=== PATIENT | female | born 1955 | race Caucasian/White ===

== ENCOUNTER 2020-11-27 13:51 | Observation (INO) | payer OTHER ==
--- OUTSIDE RECORDS SUMMARY | 2020-11-27 13:54 | XMS REPORT | Continuity of Care Document ---
:1955 Author Organization [facility] t Address [address] [place] [place] [address] Care Team Providers Name Role Phone Unavailable Unavailable Unavailable Problems This patient has no known problems. Allergies, Adverse Reactions, Alerts This patient has no known allergies or adverse reactions. Medications This patient has no known medications. Procedures This patient has no known procedures. Encounters Start End Encounter Admission Attending Care Care Encounter Source Date/Time Date/Time Type Type Clinicians Facility Department ID 2020-11-22 2020-11-[address] [facility] [id number] 00:00[facility]00 00[facility]00[facility]00 [facility] 2020-10-23 2020-10-[address] [facility] [id number] [facility] 00[facility]00 [facility] 2020-10-19 2020-10-[address] [facility] [id number] [facility] 2020-10-12 2020-10-[address] [facility] [id number] [facility] 2020-10-12 2020-10-12 Outpatient [facility] [id number] [facility] [facility] 00[facility]00 [facility] 2020-10-05 2020-10-05 [facility] [id number] [facility] 2020-09-27 2020-09-27 [facility] [id number] [facility] 2020-09-25 2020-09-25 [facility] [id number] [facility] 2020-09-21 2020-09-21 [facility] [id number] [facility] 2020-09-15 2020-09-15 [facility] [id number] [facility] 2020-08-22 2020-08-22 [facility] [id number] [facility] 2020-08-22 2020-08-22 [facility] [id number] [facility] 2020-08-22 2020-08-22 [facility] [id number] [facility] 2020-08-15 2020-08-15 [facility] [id number] [facility] 2020-07-18 2020-07-18 [facility] [id number] [facility] 2020-07-04 2020-07-04 [facility] [id number] [facility] 2020-06-22 2020-06-22 [facility] [id number] [facility] 2020-06-16 2020-06-16 [facility] [id number] [facility] 2020-05-24 2020-05-24 [facility] [id number] [facility] 2020-05-16 2020-05-16 [facility] [id number] [facility] 2020-05-10 2020-05-10 [facility] [id number] [facility] 2020-05-08 2020-05-08 [facility] [id number] [facility] 2020-04-21 2020-04-21 [facility] [id number] [facility] 2020-04-18 2020-04-18 [facility] [id number] [facility] 2020-04-17 2020-04-17 [facility] [id number] [facility] 2020-03-28 2020-03-28 [facility] [id number] [facility] Results This patient has no known results.
--- NOTE | 2020-11-27 16:00 | P.HP ---
Certification for Inpatient Patient admitted to: Observation With expected LOS: <2 Midnights Practitioner: I am a practitioner with admitting privileges, knowledge of patient current condition, hospital course, and medical plan of care. Services: Services provided to patient in accordance with Admission requirements found in Title 42 Section 412.3 of the Code of Federal Regulations Patient History Date of Service: 11/27/20 Reason for admission: Chest pain and shortness of breath History of Present Illness: 65-year-old woman with a history of anxiety disorder and gastric bypass surgeon was referred from [place] [facility] to be directly admitted further evaluation for acute pulmonary embolism. Patient presented with left anterior chest pain, which started after Father's day barbecue. Patient reports left-sided pleuritic chest, worse with talking and breathing. Her pain is reproducible by palpation. Workup at [place] emergency department showed elevated D-dimer. Chest x-ray unremarkable, CT abdomen unremarkable. Dr. Yarbrough called for patient to be directed here for further evaluation for acute pulmonary embolism. Patient denied any cough, fever or chills. CTA thorax could not be performed due to contrast allergy. Patient report itching and rashes from previous contrast use. No anaphylaxis. Patient is hospitalized for further management. - Past Medical/Surgical History -: Anxiety disorder -: Gastric bypass surgery -: Cholecystectomy -: Hysterectomy -: Back surgery -: Hip surgery - Family History Sister -: Cancer Father -: Cancer - Social History Smoking Status: Current every day smoker Alcohol use: No CD- Drugs: No Place of Residence: Home Review of Systems Other: Except as documented, all other systems reviewed and negative. Physical Examination - Vital Signs Temperature: 97.5 F Blood Pressure: 115/55 Pulse: 64 Respirations: 18 Pulse Ox (%): 98 - Physical Exam General: Alert, In no apparent distress, Oriented x3 HEENT: Atraumatic, PERRLA, Mucous membr. moist/pink, EOMI, Sclerae nonicteric Neck: Supple, JVD not distended, No Thyromegaly Respiratory: Clear to auscultation bilaterally, Normal air movement, Other (No crackles) Cardiovascular: No edema, Regular rate/rhythm, Normal S1 S2 Capillary refill: <2 Seconds Gastrointestinal: Normal bowel sounds, Soft and benign, Non-distended, Tenderness (Epigastric tenderness) Musculoskeletal: No swelling, Tenderness (Tenderness elicited-left anterior lower ribs.) Integumentary: No rashes, No breakdown, No erythema Neurological: Normal speech, Normal strength at 5/5 x4 extr, Cranial nerves 3-12 intact Lymphatics: No axilla or inguinal lymphadenopathy Assessment and Plan - Problems (Diagnosis) (1) Elevated d-dimer Current Visit: Yes Status: Acute (2) Pleuritic chest pain Current Visit: Yes Status: Acute (3) Epigastric pain Current Visit: Yes Status: Acute (4) History of gastric bypass Current Visit: Yes Status: Acute (5) Anxiety disorder Current Visit: Yes Status: Acute - Plan Place under observation. Pain managed as needed. Start full-dose Lovenox for possible acute PE. Will also start IV Protonix for possible gastric ulcers given history of gastric bypass surgery. Premedicate patient with IV Solu-Medrol and IV Benadryl and obtain CTA thorax to assess for pulmonary embolus. Continue home medications for anxiety disorder. Monitor BMP and CBC. - Advance Directives Does patient have a Living Will: No Does patient have a Durable POA for Healthcare: No
[2020-11-27 17:26] VITALS: BMI 24.7
[2020-11-27] MEDS ORDERED: ACETAMINOPHEN 500 MG TAB PO PRN (19:10)
[2020-11-27] MEDS ORDERED: SODIUM CHLORIDE 0.9% 10ML INJ IV PRN (19:10)
[2020-11-27] MEDS: NA CHLORIDE 0.9% 1,000 ML IV SCH (19:10)
[2020-11-27 19:57] LABS: Protime INR 0.96
[2020-11-27 20:03] LABS: Absolute Lymphocytes (CBC) 2.1 K/uL (0.7-4.9); Basophils % 0.7 % (0-1.3); Hematocrit 31.3 % (36.0-45.0); Lymphocytes % 33.4 % (15.3-44.8); MPV 7.5 fL (7.6-11.3); RBC Red Blood Cell Count 3.86 M/uL (3.86-4.86)
[2020-11-27 20:07] LABS: ALT/SGPT 22 U/L (12-78); AST/SGOT 23 U/L (15-37); Albumin 2.6 g/dL (3.4-5.0); Alkaline Phosphatase 98 U/L (45-117); BUN Blood Urea Nitrogen 7 mg/dL (7-18); Bicarbonate 30 mmol/L (21-32); Bilirubin Total 0.2 mg/dL (0.2-1.0); Glucose Level 89 mg/dL (74-106); Potassium 3.9 mmol/L (3.5-5.1); Protein, Total 6.4 g/dL (6.4-8.2); Sodium Level 143 mmol/L (136-145)
[2020-11-27] MEDS: PANTOPRAZOLE 40 MG INJ IVP SCH (20:34)
[2020-11-27] MEDS: ALPRAZOLAM 0.25 MG TABLET PO SCH (20:35)
[2020-11-27] MEDS: MORPHINE 2 MG/ML SYR IV PRN (21:18)
[2020-11-27 23:29] VITALS: O2SAT 96
[2020-11-28] MEDS: MORPHINE 2 MG/ML SYR IV PRN ×3 (03:27→16:42)
[2020-11-28] MEDS ORDERED: METHYLPREDNISOLONE 40 MG INJ IV ONE ×2 (03:46→08:00)
[2020-11-28 04:45] LABS: Absolute Lymphocytes (CBC) 1.3 K/uL (0.7-4.9); Basophils % 0.9 % (0-1.3); Hematocrit 29.7 % (36.0-45.0); Lymphocytes % 21.2 % (15.3-44.8); MPV 7.6 fL (7.6-11.3); RBC Red Blood Cell Count 3.66 M/uL (3.86-4.86)
[2020-11-28 04:55] LABS: BUN Blood Urea Nitrogen 9 mg/dL (7-18); Bicarbonate 29 mmol/L (21-32); Glucose Level 89 mg/dL (74-106); HDL Cholesterol 50 mg/dL (40-60); LDL Cholesterol, Calculated 63 (<130); Magnesium 2.1 mg/dL (1.8-2.4); Phosphorus 4.1 mg/dL (2.5-4.9); Potassium 4.2 mmol/L (3.5-5.1); Sodium Level 140 mmol/L (136-145)
[2020-11-28] MEDS: NA CHLORIDE 0.9% 1,000 ML IV SCH ×2 (05:26→15:21)
[2020-11-28 06:17] LABS: Urine Appearance CLEAR (Clear); Urine Bilirubin NEGATIVE (Negative); Urine Blood 2+ (Negative); Urine Color YELLOW (Yellow); Urine Glucose NEGATIVE (Negative); Urine Microscopic Reflex ORDER UMIC; Urine Protein NEGATIVE (Negative); Urine Specific Gravity <=1.005 (1.005-1.030)
[2020-11-28 06:27] LABS: Urine Bacteria NONE SEEN /HPF (<20); Urine RBC 20-50 /HPF (NONE SEEN)
[2020-11-28] MEDS ORDERED: ENOXAPARIN 40 MG/0.4 ML SQ SCH (09:00)
[2020-11-28] MEDS: DIPHENHYDRAMINE 50 MG/ML VIAL IV ONE ×2 (09:17→09:21)
[2020-11-28] MEDS: PANTOPRAZOLE 40 MG INJ IVP SCH (09:25)
--- NOTE | 2020-11-28 10:37 | RAD REPORT ---
EXAM DESCRIPTION: CT - Chest For Pe Angio - 11/28/2020 9:53 am CLINICAL HISTORY: Chest pain COMPARISON: None. TECHNIQUE: Dynamically enhanced axial 3 mm thick images of the chest were obtained during administra tion of <100> mL Isovue 370 IV contrast. Coronal and oblique reconstruction images were generated and reviewed. Exam utilizes a protocol for optimal evaluation of pulmonary arterial tree. Maximum intensity projections 3D imaging was utilized All CT scans are performed using dose optimization technique as appropriate and may include automated exposure control or mA/KV adjustment according to patient size. FINDINGS: A pulmonary embolus is not seen. A thoracic aortic aneurysm is not noted. A pleural effusion is not seen. A pericardial effusion is not seen. Mild bibasilar atelectasis Fullness within the region pancreatic IMPRESSION: Negative for a pulmonary embolism. Fullness within the region of pancreatic head may represent a combination of unopacified normal struc tures rather than a mass. It is recommended that the patient have an ultrasound for further evaluatio n
--- NOTE | 2020-11-28 11:08 | P.PN ---
Subjective Date of Service: 11/28/20 Chief Complaint: Chest pain and shortness of breath Subjective: No new changes (no significant changes. reports lower chest discomfort - points to epigastrium. no SOB. pain worsens when eating/drinking anything.) Review of Systems 10-point ROS is otherwise unremarkable Physical Examination - Vital Signs Temperature: 98.5 F Blood Pressure: 116/60 Pulse: 69 Respirations: 94 Pulse Ox (%): 94 - Studies Laboratory Data (last 24 hrs) 11/28/20 10:23: Troponin I < 0.02 11/28/20 04:20: Sodium 140, Potassium 4.2, BUN 9, Creatinine 0.45 L, Glucose 89, Phosphorus 4.1, Magnesium 2.1, Triglycerides 61, Cholesterol 125, HDL Cholesterol 50, Cholesterol/HDL Ratio 2.50 11/28/20 04:20: WBC 6.20, Hgb 9.6 L, Hct 29.7 L, Plt Count 254 11/27/20 19:33: Sodium 143, Potassium 3.9, BUN 7, Creatinine 0.51 L, Glucose 89, Total Bilirubin 0.2, AST 23, ALT 22, Alkaline Phosphatase 98 11/27/20 19:33: PT 11.0, INR 0.96 11/27/20 19:33: WBC 6.30, Hgb 10.3 L, Hct 31.3 L, Plt Count 289 Assessment & Plan Physician Review Additional Text: Physical Exam General: Alert, Oriented x3, NAD HEENT: normal conjunctiva, sclera anicteric, MMM Respiratory: Clear to auscultation bilaterally, Normal air movement, nonlabored respirations on RA Cardiovascular: No edema, Regular rate/rhythm, Normal S1 S2 Gastrointestinal: soft, +epigastric tenderness (moderate) Musculoskeletal: No joint swelling Integumentary: No rashes, No lesions Neurological: Normal speech, noraml affect, moves all extremities Problem List elevated d-dimer Chest pain Epigastric pain h/o gastric bypass ~25yrs ago Anxiety h/o varicose veins -pain management as needed -pt with moderate epigastric tenderness on exam -CTA negative for PE, some possible abnormality at pancreas head, radiology recommended further eval with U/S -no lipase obtained outside ER, will obtain lipase -check b/l U/S for DVT as well. Patient reports h/o varicose veins, has undergone procedures for them ~4 weeks ago and prior to that as well -does have some L calf tenderness on exam, but states this has been tender for some time -epigastric pain may be pancreatitis vs gastric ulcer Dispo: needs further eval, possible dc later today vs tomorrow Time Spent Managing Pts Care (In Minutes): 40
[2020-11-28] MEDS: ALPRAZOLAM 0.25 MG TABLET PO SCH (15:20)
--- NOTE | 2020-11-28 15:34 | P.DS ---
Admission Date: 11/27/20 Discharge Date: 11/28/20 Disposition: ROUTINE DISCHARGE Discharge Condition: GOOD Reason for Admission: Chest pain and shortness of breath Procedures: CTA Chest (11/28): FINDINGS: A pulmonary embolus is not seen. A thoracic aortic aneurysm is not noted. A pleural effusion is not seen. A pericardial effusion is not seen. Mild bibasilar atelectasis Fullness within the region pancreatic IMPRESSION: Negative for a pulmonary embolism. Fullness within the region of pancreatic head may represent a combination of unopacified normal structures rather than a mass. It is recommended that the patient have an ultrasound for further evaluation U/S Abd (11/28): FINDINGS: Gallbladder is absent. No mass or abnormal fluid collection in the gallbladder fossa. Common bile duct is 11 mm, upper normal for post cholecystectomy patient, with no common duct stone identified. Partially imaged liver shows no focal parenchymal abnormality. Doppler evaluation shows no portal vein abnormality. Pancreatic head mass is not identifiable on this study. There is some limitation in pancreatic assessment due to bowel. IMPRESSION: No pancreatic head mass is identifiable on this study. Exam is limited somewhat due to bowel. Cholecystectomy with biliary tree upper normal at 11 mm. No duct stone identified. Partially imaged liver is unremarkable. U/S b/l venous (11/28): FINDINGS: Normal compressibility, flow augmentation, phasic flow and spontaneous flow are identified in the left and right lower extremity common femoral, superficial femoral, popliteal and posterior tibial veins. No intraluminal filling defects seen. IMPRESSION: No DVT in either lower extremity. Problem List elevated d-dimer Epigastric pain h/o gastric bypass ~25yrs ago Anxiety h/o varicose veins Brief History of Present Illness: 65-year-old woman with a history of anxiety disorder and gastric bypass surgeon was referred from [place] emergency [facility] to be directly admitted further evaluation for acute pulmonary embolism. Patient presented with left anterior chest pain, which started after Father's day barbecue. Patient reports left-sided pleuritic chest, worse with talking and breathing. Her pain is reproducible by palpation. Workup at [place] emergency department showed elevated D-dimer. Chest x-ray unremarkable, CT abdomen unremarkable. Dr. Yarbrough called for patient to be directed here for further evaluation for acute pulmonary embolism. Patient denied any cough, fever or chills. CTA thorax could not be performed due to contrast allergy. Patient report itching and rashes from previous contrast use. No anaphylaxis. Patient is hospitalized for further management. Hospital Course: Patient was premedicated and underwent CTA chest which was negative for PE. It did reveal a questionable area near the pancreatic head. This was further evaluated by ultrasound and did not reveal any mass or abnormal finding. Medical records were obtained from [facility] and a CT Abd/pelvis was done which was read as unremarkable pancreas. No other acute findings. Her chest pain was evaluated by EKG and troponin which were normal. She had moderate epigastric tenderness on exam that worsened with PO intake. She was treated with IV protonix with some improvement. Despite counselling, she continued to drink soda during her hospitalization. Her epigastric pain is likely secondary to gastritis vs gastric ulcer. She was advised on minimizing acidic foods/drinks, prescribed pantoprazole BID, and recommended to follow up with GI. She is to follow up with her PCP in the next 3-5 days as well. Her d-dimer was noted to be significantly elevated, and had a negative CT chest and b/l venous ultrasound. She does have a history of varicose veins and underwent procedures ~3-4 weeks ago, which may somewhat explain the elevated d- dimer. Vital Signs/Physical Exam: Temp Pulse Resp BP Pulse Ox 97.8 F 53 15 137/63 95 11/28/20 12:00 11/28/20 12:00 11/28/20 12:00 11/28/20 12:00 11/28/20 12:00 Laboratory Data at Discharge: WBC 6.20 K/uL (4.3-10.9) 11/28/20 04:20 Hgb 9.6 g/dL (12.0-15.0) L 11/28/20 04:20 Hct 29.7 % (36.0-45.0) L 11/28/20 04:20 Plt Count 254 K/uL (152-406) 11/28/20 04:20 PT 11.0 SECONDS (9.5-12.5) 11/27/20 19:33 INR 0.96 11/27/20 19:33 Sodium 140 mmol/L (136-145) 11/28/20 04:20 Potassium 4.2 mmol/L (3.5-5.1) 11/28/20 04:20 BUN 9 mg/dL (7-18) 11/28/20 04:20 Creatinine 0.45 mg/dL (0.55-1.3) L 11/28/20 04:20 Glucose 89 mg/dL (74-106) 11/28/20 04:20 Phosphorus 4.1 mg/dL (2.5-4.9) 11/28/20 04:20 Magnesium 2.1 mg/dL (1.8-2.4) 11/28/20 04:20 Total Bilirubin 0.2 mg/dL (0.2-1.0) 11/27/20 19:33 AST 23 U/L (15-37) 11/27/20 19:33 ALT 22 U/L (12-78) 11/27/20 19:33 Alkaline Phosphatase 98 U/L (45-117) 11/27/20 19:33 Troponin I < 0.02 ng/mL (0.0-0.045) 11/28/20 10:23 Triglycerides 61 mg/dL (<150) 11/28/20 04:20 Cholesterol 125 mg/dL (<200) 11/28/20 04:20 HDL Cholesterol 50 mg/dL (40-60) 11/28/20 04:20 Cholesterol/HDL Ratio 2.50 11/28/20 04:20 Lipase 37 U/L (73-393) L 11/28/20 10:23 Home Medications: Alprazolam [Xanax] 0.25 mg PO BID 11/27/20 Cetirizine HCl [Zyrtec*] 5 mg PO DAILY 11/27/20 Citalopram [Celexa*] 40 mg PO DAILY 11/27/20 Gabapentin [Neurontin*] 600 mg PO TID* 11/27/20 L. Acidophilus/Dig Enz Cmb 5 [Probiotic-Digestive Enzymes] 1 each PO DAILY 11/27/20 Mirtazapine [Remeron*] 30 mg PO BEDTIME 11/27/20 Multivit-Min/FA/Lycopen/Lutein [Adults 50 Plus Daily Formula] 1 each PO DAILY 11/27/20 Mv-Mn/Iron/Folic Acid/Herb 190 [Vitamin D3 Complete Caplet] 1 each PO DAILY 11/27/20 Vit B6/L. Mefolate/Me-B12/Ala [Nufola Capsule] 1 each PO BID* 11/27/20 Pantoprazole [Protonix Tab*] 40 mg PO BID 30 Days #60 tab 11/28/20 Sucralfate [Carafate] 10 ml PO AC 30 Days #900 ml 11/28/20 New Medications: Sucralfate [Carafate] 10 ml PO AC 30 Days #900 ml Pantoprazole [Protonix Tab*] 40 mg PO BID 30 Days #60 tab Physician Discharge Instructions: PROBLEM: Chest Pain, dyspnea GOAL: Clear understanding of disease process INSTRUCTIONS: Diet: Regular Activity: as tolerated If you have any questions regarding your stay call [phone] If your symptoms worsen call 911 or go to the ED. Your chest pain was evaluated by CT scan, EKG, troponin - all within normal limits. Your pain may be due to gastritis or gastric ulcer. Recommend pantoprazole twice a day, carafate before meals, stop ibuprofen, and stop drinking your soda. Recommend following up with your PCP in 3-5 days, and follow-up with a GI doctor (Dr. Pino, as you mentioned) in the next few weeks. You may benefit from an EGD (scope) to look at your stomach. You were found to have an elevated D-dimer, and workup did not show a blood clot in your lungs or legs. This may have been elevated from your recent procedures involving your varicose veins. Followup: Delmar Pino MD [ASSOCIATE-ACTIVE - CAN ADMIT] - Time spent managing pt's care (in minutes): 50
--- NOTE | 2020-11-28 15:35 | RAD REPORT ---
EXAM DESCRIPTION: US - Abdomen Exam Limited - 11/28/2020 2:33 pm CLINICAL HISTORY: eval pancreas head / ?mass, RUQ as well COMPARISON: Chest For Pe Angio dated 11/28/2020 FINDINGS: Gallbladder is absent. No mass or abnormal fluid collection in the gallbladder fossa. Comm on bile duct is 11 mm, upper normal for post cholecystectomy patient, with no common duct stone ident ified. Partially imaged liver shows no focal parenchymal abnormality. Doppler evaluation shows no portal vei n abnormality. Pancreatic head mass is not identifiable on this study. There is some limitation in pancreatic assess ment due to bowel. IMPRESSION: No pancreatic head mass is identifiable on this study. Exam is limited somewhat due to b owel. Cholecystectomy with biliary tree upper normal at 11 mm. No duct stone identified. Partially imaged l iver is unremarkable. The original CT angio chest examination has only a limited ability to accurately evaluate pancreas an d solid abdominal viscera of the upper abdomen. If there are ongoing clinical concerns or abnormal la boratory studies, contrast-enhanced MRI or CT pancreatic protocol imaging of the abdomen could be per formed.
--- NOTE | 2020-11-28 16:09 | RAD REPORT ---
EXAM DESCRIPTION: US - Extrem Venous W Compress Jorge - 11/28/2020 3:27 pm CLINICAL HISTORY: eval for DVT, h/o varicose veins. L calf tender COMPARISON: None. TECHNIQUE: Real-time sonographic evaluation of the bilateral lower extremity common femoral, superfi cial femoral, popliteal and posterior tibial veins was performed. FINDINGS: Normal compressibility, flow augmentation, phasic flow and spontaneous flow are identified in the left and right lower extremity common femoral, superficial femoral, popliteal and posterior t ibial veins. No intraluminal filling defects seen. IMPRESSION: No DVT in either lower extremity.
[2020-11-28 16:25] VITALS: BP 122/56; TEMP 98
[2020-11-28] MEDS ORDERED: SUCRALFATE 1GM/10ML UCUP PO SCH (17:00)
== END 2020-11-28 18:01 | disposition home or self-care (01) ==
LOC: 2ND 13:51 → INTOOBSV 13:51
PROVIDERS: ADMIT Internal Medicine; ATTEND Hospitalist
DX: R07.81 Pleurodynia (principal); R10.13 Epigastric pain; R79.89 Other specified abnormal findings of blood chemistry; Z98.84 Bariatric surgery status; F41.9 Anxiety disorder, unspecified; R06.02 Shortness of breath; F17.200 Nicotine dependence, unspecified, uncomplicated
CPT/HCPCS: 36415; 71275; 76705; 80048; 80053; 80061; 81003; 81015; 83690; 83735; 84100; 84484; 85025; 85610; 93970; 94760; C9113; G0378; G0379; J1200; J1650; J2270; J2920; J7030; Q9967

== ENCOUNTER 2021-12-13 05:45 | Observation (INO) | payer OTHER ==
[2021-11-16 08:58] LABS: Absolute Lymphocytes (CBC) 1.7 K/uL (0.7-4.9); Hematocrit 34.7 % (36.0-45.0); Lymphocytes % 23.4 % (15.3-44.8); MCV 83.3 fL (80-100); MPV 7.6 fL (7.6-11.3); RBC Red Blood Cell Count 4.17 M/uL (3.86-4.86)
[2021-11-16 09:02] LABS: Protime INR 0.88
[2021-11-16 09:13] LABS: Potassium 4.6 mmol/L (3.5-5.1)
--- NOTE | 2021-11-16 09:35 | RAD REPORT ---
EXAM DESCRIPTION: Gaurav Marshall And Cas (2 Views)11/16/2021 8:49 am CLINICAL HISTORY: Preop for knee surgery COMPARISON: 2020 FINDINGS: The lungs appear clear of acute infiltrate. Mild chronic appearing lung opacities. The heart is mildly enlarged. Lungs are mildly hyperaerated. IMPRESSION: No acute abnormalities displayed
[2021-12-13] MEDS ORDERED: Ringers Lactate 1,000 ML IV ONE ×2 (06:10→09:17)
[2021-12-13] MEDS ORDERED: CEFAZOLIN SODIUM 1 GM/VIAL ONE (06:10)
[2021-12-13] MEDS ORDERED: FENTANYL CITR 100 MCG/2 ML ONE (06:27)
[2021-12-13] MEDS ORDERED: propofoL 200 MG/20 ML VIAL IV ONE (06:27)
[2021-12-13] MEDS ORDERED: ONDANSETRON 4 MG/2 ML VIAL ONE (06:27)
[2021-12-13] MEDS ORDERED: LIDOCAINE 2% MPF 5 ML VIAL ONE (06:27)
[2021-12-13] MEDS ORDERED: KETAMINE HCL 500 MG/5 ML VIAL ONE (06:27)
[2021-12-13] MEDS ORDERED: MIDAZOLAM HCL 2 MG/2 ML INJ ONE (06:27)
[2021-12-13] MEDS ORDERED: ACETAMINOPHEN 500 MG TAB ONE (06:38)
[2021-12-13] MEDS ORDERED: CELECOXIB 100 MG CAPSULE ONE (06:38)
[2021-12-13] MEDS ORDERED: HYDROMORPHONE HCL 1 MG/ML INJ ONE (06:56)
[2021-12-13] MEDS ORDERED: LIDOCAINE 1% MPF 5 ML VIAL ONE ×2 (06:56→11:52)
[2021-12-13] MEDS ORDERED: BUPIVACAINE 0.25% PF 10 ML VIAL ONE (06:56)
[2021-12-13] MEDS ORDERED: dexAMETHasone 4 MG/ML VIAL ONE (06:56)
[2021-12-13] MEDS ORDERED: BUPIVACAINE 0.5% Inj,MDV 50 mL VIAL ONE ×2 (06:57→11:52)
[2021-12-13] MEDS ORDERED: BUPIVACA 0.5%/EPI 0.0005%/PF 30 ML VIAL ONE (07:20)
[2021-12-13] MEDS ORDERED: TRANEXAMIC ACID 1,000 MG/10 ML VIAL IV ONE (07:20)
[2021-12-13] MEDS ORDERED: EPHEDRINE SULF 50 MG/ML VIAL ONE (08:26)
[2021-12-13] MEDS ORDERED: ALPRAZOLAM 0.25 MG TABLET PO PRN (10:36)
--- NOTE | 2021-12-13 10:36 | P.BOP ---
Preoperative diagnosis: left knee osteoarthritis Postoperative diagnosis: same Primary procedure: left total knee arthroplasty Seo Expert: NONE,NONE Estimated blood loss: 20 cc Specimen: left knee bone remnants Findings: see dictation Anesthesia: General Complications: None Implants: [employer] Tommy Persona 8 CR femur, F tibia, 29 patella, 11 CR poly Fluids & blood products: per anesthesia record; TT: 64 mins @ 300 mmHg Transferred to: Recovery Room Condition: Good
[2021-12-13] MEDS ORDERED: ONDANSETRON 4 MG/2 ML VIAL IV PRN (10:37)
[2021-12-13] MEDS ORDERED: ACETAMINOPHEN 325 MG TABLET PO PRN (10:37)
[2021-12-13] MEDS ORDERED: DOCUSATE NA 100 MG CAP PO PRN (10:37)
[2021-12-13] MEDS ORDERED: TRAMADOL HCL 50 MG TAB PO PRN (10:42)
[2021-12-13] MEDS: HYDROMORPHONE HCL 1 MG/ML INJ ONE ×6 (10:57→11:48)
[2021-12-13] MEDS: FENTANYL CITR 100 MCG/2 ML ONE ×2 (11:32→11:37)
[2021-12-13 11:44] LABS: Hematocrit 33.4 % (36.0-45.0)
--- NOTE | 2021-12-13 12:01 | RAD REPORT ---
EXAM DESCRIPTION: RAD - Knee Left 2 View - 12/13/2021 11:03 am CLINICAL HISTORY: Post Op COMPARISON: Knee Left 3 View dated 03/21/2021 FINDINGS: Left total knee prosthesis has been placed. No suspicious bone or implant finding. Fluid a nd air in the joint space are normal. Skin miles are seen anteriorly. Air tracking superiorly along the anterior margin of the femur also can occur normally with this procedure. IMPRESSION: Postoperative left total knee prosthesis imaging showing no suspicious or unexpected fin ding.
[2021-12-13 12:02] VITALS: O2SAT 97
[2021-12-13] MEDS ORDERED: MORPHINE 2 MG/ML SYR IV PRN (13:44)
[2021-12-13 14:10] VITALS: BMI 22.3
[2021-12-13] MEDS: CEFAZOLIN 1 GM in NA CHLORIDE 0.9% 50 ML IVPB SCH (16:35)
[2021-12-13] MEDS: HYDROCODONE/APAP 7.5/325 MG TAB PO PRN (16:40)
[2021-12-13] MEDS ORDERED: NA CHLORIDE 0.9% 250 ML IV PRN (19:57)
[2021-12-13] MEDS ORDERED: HOME MED 1 EA UNK (Tizanidine Hcl [Zanaflex] 2 MG Capsule) PO SCH (21:00)
[2021-12-13] MEDS ORDERED: MIRTAZAPINE 15 MG TAB PO SCH (21:00)
[2021-12-13] MEDS ORDERED: MIRTAZAPINE 30 MG PO SCH (21:00)
[2021-12-13] MEDS: TIZANIDINE 4 MG TABLET PO SCH (21:13)
--- NOTE | 2021-12-13 22:29 | P.OP ---
Preoperative diagnosis: left knee osteoarthritis Postoperative diagnosis: same Primary procedure: left total knee arthroplasty Anesthesia: general Estimated blood loss: 20 cc Specimen: left knee bone remnants Findings: see dictation Operative Technique: Indication For Procedure: Jacqueline is a 66 year-old male presenting to my clinic with signs, symptoms and x-ray findings consistent with left knee osteoarthritis. I discussed with the patient at length risks and benefits associated with operative and nonoperative treatment. She had failed conservative treatment measures including corticosteroid injections, viscosupplementation injections and had significant difficulties with ADLs secondary to her pain. We discussed operative treatment and elected to proceed with left total knee arthroplasty. She expressed understanding and elected to proceed with operative treatment. Description Of Procedure: After informed consent was obtained, the patient was identified in the preoperative holding area. The left lower extremity was marked. The patient was then taken to the PACU where she underwent a left lower extremity adductor canal block performed by Anesthesia. She was then taken to the operating room, transferred to the operating table in supine fashion, and placed under general anesthesia. Her left lower extremity was then prepped and draped in usual sterile fashion. A time-out was initiated. The correct patient and procedure were confirmed and identified. The patient did receive her preoperative prophylactic antibiotics. The leftt lower extremity was then exsanguinated and tourniquet was inflated to 300 mmHg. Approximately 15 cm longitudinal incision was made centered over the anterior aspect of the right knee. Dissection was then taken to the extensor mechanism and a medial parapatellar arthrotomy was performed. The patella was everted and dislocated laterally with some difficulty and the knee was flexed and the fat pad was excised. Medial meniscus, lateral meniscus and ACL were all excised exposing the distal femur. Excess hypertrophic synovium was also excised within the suprapatellar pouch. The patient had an MRI of her left knee preoperatively for surgical planning and creation of cutting blocks. The cutting block was then placed over the distal femur and pins were then placed. The distal femoral cutting block was then placed over the pins. Knee joint was then used to ensure proper depth cut and the distal femur was then cut. The chamfer cutting guide was then placed over the distal end of the femur. Anterior, posterior cuts as well as anterior and posterior chamfer cuts were then made again confirming proper depth of the cut using an Jitendra wing. Excess bone remnants were then sent to pathology for further evaluation. Next, attention was taken to the proximal tibia. A tibial jig and tibial cutting block was then placed on proximal aspect of the tibia and locked into position. Pins were then placed and alignment guide was then used to confirm proper alignment of the cut and then coronal and sagittal planes. Once this was confirmed, the cutting jig was placed over the pins and the proximal tibia was cut. Sizing trays were then selected and size 10 mm spacer was used. After this was completed there was good overall balance in flexion and extension with the 10 mm spacer. There was just a little bit of laxity noted and a 11 mm poly was selected. Next, the trial implants were then placed using the size 8 standard CR femur and a size F tibia with an 11 mm poly. There was overall good range of motion and good stability trial implants were then removed. The wound was then irrigated thoroughly with normal saline and the knee was then injected with 30 cc of 0.5% Marcaine both in the posterior capsule and medial and lateral gutters as well as quadriceps tendon and periosteum. The tibia was then punched and marked after the patella button was placed. The femur was drilled. The cement was then prepared on the back table. Cement was then placed first on the tibial surface followed by size F tibia. Excess cement was removed with Cope elevators. Size 8 CR femur was then placed on the distal femur after cement was placed on the distal femur. Excess cement was then removed and a size 11 mm trial poly was then placed. The knee was held in extension as the cement hardened. Undersurface of the patella was prepared debriding osteophytes using rongeurs as well as osteophytes had been debrided off the proximal tibia with rongeurs. Cement was placed on the undersurface of the patella after it was cut and a size 29 patella was placed. Once the cement was hardened, the knee was ranged, there was good overall stability both in flexion, extension and as well as stability with varus and valgus stresses. Trial poly was then removed and a size 11 mm CR poly was then placed and locked into position. The knee was then ranged again. There was good overall range of motion both for flexion and extension with good stability. The wound was then irrigated again thoroughly with normal saline using pulse lavage. Tourniquet was let down. Hemostasis was achieved using Bovie electrocautery. Extensor mechanism was then approximated using a #1 Vicryl both in interrupted and running fashion. The fascia was then approximated using 0 Vicryl. Subcutaneous tissue was approximated with a 2-0 Vicryl. Skin was approximated using miles. Sterile dressings were applied. The patient was awakened and transferred back in stable condition Complications: None Implants: Biomet Tommy Persona 8 CR femur, F tibia, 11 CR poly, 29 patella Fluids & blood products: per anesthesia record; TT: 64 mins @ 300 mmHg Transferred to: Recovery Room
[2021-12-14] MEDS: CEFAZOLIN 1 GM in NA CHLORIDE 0.9% 50 ML IVPB SCH ×2 (00:22→08:41)
[2021-12-14] MEDS: HYDROCODONE/APAP 7.5/325 MG TAB PO PRN ×2 (03:03→14:05)
[2021-12-14 04:59] LABS: Hematocrit 26.1 % (36.0-45.0)
[2021-12-14] MEDS: ENOXAPARIN 30 MG/0.3 ML SQ SCH ×2 (05:39→08:42)
[2021-12-14] MEDS: TIZANIDINE 4 MG TABLET PO SCH (08:41)
[2021-12-14] MEDS ORDERED: CITALOPRAM 10 MG TABLET PO SCH (09:00)
[2021-12-14] MEDS ORDERED: VITAMIN D 5,000 UNIT CAP PO SCH (09:00)
[2021-12-14] MEDS ORDERED: HOME MED 1 EA UNK (Citalopram Hydrobromide [Celexa] 40 MG Tablet) PO SCH (09:00)
[2021-12-14] MEDS ORDERED: NA CHLORIDE 0.9% 250 ML IV ONE (10:55)
--- NOTE | 2021-12-14 11:11 | P.PN ---
Subjective Date of Service: 12/14/21 Chief Complaint: s/p L TKA; Subjective: Working w/ PT some hypotension overnight; Physical Examination - Vital Signs Temperature: 98.0 F Blood Pressure: 94/56 Pulse: 73 Respirations: 16 Pulse Ox (%): 97 - Physical Exam General: Alert, In no apparent distress Musculoskeletal: Other (LLE: dressing c/d/i; 2+ DP pulse; NVI distally) - Studies Laboratory Data (last 24 hrs) 12/14/21 04:40: Hgb 8.4 L, Hct 26.1 L D 12/13/21 11:11: Hgb 10.4 L, Hct 33.4 L Assessment And Plan - Plan Jacqueline is a 66-year-old female status post left total knee arthroplasty postoperative day #1 -Patient with acute on chronic blood loss anemia; continue to monitor H&H -Patient with some hypotension; given a 250 cc bolus yesterday and repeat bolus to be given today; Hold pain medication and anxiety medication until blood pressure normalizes -Continue working with PT -Given her hypotension we will likely plan on discharge tomorrow -lovenox for DVT prophylaxis
[2021-12-14 13:19] VITALS: BP 112/54; TEMP 98.4
== END 2021-12-14 16:50 | disposition home health service (06) ==
LOC: OR 05:45 → 2ND 10:37
PROVIDERS: ADMIT Orthopaedic Surgery Sports Medicine; ATTEND Orthopaedic Surgery Sports Medicine
PROC: 0SRC069 Replacement of Right Knee Joint with Oxidized Zirconium on Polyethylene Synthetic Substitute, Cemented, Open Approach (ICD-10-PCS; principal; 2021-12-13 08:00)
DX: M17.12 Unilateral primary osteoarthritis, left knee (principal); D62 Acute posthemorrhagic anemia; I95.9 Hypotension, unspecified; Z91.041 Radiographic dye allergy status; Z88.6 Allergy status to analgesic agent; Z20.822 Contact with and (suspected) exposure to COVID-19
CPT/HCPCS: 85025; 80048; 36415 ×3; 85610; 88305; 88311; 85730; 85018 ×2; 85014 ×2; 71046; 73560; 97110 ×2; 97112; 97116 ×2; 97139 ×2; 97161; 97530; 94010; 27447; U0002; C1776; J2704; J1100; J1650; J2250; J3010 ×2; J1170 ×4; J7120 ×2; J7050 ×2; J2405 ×2; J0690 ×4; 88304; G0378; G0379

== ENCOUNTER 2022-10-17 20:43 | Emergency (ER) | payer OTHER ==
--- OUTSIDE RECORDS SUMMARY | 2022-10-17 20:52 | XMS REPORT | Continuity of Care Document ---
:1955 Author Organization [facility] t Address [address] [place] [address] Care Team Providers Name Role Phone Leonidas Kilpatrikc Attending Clinician Unavailable ABBY PALOMARES Attending Clinician Unavailable Payers Payer Name Policy Type Policy Number Effective Date Expiration Date S nafisa [facility] [id number] [facility] ADVANTAGE [facility] 53 [id number] 2020 [facility] ADVANTAGE 00:00:00 - [facility] MEDICARE MB [id number] [facility] NOVITAS - [facility] Problems Condition Condition Condition Status Onset Resolution Last Treating Co mments Source Name Details Category Date Date Treatment Clinician Date [id number] 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 [id number] Peripheral Problem Com mon polyneurop Spirit athy - [facility] [id number] Current Problem Common moderate Spirit episode of - [facility] major [facility] prior episode [id number] Iron Problem Common deficiency Spirit anemia, - [facility] unspecifie [facility] iron [facility] type [id number] Vitamin D Problem Comm on deficiency Spirit disease - [facility] [id number] Panic Problem Common disorder [facility] [episodic - CHI paroxysmal St anxiety] [facility] Chronic Chronic Problem Common obstructiv obstructiv Sp benoit e e - [facility]I pulmonary pulmonary [facility] (COPD) [facility] [id number] Primary Problem Comm on osteoarthr Spirit itis of - [facility] right knee [facility] [id number] Tobacco Problem Commo n use Spirit disorder [facility] [id number] Primary Problem Common insomnia [facility] [id number] Generalize Problem Com mon d anxiety [facility] disorder [facility] [id number] Primary Problem Comm on osteoarthr Spirit itis of - [facility] left knee [facility] [id number] Hypocalcem Problem Comm on ia Spirit [facility] [id number] Arthritis Problem Co mmon [id number] of right [facility] knee [facility] [id number] 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 - [facility] t of right [facility] [id number] Presence Problem Comm on of Spirit unspecifie - [facility]I d [facility] hip joint [facility] [id number] PAD Problem Common (periphera Spirit l artery - CHI disease) [facility] [id number] Arthritis Problem Co mmon [id number] of left [facility] knee [facility] [id number] 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 adverse 00:00: of reaction 00 Medicin s to e drug Naproxen Propensi Active Rash [facility] to 2- [facility] [place] adverse 00:00: of reaction 00 Medicin s to e drug naproxen naproxen Active Rash Common [facility] Social History Social Habit Start Date Stop Date Quantity Comments Source History of Cigarette Smoker [facility] eloisa tobacco use of Medicine Tobacco use and 2022-08-05 2022-08-05 Smokeless tobacco Ba [facility] College exposure 00:00:00 00:00:00 non-user of Medicine Alcohol intake 2022-08-05 2022-08-05 Lifetime [facility] Col lege 00:00:00 00:00:00 non-drinker of Medicine (finding) Sex [birth year] F [facility] Co llege 00:00:00 00:00:00 of Medicine Smoking Status Start Date Stop Date Source Smokes tobacco daily 2022-08-05 00:00:00 [facility] Medications Ordered Filled Start Stop Current Ordering Indication Dosage Frequency Signature Comments Components Source Medication Medication Date Date Medication? Clinician (SIG) Name Name citalopram Yes citalopram [facility] (CELEXA) 40 - 40 mg College MG tablet 08:17: tablet of 51 Medicin e mirtazapine Yes mirtazapin [facility] (REMERON) 08-05 e 30 mg College 30 MG 08:17: tablet of tablet 51 Medicin e alprazolam Yes alprazolam [facility] (XANAX) 08-05 0.25 mg College 0.25 MG 08:17: tablet of tablet 51 Medicin e tizanidine Yes tizanidine [facility] (ZANAFLEX) 08-05 2 mg College 2 MG tablet 08:17: tablet of 51 Medicin e meloxicam Yes meloxicam [facility] (MOBIC) 7.5 08-05 7.5 mg Colleg e MG tablet 08:17: tablet of 51 Medicin e Acetaminoph Yes acetaminop [facility] en-Codeine 08-05 hen 300 Colleg e 300-60 MG 08:17: mg-codeine of TABS 51 60 mg Medicin tablet e gabapentin Yes gabapentin [facility] (NEURONTIN) 08-05 600 mg Colleg e 600 MG 08:17: tablet of tablet 51 Medicin e cyanocobala Yes cyanocobal Jareth min 1000 08-05 son (vit Colleg e MCG/ML 08:17: B-12) of injection 51 1,000 Medicin mcg/mL e injection solution Cetirizine Yes Take by [facility] or HCl (ZYRTEC 2-27 mouth. Colleg e ALLERGY OR) 08:17: of 51 Medicin e Xanax 0.25 Xanax 0.25 2021-1 No 1{table Xanax 0.25 MG MG 2-19 t} MG 00:00: 00 Xanax 0.25 Xanax 0.25 1 No 1{table Xanax 0.25 MG MG 2-19 t} MG 00:00: 00 Xanax 0.25 Xanax 0.25 1 No 1{table Xanax 0.25 MG MG 2-19 t} MG 00:00: 00 Xanax 0.25 Xanax 0.25 1 No 1{table Xanax 0.25 MG MG 2-19 t} MG 00:00: 00 Xanax 0.25 Xanax 0.25 2021-0 No 1{table Xanax 0.25 MG MG 9-28 t} MG 00:00: 00 Vitamin B12 Vitamin B12 2021-0 No 1000ug Common (Cyanocobal (Cyanocobal 9-28 S pirit son) son) 00:00: - [facility]I 00 [facility] Xanax 0.25 Xanax 0.25 2021-0 No 1{table Xanax 0.25 MG MG 9-28 t} MG 00:00: 00 Vitamin B12 Vitamin B12 2-0 No 1000ug Common (Cyanocobal (Cyanocobal 9-28 S pirit son) son) 00:00: - CHI 00 [facility] Xanax 0.25 Xanax 0.25 2021-0 No 1{table Xanax 0.25 MG MG 9-28 t} MG 00:00: 00 Vitamin B12 Vitamin B12 2-0 No 1000ug Common (Cyanocobal (Cyanocobal 9-28 S pirit son) son) 00:00: - CHI 00 [facility] Xanax 0.25 Xanax 0.25 2021-0 No 1{table Xanax 0.25 MG MG 9-28 t} MG 00:00: 00 Vitamin B12 Vitamin B12 2022-0 No 1000ug Common (Cyanocobal (Cyanocobal 9-28 S pirit son) son) 00:00: - CHI 00 [facility] Xanax 0.25 Xanax 0.25 2022-0 No 1{table Xanax 0.25 MG MG 9-28 t} MG 00:00: 00 Vitamin B12 Vitamin B12 2-0 No 1000ug Common (Cyanocobal (Cyanocobal 9-28 S pirit son) son) 00:00: - CHI 00 [facility] Vitamin B12 Vitamin B12 2022-0 No 1000ug Common (Cyanocobal (Cyanocobal 9-28 S pirit son) son) 00:00: - CHI 00 [facility] Vitamin B12 Vitamin B12 2022-0 No 1000ug Common (Cyanocobal (Cyanocobal 9-28 S pirit son) son) 00:00: - CHI 00 [facility] Vitamin B12 Vitamin B12 2-0 No 1000ug Common (Cyanocobal (Cyanocobal 9-28 S pirit son) son) 00:00: - CHI 00 [facility] Vitamin B12 Vitamin B12 2-0 No 1000ug Common (Cyanocobal (Cyanocobal 9-28 S pirit son) son) 00:00: - CHI 00 [facility] Xanax 0.25 Xanax 0.25 2022-0 No 1{table Xanax 0.25 MG MG 9-28 t} MG 00:00: 00 Vitamin B12 Vitamin B12 2-0 No 1000ug Common (Cyanocobal (Cyanocobal 9-28 S pirit son) son) 00:00: - [facility]I 00 [facility] Cyanocobala Cyanocobala 2-0 2- No Cyanocobal min 1000 min 1000 03-06- son 1000 MCG/ML MCG/ML 00:00: 00:00 MCG/ML 00 :00 Cyanocobala Cyanocobala 2022-0 2022- No Cyanocobal min 1000 min 1000 - 12-26 son 1000 MCG/ML MCG/ML 00:00: 00:00 MCG/ML 00 :00 Cyanocobala Cyanocobala 2022-0 2022- No Cyanocobal min 1000 min 1000 03-06 12- son 1000 MCG/ML MCG/ML 00:00: 00:00 MCG/ML 00 :00 Cyanocobala Cyanocobala 2022-0 2022- No Cyanocobal min 1000 min 1000 - 12-26 son 1000 MCG/ML MCG/ML 00:00: 00:00 MCG/ML 00 :00 Cyanocobala Cyanocobala 2021-0 2022- No Cyanocobal min 1000 min 1000 9-28 12-26 son 1000 MCG/ML MCG/ML 00:00: 00:00 MCG/ML 00 :00 Cyanocobala Cyanocobala 2021-0 2022- No Cyanocobal min 1000 min 1000 9- 12-26 son 1000 MCG/ML MCG/ML 00:00: 00:00 MCG/ML 00 :00 Xanax 0.25 Xanax 0.25 2021-0 No 1{table Xanax 0.25 MG MG 7-06 t} MG 00:00: 00 Xanax 0.25 Xanax 0.25 2021-0 No 1{table Xanax 0.25 MG MG 7-06 t} MG 00:00: 00 Xanax 0.25 Xanax 0.25 2021-0 No 1{table Xanax 0.25 MG MG 7-06 t} MG 00:00: 00 Xanax 0.25 Xanax 0.25 2-0 No 1{table Xanax 0.25 MG MG 7-06 t} MG 00:00: 00 Xanax 0.25 Xanax 0.25 2-0 No 1{table Xanax 0.25 MG MG 7-06 t} MG 00:00: 00 Xanax 0.25 Xanax 0.25 2-0 No 1{table Xanax 0.25 MG MG 7-06 t} MG 00:00: 00 Enoxaparin Enoxaparin 2021-0 No .3{ml} Enoxaparin Sodium 30 Sodium 30 6-28 Sodium 30 MG/0.3ML MG/0.3ML 00:00: MG/0.3ML 00 Enoxaparin Enoxaparin 2021-0 No .3{ml} Enoxaparin Sodium 30 Sodium 30 6-28 Sodium 30 MG/0.3ML MG/0.3ML 00:00: MG/0.3ML 00 Enoxaparin Enoxaparin 2021-0 No .3{ml} Enoxaparin Sodium 30 Sodium 30 6-28 Sodium 30 MG/0.3ML MG/0.3ML 00:00: MG/0.3ML 00 Enoxaparin Enoxaparin 2021-0 No .3{ml} Enoxaparin Sodium 30 Sodium 30 6-28 Sodium 30 MG/0.3ML MG/0.3ML 00:00: MG/0.3ML 00 Enoxaparin Enoxaparin 2021-0 No .3{ml} Enoxaparin Sodium 30 Sodium 30 6-28 Sodium 30 MG/0.3ML MG/0.3ML 00:00: MG/0.3ML 00 Enoxaparin Enoxaparin 2021-0 No .3{ml} Enoxaparin Sodium 30 Sodium 30 6-28 Sodium 30 MG/0.3ML MG/0.3ML 00:00: MG/0.3ML 00 Enoxaparin Enoxaparin 2021-0 No .3{ml} Enoxaparin Sodium 30 Sodium 30 6-28 Sodium 30 MG/0.3ML MG/0.3ML 00:00: MG/0.3ML 00 Enoxaparin Enoxaparin 2021-0 No .3{ml} Enoxaparin Sodium 30 Sodium 30 6-28 Sodium 30 MG/0.3ML MG/0.3ML 00:00: MG/0.3ML 00 Enoxaparin Enoxaparin 2021-0 No .3{ml} Enoxaparin Sodium 30 Sodium 30 6-28 Sodium 30 MG/0.3ML MG/0.3ML 00:00: MG/0.3ML 00 Enoxaparin Enoxaparin 2021-0 No .3{ml} Enoxaparin Sodium 30 Sodium 30 6-28 Sodium 30 MG/0.3ML MG/0.3ML 00:00: MG/0.3ML 00 Enoxaparin Enoxaparin 2-0 No .3{ml} Enoxaparin Sodium 30 Sodium 30 6-28 Sodium 30 MG/0.3ML MG/0.3ML 00:00: MG/0.3ML 00 Enoxaparin Enoxaparin 2-0 No .3{ml} Enoxaparin Sodium 30 Sodium 30 6-28 Sodium 30 MG/0.3ML MG/0.3ML 00:00: MG/0.3ML 00 Enoxaparin Enoxaparin 2021-0 No .3{ml} Enoxaparin Sodium 30 Sodium 30 6-28 Sodium 30 MG/0.3ML MG/0.3ML 00:00: MG/0.3ML 00 Enoxaparin Enoxaparin 2021-0 No .3{ml} Enoxaparin Sodium 30 Sodium 30 6-28 Sodium 30 MG/0.3ML MG/0.3ML 00:00: MG/0.3ML 00 Enoxaparin Enoxaparin 2021-0 No .3{ml} Enoxaparin Sodium 30 Sodium 30 6-28 Sodium 30 MG/0.3ML MG/0.3ML 00:00: MG/0.3ML 00 Enoxaparin Enoxaparin 2021-0 No .3{ml} Enoxaparin Sodium 30 Sodium 30 6-28 Sodium 30 MG/0.3ML MG/0.3ML 00:00: MG/0.3ML 00 Enoxaparin Enoxaparin 2021-0 No .3{ml} Enoxaparin Sodium 30 Sodium 30 6-28 Sodium 30 MG/0.3ML MG/0.3ML 00:00: MG/0.3ML 00 Enoxaparin Enoxaparin 2021-0 No .3{ml} Enoxaparin Sodium 30 Sodium 30 6-28 Sodium 30 MG/0.3ML MG/0.3ML 00:00: MG/0.3ML 00 Enoxaparin Enoxaparin 2021-0 No .3{ml} Enoxaparin Sodium 30 Sodium 30 6-28 Sodium 30 MG/0.3ML MG/0.3ML 00:00: MG/0.3ML 00 Lovenox 30 Lovenox 30 2021-0 No .3{ml} Lovenox 30 MG/0.3ML MG/0.3ML 6-23 MG/0.3ML 00:00: 00 Lovenox 30 Lovenox 30 2021-0 No .3{ml} Lovenox 30 MG/0.3ML MG/0.3ML 6-23 MG/0.3ML 00:00: 00 Lovenox 30 Lovenox 30 2021-0 No .3{ml} Lovenox 30 MG/0.3ML MG/0.3ML 6-23 MG/0.3ML 00:00: 00 Lovenox 30 Lovenox 30 2022-0 No .3{ml} Lovenox 30 MG/0.3ML MG/0.3ML 6-23 MG/0.3ML 00:00: 00 Lovenox 30 Lovenox 30 2022-0 No .3{ml} Lovenox 30 MG/0.3ML MG/0.3ML 6-23 MG/0.3ML 00:00: 00 Lovenox 30 Lovenox 30 2022-0 No .3{ml} Lovenox 30 MG/0.3ML MG/0.3ML 6-23 MG/0.3ML 00:00: 00 Lovenox 30 Lovenox 30 2022-0 No .3{ml} Lovenox 30 MG/0.3ML MG/0.3ML 6-23 MG/0.3ML 00:00: 00 Lovenox 30 Lovenox 30 2022-0 No .3{ml} Lovenox 30 MG/0.3ML MG/0.3ML 6-23 MG/0.3ML 00:00: 00 Lovenox 30 Lovenox 30 2022-0 No .3{ml} Lovenox 30 MG/0.3ML MG/0.3ML 6-23 MG/0.3ML 00:00: 00 Lovenox 30 Lovenox 30 2022-0 No .3{ml} Lovenox 30 MG/0.3ML MG/0.3ML 6-23 MG/0.3ML 00:00: 00 Lovenox 30 Lovenox 30 2022-0 No .3{ml} Lovenox 30 MG/0.3ML MG/0.3ML 6-23 MG/0.3ML 00:00: 00 Lovenox 30 Lovenox 30 2022-0 No .3{ml} Lovenox 30 MG/0.3ML MG/0.3ML 6-23 MG/0.3ML 00:00: 00 Lovenox 30 Lovenox 30 2022-0 No .3{ml} Lovenox 30 MG/0.3ML MG/0.3ML 6-23 MG/0.3ML 00:00: 00 Lovenox 30 Lovenox 30 2021-0 No .3{ml} Lovenox 30 MG/0.3ML MG/0.3ML 6-23 MG/0.3ML 00:00: 00 Lovenox 30 Lovenox 30 2021-0 No .3{ml} Lovenox 30 MG/0.3ML MG/0.3ML 6-23 MG/0.3ML 00:00: 00 Lovenox 30 Lovenox 30 2021-0 No .3{ml} Lovenox 30 MG/0.3ML MG/0.3ML 6-23 MG/0.3ML 00:00: 00 Lovenox 30 Lovenox 30 2021-0 No .3{ml} Lovenox 30 MG/0.3ML MG/0.3ML 6-23 MG/0.3ML 00:00: 00 Lovenox 30 Lovenox 30 2021-0 No .3{ml} Lovenox 30 MG/0.3ML MG/0.3ML 6-23 MG/0.3ML 00:00: 00 Lovenox 30 Lovenox 30 2021-0 No .3{ml} Lovenox 30 MG/0.3ML MG/0.3ML 6-23 MG/0.3ML 00:00: 00 Lovenox 30 Lovenox 30 2021-0 No .3{ml} Lovenox 30 MG/0.3ML MG/0.3ML 6-23 MG/0.3ML 00:00: 00 ProAir HFA ProAir HFA No 2{puffs ProAir HFA 108 (90 108 (90 6-21 _as_nee 108 (90 Base) Base) 00:00: ded} Base) MCG/ACT MCG/ACT 00 MCG/ACT ProAir HFA ProAir HFA No 2{puffs ProAir HFA 108 (90 108 (90 6-21 _as_nee 108 (90 Base) Base) 00:00: ded} Base) MCG/ACT MCG/ACT 00 MCG/ACT ProAir HFA ProAir HFA No 2{puffs ProAir HFA 108 (90 108 (90 6-21 _as_nee 108 (90 Base) Base) 00:00: ded} Base) MCG/ACT MCG/ACT 00 MCG/ACT ProAir HFA ProAir HFA No 2{puffs ProAir HFA 108 (90 108 (90 6-21 _as_nee 108 (90 Base) Base) 00:00: ded} Base) MCG/ACT MCG/ACT 00 MCG/ACT ProAir HFA ProAir HFA No 2{puffs ProAir HFA 108 (90 108 (90 6-21 _as_nee 108 (90 Base) Base) 00:00: ded} Base) MCG/ACT MCG/ACT 00 MCG/ACT ProAir HFA ProAir HFA No 2{puffs ProAir HFA 108 (90 108 (90 6-21 _as_nee 108 (90 Base) Base) 00:00: ded} Base) MCG/ACT MCG/ACT 00 MCG/ACT ProAir HFA ProAir HFA No 2{puffs ProAir HFA 108 (90 108 (90 6-21 _as_nee 108 (90 Base) Base) 00:00: ded} Base) MCG/ACT MCG/ACT 00 MCG/ACT ProAir HFA ProAir HFA No 2{puffs ProAir HFA 108 (90 108 (90 6-21 _as_nee 108 (90 Base) Base) 00:00: ded} Base) MCG/ACT MCG/ACT 00 MCG/ACT ProAir HFA ProAir HFA No 2{puffs ProAir HFA 108 (90 108 (90 6-21 _as_nee 108 (90 Base) Base) 00:00: ded} Base) MCG/ACT MCG/ACT 00 MCG/ACT ProAir HFA ProAir HFA No 2{puffs ProAir HFA 108 (90 108 (90 6-21 _as_nee 108 (90 Base) Base) 00:00: ded} Base) MCG/ACT MCG/ACT 00 MCG/ACT ProAir HFA ProAir HFA No 2{puffs ProAir HFA 108 (90 108 (90 6-21 _as_nee 108 (90 Base) Base) 00:00: ded} Base) MCG/ACT MCG/ACT 00 MCG/ACT ProAir HFA ProAir HFA No 2{puffs ProAir HFA 108 (90 108 (90 6-21 _as_nee 108 (90 Base) Base) 00:00: ded} Base) MCG/ACT MCG/ACT 00 MCG/ACT ProAir HFA ProAir HFA No 2{puffs ProAir HFA 108 (90 108 (90 6-21 _as_nee 108 (90 Base) Base) 00:00: ded} Base) MCG/ACT MCG/ACT 00 MCG/ACT ProAir HFA ProAir HFA No 2{puffs ProAir HFA 108 (90 108 (90 6-21 _as_nee 108 (90 Base) Base) 00:00: ded} Base) MCG/ACT MCG/ACT 00 MCG/ACT ProAir HFA ProAir HFA No 2{puffs ProAir HFA 108 (90 108 (90 6-21 _as_nee 108 (90 Base) Base) 00:00: ded} Base) MCG/ACT MCG/ACT 00 MCG/ACT ProAir HFA ProAir HFA No 2{puffs ProAir HFA 108 (90 108 (90 6-21 _as_nee 108 (90 Base) Base) 00:00: ded} Base) MCG/ACT MCG/ACT 00 MCG/ACT ProAir HFA ProAir HFA No 2{puffs ProAir HFA 108 (90 108 (90 6-21 _as_nee 108 (90 Base) Base) 00:00: ded} Base) MCG/ACT MCG/ACT 00 MCG/ACT ProAir HFA ProAir HFA No 2{puffs ProAir HFA 108 (90 108 (90 6-21 _as_nee 108 (90 Base) Base) 00:00: ded} Base) MCG/ACT MCG/ACT 00 MCG/ACT ProAir HFA ProAir HFA No 2{puffs ProAir HFA 108 (90 108 (90 6-21 _as_nee 108 (90 Base) Base) 00:00: ded} Base) MCG/ACT MCG/ACT 00 MCG/ACT ProAir HFA ProAir HFA 2022-0 No 2{puffs ProAir HFA 108 (90 108 (90 6-21 _as_nee 108 (90 Base) Base) 00:00: ded} Base) MCG/ACT MCG/ACT 00 MCG/ACT ProAir HFA ProAir HFA 2021-0 No 2{puffs ProAir HFA 108 (90 108 (90 6-21 _as_nee 108 (90 Base) Base) 00:00: ded} Base) MCG/ACT MCG/ACT 00 MCG/ACT Benzonatate Benzonatate 2021-0 2022- No 1{capsu TID Benzonatat 200 MG 200 MG 11-27 le} e 200 MG 00:00: 00:00 00 :00 Benzonatate Benzonatate 2021-0 2022- No 1{capsu TID Benzonatat 200 MG 200 MG 11-27 le} e 200 MG 00:00: 00:00 00 :00 Benzonatate Benzonatate 2-0 2022- No 1{capsu TID Benzonatat 200 MG 200 MG 11-27 le} e 200 MG 00:00: 00:00 00 :00 Benzonatate Benzonatate 2-0 2022- No 1{capsu TID Benzonatat 200 MG 200 MG 11-27 le} e 200 MG 00:00: 00:00 00 :00 Benzonatate Benzonatate 2-0 2022- No 1{capsu TID Benzonatat 200 MG 200 MG 11-27 le} e 200 MG 00:00: 00:00 00 :00 Azithromyci Azithromyci 2021-0 2- No QD Azithromyc n 250 MG n 250 MG 11-27 in 250 MG 00:00: 00:00 00 :00 Xanax 0.25 Xanax 0.25 2021-0 No 1{table Xanax 0.25 MG MG 6-20 t} MG 00:00: 00 Xanax 0.25 Xanax 0.25 2-0 No 1{table Xanax 0.25 MG MG 6-20 t} MG 00:00: 00 Xanax 0.25 Xanax 0.25 2-0 No 1{table Xanax 0.25 MG MG 6-20 t} MG 00:00: 00 Xanax 0.25 Xanax 0.25 2021-0 No 1{table Xanax 0.25 MG MG 6-20 t} MG 00:00: 00 Xanax 0.25 Xanax 0.25 2021-0 No 1{table Xanax 0.25 MG MG 6-20 t} MG 00:00: 00 Xanax 0.25 Xanax 0.25 2021-0 No 1{table Xanax 0.25 MG MG 6-20 t} MG 00:00: 00 HYDROcodone HYDROcodone 2021-0 No 1{table HYDROcodon -Acetaminop -Acetaminop 6-13 t_as_ne e-Acetamin hen 7.5-325 hen 7.5-325 00:00: eded} ophen MG MG 00 7.5-325 MG HYDROcodone HYDROcodone 2021-0 No 1{table HYDROcodon -Acetaminop -Acetaminop 6-13 t_as_ne e-Acetamin hen 7.5-325 hen 7.5-325 00:00: eded} ophen MG MG 00 7.5-325 MG HYDROcodone HYDROcodone 2021-0 No 1{table HYDROcodon -Acetaminop -Acetaminop 6-13 t_as_ne e-Acetamin hen 7.5-325 hen 7.5-325 00:00: eded} ophen MG MG 00 7.5-325 MG HYDROcodone HYDROcodone 2021-0 No 1{table HYDROcodon -Acetaminop -Acetaminop 6-13 t_as_ne e-Acetamin hen 7.5-325 hen 7.5-325 00:00: eded} ophen MG MG 00 7.5-325 MG HYDROcodone HYDROcodone 2021-0 No 1{table HYDROcodon -Acetaminop -Acetaminop 6-13 t_as_ne e-Acetamin hen 7.5-325 hen 7.5-325 00:00: eded} ophen MG MG 00 7.5-325 MG HYDROcodone HYDROcodone 2021-0 No 1{table HYDROcodon -Acetaminop -Acetaminop 6-13 t_as_ne e-Acetamin hen 7.5-325 hen 7.5-325 00:00: eded} ophen MG MG 00 7.5-325 MG HYDROcodone HYDROcodone 2021-0 No 1{table HYDROcodon -Acetaminop -Acetaminop 6-13 t_as_ne e-Acetamin hen 7.5-325 hen 7.5-325 00:00: eded} ophen MG MG 00 7.5-325 MG HYDROcodone HYDROcodone 2021-0 No 1{table HYDROcodon -Acetaminop -Acetaminop 6-13 t_as_ne e-Acetamin hen 7.5-325 hen 7.5-325 00:00: eded} ophen MG MG 00 7.5-325 MG HYDROcodone HYDROcodone 2021-0 No 1{table HYDROcodon -Acetaminop -Acetaminop 6-13 t_as_ne e-Acetamin hen 7.5-325 hen 7.5-325 00:00: eded} ophen MG MG 00 7.5-325 MG HYDROcodone HYDROcodone 2021-0 No 1{table HYDROcodon -Acetaminop -Acetaminop 6-13 t_as_ne e-Acetamin hen 7.5-325 hen 7.5-325 00:00: eded} ophen MG MG 00 7.5-325 MG HYDROcodone HYDROcodone 2021-0 No 1{table HYDROcodon -Acetaminop -Acetaminop 6-13 t_as_ne e-Acetamin hen 7.5-325 hen 7.5-325 00:00: eded} ophen MG MG 00 7.5-325 MG HYDROcodone HYDROcodone 2021-0 No 1{table HYDROcodon -Acetaminop -Acetaminop 6-13 t_as_ne e-Acetamin hen 7.5-325 hen 7.5-325 00:00: eded} ophen MG MG 00 7.5-325 MG HYDROcodone HYDROcodone 2021-0 No 1{table HYDROcodon -Acetaminop -Acetaminop 6-13 t_as_ne e-Acetamin hen 7.5-325 hen 7.5-325 00:00: eded} ophen MG MG 00 7.5-325 MG HYDROcodone HYDROcodone 2021-0 No 1{table HYDROcodon -Acetaminop -Acetaminop 6-13 t_as_ne e-Acetamin hen 7.5-325 hen 7.5-325 00:00: eded} ophen MG MG 00 7.5-325 MG HYDROcodone HYDROcodone 2021-0 No 1{table HYDROcodon -Acetaminop -Acetaminop 6-13 t_as_ne e-Acetamin hen 7.5-325 hen 7.5-325 00:00: eded} ophen MG MG 00 7.5-325 MG HYDROcodone HYDROcodone 2021-0 No 1{table HYDROcodon -Acetaminop -Acetaminop 6-13 t_as_ne e-Acetamin hen 7.5-325 hen 7.5-325 00:00: eded} ophen MG MG 00 7.5-325 MG HYDROcodone HYDROcodone 2021-0 No 1{table HYDROcodon -Acetaminop -Acetaminop 6-13 t_as_ne e-Acetamin hen 7.5-325 hen 7.5-325 00:00: eded} ophen MG MG 00 7.5-325 MG HYDROcodone HYDROcodone 2021-0 No 1{table HYDROcodon -Acetaminop -Acetaminop 6-13 t_as_ne e-Acetamin hen 7.5-325 hen 7.5-325 00:00: eded} ophen MG MG 00 7.5-325 MG HYDROcodone HYDROcodone 2021-0 No 1{table HYDROcodon -Acetaminop -Acetaminop 6-13 t_as_ne e-Acetamin hen 7.5-325 hen 7.5-325 00:00: eded} ophen MG MG 00 7.5-325 MG HYDROcodone HYDROcodone 2021-0 No 1{table HYDROcodon -Acetaminop -Acetaminop 6-13 t_as_ne e-Acetamin hen 7.5-325 hen 7.5-325 00:00: eded} ophen MG MG 00 7.5-325 MG HYDROcodone HYDROcodone 2021-0 No 1{table HYDROcodon -Acetaminop -Acetaminop 6-13 t_as_ne e-Acetamin hen 7.5-325 hen 7.5-325 00:00: eded} ophen MG MG 00 7.5-325 MG HYDROcodone HYDROcodone 2021-0 No 1{table HYDROcodon -Acetaminop -Acetaminop 6-13 t_as_ne e-Acetamin hen 7.5-325 hen 7.5-325 00:00: eded} ophen MG MG 00 7.5-325 MG HYDROcodone HYDROcodone 2021- No 1{table HYDROcodon -Acetaminop -Acetaminop 6-13 t_as_ne e-Acetamin hen 7.5-325 hen 7.5-325 00:00: eded} ophen MG MG 00 7.5-325 MG HYDROcodone HYDROcodone 2021-0 No 1{table HYDROcodon -Acetaminop -Acetaminop 6-13 t_as_ne e-Acetamin hen 7.5-325 hen 7.5-325 00:00: eded} ophen MG MG 00 7.5-325 MG HYDROcodone HYDROcodone 2021- No 1{table HYDROcodon -Acetaminop -Acetaminop 6-13 t_as_ne e-Acetamin hen 7.5-325 hen 7.5-325 00:00: eded} ophen MG MG 00 7.5-325 MG Xarelto 10 Xarelto 10 No QD Xarelto 10 MG MG 6-10 MG 00:00: 00 Xarelto 10 Xarelto 10 2021-0 No QD Xarelto 10 MG MG 6-10 MG 00:00: 00 Xarelto 10 Xarelto 10 2021-0 No QD Xarelto 10 MG MG 6-10 MG 00:00: 00 Xarelto 10 Xarelto 10 2021-0 No QD Xarelto 10 MG MG 6-10 MG 00:00: 00 Xarelto 10 Xarelto 10 2021-0 No QD Xarelto 10 MG MG 6-10 MG 00:00: 00 Xarelto 10 Xarelto 10 2021-0 No QD Xarelto 10 MG MG 6-10 MG 00:00: 00 Xarelto 10 Xarelto 10 2021-0 No QD Xarelto 10 MG MG 6-10 MG 00:00: 00 Xarelto 10 Xarelto 10 2021-0 No QD Xarelto 10 MG MG 6-10 MG 00:00: 00 Xarelto 10 Xarelto 10 2021-0 No QD Xarelto 10 MG MG 6-10 MG 00:00: 00 Xarelto 10 Xarelto 10 2021-0 No QD Xarelto 10 MG MG 6-10 MG 00:00: 00 Xarelto 10 Xarelto 10 2021-0 No QD Xarelto 10 MG MG 6-10 MG 00:00: 00 Xarelto 10 Xarelto 10 2021-0 No QD Xarelto 10 MG MG 6-10 MG 00:00: 00 Xarelto 10 Xarelto 10 2021-0 No QD Xarelto 10 MG MG 6-10 MG 00:00: 00 Xarelto 10 Xarelto 10 2021-0 No QD Xarelto 10 MG MG 6-10 MG 00:00: 00 Xarelto 10 Xarelto 10 2021-0 No QD Xarelto 10 MG MG 6-10 MG 00:00: Xarelto 10 Xarelto 10 2021-0 No QD Xarelto 10 MG MG 6-10 MG 00:00: 00 Xarelto 10 Xarelto 10 2021-0 No QD Xarelto 10 MG MG 6-10 MG 00:00: 00 Xarelto 10 Xarelto 10 2021-0 No QD Xarelto 10 MG MG 6-10 MG 00:00: 00 Xarelto 10 Xarelto 10 2021-0 No QD Xarelto 10 MG MG 6-10 MG 00:00: 00 Xarelto 10 Xarelto 10 2021-0 No QD Xarelto 10 MG MG 6-10 MG 00:00: 00 Xarelto 10 Xarelto 10 2021-0 No QD Xarelto 10 MG MG 6-10 MG 00:00: 00 Xarelto 10 Xarelto 10 2021-0 No QD Xarelto 10 MG MG 6-10 MG 00:00: 00 Xarelto 10 Xarelto 10 2021-0 No QD Xarelto 10 MG MG 6-10 MG 00:00: 00 Xarelto 10 Xarelto 10 2021-0 No QD Xarelto 10 MG MG 6-10 MG 00:00: 00 Xarelto 10 Xarelto 10 2021-0 No QD Xarelto 10 MG MG 6-10 MG 00:00: 00 Xanax 0.25 Xanax 0.25 2-0 No 1{table Xanax 0.25 MG MG 3-23 t} MG 00:00: 00 Xanax 0.25 Xanax 0.25 2022-0 No 1{table Xanax 0.25 MG MG 3-23 t} MG 00:00: 00 Xanax 0.25 Xanax 0.25 2022-0 No 1{table Xanax 0.25 MG MG 3-23 t} MG 00:00: 00 Xanax 0.25 Xanax 0.25 2022-0 No 1{table Xanax 0.25 MG MG 3-23 t} MG 00:00: 00 Xanax 0.25 Xanax 0.25 2022-0 No 1{table Xanax 0.25 MG MG 3-23 t} MG 00:00: 00 Xanax 0.25 Xanax 0.25 2-0 No 1{table Xanax 0.25 MG MG 3-23 t} MG 00:00: 00 Xanax 0.25 Xanax 0.25 2-0 No 1{table Xanax 0.25 MG MG 3- t} MG 00:00: 00 Xanax 0.25 Xanax 0.25 2-0 No 1{table Xanax 0.25 MG MG 3-09 t} MG 00:00: 00 Xanax 0.25 Xanax 0.25 2-0 No 1{table Xanax 0.25 MG MG 3-09 t} MG 00:00: 00 Xanax 0.25 Xanax 0.25 2-0 No 1{table Xanax 0.25 MG MG 3-09 t} MG 00:00: 00 Xanax 0.25 Xanax 0.25 2-0 No 1{table Xanax 0.25 MG MG 3-09 t} MG 00:00: 00 Xanax 0.25 Xanax 0.25 2-0 No 1{table Xanax 0.25 MG MG 3-09 t} MG 00:00: 00 Xanax 0.25 Xanax 0.25 2-0 No 1{table Xanax 0.25 MG MG 3-09 t} MG 00:00: 00 Xanax 0.25 Xanax 0.25 2-0 No 1{table Xanax 0.25 MG MG 3-09 t} MG 00:00: 00 Xanax 0.25 Xanax 0.25 2022-0 No 1{table Xanax 0.25 MG MG 3-09 t} MG 00:00: 00 Xanax 0.25 Xanax 0.25 2022-0 No 1{table Xanax 0.25 MG MG 3-09 t} MG 00:00: 00 Xanax 0.25 Xanax 0.25 2022-0 No 1{table Xanax 0.25 MG MG 3-09 t} MG 00:00: 00 Xanax 0.25 Xanax 0.25 2022-0 No 1{table Xanax 0.25 MG MG 3-09 t} MG 00:00: 00 Xanax 0.25 Xanax 0.25 2022-0 No 1{table Xanax 0.25 MG MG 3-09 t} MG 00:00: 00 Xanax 0.25 Xanax 0.25 2022-0 No 1{table Xanax 0.25 MG MG 3-09 t} MG 00:00: 00 Xanax 0.25 Xanax 0.25 2022-0 No 1{table Xanax 0.25 MG MG 3-09 t} MG 00:00: 00 Xanax 0.25 Xanax 0.25 2022-0 No 1{table Xanax 0.25 MG MG 3-09 t} MG 00:00: 00 Xanax 0.25 Xanax 0.25 2022-0 No 1{table Xanax 0.25 MG MG 3-09 t} MG 00:00: 00 Xanax 0.25 Xanax 0.25 2022-0 No 1{table Xanax 0.25 MG MG 3-09 t} MG 00:00: 00 Xanax 0.25 Xanax 0.25 2022-0 No 1{table Xanax 0.25 MG MG 3-09 t} MG 00:00: 00 Xanax 0.25 Xanax 0.25 2022-0 No 1{table Xanax 0.25 MG MG 3-09 t} MG 00:00: 00 Xanax 0.25 Xanax 0.25 2022-0 No 1{table Xanax 0.25 MG MG 3-09 t} MG 00:00: 00 Xanax 0.25 Xanax 0.25 2022-0 No 1{table Xanax 0.25 MG MG 3-09 t} MG 00:00: 00 Xanax 0.25 Xanax 0.25 2022-0 No 1{table Xanax 0.25 MG MG 3-09 t} MG 00:00: 00 Xanax 0.25 Xanax 0.25 2022-0 No 1{table Xanax 0.25 MG MG 3-09 t} MG 00:00: 00 Xanax 0.25 Xanax 0.25 2022-0 No 1{table Xanax 0.25 MG MG 3-09 t} MG 00:00: 00 Xanax 0.25 Xanax 0.25 2022-0 No 1{table Xanax 0.25 MG MG 3-09 t} MG 00:00: 00 Xanax 0.25 Xanax 0.25 2022-0 No 1{table Xanax 0.25 MG MG 3-09 t} MG 00:00: 00 Xanax 0.25 Xanax 0.25 2022-0 No 1{table Xanax 0.25 MG MG 3-09 t} MG 00:00: 00 Xanax 0.25 Xanax 0.25 2022-0 No 1{table Xanax 0.25 MG MG 3-09 t} MG 00:00: 00 Xanax 0.25 Xanax 0.25 2022-0 No 1{table MG MG 1-12 t} 00:00: 00 Xanax 0.25 Xanax 0.25 1-1 No 1{table Xanax 0.25 MG MG 1-15 t} MG 00:00: 00 Gabapentin Gabapentin 2021-0 No 1{table TID Gabapentin 600 MG 600 MG 7-14 t} 600 MG 00:00: 00 Gabapentin Gabapentin 2021-0 No 1{table TID Gabapentin 600 MG 600 MG 7-14 t} 600 MG 00:00: 00 Gabapentin Gabapentin 2021-0 No 1{table TID Gabapentin 600 MG 600 MG 7-14 t} 600 MG 00:00: 00 Gabapentin Gabapentin 2021-0 No 1{table TID Gabapentin 600 MG 600 MG 7-14 t} 600 MG 00:00: 00 Gabapentin Gabapentin 2021-0 No 1{table TID Gabapentin 600 MG 600 MG 7-14 t} 600 MG 00:00: 00 Gabapentin Gabapentin 2021-0 No 1{table TID Gabapentin 600 MG 600 MG 7-14 t} 600 MG 00:00: 00 Gabapentin Gabapentin 2021-0 No 1{table TID Gabapentin 600 MG 600 MG 7-14 t} 600 MG 00:00: 00 Gabapentin Gabapentin 2021-0 No 1{table TID Gabapentin 600 MG 600 MG 7-14 t} 600 MG 00:00: 00 Gabapentin Gabapentin 2021-0 No 1{table TID Gabapentin 600 MG 600 MG 7-14 t} 600 MG 00:00: 00 Gabapentin Gabapentin 2021-0 No 1{table TID Gabapentin 600 MG 600 MG 7-14 t} 600 MG 00:00: 00 Gabapentin Gabapentin 2021-0 No 1{table TID Gabapentin 600 MG 600 MG 7-14 t} 600 MG 00:00: 00 Gabapentin Gabapentin 2021-0 No 1{table TID Gabapentin 600 MG 600 MG 7-14 t} 600 MG 00:00: 00 Gabapentin Gabapentin 2021-0 No 1{table TID Gabapentin 600 MG 600 MG 7-14 t} 600 MG 00:00: 00 Gabapentin Gabapentin 2021-0 No 1{table TID Gabapentin 600 MG 600 MG 7-14 t} 600 MG 00:00: 00 Gabapentin Gabapentin 2021-0 No 1{table TID 600 MG 600 MG 7-14 t} 00:00: 00 Gabapentin Gabapentin 2021-0 No 1{table TID Gabapentin 600 MG 600 MG 7-14 t} 600 MG 00:00: 00 Gabapentin Gabapentin 2021-0 No 1{table TID Gabapentin 600 MG 600 MG 7-14 t} 600 MG 00:00: 00 Gabapentin Gabapentin 2021-0 No 1{table TID Gabapentin 600 MG 600 MG 7-14 t} 600 MG 00:00: 00 Gabapentin Gabapentin 2021-0 No 1{table TID Gabapentin 600 MG 600 MG 7-14 t} 600 MG 00:00: 00 Gabapentin Gabapentin 2021-0 No 1{table TID Gabapentin 600 MG 600 MG 7-14 t} 600 MG 00:00: 00 Gabapentin Gabapentin 2021-0 No 1{table TID Gabapentin 600 MG 600 MG 7-14 t} 600 MG 00:00: 00 Gabapentin Gabapentin 2021-0 No 1{table TID Gabapentin 600 MG 600 MG 7-14 t} 600 MG 00:00: 00 Gabapentin Gabapentin 2021-0 No 1{table TID Gabapentin 600 MG 600 MG 7-14 t} 600 MG 00:00: 00 Gabapentin Gabapentin 2021-0 No 1{table TID Gabapentin 600 MG 600 MG 7-14 t} 600 MG 00:00: 00 Gabapentin Gabapentin 2021-0 No 1{table TID Gabapentin 600 MG 600 MG 7-14 t} 600 MG 00:00: 00 Gabapentin Gabapentin 2021-0 No 1{table TID Gabapentin 600 MG 600 MG 7-14 t} 600 MG 00:00: 00 Gabapentin Gabapentin 2021-0 No 1{table TID Gabapentin 600 MG 600 MG 7-14 t} 600 MG 00:00: 00 Gabapentin Gabapentin 2021-0 No 1{table TID Gabapentin 600 MG 600 MG 7-14 t} 600 MG 00:00: 00 Gabapentin Gabapentin 2021-0 No 1{table TID Gabapentin 600 MG 600 MG 7-14 t} 600 MG 00:00: 00 Gabapentin Gabapentin 2021-0 No 1{table TID Gabapentin 600 MG 600 MG 7-14 t} 600 MG 00:00: 00 Gabapentin Gabapentin 2021-0 No 1{table TID Gabapentin 600 MG 600 MG 7-14 t} 600 MG 00:00: 00 Hyalgan 20 Hyalgan 20 1-0 No 20mg C ommon mg mg 5-13 [facility] 00:00: - [facility] 00 [facility] Bupivicaine Bupivicaine 1-0 No 2.5mg Common [place] 5-13 [facility] 00:00: - [facility] 00 [facility] Kenalog Kenalog 1-0 No 40mg Common (Triamcinol (Triamcinol 5-13 S pirit one) one) 00:00: - [facility] 00 [facility] Hyalgan 20 Hyalgan 20 2021-0 No 20mg C ommon mg mg 5-13 [facility] 00:00: - [facility] 00 [facility] Bupivicaine Bupivicaine 1-0 No 2.5mg Common [place] 5-13 [facility] 00:00: - [facility] 00 [facility] Kenalog Kenalog 1-0 No 40mg Common (Triamcinol (Triamcinol 5-13 S pirit one) one) 00:00: - [facility] 00 [facility] Hyalgan 20 Hyalgan 20 2020-0 No 20mg C ommon mg mg 5-13 [facility] 00:00: - [facility] 00 [facility] Bupivicaine Bupivicaine 2020-0 No 2.5mg Common [place] 5-13 [facility] 00:00: - [facility] 00 [facility] Kenalog Kenalog 2020-0 No 40mg Common (Triamcinol (Triamcinol 5-13 S pirit one) one) 00:00: - [facility] 00 [facility] Hyalgan 20 Hyalgan 20 2020-0 No 20mg C ommon mg mg 5-13 [facility] 00:00: - [facility] 00 [facility] Bupivicaine Bupivicaine 2020-0 No 2.5mg Common [place] 5-13 [facility] 00:00: - [facility] 00 [facility] Kenalog Kenalog 2020-0 No 40mg Common (Triamcinol (Triamcinol 5-13 S pirit one) one) 00:00: - [facility] 00 [facility] Hyalgan 20 Hyalgan 20 2020-0 No 20mg C ommon mg mg 5-13 [facility] 00:00: - [facility] 00 [facility] Bupivicaine Bupivicaine 2020-0 No 2.5mg Common [place] 5-13 [facility] 00:00: - [facility] 00 [facility] Kenalog Kenalog 2020-0 No 40mg Common (Triamcinol (Triamcinol 5-13 S pirit one) one) 00:00: - [facility] 00 [facility] Hyalgan 20 Hyalgan 20 2020-0 No 20mg C ommon mg mg 5-13 [facility] 00:00: - [facility] 00 [facility] Bupivicaine Bupivicaine 2020-0 No 2.5mg Common [place] 5-13 [facility] 00:00: - [facility] 00 [facility] Kenalog Kenalog 2020-0 No 40mg Common (Triamcinol (Triamcinol 5-13 S pirit one) one) 00:00: - [facility] 00 [facility] Hyalgan 20 Hyalgan 20 2020-0 No 20mg C ommon mg mg 5-13 [facility] 00:00: - [facility] 00 [facility] Bupivicaine Bupivicaine 2020-0 No 2.5mg Common [place] 5-13 [facility] 00:00: - [facility] 00 [facility] Kenalog Kenalog 2020-0 No 40mg Common (Triamcinol (Triamcinol 5-13 S pirit one) one) 00:00: - [facility] 00 [facility] Hyalgan 20 Hyalgan 20 2020-0 No 20mg C ommon mg mg 5-13 [facility] 00:00: - [facility] 00 [facility] Bupivicaine Bupivicaine 2020-0 No 2.5mg Common [place] 5-13 [facility] 00:00: - [facility] 00 [facility] Kenalog Kenalog 2020-0 No 40mg Common (Triamcinol (Triamcinol 5-13 S pirit one) one) 00:00: - [facility] 00 [facility] Hyalgan 20 Hyalgan 20 2020-0 No 20mg C ommon mg mg 5-13 [facility] 00:00: - [facility] 00 [facility] Bupivicaine Bupivicaine 2020-0 No 2.5mg Common [place] 5-13 [facility] 00:00: - [facility] 00 [facility] Kenalog Kenalog 2020-0 No 40mg Common (Triamcinol (Triamcinol 5-13 S pirit one) one) 00:00: - [facility] 00 [facility] Hyalgan 20 Hyalgan 20 2020-0 No 20mg C ommon mg mg 5-13 [facility] 00:00: - [facility] 00 [facility] Bupivicaine Bupivicaine 2020-0 No 2.5mg Common [place] 5-13 [facility] 00:00: - [facility] 00 [facility] Kenalog Kenalog 2020-0 No 40mg Common (Triamcinol (Triamcinol 5-13 S pirit one) one) 00:00: - [facility] 00 [facility] Hyalgan 20 Hyalgan 20 2020-0 No 20mg C ommon mg mg 5-13 [facility] 00:00: - [facility] 00 [facility] Bupivicaine Bupivicaine 2020-0 No 2.5mg Common [place] 5-13 [facility] 00:00: - [facility] 00 [facility] Kenalog Kenalog 2020-0 No 40mg Common (Triamcinol (Triamcinol 5-13 S pirit one) one) 00:00: - [facility] 00 [facility] Hyalgan 20 Hyalgan 20 2020-0 No 20mg C ommon mg mg 5-13 [facility] 00:00: - [facility] 00 [facility] Bupivicaine Bupivicaine 2020-0 No 2.5mg Common [place] 5-13 [facility] 00:00: - [facility] 00 [facility] Kenalog Kenalog 2020-0 No 40mg Common (Triamcinol (Triamcinol 5-13 S pirit one) one) 00:00: - [facility] 00 [facility] Hyalgan 20 Hyalgan 20 2020-0 No 20mg C ommon mg mg 5-13 [facility] 00:00: - [facility] 00 [facility] Bupivicaine Bupivicaine 2020-0 No 2.5mg Common [place] 5-13 [facility] 00:00: - [facility] 00 [facility] Kenalog Kenalog 0 No 40mg Common (Triamcinol (Triamcinol 5-13 S pirit one) one) 00:00: - [facility] 00 [facility] Hyalgan 20 Hyalgan 20 2020-0 No 20mg C ommon mg mg 5-13 [facility] 00:00: - [facility] 00 [facility] Bupivicaine Bupivicaine 2020-0 No 2.5mg Common [place] 5-13 [facility] 00:00: - [facility] 00 [facility] Kenalog Kenalog 2020-0 No 40mg Common (Triamcinol (Triamcinol 5-13 S pirit one) one) 00:00: - [facility] 00 [facility] Hyalgan 20 Hyalgan 20 2020-0 No 20mg C ommon mg mg 5-13 [facility] 00:00: - [facility] 00 [facility] Bupivicaine Bupivicaine 2020-0 No Common [place] 5-13 [facility] 00:00: - [facility] 00 [facility] Kenalog Kenalog 2020-0 No 40mg Common (Triamcinol (Triamcinol 5-13 S pirit one) one) 00:00: - [facility] 00 [facility] Hyalgan 20 Hyalgan 20 2020-0 No 20mg C ommon mg mg 5-13 [facility] 00:00: - [facility] 00 [facility] Bupivicaine Bupivicaine 2020-0 No 2.5mg Common [place] 5-13 [facility] 00:00: - [facility] 00 [facility] Kenalog Kenalog 2020-0 No 40mg Common (Triamcinol (Triamcinol 5-13 S pirit one) one) 00:00: - [facility] 00 [facility] Hyalgan 20 Hyalgan 20 2020-0 No 20mg C ommon mg mg 5-13 [facility] 00:00: - [facility] 00 [facility] Bupivicaine Bupivicaine 2020-0 No 2.5mg Common [place] 5-13 [facility] 00:00: - [facility] 00 [facility] Kenalog Kenalog 2020-0 No 40mg Common (Triamcinol (Triamcinol 5-13 S pirit one) one) 00:00: - [facility] 00 [facility] Hyalgan 20 Hyalgan 20 2020-0 No 20mg C ommon mg mg 5-13 [facility] 00:00: - [facility] 00 [facility] Bupivicaine Bupivicaine 2020-0 No 2.5mg Common [place] 5-13 [facility] 00:00: - [facility] 00 [facility] Kenalog Kenalog 2020-0 No 40mg Common (Triamcinol (Triamcinol 5-13 S pirit one) one) 00:00: - [facility] 00 [facility] Hyalgan 20 Hyalgan 20 2020-0 No 20mg C ommon mg mg 5-13 [facility] 00:00: - [facility] 00 [facility] Bupivicaine Bupivicaine 2020-0 No 2.5mg Common [place] 5-13 [facility] 00:00: - [facility] 00 [facility] Kenalog Kenalog 2020-0 No 40mg Common (Triamcinol (Triamcinol 5-13 S pirit one) one) 00:00: - [facility] 00 [facility] Hyalgan 20 Hyalgan 20 2020-0 No 20mg C ommon mg mg 5-13 [facility] 00:00: - [facility] 00 [facility] Bupivicaine Bupivicaine 2020-0 No 2.5mg Common [place] 5-13 [facility] 00:00: - [facility] 00 [facility] Kenalog Kenalog 2020-0 No 40mg Common (Triamcinol (Triamcinol 5-13 S pirit one) one) 00:00: - [facility] 00 [facility] Hyalgan 20 Hyalgan 20 2020-0 No 20mg C ommon mg mg 5-13 [facility] 00:00: - [facility] 00 [facility] Bupivicaine Bupivicaine 2020-0 No 2.5mg Common [place] 5-13 [facility] 00:00: - [facility] 00 [facility] Kenalog Kenalog 2020-0 No 40mg Common (Triamcinol (Triamcinol 5-13 S pirit one) one) 00:00: - [facility] 00 [facility] Hyalgan 20 Hyalgan 20 2020-0 No 20mg C ommon mg mg 5-13 [facility] 00:00: - [facility] 00 [facility] Bupivicaine Bupivicaine 2020-0 No 2.5mg Common [place] 5-13 [facility] 00:00: - [facility] 00 [facility] Kenalog Kenalog 0 No 40mg Common (Triamcinol (Triamcinol 5-13 S pirit one) one) 00:00: - [facility] 00 [facility] Hyalgan 20 Hyalgan 20 2020-0 No 20mg C ommon mg mg 5-13 [facility] 00:00: - [facility] 00 [facility] Bupivicaine Bupivicaine 2020-0 No 2.5mg Common [place] 5-13 [facility] 00:00: - [facility] 00 [facility] Kenalog Kenalog 2020-0 No 40mg Common (Triamcinol (Triamcinol 5-13 S pirit one) one) 00:00: - [facility] 00 [facility] Hyalgan 20 Hyalgan 20 2020-0 No 20mg C ommon mg mg 5-13 [facility] 00:00: - [facility] 00 [facility] Bupivicaine Bupivicaine 2020-0 No 2.5mg Common [place] 5-13 [facility] 00:00: - [facility] 00 [facility] Kenalog Kenalog 2020-0 No 40mg Common (Triamcinol (Triamcinol 5-13 S pirit one) one) 00:00: - [facility] 00 [facility] Hyalgan 20 Hyalgan 20 2020-0 No 20mg C ommon mg mg 5-13 [facility] 00:00: - [facility] 00 [facility] Bupivicaine Bupivicaine 2020-0 No 2.5mg Common [place] 5-13 [facility] 00:00: - [facility] 00 [facility] Kenalog Kenalog 2020-0 No 40mg Common (Triamcinol (Triamcinol 5-13 S pirit one) one) 00:00: - [facility] 00 [facility] Hyalgan 20 Hyalgan 20 2020-0 No 20mg C ommon mg mg 5-13 [facility] 00:00: - [facility] 00 [facility] Bupivicaine Bupivicaine 2020-0 No 2.5mg Common [place] 5-13 [facility] 00:00: - [facility] 00 [facility] Kenalog Kenalog 2020-0 No 40mg Common (Triamcinol (Triamcinol 5-13 S pirit one) one) 00:00: - [facility] 00 [facility] Hyalgan 20 Hyalgan 20 2020-0 No 20mg C ommon mg mg 5-13 [facility] 00:00: - [facility] 00 [facility] Bupivicaine Bupivicaine 2020-0 No 2.5mg Common [place] 5-13 [facility] 00:00: - [facility] 00 [facility] Kenalog Kenalog 2020-0 No 40mg Common (Triamcinol (Triamcinol 5-13 S pirit one) one) 00:00: - [facility] 00 [facility] Hyalgan 20 Hyalgan 20 2020-0 No 20mg C ommon mg mg 5-13 [facility] 00:00: - [facility] 00 [facility] Bupivicaine Bupivicaine 2020-0 No 2.5mg Common [place] 5-13 [facility] 00:00: - [facility] 00 [facility] Kenalog Kenalog 2020-0 No 40mg Common (Triamcinol (Triamcinol 5-13 S pirit one) one) 00:00: - [facility] 00 [facility] Hyalgan 20 Hyalgan 20 2020-0 No 20mg C ommon mg mg 5-13 [facility] 00:00: - [facility] 00 [facility] Bupivicaine Bupivicaine 2020-0 No 2.5mg Common [place] - [facility] 00:00: - [facility] Kenalog Kenalog 2020-0 No 40mg Common (Triamcinol (Triamcinol 5-13 S pirit one) one) 00:00: - [facility] Hyalgan 20 Hyalgan 20 2020-0 No 20mg C ommon mg mg 10-12 [facility] 00:00: - [facility] Hyalgan 20 Hyalgan 20 2020-0 No 20mg C ommon mg mg 10-12 [facility] 00:00: - [facility] Hyalgan 20 Hyalgan 20 2020-0 No 20mg C ommon mg mg 10-12 [facility] 00:00: - [facility] Hyalgan 20 Hyalgan 20 2020-0 No 20mg C ommon mg mg 10-12 [facility] 00:00: - [facility] Hyalgan 20 Hyalgan 20 2020-0 No 20mg C ommon mg mg 10-12 [facility] 00:00: - [facility] Hyalgan 20 Hyalgan 20 2020-0 No 20mg C ommon mg mg 10-12 [facility] 00:00: - [facility] Hyalgan 20 Hyalgan 20 2020-0 No 20mg C ommon mg mg 10-12 [facility] 00:00: - [facility] Hyalgan 20 Hyalgan 20 2020-0 No 20mg C ommon mg mg 10-12 [facility] 00:00: - [facility] Hyalgan 20 Hyalgan 20 2020-0 No 20mg C ommon mg mg 10-12 [facility] 00:00: - [facility] Hyalgan 20 Hyalgan 20 2020-0 No 20mg C ommon mg mg 10-12 [facility] 00:00: - [facility] Hyalgan 20 Hyalgan 20 2020-0 No 20mg C ommon mg mg 10-12 [facility] 00:00: - [facility] Hyalgan 20 Hyalgan 20 2020-0 No 20mg C ommon mg mg 10-12 [facility] 00:00: - [facility] Hyalgan 20 Hyalgan 20 2020-0 No 20mg C ommon mg mg 10-12 [facility] 00:00: - [facility] Hyalgan 20 Hyalgan 20 2020-0 No 20mg C ommon mg mg 10-12 [facility] 00:00: - [facility] Hyalgan 20 Hyalgan 20 2020-0 No 20mg C ommon mg mg 10-12 [facility] 00:00: - [facility] Hyalgan 20 Hyalgan 20 2020-0 No 20mg C ommon mg mg 10-12 [facility] 00:00: - [facility] Hyalgan 20 Hyalgan 20 2020-0 No 20mg C ommon mg mg 10-12 [facility] 00:00: - [facility] Hyalgan 20 Hyalgan 20 2020-0 No 20mg C ommon mg mg 10-12 [facility] 00:00: - [facility] Hyalgan 20 Hyalgan 20 2020-0 No 20mg C ommon mg mg 10-12 [facility] 00:00: - [facility] Hyalgan 20 Hyalgan 20 2020-0 No 20mg C ommon mg mg 10-12 [facility] 00:00: - [facility] Hyalgan 20 Hyalgan 20 2020-0 No 20mg C ommon mg mg 10-12 [facility] 00:00: - [facility] Hyalgan 20 Hyalgan 20 2020-0 No 20mg C ommon mg mg 10-12 [facility] 00:00: - [facility] Hyalgan 20 Hyalgan 20 2020-0 No 20mg C ommon mg mg 10-12 [facility] 00:00: - [facility] Hyalgan 20 Hyalgan 20 2020-0 No 20mg C ommon mg mg 10-12 [facility] 00:00: - [facility] Hyalgan 20 Hyalgan 20 2020-0 No 20mg C ommon mg mg 10-12 [facility] 00:00: - [facility] Hyalgan 20 Hyalgan 20 2020-0 No 20mg C ommon mg mg 10-12 [facility] 00:00: - [facility] Hyalgan 20 Hyalgan 20 2020-0 No 20mg C ommon mg mg 10-12 [facility] 00:00: - [facility] Hyalgan 20 Hyalgan 20 1-0 No 20mg C ommon mg mg 10-12 [facility] 00:00: - [facility] Hyalgan 20 Hyalgan 20 2020-0 No 20mg C ommon mg mg 10-12 [facility] 00:00: - [facility] Hyalgan 20 Hyalgan 20 2020-0 No 20mg C ommon mg mg 10-05 [facility] 00:00: - [facility] Hyalgan 20 Hyalgan 20 2020-0 No 20mg C ommon mg mg 10-05 [facility] 00:00: - [facility] Hyalgan 20 Hyalgan 20 2020-0 No 20mg C ommon mg mg 10-05 [facility] 00:00: - [facility] Hyalgan 20 Hyalgan 20 2020-0 No 20mg C ommon mg mg 10-05 [facility] 00:00: - [facility] Hyalgan 20 Hyalgan 20 2020-0 No 20mg C ommon mg mg 10-05 [facility] 00:00: - [facility] Hyalgan 20 Hyalgan 20 2020-0 No 20mg C ommon mg mg 10-05 [facility] 00:00: - [facility] Hyalgan 20 Hyalgan 20 2020-0 No 20mg C ommon mg mg 10-05 [facility] 00:00: - [facility] Hyalgan 20 Hyalgan 20 2020-0 No 20mg C ommon mg mg 10-05 [facility] 00:00: - [facility] Hyalgan 20 Hyalgan 20 2020-0 No 20mg C ommon mg mg 10-05 [facility] 00:00: - [facility] Hyalgan 20 Hyalgan 20 2020-0 No 20mg C ommon mg mg 10-05 [facility] 00:00: - [facility] Hyalgan 20 Hyalgan 20 2020-0 No 20mg C ommon mg mg 10-05 [facility] 00:00: - [facility] Hyalgan 20 Hyalgan 20 2020-0 No 20mg C ommon mg mg 10-05 [facility] 00:00: - [facility] Hyalgan 20 Hyalgan 20 1-0 No 20mg C ommon mg mg 10-05 [facility] 00:00: - [facility] Hyalgan 20 Hyalgan 20 2020-0 No 20mg C ommon mg mg 10-05 [facility] 00:00: - [facility] Hyalgan 20 Hyalgan 20 2020-0 No 20mg C ommon mg mg 10-05 [facility] 00:00: - [facility] Hyalgan 20 Hyalgan 20 2020-0 No 20mg C ommon mg mg 10-05 [facility] 00:00: - [facility] Hyalgan 20 Hyalgan 20 2020-0 No 20mg C ommon mg mg 10-05 [facility] 00:00: - [facility] Hyalgan 20 Hyalgan 20 2020-0 No 20mg C ommon mg mg 10-05 [facility] 00:00: - [facility] Hyalgan 20 Hyalgan 20 2020-0 No 20mg C ommon mg mg 10-05 [facility] 00:00: - [facility] Hyalgan 20 Hyalgan 20 2020-0 No 20mg C ommon mg mg 10-05 [facility] 00:00: - [facility] Hyalgan 20 Hyalgan 20 2020-0 No 20mg C ommon mg mg 10-05 [facility] 00:00: - [facility] Hyalgan 20 Hyalgan 20 2020-0 No 20mg C ommon mg mg 10-05 [facility] 00:00: - [facility] Hyalgan 20 Hyalgan 20 2020-0 No 20mg C ommon mg mg 10-05 [facility] 00:00: - [facility] Hyalgan 20 Hyalgan 20 2020-0 No 20mg C ommon mg mg 10-05 [facility] 00:00: - [facility] Hyalgan 20 Hyalgan 20 2020-0 No 20mg C ommon mg mg 10-05 [facility] 00:00: - [facility] Hyalgan 20 Hyalgan 20 2020-0 No 20mg C ommon mg mg 10-05 [facility] 00:00: - [facility] Hyalgan 20 Hyalgan 20 2020-0 No 20mg C ommon mg mg 10-05 [facility] 00:00: - [facility] Hyalgan 20 Hyalgan 20 2020-0 No 20mg C ommon mg mg 4- [facility] 00:00: - [facility] 00 [facility] Hyalgan 20 Hyalgan 20 2020-0 No 20mg C ommon mg mg 4-29 [facility] 00:00: - [facility] 00 [facility] traMADol traMADol 2020-0 No 1{table traMADol HCl 50 MG HCl 50 MG 4-19 t_as_ne HCl 50 MG 00:00: eded} 00 traMADol traMADol 2020-0 No 1{table traMADol HCl 50 MG HCl 50 MG 4-19 t_as_ne HCl 50 MG 00:00: eded} 00 traMADol traMADol 2020-0 No 1{table traMADol HCl 50 MG HCl 50 MG 4-19 t_as_ne HCl 50 MG 00:00: eded} 00 traMADol traMADol 2020-0 No 1{table traMADol HCl 50 MG HCl 50 MG 4-19 t_as_ne HCl 50 MG 00:00: eded} 00 traMADol traMADol 2020-0 No 1{table traMADol HCl 50 MG HCl 50 MG 4-19 t_as_ne HCl 50 MG 00:00: eded} 00 traMADol traMADol 2020-0 No 1{table traMADol HCl 50 MG HCl 50 MG 4-19 t_as_ne HCl 50 MG 00:00: eded} 00 traMADol traMADol 2020-0 No 1{table traMADol HCl 50 MG HCl 50 MG 4-19 t_as_ne HCl 50 MG 00:00: eded} 00 traMADol traMADol 2020-0 No 1{table traMADol HCl 50 MG HCl 50 MG 4-19 t_as_ne HCl 50 MG 00:00: eded} 00 traMADol traMADol 2020-0 No 1{table traMADol HCl 50 MG HCl 50 MG 4-19 t_as_ne HCl 50 MG 00:00: eded} 00 traMADol traMADol 1-0 No 1{table traMADol HCl 50 MG HCl 50 MG 4-19 t_as_ne HCl 50 MG 00:00: eded} 00 traMADol traMADol 2020-0 No 1{table traMADol HCl 50 MG HCl 50 MG 4-19 t_as_ne HCl 50 MG 00:00: eded} 00 traMADol traMADol 2020-0 No 1{table traMADol HCl 50 MG HCl 50 MG 4-19 t_as_ne HCl 50 MG 00:00: eded} 00 traMADol traMADol 1-0 No 1{table traMADol HCl 50 MG HCl 50 MG 4-19 t_as_ne HCl 50 MG 00:00: eded} 00 traMADol traMADol 1-0 No 1{table traMADol HCl 50 MG HCl 50 MG 4-19 t_as_ne HCl 50 MG 00:00: eded} 00 traMADol traMADol 1-0 No 1{table traMADol HCl 50 MG HCl 50 MG 4-19 t_as_ne HCl 50 MG 00:00: eded} 00 traMADol traMADol 1-0 No 1{table HCl 50 MG HCl 50 MG 4-19 t_as_ne 00:00: eded} 00 traMADol traMADol 1-0 No 1{table traMADol HCl 50 MG HCl 50 MG 4-19 t_as_ne HCl 50 MG 00:00: eded} 00 traMADol traMADol 1-0 No 1{table traMADol HCl 50 MG HCl 50 MG 4-19 t_as_ne HCl 50 MG 00:00: eded} 00 traMADol traMADol 1-0 No 1{table traMADol HCl 50 MG HCl 50 MG 4-19 t_as_ne HCl 50 MG 00:00: eded} 00 traMADol traMADol 1-0 No 1{table traMADol HCl 50 MG HCl 50 MG 4-19 t_as_ne HCl 50 MG 00:00: eded} 00 traMADol traMADol 1-0 No 1{table traMADol HCl 50 MG HCl 50 MG 4-19 t_as_ne HCl 50 MG 00:00: eded} 00 traMADol traMADol 1-0 No 1{table traMADol HCl 50 MG HCl 50 MG 4-19 t_as_ne HCl 50 MG 00:00: eded} 00 traMADol traMADol 1-0 No 1{table traMADol HCl 50 MG HCl 50 MG 4-19 t_as_ne HCl 50 MG 00:00: eded} 00 traMADol traMADol 1-0 No 1{table traMADol HCl 50 MG HCl 50 MG 4-19 t_as_ne HCl 50 MG 00:00: eded} 00 traMADol traMADol 2021-0 No 1{table traMADol HCl 50 MG HCl 50 MG 4-19 t_as_ne HCl 50 MG 00:00: eded} 00 traMADol traMADol 2020-0 No 1{table traMADol HCl 50 MG HCl 50 MG 4-19 t_as_ne HCl 50 MG 00:00: eded} 00 traMADol traMADol 2020-0 No 1{table traMADol HCl 50 MG HCl 50 MG 4-19 t_as_ne HCl 50 MG 00:00: eded} 00 traMADol traMADol 2020-0 No 1{table traMADol HCl 50 MG HCl 50 MG 4-19 t_as_ne HCl 50 MG 00:00: eded} 00 traMADol traMADol 2020-0 No 1{table traMADol HCl 50 MG HCl 50 MG 4-19 t_as_ne HCl 50 MG 00:00: eded} 00 traMADol traMADol 2020-0 No 1{table traMADol HCl 50 MG HCl 50 MG 4-19 t_as_ne HCl 50 MG 00:00: eded} 00 traMADol traMADol 2020-0 No 1{table traMADol HCl 50 MG HCl 50 MG 4-19 t_as_ne HCl 50 MG 00:00: eded} 00 Montelukast Montelukast 2020-0 No 1{table QD Montelukas Sodium 10 Sodium 10 2-09 t} t Sodium MG MG 00:00: 10 MG 00 Montelukast Montelukast 2020-0 No 1{table QD Montelukas Sodium 10 Sodium 10 2-09 t} t Sodium MG MG 00:00: 10 MG 00 Montelukast Montelukast 2020-0 No 1{table QD Montelukas Sodium 10 Sodium 10 2-09 t} t Sodium MG MG 00:00: 10 MG 00 Montelukast Montelukast 2020-0 No 1{table QD Montelukas Sodium 10 Sodium 10 2-09 t} t Sodium MG MG 00:00: 10 MG 00 Montelukast Montelukast 2020-0 No 1{table QD Montelukas Sodium 10 Sodium 10 2-09 t} t Sodium MG MG 00:00: 10 MG 00 Montelukast Montelukast 2020-0 No 1{table QD Montelukas Sodium 10 Sodium 10 2-09 t} t Sodium MG MG 00:00: 10 MG 00 Montelukast Montelukast 2020-0 No 1{table QD Montelukas Sodium 10 Sodium 10 2-09 t} t Sodium MG MG 00:00: 10 MG 00 Montelukast Montelukast 2020-0 No 1{table QD Montelukas Sodium 10 Sodium 10 2-09 t} t Sodium MG MG 00:00: 10 MG 00 Montelukast Montelukast 2020-0 No 1{table QD Montelukas Sodium 10 Sodium 10 2-09 t} t Sodium MG MG 00:00: 10 MG 00 Montelukast Montelukast 2020-0 No 1{table QD Montelukas Sodium 10 Sodium 10 2-09 t} t Sodium MG MG 00:00: 10 MG 00 Montelukast Montelukast 2020-0 No 1{table QD Montelukas Sodium 10 Sodium 10 2-09 t} t Sodium MG MG 00:00: 10 MG 00 Montelukast Montelukast 2020-0 No 1{table QD Montelukas Sodium 10 Sodium 10 2-09 t} t Sodium MG MG 00:00: 10 MG 00 Montelukast Montelukast 2020-0 No 1{table QD Montelukas Sodium 10 Sodium 10 2-09 t} t Sodium MG MG 00:00: 10 MG 00 Montelukast Montelukast 2020-0 No 1{table QD Montelukas Sodium 10 Sodium 10 2-09 t} t Sodium MG MG 00:00: 10 MG 00 Montelukast Montelukast 2020-0 No 1{table QD Sodium 10 Sodium 10 2-09 t} MG MG 00:00: 00 Montelukast Montelukast 2020-0 No 1{table QD Montelukas Sodium 10 Sodium 10 2-09 t} t Sodium MG MG 00:00: 10 MG 00 Montelukast Montelukast 2020-0 No 1{table QD Montelukas Sodium 10 Sodium 10 2-09 t} t Sodium MG MG 00:00: 10 MG 00 Montelukast Montelukast 2020-0 No 1{table QD Montelukas Sodium 10 Sodium 10 2-09 t} t Sodium MG MG 00:00: 10 MG 00 Montelukast Montelukast 2020-0 No 1{table QD Montelukas Sodium 10 Sodium 10 2-09 t} t Sodium MG MG 00:00: 10 MG 00 Montelukast Montelukast 2020-0 No 1{table QD Montelukas Sodium 10 Sodium 10 2-09 t} t Sodium MG MG 00:00: 10 MG 00 Montelukast Montelukast 2020-0 No 1{table QD Montelukas Sodium 10 Sodium 10 2-09 t} t Sodium MG MG 00:00: 10 MG 00 Montelukast Montelukast 2020-0 No 1{table QD Montelukas Sodium 10 Sodium 10 2-09 t} t Sodium MG MG 00:00: 10 MG 00 Montelukast Montelukast 2020-0 No 1{table QD Montelukas Sodium 10 Sodium 10 2-09 t} t Sodium MG MG 00:00: 10 MG 00 Montelukast Montelukast 2020-0 No 1{table QD Montelukas Sodium 10 Sodium 10 2-09 t} t Sodium MG MG 00:00: 10 MG 00 Montelukast Montelukast 2020-0 No 1{table QD Montelukas Sodium 10 Sodium 10 2-09 t} t Sodium MG MG 00:00: 10 MG 00 Montelukast Montelukast 2020-0 No 1{table QD Montelukas Sodium 10 Sodium 10 2-09 t} t Sodium MG MG 00:00: 10 MG 00 Montelukast Montelukast 2020-0 No 1{table QD Montelukas Sodium 10 Sodium 10 2-09 t} t Sodium MG MG 00:00: 10 MG 00 Montelukast Montelukast 2020-0 No 1{table QD Montelukas Sodium 10 Sodium 10 2-09 t} t Sodium MG MG 00:00: 10 MG 00 Montelukast Montelukast 2020-0 No 1{table QD Montelukas Sodium 10 Sodium 10 2-09 t} t Sodium MG MG 00:00: 10 MG 00 Montelukast Montelukast 2020-0 No 1{table QD Montelukas Sodium 10 Sodium 10 2-09 t} t Sodium MG MG 00:00: 10 MG 00 Montelukast Montelukast 2021-0 No 1{table QD Montelukas Sodium 10 Sodium 10 2-09 t} t Sodium MG MG 00:00: 10 MG 00 Bupivicaine Bupivicaine 2020-0 No 2.5mg [facility] [place] [facility] 00:00: - [facility] 00 [facility] Kenalog Kenalog 2020-0 No 40mg Common (Triamcinol (Triamcinol 1-26 S pirit one) one) 00:00: - [facility] 00 [facility] Bupivicaine Bupivicaine 2020-0 No 2.5mg [facility] [place] [facility] 00:00: - [facility] 00 [facility] Kenalog Kenalog 2020-0 No 40mg Common (Triamcinol (Triamcinol 1-26 S pirit one) one) 00:00: - [facility] 00 [facility] Bupivicaine Bupivicaine 2020-0 No 2.5mg [facility] [place] [facility] 00:00: - [facility] 00 [facility] Kenalog Kenalog 2020-0 No 40mg Common (Triamcinol (Triamcinol 1-26 S pirit one) one) 00:00: - [facility] 00 [facility] Bupivicaine Bupivicaine 2020-0 No 2.5mg [facility] [place] [facility] 00:00: - [facility] 00 [facility] Kenalog Kenalog 2020-0 No 40mg Common (Triamcinol (Triamcinol 1-26 S pirit one) one) 00:00: - [facility] 00 [facility] Bupivicaine Bupivicaine 2020-0 No 2.5mg [facility] [place] [facility] 00:00: - [facility] 00 [facility] Kenalog Kenalog 2020-0 No 40mg Common (Triamcinol (Triamcinol 1-26 S pirit one) one) 00:00: - [facility] 00 [facility] Bupivicaine Bupivicaine 2020-0 No 2.5mg [facility] [place] [facility] 00:00: - [facility] 00 [facility] Kenalog Kenalog 2020-0 No 40mg Common (Triamcinol (Triamcinol 1-26 S pirit one) one) 00:00: - [facility] 00 [facility] Bupivicaine Bupivicaine 2020-0 No 2.5mg [facility] [place] [facility] 00:00: - [facility] 00 [facility] Kenalog Kenalog 2020-0 No 40mg Common (Triamcinol (Triamcinol 1-26 S pirit one) one) 00:00: - [facility] 00 [facility] Bupivicaine Bupivicaine 2020-0 No 2.5mg [facility] [place] [facility] 00:00: - [facility] 00 [facility] Kenalog Kenalog 2020-0 No 40mg Common (Triamcinol (Triamcinol 1-26 S pirit one) one) 00:00: - [facility] 00 [facility] Bupivicaine Bupivicaine 2020-0 No 2.5mg [facility] [place] [facility] 00:00: - [facility] 00 [facility] Kenalog Kenalog 2020-0 No 40mg Common (Triamcinol (Triamcinol 1-26 S pirit one) one) 00:00: - [facility] 00 [facility] Bupivicaine Bupivicaine 2020-0 No 2.5mg [facility] [place] [facility] 00:00: - [facility] 00 [facility] Kenalog Kenalog 2020-0 No 40mg Common (Triamcinol (Triamcinol 1-26 S pirit one) one) 00:00: - [facility] 00 [facility] Bupivicaine Bupivicaine 2020-0 No 2.5mg [facility] [place] -[facility] 00:00: - [facility] 00 [facility] Kenalog Kenalog 2020-0 No 40mg Common (Triamcinol (Triamcinol 1-26 S pirit one) one) 00:00: - [facility] 00 [facility] Bupivicaine Bupivicaine 2020-0 No 2.5mg [facility] [place] [facility] 00:00: - [facility] 00 [facility] Kenalog Kenalog 2020-0 No 40mg Common (Triamcinol (Triamcinol 1-26 S pirit one) one) 00:00: - [facility] 00 [facility] Bupivicaine Bupivicaine 2020-0 No 2.5mg [facility] [place] [facility] 00:00: - [facility] 00 [facility] Kenalog Kenalog 2020-0 No 40mg Common (Triamcinol (Triamcinol 1-26 S pirit one) one) 00:00: - [facility] 00 [facility] Bupivicaine Bupivicaine 2020-0 No 2.5mg [facility] [place] [facility] 00:00: - [facility] 00 [facility] Kenalog Kenalog 2020-0 No 40mg Common (Triamcinol (Triamcinol 1-26 S pirit one) one) 00:00: - [facility] 00 [facility] Bupivicaine Bupivicaine 2020-0 No [facility] [place] [facility] 00:00: - [facility] 00 [facility] Kenalog Kenalog 2020-0 No 40mg Common (Triamcinol (Triamcinol 1-26 S pirit one) one) 00:00: - [facility] 00 [facility] Bupivicaine Bupivicaine 2020-0 No 2.5mg [facility] [place] [facility] 00:00: - [facility] 00 [facility] Kenalog Kenalog 2020-0 No 40mg Common (Triamcinol (Triamcinol 1-26 S pirit one) one) 00:00: - [facility] 00 [facility] Bupivicaine Bupivicaine 2020-0 No 2.5mg [facility] [place] [facility] 00:00: - [facility] 00 [facility] Kenalog Kenalog 2020-0 No 40mg Common (Triamcinol (Triamcinol 1-26 S pirit one) one) 00:00: - [facility] 00 [facility] Bupivicaine Bupivicaine 2020-0 No 2.5mg [facility] [place] [facility] 00:00: - [facility] 00 [facility] Kenalog Kenalog 2020-0 No 40mg Common (Triamcinol (Triamcinol 1-26 S pirit one) one) 00:00: - [facility] 00 [facility] Bupivicaine Bupivicaine 2020-0 No 2.5mg [facility] [place] [facility] 00:00: - [facility] 00 [facility] Kenalog Kenalog 0 No 40mg Common (Triamcinol (Triamcinol 1-26 S pirit one) one) 00:00: - [facility] 00 [facility] Bupivicaine Bupivicaine 2020-0 No 2.5mg [facility] [place] [facility] 00:00: - [facility] 00 [facility] Kenalog Kenalog 2020-0 No 40mg Common (Triamcinol (Triamcinol 1-26 S pirit one) one) 00:00: - [facility] 00 [facility] Bupivicaine Bupivicaine 2020-0 No 2.5mg [facility] [place] [facility] 00:00: - [facility] 00 [facility] Yulissa Kenalog 2020-0 No 40mg Common (Triamcinol (Triamcinol 1-26 S pirit one) one) 00:00: - [facility] 00 [facility] Bupivicaine Bupivicaine 2020-0 No 2.5mg [facility] [place] -[facility] 00:00: - [facility] 00 [facility] Kenalog Kenalog 2020-0 No 40mg Common (Triamcinol (Triamcinol 1-26 S pirit one) one) 00:00: - [facility] 00 [facility] Bupivicaine Bupivicaine 2020-0 No 2.5mg [facility] [place] [facility] 00:00: - [facility] 00 [facility] Kenalog Kenalog 2020-0 No 40mg Common (Triamcinol (Triamcinol 1-26 S pirit one) one) 00:00: - [facility] 00 [facility] Bupivicaine Bupivicaine 2020-0 No 2.5mg [facility] [place] [facility] 00:00: - [facility] 00 [facility] Kenalog Kenalog 2020-0 No 40mg Common (Triamcinol (Triamcinol 1-26 S pirit one) one) 00:00: - [facility] 00 [facility] Bupivicaine Bupivicaine 2020-0 No 2.5mg [facility] [place] [facility] 00:00: - [facility] 00 [facility] Kenalog Kenalog 2020-0 No 40mg Common (Triamcinol (Triamcinol 1-26 S pirit one) one) 00:00: - [facility] 00 [facility] Bupivicaine Bupivicaine 2020-0 No 2.5mg [facility] [place] [facility] 00:00: - [facility] 00 [facility] Kenalog Kenalog 2020-0 No 40mg Common (Triamcinol (Triamcinol 1-26 S pirit one) one) 00:00: - [facility] 00 [facility] Bupivicaine Bupivicaine 2020-0 No 2.5mg [facility] [place] [facility] 00:00: - [facility] 00 [facility] Kenalog Kenalog 2020-0 No 40mg Common (Triamcinol (Triamcinol -26 S pirit one) one) 00:00: - [facility] 00 [facility] Bupivicaine Bupivicaine 2020-0 No 2.5mg [facility] [place] [facility] 00:00: - [facility] 00 [facility] Yulissa Kenalog 2020-0 No 40mg Common (Triamcinol (Triamcinol -26 S pirit one) one) 00:00: - [facility] 00 [facility] Bupivicaine Bupivicaine 2020-0 No 2.5mg [facility] [place] [facility] 00:00: - [facility] 00 [facility] Yulissa Kenalog 2020-0 No 40mg Common (Triamcinol (Triamcinol -26 S pirit one) one) 00:00: - [facility] Tylenol # 3 Tylenol # 3 2020-1 No Tylenol # 300/30mg 300/30mg 2-08 3 300/30mg 00:00: 00 Tylenol # 3 Tylenol # 3 2020-1 No Tylenol # 300/30mg 300/30mg 2-08 3 300/30mg 00:00: 00 Tylenol # 3 Tylenol # 3 2020-1 No Tylenol # 300/30mg 300/30mg 2-08 3 300/30mg 00:00: 00 Tylenol # 3 Tylenol # 3 2020-1 No Tylenol # 300/30mg 300/30mg 2-08 3 300/30mg 00:00: 00 Tylenol # 3 Tylenol # 3 2020-1 No Tylenol # 300/30mg 300/30mg 2-08 3 300/30mg 00:00: 00 Tylenol # 3 Tylenol # 3 2020-1 No Tylenol # 300/30mg 300/30mg 2-08 3 300/30mg 00:00: 00 Tylenol # 3 Tylenol # 3 2020- No Tylenol # 300/30mg 300/30mg 2-08 3 300/30mg 00:00: 00 Tylenol # 3 Tylenol # 3 2020- No Tylenol # 300/30mg 300/30mg 2-08 3 300/30mg 00:00: 00 Tylenol # 3 Tylenol # 3 2019- No Tylenol # 300/30mg 300/30mg 2-08 3 300/30mg 00:00: 00 Tylenol # 3 Tylenol # 3 2019- No Tylenol # 300/30mg 300/30mg 2-08 3 300/30mg 00:00: 00 Tylenol # 3 Tylenol # 3 2019- No Tylenol # 300/30mg 300/30mg 2-08 3 300/30mg 00:00: 00 Tylenol # 3 Tylenol # 3 2019- No Tylenol # 300/30mg 300/30mg 2-08 3 300/30mg 00:00: 00 Tylenol # 3 Tylenol # 3 2019- No Tylenol # 300/30mg 300/30mg 2-08 3 300/30mg 00:00: 00 Tylenol # 3 Tylenol # 3 2019- No Tylenol # 300/30mg 300/30mg 2-08 3 300/30mg 00:00: 00 Tylenol # 3 Tylenol # 3 2020-1 No 300/30mg 300/30mg 2-08 00:00: 00 Tylenol # 3 Tylenol # 3 2020- No Tylenol # 300/30mg 300/30mg 2-08 3 300/30mg 00:00: 00 Tylenol # 3 Tylenol # 3 2020-1 No Tylenol # 300/30mg 300/30mg 2-08 3 300/30mg 00:00: 00 Tylenol # 3 Tylenol # 3 2020- No Tylenol # 300/30mg 300/30mg 2-08 3 300/30mg 00:00: 00 Tylenol # 3 Tylenol # 3 2019- No Tylenol # 300/30mg 300/30mg 2-08 3 300/30mg 00:00: 00 Tylenol # 3 Tylenol # 3 2020-1 No Tylenol # 300/30mg 300/30mg 2-08 3 300/30mg 00:00: 00 Tylenol # 3 Tylenol # 3 2020-1 No Tylenol # 300/30mg 300/30mg 2-08 3 300/30mg 00:00: 00 Tylenol # 3 Tylenol # 3 2020-1 No Tylenol # 300/30mg 300/30mg 2-08 3 300/30mg 00:00: 00 Tylenol # 3 Tylenol # 3 2020-1 No Tylenol # 300/30mg 300/30mg 2-08 3 300/30mg 00:00: 00 Tylenol # 3 Tylenol # 3 2020-1 No Tylenol # 300/30mg 300/30mg 2-08 3 300/30mg 00:00: 00 Tylenol # 3 Tylenol # 3 2020-1 No Tylenol # 300/30mg 300/30mg 2-08 3 300/30mg 00:00: 00 Tylenol # 3 Tylenol # 3 2020-1 No Tylenol # 300/30mg 300/30mg 2-08 3 300/30mg 00:00: 00 Tylenol # 3 Tylenol # 3 2020-1 No Tylenol # 300/30mg 300/30mg 2-08 3 300/30mg 00:00: 00 Tylenol # 3 Tylenol # 3 2020-1 No Tylenol # 300/30mg 300/30mg 2-08 3 300/30mg 00:00: 00 Tylenol # 3 Tylenol # 3 2020-1 No Tylenol # 300/30mg 300/30mg 2-08 3 300/30mg 00:00: 00 Tylenol # 3 Tylenol # 3 2020-1 No Tylenol # 300/30mg 300/30mg 2-08 3 300/30mg 00:00: 00 Tylenol # 3 Tylenol # 3 2020-1 No Tylenol # 300/30mg 300/30mg 2-08 3 300/30mg 00:00: 00 Meloxicam Meloxicam No 1{table QD Meloxicam 7.5 MG 7.5 MG t} 7.5 MG Acetaminoph Acetaminoph No 1{table Acetaminop en-Codeine en-Codeine t_as_ne hen-Codein #3 300-30 #3 300-30 eded} e #3 MG MG 300-30 MG Meclizine Meclizine No 1{table QD Meclizine HCl 25 MG HCl 25 MG t_as_ne HCl 25 MG eded} tiZANidine tiZANidine No 1{table TID tiZANidine HCl 2 MG HCl 2 MG t_as_ne HCl 2 MG eded} Ferrous Ferrous No Ferrous Sulfate Sulfate Sulfate Carafate 1 Carafate 1 No 10{ml_o TID Carafate 1 GM/10ML GM/10ML n_an_em GM/10ML pty_sto mach} Vitamin D Vitamin D No Vitamin D Furosemide Furosemide No 1{table Furosemide 20 MG 20 MG t} 20 MG Multivitami Multivitami No Multivitam n n in Ferrous Ferrous No Ferrous Sulfate Sulfate Sulfate Probiotic Probiotic No Probiotic Meclizine Meclizine No 1{table QD Meclizine HCl 25 MG HCl 25 MG t_as_ne HCl 25 MG eded} Remeron 30 Remeron 30 No 1{table QD Remeron 30 MG MG t_at_be MG dtime} Vitamin B12 Vitamin B12 No 1{table QD Vitamin 500 MCG 500 MCG t} B12 500 MCG Vitamin D Vitamin D No 1{table TID Vitamin D 25 MCG 25 MCG t} 25 MCG (1000 UT) (1000 UT) (1000 UT) Super B Super B No Super B Complex Complex Complex CeleXA 40 CeleXA 40 No 1{table QD CeleXA 40 MG MG t} MG Ibuprofen Ibuprofen No Ibuprofen Carafate 1 Carafate 1 No 10{ml_o TID Carafate 1 GM/10ML GM/10ML n_an_em GM/10ML pty_sto mach} Neurontin Neurontin No 1{table TID Neurontin 600 MG 600 MG t} 600 MG ZyrTEC 10 ZyrTEC 10 No 1{table QD ZyrTEC 10 MG MG t} MG tiZANidine tiZANidine No 1{table TID tiZANidine HCl 2 MG HCl 2 MG t_as_ne HCl 2 MG eded} Protonix 40 Protonix 40 No 1{table BID Protonix MG MG t} 40 MG Super B Super B No Super B Complex Complex Complex Vitamin B12 Vitamin B12 No 1{table QD Vitamin 500 MCG 500 MCG t} B12 500 MCG Acetaminoph Acetaminoph No 1{table Acetaminop en-Codeine en-Codeine t_as_ne hen-Codein #3 300-30 #3 300-30 eded} e #3 MG MG 300-30 MG Acetaminoph Acetaminoph No 1{table Acetaminop en-Codeine en-Codeine t_as_ne hen-Codein #3 300-30 #3 300-30 eded} e #3 MG MG 300-30 MG Ferrous Ferrous No Ferrous Sulfate Sulfate Sulfate Vitamin D Vitamin D No 1{table TID Vitamin D 25 MCG 25 MCG t} 25 MCG (1000 UT) (1000 UT) (1000 UT) Neurontin Neurontin No 1{table TID Neurontin 600 MG 600 MG t} 600 MG Furosemide Furosemide No 1{table Furosemide 20 MG 20 MG t} 20 MG CeleXA 40 CeleXA 40 No 1{table QD CeleXA 40 MG MG t} MG Probiotic Probiotic No Probiotic Meclizine Meclizine No 1{table QD Meclizine HCl 25 MG HCl 25 MG t_as_ne HCl 25 MG eded} Multivitami Multivitami No Multivitam n n in Super B Super B No Super B Complex Complex Complex Cyanocobala Cyanocobala No Cyanocobal min 1000 min 1000 son 1000 MCG/ML MCG/ML MCG/ML Multivitami Multivitami No Multivitam n n in ZyrTEC 10 ZyrTEC 10 No 1{table QD ZyrTEC 10 MG MG t} MG Ibuprofen Ibuprofen No Ibuprofen tiZANidine tiZANidine No 1{table TID tiZANidine HCl 2 MG HCl 2 MG t_as_ne HCl 2 MG eded} Remeron 30 Remeron 30 No 1{table QD Remeron 30 MG MG t_at_be MG dtime} Vitamin D Vitamin D No Vitamin D Carafate 1 Carafate 1 No 10{ml_o TID Carafate 1 GM/10ML GM/10ML n_an_em GM/10ML pty_sto mach} Meloxicam Meloxicam No 1{table QD Meloxicam 7.5 MG 7.5 MG t} 7.5 MG Protonix 40 Protonix 40 No 1{table BID Protonix MG MG t} 40 MG CeleXA 40 CeleXA 40 No 1{table QD CeleXA 40 MG MG t} MG Probiotic Probiotic No Probiotic Probiotic Probiotic No Probiotic Ibuprofen Ibuprofen No Ibuprofen Neurontin Neurontin No 1{table TID Neurontin 600 MG 600 MG t} 600 MG tiZANidine tiZANidine No 1{table TID tiZANidine HCl 2 MG HCl 2 MG t_as_ne HCl 2 MG eded} Ibuprofen Ibuprofen No Ibuprofen Vitamin D Vitamin D No 1{table TID Vitamin D 25 MCG 25 MCG t} 25 MCG (1000 UT) (1000 UT) (1000 UT) Vitamin D Vitamin D No Vitamin D CeleXA 40 CeleXA 40 No 1{table QD CeleXA 40 MG MG t} MG Neurontin Neurontin No 1{table TID Neurontin 600 MG 600 MG t} 600 MG Acetaminoph Acetaminoph No 1{table Acetaminop en-Codeine en-Codeine t_as_ne hen-Codein #3 300-30 #3 300-30 eded} e #3 MG MG 300-30 MG Meclizine Meclizine No 1{table QD Meclizine HCl 25 MG HCl 25 MG t_as_ne HCl 25 MG eded} Ferrous Ferrous No Ferrous Sulfate Sulfate Sulfate Furosemide Furosemide No 1{table Furosemide 20 MG 20 MG t} 20 MG Vitamin B12 Vitamin B12 No 1{table QD Vitamin 500 MCG 500 MCG t} B12 500 MCG Remeron 30 Remeron 30 No 1{table QD Remeron 30 MG MG t_at_be MG dtime} Furosemide Furosemide No 1{table Furosemide 20 MG 20 MG t} 20 MG Multivitami Multivitami No Multivitam n n in Carafate 1 Carafate 1 No 10{ml_o TID Carafate 1 GM/10ML GM/10ML n_an_em GM/10ML pty_sto mach} Protonix 40 Protonix 40 No 1{table BID Protonix MG MG t} 40 MG ZyrTEC 10 ZyrTEC 10 No 1{table QD ZyrTEC 10 MG MG t} MG Cyanocobala Cyanocobala No Cyanocobal min 1000 min 1000 son 1000 MCG/ML MCG/ML MCG/ML Meloxicam Meloxicam No 1{table QD Meloxicam 7.5 MG 7.5 MG t} 7.5 MG Super B Super B No Super B Complex Complex Complex Vitamin D Vitamin D No 1{table TID Vitamin D 25 MCG 25 MCG t} 25 MCG (1000 UT) (1000 UT) (1000 UT) Probiotic Probiotic No Probiotic Neurontin Neurontin No 1{table TID Neurontin 600 MG 600 MG t} 600 MG tiZANidine tiZANidine No 1{table TID tiZANidine HCl 2 MG HCl 2 MG t_as_ne HCl 2 MG eded} Ibuprofen Ibuprofen No Ibuprofen Vitamin D Vitamin D No 1{table TID Vitamin D 25 MCG 25 MCG t} 25 MCG (1000 UT) (1000 UT) (1000 UT) Vitamin D Vitamin D No Vitamin D CeleXA 40 CeleXA 40 No 1{table QD CeleXA 40 MG MG t} MG Acetaminoph Acetaminoph No 1{table Acetaminop en-Codeine en-Codeine t_as_ne hen-Codein #3 300-30 #3 300-30 eded} e #3 MG MG 300-30 MG Meclizine Meclizine No 1{table QD Meclizine HCl 25 MG HCl 25 MG t_as_ne HCl 25 MG eded} Ferrous Ferrous No Ferrous Sulfate Sulfate Sulfate Furosemide Furosemide No 1{table Furosemide 20 MG 20 MG t} 20 MG Vitamin B12 Vitamin B12 No 1{table QD Vitamin 500 MCG 500 MCG t} B12 500 MCG Remeron 30 Remeron 30 No 1{table QD Remeron 30 MG MG t_at_be MG dtime} Multivitami Multivitami No Multivitam n n in Carafate 1 Carafate 1 No 10{ml_o TID Carafate 1 GM/10ML GM/10ML n_an_em GM/10ML pty_sto mach} Protonix 40 Protonix 40 No 1{table BID Protonix MG MG t} 40 MG ZyrTEC 10 ZyrTEC 10 No 1{table QD ZyrTEC 10 MG MG t} MG Cyanocobala Cyanocobala No Cyanocobal min 1000 min 1000 son 1000 MCG/ML MCG/ML MCG/ML Meloxicam Meloxicam No 1{table QD Meloxicam 7.5 MG 7.5 MG t} 7.5 MG Super B Super B No Super B Complex Complex Complex Probiotic Probiotic No Probiotic Neurontin Neurontin No 1{table TID Neurontin 600 MG 600 MG t} 600 MG tiZANidine tiZANidine No 1{table TID tiZANidine HCl 2 MG HCl 2 MG t_as_ne HCl 2 MG eded} Ibuprofen Ibuprofen No Ibuprofen Vitamin D Vitamin D No 1{table TID Vitamin D 25 MCG 25 MCG t} 25 MCG (1000 UT) (1000 UT) (1000 UT) Remeron 30 Remeron 30 No 1{table QD Remeron 30 MG MG t_at_be MG dtime} Vitamin D Vitamin D No Vitamin D CeleXA 40 CeleXA 40 No 1{table QD CeleXA 40 MG MG t} MG Acetaminoph Acetaminoph No 1{table Acetaminop en-Codeine en-Codeine t_as_ne hen-Codein #3 300-30 #3 300-30 eded} e #3 MG MG 300-30 MG Meclizine Meclizine No 1{table QD Meclizine HCl 25 MG HCl 25 MG t_as_ne HCl 25 MG eded} Ferrous Ferrous No Ferrous Sulfate Sulfate Sulfate Furosemide Furosemide No 1{table Furosemide 20 MG 20 MG t} 20 MG Vitamin B12 Vitamin B12 No 1{table QD Vitamin 500 MCG 500 MCG t} B12 500 MCG Remeron 30 Remeron 30 No 1{table QD Remeron 30 MG MG t_at_be MG dtime} Multivitami Multivitami No Multivitam n n in Carafate 1 Carafate 1 No 10{ml_o TID Carafate 1 GM/10ML GM/10ML n_an_em GM/10ML pty_sto mach} Protonix 40 Protonix 40 No 1{table BID Protonix MG MG t} 40 MG ZyrTEC 10 ZyrTEC 10 No 1{table QD ZyrTEC 10 MG MG t} MG Citalopram Citalopram No Citalopram Hydrobromid Hydrobromid Hydrobromi e 40 MG e 40 MG de 40 MG Cyanocobala Cyanocobala No Cyanocobal min 1000 min 1000 son 1000 MCG/ML MCG/ML MCG/ML Meloxicam Meloxicam No 1{table QD Meloxicam 7.5 MG 7.5 MG t} 7.5 MG Super B Super B No Super B Complex Complex Complex Mirtazapine Mirtazapine No Mirtazapin 30 MG 30 MG e 30 MG Remeron 30 Remeron 30 No 1{table QD Remeron 30 MG MG t_at_be MG dtime} Probiotic Probiotic No Probiotic Vitamin D Vitamin D No Vitamin D Protonix 40 Protonix 40 No 1{table BID Protonix MG MG t} 40 MG Super B Super B No Super B Complex Complex Complex Multivitami Multivitami No Multivitam n n in Carafate 1 Carafate 1 No 10{ml_o TID Carafate 1 GM/10ML GM/10ML n_an_em GM/10ML pty_sto mach} tiZANidine tiZANidine No 1{table TID tiZANidine HCl 2 MG HCl 2 MG t_as_ne HCl 2 MG eded} Ibuprofen Ibuprofen No Ibuprofen Meloxicam Meloxicam No 1{table QD Meloxicam 7.5 MG 7.5 MG t} 7.5 MG Mirtazapine Mirtazapine No Mirtazapin 30 MG 30 MG e 30 MG Neurontin Neurontin No 1{table TID Neurontin 600 MG 600 MG t} 600 MG Vitamin D Vitamin D No 1{table TID Vitamin D 25 MCG 25 MCG t} 25 MCG (1000 UT) (1000 UT) (1000 UT) Citalopram Citalopram No Citalopram Hydrobromid Hydrobromid Hydrobromi e 40 MG e 40 MG de 40 MG CeleXA 40 CeleXA 40 No 1{table QD CeleXA 40 MG MG t} MG Meclizine Meclizine No 1{table QD Meclizine HCl 25 MG HCl 25 MG t_as_ne HCl 25 MG eded} Furosemide Furosemide No 1{table Furosemide 20 MG 20 MG t} 20 MG Acetaminoph Acetaminoph No 1{table Acetaminop en-Codeine en-Codeine t_as_ne hen-Codein #3 300-30 #3 300-30 eded} e #3 MG MG 300-30 MG Ferrous Ferrous No Ferrous Sulfate Sulfate Sulfate Vitamin B12 Vitamin B12 No 1{table QD Vitamin 500 MCG 500 MCG t} B12 500 MCG Probiotic Probiotic No Probiotic Ibuprofen Ibuprofen No Ibuprofen Vitamin D Vitamin D No 1{table TID Vitamin D 25 MCG 25 MCG t} 25 MCG (1000 UT) (1000 UT) (1000 UT) Furosemide Furosemide No 1{table Furosemide 20 MG 20 MG t} 20 MG Protonix 40 Protonix 40 No 1{table BID Protonix MG MG t} 40 MG Acetaminoph Acetaminoph No 1{table Acetaminop en-Codeine en-Codeine t_as_ne hen-Codein #3 300-30 #3 300-30 eded} e #3 MG MG 300-30 MG Vitamin B12 Vitamin B12 No 1{table QD Vitamin 500 MCG 500 MCG t} B12 500 MCG Multivitami Multivitami No Multivitam n n in Ferrous Ferrous No Ferrous Sulfate Sulfate Sulfate CeleXA 40 CeleXA 40 No 1{table QD CeleXA 40 MG MG t} MG Neurontin Neurontin No 1{table TID Neurontin 600 MG 600 MG t} 600 MG Carafate 1 Carafate 1 No 10{ml_o TID Carafate 1 GM/10ML GM/10ML n_an_em GM/10ML pty_sto mach} Remeron 30 Remeron 30 No 1{table QD Remeron 30 MG MG t_at_be MG dtime} Meclizine Meclizine No 1{table QD Meclizine HCl 25 MG HCl 25 MG t_as_ne HCl 25 MG eded} Remeron 30 Remeron 30 No 1{table QD MG MG t_at_be dtime} CeleXA 40 CeleXA 40 No 1{table QD MG MG t} Ibuprofen Ibuprofen No Vitamin B12 Vitamin B12 No 1{table QD 500 MCG 500 MCG t} Multivitami Multivitami No n n Furosemide Furosemide No 1{table 20 MG 20 MG t} Vitamin D Vitamin D No 1{table TID 25 MCG 25 MCG t} (1000 UT) (1000 UT) Meclizine Meclizine No 1{table QD HCl 25 MG HCl 25 MG t_as_ne eded} Ferrous Ferrous No Sulfate Sulfate Carafate 1 Carafate 1 No 10{ml_o TID GM/10ML GM/10ML n_an_em pty_sto mach} Neurontin Neurontin No 1{table TID 600 MG 600 MG t} Protonix 40 Protonix 40 No 1{table BID MG MG t} Probiotic Probiotic No Acetaminoph Acetaminoph No 1{table en-Codeine en-Codeine t_as_ne #3 300-30 #3 300-30 eded} MG MG Ferrous Ferrous No Ferrous Sulfate Sulfate Sulfate Vitamin B12 Vitamin B12 No 1{table QD Vitamin 500 MCG 500 MCG t} B12 500 MCG Multivitami Multivitami No Multivitam n n in Furosemide Furosemide No 1{table Furosemide 20 MG 20 MG t} 20 MG Acetaminoph Acetaminoph No 1{table Acetaminop en-Codeine en-Codeine t_as_ne hen-Codein #3 300-30 #3 300-30 eded} e #3 MG MG 300-30 MG Carafate 1 Carafate 1 No 10{ml_o TID Carafate 1 GM/10ML GM/10ML n_an_em GM/10ML pty_sto mach} Protonix 40 Protonix 40 No 1{table BID Protonix MG MG t} 40 MG Vitamin D Vitamin D No 1{table TID Vitamin D 25 MCG 25 MCG t} 25 MCG (1000 UT) (1000 UT) (1000 UT) Ibuprofen Ibuprofen No Ibuprofen Mirtazapine Mirtazapine No Mirtazapin 30 MG 30 MG e 30 MG Probiotic Probiotic No Probiotic Citalopram Citalopram No Citalopram Hydrobromid Hydrobromid Hydrobromi e 40 MG e 40 MG de 40 MG Meclizine Meclizine No 1{table QD Meclizine HCl 25 MG HCl 25 MG t_as_ne HCl 25 MG eded} Neurontin Neurontin No 1{table TID Neurontin 600 MG 600 MG t} 600 MG Vitamin D Vitamin D No 1{table TID Vitamin D 25 MCG 25 MCG t} 25 MCG (1000 UT) (1000 UT) (1000 UT) CeleXA 40 CeleXA 40 No 1{table QD CeleXA 40 MG MG t} MG Vitamin B12 Vitamin B12 No 1{table QD Vitamin 500 MCG 500 MCG t} B12 500 MCG Neurontin Neurontin No 1{table TID Neurontin 600 MG 600 MG t} 600 MG Furosemide Furosemide No 1{table Furosemide 20 MG 20 MG t} 20 MG Remeron 30 Remeron 30 No 1{table QD Remeron 30 MG MG t_at_be MG dtime} Mirtazapine Mirtazapine No Mirtazapin 30 MG 30 MG e 30 MG Carafate 1 Carafate 1 No 10{ml_o TID Carafate 1 GM/10ML GM/10ML n_an_em GM/10ML pty_sto mach} Meloxicam Meloxicam No 1{table QD Meloxicam 7.5 MG 7.5 MG t} 7.5 MG Multivitami Multivitami No Multivitam n n in tiZANidine tiZANidine No 1{table TID tiZANidine HCl 2 MG HCl 2 MG t_as_ne HCl 2 MG eded} Citalopram Citalopram No Citalopram Hydrobromid Hydrobromid Hydrobromi e 40 MG e 40 MG de 40 MG Probiotic Probiotic No Probiotic Acetaminoph Acetaminoph No 1{table Acetaminop en-Codeine en-Codeine t_as_ne hen-Codein #3 300-30 #3 300-30 eded} e #3 MG MG 300-30 MG Ferrous Ferrous No Ferrous Sulfate Sulfate Sulfate Protonix 40 Protonix 40 No 1{table BID Protonix MG MG t} 40 MG Meclizine Meclizine No 1{table QD Meclizine HCl 25 MG HCl 25 MG t_as_ne HCl 25 MG eded} Ibuprofen Ibuprofen No Ibuprofen Vitamin D Vitamin D No 1{table TID Vitamin D 25 MCG 25 MCG t} 25 MCG (1000 UT) (1000 UT) (1000 UT) CeleXA 40 CeleXA 40 No 1{table QD CeleXA 40 MG MG t} MG Vitamin B12 Vitamin B12 No 1{table QD Vitamin 500 MCG 500 MCG t} B12 500 MCG Neurontin Neurontin No 1{table TID Neurontin 600 MG 600 MG t} 600 MG Furosemide Furosemide No 1{table Furosemide 20 MG 20 MG t} 20 MG Remeron 30 Remeron 30 No 1{table QD Remeron 30 MG MG t_at_be MG dtime} Mirtazapine Mirtazapine No Mirtazapin 30 MG 30 MG e 30 MG Carafate 1 Carafate 1 No 10{ml_o TID Carafate 1 GM/10ML GM/10ML n_an_em GM/10ML pty_sto mach} Meloxicam Meloxicam No 1{table QD Meloxicam 7.5 MG 7.5 MG t} 7.5 MG Multivitami Multivitami No Multivitam n n in tiZANidine tiZANidine No 1{table TID tiZANidine HCl 2 MG HCl 2 MG t_as_ne HCl 2 MG eded} Citalopram Citalopram No Citalopram Hydrobromid Hydrobromid Hydrobromi e 40 MG e 40 MG de 40 MG Probiotic Probiotic No Probiotic Acetaminoph Acetaminoph No 1{table Acetaminop en-Codeine en-Codeine t_as_ne hen-Codein #3 300-30 #3 300-30 eded} e #3 MG MG 300-30 MG Ferrous Ferrous No Ferrous Sulfate Sulfate Sulfate Protonix 40 Protonix 40 No 1{table BID Protonix MG MG t} 40 MG Meclizine Meclizine No 1{table QD Meclizine HCl 25 MG HCl 25 MG t_as_ne HCl 25 MG eded} Ibuprofen Ibuprofen No Ibuprofen Vitamin D Vitamin D No 1{table TID Vitamin D 25 MCG 25 MCG t} 25 MCG (1000 UT) (1000 UT) (1000 UT) CeleXA 40 CeleXA 40 No 1{table QD CeleXA 40 MG MG t} MG Vitamin B12 Vitamin B12 No 1{table QD Vitamin 500 MCG 500 MCG t} B12 500 MCG Neurontin Neurontin No 1{table TID Neurontin 600 MG 600 MG t} 600 MG Furosemide Furosemide No 1{table Furosemide 20 MG 20 MG t} 20 MG Remeron 30 Remeron 30 No 1{table QD Remeron 30 MG MG t_at_be MG dtime} Mirtazapine Mirtazapine No Mirtazapin 30 MG 30 MG e 30 MG Carafate 1 Carafate 1 No 10{ml_o TID Carafate 1 GM/10ML GM/10ML n_an_em GM/10ML pty_sto [facility]} Meloxicam Meloxicam No 1{table QD Meloxicam 7.5 MG 7.5 MG t} 7.5 MG Multivitami Multivitami No Multivitam n n in tiZANidine tiZANidine No 1{table TID tiZANidine HCl 2 MG HCl 2 MG t_as_ne HCl 2 MG eded} Citalopram Citalopram No Citalopram Hydrobromid Hydrobromid Hydrobromi e 40 MG e 40 MG de 40 MG Probiotic Probiotic No Probiotic Acetaminoph Acetaminoph No 1{table Acetaminop en-Codeine en-Codeine t_as_ne hen-Codein #3 300-30 #3 300-30 eded} e #3 MG MG 300-30 MG Ferrous Ferrous No Ferrous Sulfate Sulfate Sulfate Protonix 40 Protonix 40 No 1{table BID Protonix MG MG t} 40 MG Meclizine Meclizine No 1{table QD Meclizine HCl 25 MG HCl 25 MG t_as_ne HCl 25 MG eded} Ibuprofen Ibuprofen No Ibuprofen Meloxicam Meloxicam No 1{table QD Meloxicam 7.5 MG 7.5 MG t} 7.5 MG Remeron 30 Remeron 30 No 1{table QD Remeron 30 MG MG t_at_be MG dtime} Probiotic Probiotic No Probiotic Mirtazapine Mirtazapine No Mirtazapin 30 MG 30 MG e 30 MG Multivitami Multivitami No Multivitam n n in Citalopram Citalopram No Citalopram Hydrobromid Hydrobromid Hydrobromi e 40 MG e 40 MG de 40 MG Ibuprofen Ibuprofen No Ibuprofen Protonix 40 Protonix 40 No 1{table BID Protonix MG MG t} 40 MG Vitamin D Vitamin D No 1{table TID Vitamin D 25 MCG 25 MCG t} 25 MCG (1000 UT) (1000 UT) (1000 UT) Acetaminoph Acetaminoph No 1{table Acetaminop en-Codeine en-Codeine t_as_ne hen-Codein #3 300-30 #3 300-30 eded} e #3 MG MG 300-30 MG Meclizine Meclizine No 1{table QD Meclizine HCl 25 MG HCl 25 MG t_as_ne HCl 25 MG eded} CeleXA 40 CeleXA 40 No 1{table QD CeleXA 40 MG MG t} MG Super B Super B No Super B Complex Complex Complex Carafate 1 Carafate 1 No 10{ml_o TID Carafate 1 GM/10ML GM/10ML n_an_em GM/10ML pty_sto mach} Vitamin D Vitamin D No Vitamin D tiZANidine tiZANidine No 1{table TID tiZANidine HCl 2 MG HCl 2 MG t_as_ne HCl 2 MG eded} Furosemide Furosemide No 1{table Furosemide 20 MG 20 MG t} 20 MG Vitamin B12 Vitamin B12 No 1{table QD Vitamin 500 MCG 500 MCG t} B12 500 MCG Neurontin Neurontin No 1{table TID Neurontin 600 MG 600 MG t} 600 MG Ferrous Ferrous No Ferrous Sulfate Sulfate Sulfate Meloxicam Meloxicam No 1{table QD Meloxicam 7.5 MG 7.5 MG t} 7.5 MG Remeron 30 Remeron 30 No 1{table QD Remeron 30 MG MG t_at_be MG dtime} Probiotic Probiotic No Probiotic Mirtazapine Mirtazapine No Mirtazapin 30 MG 30 MG e 30 MG Multivitami Multivitami No Multivitam n n in Citalopram Citalopram No Citalopram Hydrobromid Hydrobromid Hydrobromi e 40 MG e 40 MG de 40 MG Ibuprofen Ibuprofen No Ibuprofen Protonix 40 Protonix 40 No 1{table BID Protonix MG MG t} 40 MG Vitamin D Vitamin D No 1{table TID Vitamin D 25 MCG 25 MCG t} 25 MCG (1000 UT) (1000 UT) (1000 UT) Acetaminoph Acetaminoph No 1{table Acetaminop en-Codeine en-Codeine t_as_ne hen-Codein #3 300-30 #3 300-30 eded} e #3 MG MG 300-30 MG Meclizine Meclizine No 1{table QD Meclizine HCl 25 MG HCl 25 MG t_as_ne HCl 25 MG eded} CeleXA 40 CeleXA 40 No 1{table QD CeleXA 40 MG MG t} MG Super B Super B No Super B Complex Complex Complex Carafate 1 Carafate 1 No 10{ml_o TID Carafate 1 GM/10ML GM/10ML n_an_em GM/10ML pty_sto mach} Vitamin D Vitamin D No Vitamin D tiZANidine tiZANidine No 1{table TID tiZANidine HCl 2 MG HCl 2 MG t_as_ne HCl 2 MG eded} Furosemide Furosemide No 1{table Furosemide 20 MG 20 MG t} 20 MG Vitamin B12 Vitamin B12 No 1{table QD Vitamin 500 MCG 500 MCG t} B12 500 MCG Neurontin Neurontin No 1{table TID Neurontin 600 MG 600 MG t} 600 MG Ferrous Ferrous No Ferrous Sulfate Sulfate Sulfate Meloxicam Meloxicam No 1{table QD Meloxicam 7.5 MG 7.5 MG t} 7.5 MG Remeron 30 Remeron 30 No 1{table QD Remeron 30 MG MG t_at_be MG dtime} Probiotic Probiotic No Probiotic Mirtazapine Mirtazapine No Mirtazapin 30 MG 30 MG e 30 MG Multivitami Multivitami No Multivitam n n in Citalopram Citalopram No Citalopram Hydrobromid Hydrobromid Hydrobromi e 40 MG e 40 MG de 40 MG Ibuprofen Ibuprofen No Ibuprofen Protonix 40 Protonix 40 No 1{table BID Protonix MG MG t} 40 MG Vitamin D Vitamin D No 1{table TID Vitamin D 25 MCG 25 MCG t} 25 MCG (1000 UT) (1000 UT) (1000 UT) Acetaminoph Acetaminoph No 1{table Acetaminop en-Codeine en-Codeine t_as_ne hen-Codein #3 300-30 #3 300-30 eded} e #3 MG MG 300-30 MG Meclizine Meclizine No 1{table QD Meclizine HCl 25 MG HCl 25 MG t_as_ne HCl 25 MG eded} CeleXA 40 CeleXA 40 No 1{table QD CeleXA 40 MG MG t} MG Super B Super B No Super B Complex Complex Complex Carafate 1 Carafate 1 No 10{ml_o TID Carafate 1 GM/10ML GM/10ML n_an_em GM/10ML pty_sto mach} Vitamin D Vitamin D No Vitamin D tiZANidine tiZANidine No 1{table TID tiZANidine HCl 2 MG HCl 2 MG t_as_ne HCl 2 MG eded} Furosemide Furosemide No 1{table Furosemide 20 MG 20 MG t} 20 MG Vitamin B12 Vitamin B12 No 1{table QD Vitamin 500 MCG 500 MCG t} B12 500 MCG Neurontin Neurontin No 1{table TID Neurontin 600 MG 600 MG t} 600 MG Ferrous Ferrous No Ferrous Sulfate Sulfate Sulfate Meloxicam Meloxicam No 1{table QD Meloxicam 7.5 MG 7.5 MG t} 7.5 MG Remeron 30 Remeron 30 No 1{table QD Remeron 30 MG MG t_at_be MG dtime} tiZANidine tiZANidine No 1{table TID tiZANidine HCl 2 MG HCl 2 MG t_as_ne HCl 2 MG eded} Vitamin D Vitamin D No Vitamin D Multivitami Multivitami No Multivitam n n in Mirtazapine Mirtazapine No Mirtazapin 30 MG 30 MG e 30 MG Citalopram Citalopram No Citalopram Hydrobromid Hydrobromid Hydrobromi e 40 MG e 40 MG de 40 MG Ibuprofen Ibuprofen No Ibuprofen Probiotic Probiotic No Probiotic Vitamin D Vitamin D No 1{table TID Vitamin D 25 MCG 25 MCG t} 25 MCG (1000 UT) (1000 UT) (1000 UT) Acetaminoph Acetaminoph No 1{table Acetaminop en-Codeine en-Codeine t_as_ne hen-Codein #3 300-30 #3 300-30 eded} e #3 MG MG 300-30 MG Protonix 40 Protonix 40 No 1{table BID Protonix MG MG t} 40 MG Super B Super B No Super B Complex Complex Complex Meclizine Meclizine No 1{table QD Meclizine HCl 25 MG HCl 25 MG t_as_ne HCl 25 MG eded} CeleXA 40 CeleXA 40 No 1{table QD CeleXA 40 MG MG t} MG Carafate 1 Carafate 1 No 10{ml_o TID Carafate 1 GM/10ML GM/10ML n_an_em GM/10ML pty_sto mach} Vitamin B12 Vitamin B12 No 1{table QD Vitamin 500 MCG 500 MCG t} B12 500 MCG Neurontin Neurontin No 1{table TID Neurontin 600 MG 600 MG t} 600 MG Furosemide Furosemide No 1{table Furosemide 20 MG 20 MG t} 20 MG Ferrous Ferrous No Ferrous Sulfate Sulfate Sulfate Probiotic Probiotic No Probiotic Meloxicam Meloxicam No 1{table QD Meloxicam 7.5 MG 7.5 MG t} 7.5 MG Furosemide Furosemide No 1{table Furosemide 20 MG 20 MG t} 20 MG Remeron 30 Remeron 30 No 1{table QD Remeron 30 MG MG t_at_be MG dtime} Citalopram Citalopram No Citalopram Hydrobromid Hydrobromid Hydrobromi e 40 MG e 40 MG de 40 MG Vitamin D Vitamin D No 1{table TID Vitamin D 25 MCG 25 MCG t} 25 MCG (1000 UT) (1000 UT) (1000 UT) Multivitami Multivitami No Multivitam n n in Mirtazapine Mirtazapine No Mirtazapin 30 MG 30 MG e 30 MG CeleXA 40 CeleXA 40 No 1{table QD CeleXA 40 MG MG t} MG Ibuprofen Ibuprofen No Ibuprofen Meclizine Meclizine No 1{table QD Meclizine HCl 25 MG HCl 25 MG t_as_ne HCl 25 MG eded} Vitamin B12 Vitamin B12 No 1{table QD Vitamin 500 MCG 500 MCG t} B12 500 MCG Neurontin Neurontin No 1{table TID Neurontin 600 MG 600 MG t} 600 MG Ferrous Ferrous No Ferrous Sulfate Sulfate Sulfate tiZANidine tiZANidine No 1{table TID tiZANidine HCl 2 MG HCl 2 MG t_as_ne HCl 2 MG eded} Super B Super B No Super B Complex Complex Complex Acetaminoph Acetaminoph No 1{table Acetaminop en-Codeine en-Codeine t_as_ne hen-Codein #3 300-30 #3 300-30 eded} e #3 MG MG 300-30 MG Carafate 1 Carafate 1 No 10{ml_o TID Carafate 1 GM/10ML GM/10ML n_an_em GM/10ML pty_sto mach} Vitamin D Vitamin D No Vitamin D Protonix 40 Protonix 40 No 1{table BID Protonix MG MG t} 40 MG Probiotic Probiotic No Probiotic Remeron 30 Remeron 30 No 1{table QD Remeron 30 MG MG t_at_be MG dtime} Multivitami Multivitami No Multivitam n n in Vitamin D Vitamin D No 1{table TID Vitamin D 25 MCG 25 MCG t} 25 MCG (1000 UT) (1000 UT) (1000 UT) CeleXA 40 CeleXA 40 No 1{table QD CeleXA 40 MG MG t} MG Citalopram Citalopram No Citalopram Hydrobromid Hydrobromid Hydrobromi e 40 MG e 40 MG de 40 MG Protonix 40 Protonix 40 No 1{table BID Protonix MG MG t} 40 MG Acetaminoph Acetaminoph No 1{table Acetaminop en-Codeine en-Codeine t_as_ne hen-Codein #3 300-30 #3 300-30 eded} e #3 MG MG 300-30 MG Furosemide Furosemide No 1{table Furosemide 20 MG 20 MG t} 20 MG Carafate 1 Carafate 1 No 10{ml_o TID Carafate 1 GM/10ML GM/10ML n_an_em GM/10ML pty_sto mach} Meloxicam Meloxicam No 1{table QD Meloxicam 7.5 MG 7.5 MG t} 7.5 MG Vitamin D Vitamin D No Vitamin D Super B Super B No Super B Complex Complex Complex Ibuprofen Ibuprofen No Ibuprofen Meclizine Meclizine No 1{table QD Meclizine HCl 25 MG HCl 25 MG t_as_ne HCl 25 MG eded} tiZANidine tiZANidine No 1{table TID tiZANidine HCl 2 MG HCl 2 MG t_as_ne HCl 2 MG eded} Mirtazapine Mirtazapine No Mirtazapin 30 MG 30 MG e 30 MG Vitamin B12 Vitamin B12 No 1{table QD Vitamin 500 MCG 500 MCG t} B12 500 MCG Ferrous Ferrous No Ferrous Sulfate Sulfate Sulfate Neurontin Neurontin No 1{table TID Neurontin 600 MG 600 MG t} 600 MG Multivitami Multivitami No Multivitam n n in Vitamin D Vitamin D No 1{table TID Vitamin D 25 MCG 25 MCG t} 25 MCG (1000 UT) (1000 UT) (1000 UT) tiZANidine tiZANidine No 1{table TID tiZANidine HCl 2 MG HCl 2 MG t_as_ne HCl 2 MG eded} Super B Super B No Super B Complex Complex Complex Ibuprofen Ibuprofen No Ibuprofen Probiotic Probiotic No Probiotic Remeron 30 Remeron 30 No 1{table QD Remeron 30 MG MG t_at_be MG dtime} CeleXA 40 CeleXA 40 No 1{table QD CeleXA 40 MG MG t} MG Citalopram Citalopram No Citalopram Hydrobromid Hydrobromid Hydrobromi e 40 MG e 40 MG de 40 MG Acetaminoph Acetaminoph No 1{table Acetaminop en-Codeine en-Codeine t_as_ne hen-Codein #3 300-30 #3 300-30 eded} e #3 MG MG 300-30 MG Mirtazapine Mirtazapine No Mirtazapin 30 MG 30 MG e 30 MG Meloxicam Meloxicam No 1{table QD Meloxicam 7.5 MG 7.5 MG t} 7.5 MG Vitamin D Vitamin D No Vitamin D Meclizine Meclizine No 1{table QD Meclizine HCl 25 MG HCl 25 MG t_as_ne HCl 25 MG eded} Protonix 40 Protonix 40 No 1{table BID Protonix MG MG t} 40 MG Carafate 1 Carafate 1 No 10{ml_o TID Carafate 1 GM/10ML GM/10ML n_an_em GM/10ML pty_sto mach} Furosemide Furosemide No 1{table Furosemide 20 MG 20 MG t} 20 MG Vitamin B12 Vitamin B12 No 1{table QD Vitamin 500 MCG 500 MCG t} B12 500 MCG Ferrous Ferrous No Ferrous Sulfate Sulfate Sulfate Neurontin Neurontin No 1{table TID Neurontin 600 MG 600 MG t} 600 MG Multivitami Multivitami No Multivitam n n in Vitamin D Vitamin D No 1{table TID Vitamin D 25 MCG 25 MCG t} 25 MCG (1000 UT) (1000 UT) (1000 UT) tiZANidine tiZANidine No 1{table TID tiZANidine HCl 2 MG HCl 2 MG t_as_ne HCl 2 MG eded} Super B Super B No Super B Complex Complex Complex Ibuprofen Ibuprofen No Ibuprofen Probiotic Probiotic No Probiotic Remeron 30 Remeron 30 No 1{table QD Remeron 30 MG MG t_at_be MG dtime} CeleXA 40 CeleXA 40 No 1{table QD CeleXA 40 MG MG t} MG Citalopram Citalopram No Citalopram Hydrobromid Hydrobromid Hydrobromi e 40 MG e 40 MG de 40 MG Acetaminoph Acetaminoph No 1{table Acetaminop en-Codeine en-Codeine t_as_ne hen-Codein #3 300-30 #3 300-30 eded} e #3 MG MG 300-30 MG Mirtazapine Mirtazapine No Mirtazapin 30 MG 30 MG e 30 MG Meloxicam Meloxicam No 1{table QD Meloxicam 7.5 MG 7.5 MG t} 7.5 MG Vitamin D Vitamin D No Vitamin D Meclizine Meclizine No 1{table QD Meclizine HCl 25 MG HCl 25 MG t_as_ne HCl 25 MG eded} Protonix 40 Protonix 40 No 1{table BID Protonix MG MG t} 40 MG Carafate 1 Carafate 1 No 10{ml_o TID Carafate 1 GM/10ML GM/10ML n_an_em GM/10ML pty_sto mach} Furosemide Furosemide No 1{table Furosemide 20 MG 20 MG t} 20 MG Vitamin B12 Vitamin B12 No 1{table QD Vitamin 500 MCG 500 MCG t} B12 500 MCG Ferrous Ferrous No Ferrous Sulfate Sulfate Sulfate Neurontin Neurontin No 1{table TID Neurontin 600 MG 600 MG t} 600 MG Multivitami Multivitami No Multivitam n n in Vitamin D Vitamin D No 1{table TID Vitamin D 25 MCG 25 MCG t} 25 MCG (1000 UT) (1000 UT) (1000 UT) tiZANidine tiZANidine No 1{table TID tiZANidine HCl 2 MG HCl 2 MG t_as_ne HCl 2 MG eded} Super B Super B No Super B Complex Complex Complex Ibuprofen Ibuprofen No Ibuprofen Probiotic Probiotic No Probiotic Remeron 30 Remeron 30 No 1{table QD Remeron 30 MG MG t_at_be MG dtime} CeleXA 40 CeleXA 40 No 1{table QD CeleXA 40 MG MG t} MG Citalopram Citalopram No Citalopram Hydrobromid Hydrobromid Hydrobromi e 40 MG e 40 MG de 40 MG Acetaminoph Acetaminoph No 1{table Acetaminop en-Codeine en-Codeine t_as_ne hen-Codein #3 300-30 #3 300-30 eded} e #3 MG MG 300-30 MG Mirtazapine Mirtazapine No Mirtazapin 30 MG 30 MG e 30 MG Meloxicam Meloxicam No 1{table QD Meloxicam 7.5 MG 7.5 MG t} 7.5 MG Vitamin D Vitamin D No Vitamin D Meclizine Meclizine No 1{table QD Meclizine HCl 25 MG HCl 25 MG t_as_ne HCl 25 MG eded} Protonix 40 Protonix 40 No 1{table BID Protonix MG MG t} 40 MG Carafate 1 Carafate 1 No 10{ml_o TID Carafate 1 GM/10ML GM/10ML n_an_em GM/10ML pty_sto mach} Furosemide Furosemide No 1{table Furosemide 20 MG 20 MG t} 20 MG Vitamin B12 Vitamin B12 No 1{table QD Vitamin 500 MCG 500 MCG t} B12 500 MCG Ferrous Ferrous No Ferrous Sulfate Sulfate Sulfate Neurontin Neurontin No 1{table TID Neurontin 600 MG 600 MG t} 600 MG Furosemide Furosemide No 1{table Furosemide 20 MG 20 MG t} 20 MG Probiotic Probiotic No Probiotic Carafate 1 Carafate 1 No 10{ml_o TID Carafate 1 GM/10ML GM/10ML n_an_em GM/10ML pty_sto mach} Meclizine Meclizine No 1{table QD Meclizine HCl 25 MG HCl 25 MG t_as_ne HCl 25 MG eded} Multivitami Multivitami No Multivitam n n in Protonix 40 Protonix 40 No 1{table BID Protonix MG MG t} 40 MG Ferrous Ferrous No Ferrous Sulfate Sulfate Sulfate Citalopram Citalopram No Citalopram Hydrobromid Hydrobromid Hydrobromi e 40 MG e 40 MG de 40 MG Vitamin D Vitamin D No 1{table TID Vitamin D 25 MCG 25 MCG t} 25 MCG (1000 UT) (1000 UT) (1000 UT) Meloxicam Meloxicam No 1{table QD Meloxicam 7.5 MG 7.5 MG t} 7.5 MG Mirtazapine Mirtazapine No Mirtazapin 30 MG 30 MG e 30 MG Vitamin B12 Vitamin B12 No 1{table QD Vitamin 500 MCG 500 MCG t} B12 500 MCG tiZANidine tiZANidine No 1{table TID tiZANidine HCl 2 MG HCl 2 MG t_as_ne HCl 2 MG eded} CeleXA 40 CeleXA 40 No 1{table QD CeleXA 40 MG MG t} MG Acetaminoph Acetaminoph No 1{table Acetaminop en-Codeine en-Codeine t_as_ne hen-Codein #3 300-30 #3 300-30 eded} e #3 MG MG 300-30 MG Neurontin Neurontin No 1{table TID Neurontin 600 MG 600 MG t} 600 MG Super B Super B No Super B Complex Complex Complex Ibuprofen Ibuprofen No Ibuprofen Remeron 30 Remeron 30 No 1{table QD Remeron 30 MG MG t_at_be MG dtime} Vitamin D Vitamin D No Vitamin D Probiotic Probiotic No Probiotic CeleXA 40 CeleXA 40 No 1{table QD CeleXA 40 MG MG t} MG Super B Super B No Super B Complex Complex Complex Furosemide Furosemide No 1{table Furosemide 20 MG 20 MG t} 20 MG Multivitami Multivitami No Multivitam n n in Meclizine Meclizine No 1{table QD Meclizine HCl 25 MG HCl 25 MG t_as_ne HCl 25 MG eded} tiZANidine tiZANidine No 1{table TID tiZANidine HCl 2 MG HCl 2 MG t_as_ne HCl 2 MG eded} Citalopram Citalopram No Citalopram Hydrobromid Hydrobromid Hydrobromi e 40 MG e 40 MG de 40 MG Vitamin B12 Vitamin B12 No 1{table QD Vitamin 500 MCG 500 MCG t} B12 500 MCG Remeron 30 Remeron 30 No 1{table QD Remeron 30 MG MG t_at_be MG dtime} Mirtazapine Mirtazapine No Mirtazapin 30 MG 30 MG e 30 MG Acetaminoph Acetaminoph No 1{table Acetaminop en-Codeine en-Codeine t_as_ne hen-Codein #3 300-30 #3 300-30 eded} e #3 MG MG 300-30 MG Ibuprofen Ibuprofen No Ibuprofen Vitamin D Vitamin D No Vitamin D Protonix 40 Protonix 40 No 1{table BID Protonix MG MG t} 40 MG Vitamin D Vitamin D No 1{table TID Vitamin D 25 MCG 25 MCG t} 25 MCG (1000 UT) (1000 UT) (1000 UT) Carafate 1 Carafate 1 No 10{ml_o TID Carafate 1 GM/10ML GM/10ML n_an_em GM/10ML pty_sto mach} Ferrous Ferrous No Ferrous Sulfate Sulfate Sulfate Neurontin Neurontin No 1{table TID Neurontin 600 MG 600 MG t} 600 MG Vitamin B12 Vitamin B12 No 1{table QD Vitamin 500 MCG 500 MCG t} B12 500 MCG Vitamin D Vitamin D No Vitamin D Ferrous Ferrous No Ferrous Sulfate Sulfate Sulfate Meclizine Meclizine No 1{table QD Meclizine HCl 25 MG HCl 25 MG t_as_ne HCl 25 MG eded} Carafate 1 Carafate 1 No 10{ml_o TID Carafate 1 GM/10ML GM/10ML n_an_em GM/10ML pty_sto mach} tiZANidine tiZANidine No 1{table TID tiZANidine HCl 2 MG HCl 2 MG t_as_ne HCl 2 MG eded} Protonix 40 Protonix 40 No 1{table BID Protonix MG MG t} 40 MG Super B Super B No Super B Complex Complex Complex Acetaminoph Acetaminoph No 1{table Acetaminop en-Codeine en-Codeine t_as_ne hen-Codein #3 300-30 #3 300-30 eded} e #3 MG MG 300-30 MG Multivitami Multivitami No Multivitam n n in CeleXA 40 CeleXA 40 No 1{table QD CeleXA 40 MG MG t} MG Probiotic Probiotic No Probiotic Ibuprofen Ibuprofen No Ibuprofen Neurontin Neurontin No 1{table TID Neurontin 600 MG 600 MG t} 600 MG Furosemide Furosemide No 1{table Furosemide 20 MG 20 MG t} 20 MG Vitamin D Vitamin D No 1{table TID Vitamin D 25 MCG 25 MCG t} 25 MCG (1000 UT) (1000 UT) (1000 UT) Remeron 30 Remeron 30 No 1{table QD Remeron 30 MG MG t_at_be MG dtime} Citalopram Citalopram No Citalopram Hydrobromid Hydrobromid Hydrobromi e 40 MG e 40 MG de 40 MG Mirtazapine Mirtazapine No Mirtazapin 30 MG 30 MG e 30 MG Vitamin B12 Vitamin B12 No 1{table QD Vitamin 500 MCG 500 MCG t} B12 500 MCG Vitamin D Vitamin D No Vitamin D Ferrous Ferrous No Ferrous Sulfate Sulfate Sulfate Meclizine Meclizine No 1{table QD Meclizine HCl 25 MG HCl 25 MG t_as_ne HCl 25 MG eded} Carafate 1 Carafate 1 No 10{ml_o TID Carafate 1 GM/10ML GM/10ML n_an_em GM/10ML pty_sto mach} tiZANidine tiZANidine No 1{table TID tiZANidine HCl 2 MG HCl 2 MG t_as_ne HCl 2 MG eded} Protonix 40 Protonix 40 No 1{table BID Protonix MG MG t} 40 MG Super B Super B No Super B Complex Complex Complex Acetaminoph Acetaminoph No 1{table Acetaminop en-Codeine en-Codeine t_as_ne hen-Codein #3 300-30 #3 300-30 eded} e #3 MG MG 300-30 MG Multivitami Multivitami No Multivitam n n in CeleXA 40 CeleXA 40 No 1{table QD CeleXA 40 MG MG t} MG Probiotic Probiotic No Probiotic Ibuprofen Ibuprofen No Ibuprofen Neurontin Neurontin No 1{table TID Neurontin 600 MG 600 MG t} 600 MG Furosemide Furosemide No 1{table Furosemide 20 MG 20 MG t} 20 MG Vitamin D Vitamin D No 1{table TID Vitamin D 25 MCG 25 MCG t} 25 MCG (1000 UT) (1000 UT) (1000 UT) Remeron 30 Remeron 30 No 1{table QD Remeron 30 MG MG t_at_be MG dtime} Citalopram Citalopram No Citalopram Hydrobromid Hydrobromid Hydrobromi e 40 MG e 40 MG de 40 MG Mirtazapine Mirtazapine No Mirtazapin 30 MG 30 MG e 30 MG Vitamin B12 Vitamin B12 No 1{table QD Vitamin 500 MCG 500 MCG t} B12 500 MCG Vitamin D Vitamin D No Vitamin D Ferrous Ferrous No Ferrous Sulfate Sulfate Sulfate Meclizine Meclizine No 1{table QD Meclizine HCl 25 MG HCl 25 MG t_as_ne HCl 25 MG eded} Carafate 1 Carafate 1 No 10{ml_o TID Carafate 1 GM/10ML GM/10ML n_an_em GM/10ML pty_sto mach} tiZANidine tiZANidine No 1{table TID tiZANidine HCl 2 MG HCl 2 MG t_as_ne HCl 2 MG eded} Protonix 40 Protonix 40 No 1{table BID Protonix MG MG t} 40 MG Super B Super B No Super B Complex Complex Complex Acetaminoph Acetaminoph No 1{table Acetaminop en-Codeine en-Codeine t_as_ne hen-Codein #3 300-30 #3 300-30 eded} e #3 MG MG 300-30 MG Multivitami Multivitami No Multivitam n n in CeleXA 40 CeleXA 40 No 1{table QD CeleXA 40 MG MG t} MG Probiotic Probiotic No Probiotic Ibuprofen Ibuprofen No Ibuprofen Neurontin Neurontin No 1{table TID Neurontin 600 MG 600 MG t} 600 MG Furosemide Furosemide No 1{table Furosemide 20 MG 20 MG t} 20 MG Vitamin D Vitamin D No 1{table TID Vitamin D 25 MCG 25 MCG t} 25 MCG (1000 UT) (1000 UT) (1000 UT) Remeron 30 Remeron 30 No 1{table QD Remeron 30 MG MG t_at_be MG dtime} Citalopram Citalopram No Citalopram Hydrobromid Hydrobromid Hydrobromi e 40 MG e 40 MG de 40 MG Mirtazapine Mirtazapine No Mirtazapin 30 MG 30 MG e 30 MG Remeron 30 Remeron 30 No 1{table QD Remeron 30 MG MG t_at_be MG dtime} Probiotic Probiotic No Probiotic Vitamin D Vitamin D No Vitamin D Protonix 40 Protonix 40 No 1{table BID Protonix MG MG t} 40 MG Super B Super B No Super B Complex Complex Complex Multivitami Multivitami No Multivitam n n in Carafate 1 Carafate 1 No 10{ml_o TID Carafate 1 GM/10ML GM/10ML n_an_em GM/10ML pty_sto mach} tiZANidine tiZANidine No 1{table TID tiZANidine HCl 2 MG HCl 2 MG t_as_ne HCl 2 MG eded} Ibuprofen Ibuprofen No Ibuprofen Meloxicam Meloxicam No 1{table QD Meloxicam 7.5 MG 7.5 MG t} 7.5 MG Mirtazapine Mirtazapine No Mirtazapin 30 MG 30 MG e 30 MG Neurontin Neurontin No 1{table TID Neurontin 600 MG 600 MG t} 600 MG Vitamin D Vitamin D No 1{table TID Vitamin D 25 MCG 25 MCG t} 25 MCG (1000 UT) (1000 UT) (1000 UT) Citalopram Citalopram No Citalopram Hydrobromid Hydrobromid Hydrobromi e 40 MG e 40 MG de 40 MG CeleXA 40 CeleXA 40 No 1{table QD CeleXA 40 MG MG t} MG Meclizine Meclizine No 1{table QD Meclizine HCl 25 MG HCl 25 MG t_as_ne HCl 25 MG eded} Furosemide Furosemide No 1{table Furosemide 20 MG 20 MG t} 20 MG Acetaminoph Acetaminoph No 1{table Acetaminop en-Codeine en-Codeine t_as_ne hen-Codein #3 300-30 #3 300-30 eded} e #3 MG MG 300-30 MG Ferrous Ferrous No Ferrous Sulfate Sulfate Sulfate Vitamin B12 Vitamin B12 No 1{table QD Vitamin 500 MCG 500 MCG t} B12 500 MCG CeleXA 40 CeleXA 40 No 1{table QD CeleXA 40 MG MG t} MG tiZANidine tiZANidine No 1{table TID tiZANidine HCl 2 MG HCl 2 MG t_as_ne HCl 2 MG eded} Multivitami Multivitami No Multivitam n n in Ibuprofen Ibuprofen No Ibuprofen Remeron 30 Remeron 30 No 1{table QD Remeron 30 MG MG t_at_be MG dtime} Meloxicam Meloxicam No 1{table QD Meloxicam 7.5 MG 7.5 MG t} 7.5 MG Neurontin Neurontin No 1{table TID Neurontin 600 MG 600 MG t} 600 MG Meclizine Meclizine No 1{table QD Meclizine HCl 25 MG HCl 25 MG t_as_ne HCl 25 MG eded} Super B Super B No Super B Complex Complex Complex Citalopram Citalopram No Citalopram Hydrobromid Hydrobromid Hydrobromi e 40 MG e 40 MG de 40 MG Protonix 40 Protonix 40 No 1{table BID Protonix MG MG t} 40 MG Carafate 1 Carafate 1 No 10{ml_o TID Carafate 1 GM/10ML GM/10ML n_an_em GM/10ML pty_sto mach} Mirtazapine Mirtazapine No Mirtazapin 30 MG 30 MG e 30 MG Vitamin D Vitamin D No Vitamin D Furosemide Furosemide No 1{table Furosemide 20 MG 20 MG t} 20 MG Acetaminoph Acetaminoph No 1{table Acetaminop en-Codeine en-Codeine t_as_ne hen-Codein #3 300-30 #3 300-30 eded} e #3 MG MG 300-30 MG Ferrous Ferrous No Ferrous Sulfate Sulfate Sulfate Vitamin B12 Vitamin B12 No 1{table QD Vitamin 500 MCG 500 MCG t} B12 500 MCG Vitamin D Vitamin D No 1{table TID Vitamin D 25 MCG 25 MCG t} 25 MCG (1000 UT) (1000 UT) (1000 UT) Probiotic Probiotic No Probiotic Ibuprofen Ibuprofen No Ibuprofen tiZANidine tiZANidine No 1{table TID tiZANidine HCl 2 MG HCl 2 MG t_as_ne HCl 2 MG eded} Remeron 30 Remeron 30 No 1{table QD Remeron 30 MG MG t_at_be MG dtime} Multivitami Multivitami No Multivitam n n in Mirtazapine Mirtazapine No Mirtazapin 30 MG 30 MG e 30 MG Neurontin Neurontin No 1{table TID Neurontin 600 MG 600 MG t} 600 MG Meloxicam Meloxicam No 1{table QD Meloxicam 7.5 MG 7.5 MG t} 7.5 MG Citalopram Citalopram No Citalopram Hydrobromid Hydrobromid Hydrobromi e 40 MG e 40 MG de 40 MG Meclizine Meclizine No 1{table QD Meclizine HCl 25 MG HCl 25 MG t_as_ne HCl 25 MG eded} Super B Super B No Super B Complex Complex Complex Protonix 40 Protonix 40 No 1{table BID Protonix MG MG t} 40 MG Carafate 1 Carafate 1 No 10{ml_o TID Carafate 1 GM/10ML GM/10ML n_an_em GM/10ML pty_sto mach} Vitamin D Vitamin D No Vitamin D Furosemide Furosemide No 1{table Furosemide 20 MG 20 MG t} 20 MG CeleXA 40 CeleXA 40 No 1{table QD CeleXA 40 MG MG t} MG Acetaminoph Acetaminoph No 1{table Acetaminop en-Codeine en-Codeine t_as_ne hen-Codein #3 300-30 #3 300-30 eded} e #3 MG MG 300-30 MG Ferrous Ferrous No Ferrous Sulfate Sulfate Sulfate Vitamin B12 Vitamin B12 No 1{table QD Vitamin 500 MCG 500 MCG t} B12 500 MCG Vitamin D Vitamin D No 1{table TID Vitamin D 25 MCG 25 MCG t} 25 MCG (1000 UT) (1000 UT) (1000 UT) Probiotic Probiotic No Probiotic Protonix 40 Protonix 40 No 1{table BID Protonix MG MG t} 40 MG Meloxicam Meloxicam No 1{table QD Meloxicam 7.5 MG 7.5 MG t} 7.5 MG Acetaminoph Acetaminoph No 1{table Acetaminop en-Codeine en-Codeine t_as_ne hen-Codein #3 300-30 #3 300-30 eded} e #3 MG MG 300-30 MG Meclizine Meclizine No 1{table QD Meclizine HCl 25 MG HCl 25 MG t_as_ne HCl 25 MG eded} tiZANidine tiZANidine No 1{table TID tiZANidine HCl 2 MG HCl 2 MG t_as_ne HCl 2 MG eded} Carafate 1 Carafate 1 No 10{ml_o TID Carafate 1 GM/10ML GM/10ML n_an_em GM/10ML pty_sto mach} Vitamin D Vitamin D No Vitamin D Furosemide Furosemide No 1{table Furosemide 20 MG 20 MG t} 20 MG Multivitami Multivitami No Multivitam n n in Ferrous Ferrous No Ferrous Sulfate Sulfate Sulfate Probiotic Probiotic No Probiotic Remeron 30 Remeron 30 No 1{table QD Remeron 30 MG MG t_at_be MG dtime} Vitamin B12 Vitamin B12 No 1{table QD Vitamin 500 MCG 500 MCG t} B12 500 MCG Vitamin D Vitamin D No 1{table TID Vitamin D 25 MCG 25 MCG t} 25 MCG (1000 UT) (1000 UT) (1000 UT) Super B Super B No Super B Complex Complex Complex CeleXA 40 CeleXA 40 No 1{table QD CeleXA 40 MG MG t} MG Ibuprofen Ibuprofen No Ibuprofen Neurontin Neurontin No 1{table TID Neurontin 600 MG 600 MG t} 600 MG Vitamin B12 Vitamin B12 No 1{table QD Vitamin 500 MCG 500 MCG t} B12 500 MCG ZyrTEC 10 ZyrTEC 10 No 1{table QD ZyrTEC 10 MG MG t} MG Vitamin D Vitamin D No Vitamin D Protonix 40 Protonix 40 No 1{table BID Protonix MG MG t} 40 MG Vital Signs Vital Name Observation Time Observation Value Comments Source Body height 2022-08-05 14:14:00 157.5 cm [facility] Body weight 2022-08-05 14:14:00 54.432 kg [facility] BMI 2022-08-05 14:14:00 21.95 kg/m2 [facility] height 2022-07-08 08:30:00 62 [in_i] [facility] weight 2022-07-08 08:30:00 120 [lb_av] [facility] temperature 2022-07-08 08:30:00 98.2 [degF] Common [facility] bmi 2022-07-08 08:30:00 21.95 kg/m2 [facility] blood pressure 2022-07-08 08:30:00 130 mm[Hg] [facility] blood pressure 2022-07-08 08:30:00 72 mm[Hg] [facility] height 2022-05-27 11:10:00 62 [in_i] Common [facility] weight 2022-05-27 11:10:00 123 [lb_av] Common [facility] temperature 2022-05-27 11:10:00 98 [degF] [facility] bmi 2022-05-27 11:10:00 22.49 kg/m2 [facility] blood pressure 2022-05-27 11:10:00 128 mm[Hg] [facility] blood pressure 2022-05-27 11:10:00 70 mm[Hg] [facility] height 2022-05-08 09:20:00 62 [in_i] [facility] weight 2022-05-08 09:20:00 121.9 [lb_av] [facility] temperature 2022-05-08 09:20:00 97.3 [degF] [facility] bmi 2022-05-08 09:20:00 22.29 kg/m2 [facility] oximetry 2022-05-08 09:20:00 97 % [facility] 2022-05-08 09:20:00 17 /min Comm on [facility] blood pressure 2022-05-08 09:20:00 127 mm[Hg] [facility] blood pressure 2022-05-08 09:20:00 65 mm[Hg] [facility] height 2022-04-08 08:30:00 62 [in_i] [facility] weight 2022-04-08 08:30:00 124 [lb_av] [facility] temperature 2022-04-08 08:30:00 97.6 [degF] [facility] bmi 2022-04-08 08:30:00 22.68 kg/m2 [facility] blood pressure 2022-04-08 08:30:00 110 mm[Hg] [facility] blood pressure 2022-04-08 08:30:00 68 mm[Hg] [facility] height 2022-03-06 14:00:00 62 [in_i] [facility] weight 2022-03-06 14:00:00 122.6 [lb_av] Common [facility] temperature 2022-03-06 14:00:00 98.2 [degF] Common S [facility] bmi 2022-03-06 14:00:00 22.42 kg/m2 [facility] oximetry 2022-03-06 14:00:00 98 % [facility] 2022-03-06 14:00:00 18 /min Comm on [facility] blood pressure 2022-03-06 14:00:00 117 mm[Hg] [facility] blood pressure 2022-03-06 14:00:00 72 mm[Hg] [facility] height 2022-02-04 08:30:00 62 [in_i] [facility] - [facility] weight 2022-02-04 08:30:00 123.0 [lb_av] Common [facility] temperature 2022-02-04 08:30:00 97.4 [degF] [facility] - [facility] bmi 2022-02-04 08:30:00 22.49 kg/m2 [facility] - [facility] blood pressure 2022-02-04 08:30:00 128 mm[Hg] [facility] blood pressure 2022-02-04 08:30:00 67 mm[Hg] [facility] height 2022-01-03 13:00:00 62 [in_i] [facility] weight 2022-01-03 13:00:00 116 [lb_av] [facility] bmi 2022-01-03 13:00:00 21.21 kg/m2 [facility] - [facility] blood pressure 2022-01-03 13:00:00 108 mm[Hg] [facility] blood pressure 2022-01-03 13:00:00 62 mm[Hg] [facility] height 2021-12-12 13:40:00 62 [in_i] [facility] - [facility] weight 2021-12-12 13:40:00 116.7 [lb_av] Common [facility] temperature 2021-12-12 13:40:00 97.2 [degF] [facility] bmi 2021-12-12 13:40:00 21.34 kg/m2 [facility] oximetry 2021-12-12 13:40:00 94 % [facility] respiratory rate 2021-12-12 13:40:00 16 /min Comm on [facility] blood pressure 2021-12-12 13:40:00 115 mm[Hg] [facility] blood pressure 2021-12-12 13:40:00 57 mm[Hg] [facility] height 2021-11-27 10:40:00 62 [in_i] [facility] weight 2021-11-27 10:40:00 121 [lb_av] [facility] temperature 2021-11-27 10:40:00 98 [degF] [facility] bmi 2021-11-27 10:40:00 22.13 kg/m2 [facility] blood pressure 2021-11-27 10:40:00 115 mm[Hg] [facility] blood pressure 2021-11-27 10:40:00 74 mm[Hg] [facility] height 2021-11-15 13:15:00 62 [in_i] [facility] weight 2021-11-15 13:15:00 122 [lb_av] [facility] temperature 2021-11-15 13:15:00 98.6 [degF] [facility] bmi 2021-11-15 13:15:00 22.31 kg/m2 [facility] blood pressure 2021-11-15 13:15:00 100 mm[Hg] [facility] blood pressure 2021-11-15 13:15:00 68 mm[Hg] [facility] height 2021-08-29 09:20:00 62 [in_i] [facility] weight 2021-08-29 09:20:00 130.0 [lb_av] [facility] temperature 2021-08-29 09:20:00 97.0 [degF] [facility] bmi 2021-08-29 09:20:00 23.77 kg/m2 [facility] oximetry 2021-08-29 09:20:00 99 % [facility] respiratory rate 2021-08-29 09:20:00 17 /min Comm on [facility] blood pressure 2021-08-29 09:20:00 114 mm[Hg] [facility] blood pressure 2021-08-29 09:20:00 54 mm[Hg] [facility] height 2021-08-29 09:00:00 62 [in_i] Common [facility] weight 2021-08-29 09:00:00 130.0 [lb_av] [facility] temperature 2021-08-29 09:00:00 97.0 [degF] [facility] bmi 2021-08-29 09:00:00 23.77 kg/m2 [facility] oximetry 2021-08-29 09:00:00 99 % [facility] blood pressure 2021-08-29 09:00:00 114 mm[Hg] Common [facility] - systolic [facility] blood pressure 2021-08-29 09:00:00 54 mm[Hg] [facility] height 2021-08-13 13:30:00 62 [in_i] [facility] weight 2021-08-13 13:30:00 124 [lb_av] Common [facility] temperature 2021-08-13 13:30:00 96.7 [degF] Common [facility] bmi 2021-08-13 13:30:00 22.68 kg/m2 Common [facility] blood pressure 2021-08-13 13:30:00 118 mm[Hg] [facility] blood pressure 2021-08-13 13:30:00 80 mm[Hg] [facility] height 2021-06-20 14:40:00 62 [in_i] [facility] weight 2021-06-20 14:40:00 133 [lb_av] [facility] temperature 2021-06-20 14:40:00 97.4 [degF] [facility] - [facility] bmi 2021-06-20 14:40:00 24.32 kg/m2 [facility] blood pressure 2021-06-20 14:40:00 125 mm[Hg] [facility] blood pressure 2021-06-20 14:40:00 71 mm[Hg] [facility] height 2021-04-23 11:20:00 62 [in_i] [facility] 2021-04-23 11:20:00 137 [lb_av] [facility] temperature 2021-04-23 11:20:00 98 [degF] [facility] bmi 2021-04-23 11:20:00 25.05 kg/m2 [facility] blood pressure 2021-04-23 11:20:00 121 mm[Hg] [facility] blood pressure 2021-04-23 11:20:00 76 mm[Hg] [facility] Procedures Procedure Date / Time Performed Performing Clinician Sourc e AMB REF TO PT EXTERNAL 2022-08-05 09:16:12 [facility] Plan of Care Planned Activity Planned Date Details Comments Source Future Scheduled 2022-08-05 Screening for [facility] Test 08:44:49 malignant neoplasm of Medici ne colon (procedure) [code = 390301356] Future Scheduled 2022-08-05 Screening for [facility] Col [facility]ge of Test 08:44:49 malignant neoplasm of Medici ne breast (procedure) [code = 952061404] Future Scheduled 2022-08-05 TETANUS SHOT (ADULT) [facility] of Test 08:44:49 [code = TETANUS SHOT Medicin e (ADULT)] Future Scheduled 2022-08-05 Hepatitis C screening [facility] of Test 08:44:49 (procedure) [code = Medicine 386530456] Future Scheduled 2022-08-05 ZOSTER VACCINE (1 of [facility] of Test 08:44:49 2) [code = ZOSTER Medicine VACCINE (1 of 2)] Future Scheduled 2022-08-05 Fall Screen [code = [facility] Test 08:44:49 Fall Screen] Medicine Future Scheduled 2022-08-05 Screening for [facility] Col [facility]ge of Test 08:44:49 osteoporosis Medicine (procedure) [code = 376823266] Future Scheduled 2022-08-05 Pneumococcal 65+ (1 - [facility] of Test 08:44:49 PCV) [code = Medicine Pneumococcal 65+ (1 - PCV)] Future Scheduled 2022-08-05 COVID-19 Vaccine (3 - [facility] of Test 08:44:49 Booster for Pfizer Medicine series) [code = COVID-19 Vaccine (3 - Booster for Pfizer series)] Future Scheduled 2022-08-05 FLU VACCINE > 6 MONTHS [facility] of Test 08:44:49 [code = FLU VACCINE > Medici ne 6 MONTHS] Future Scheduled 2022-08-05 Medicare IPPE (Welcome [facility] of Test 08:44:49 to Medicare) [code = Medicin e Medicare IPPE (Welcome to Medicare)] Encounters Start End Encounter Admission Attending Care Care Encounter Source Date/Time Date/Time Type Type Clinicians Facility Department ID 2022-08-13 Outpatient Kilpatrick, [facility] Common 09:52:02 [facility] [id number] [facility] 2022-07-08 Outpatient [place]patrick, [facility] Common 16[facility]49:01 [facility] 2022-07-04 Outpatient Kilpatrick, [facility] Common 16:42:01 [facility] 2022-05-23 Outpatient Kilpatrick, [facility] Common 15:15:01 [facility] 2022-05-07 Outpatient Kilpatrick, [facility] Common 09:16:01 Leon[facility] 2022-05-06 Outpatient Kilpatrick, [facility] Common 11:41:02 Leonidas [facility] 2022-04-08 Outpatient Kilpatrick, [facility] Common 14:10:01 Leonidas [facility] 2021-12-11 Outpatient Kilpatrick, [facility] Common 13:59:01 Leonidas [facility] 2021-11-15 Outpatient Kilpatrick, [facility] Common 14:08:01 Leonidas [facility] 2021-08-10 Outpatient Kilpatrick, [facility] Common 11:06:01 Leonidas [facility] 2021-07-04 Outpatient Kilpatrick, [facility] Common 13:19:42 Leonidas [facility] 2021-07-04 Outpatient Kilpatrick, [facility] Common 13:06:29 Leonidas [id number] [facility] 2021-07-04 Outpatient Kilpatrick, [facility] Common 13:03:36 Leonidas [id number] [facility] 2021-07-04 Outpatient Kilpatrick, [facility] Common 12:59:10 Leonidas [id number] [facility] 2021-07-04 Outpatient Kilpatrick, [facility] Common 12:53:26 Leonidas 100[address] [facility] 2021-07-04 Outpatient Kilpatrick, [facility] Common 12:51:35 Leonidas [address] [facility] 2021-07-04 Outpatient [place]patrick, [facility] [place] [id number] Common 12:40:49 Leonidas [id number] [facility] 2021-07-04 [place], [place] [id number] Common 12:38:00 Leon[place] [address] [facility] 2021-07-04 Outpatient [place], [place] [id number] Common 12:25:41 Leon[place] [id number] [facility] 2021-07-04 Outpatient [place], [place] [id number] Common 12:24:52 Leon[place] [address] [facility] 2021-07-04 Outpatient [place], [place] [id number] Common 12:23:41 Leon[place] [id number] [facility] 2021-07-04 Outpatient [place], [place] [id number] Common 12:11:33 Leonidas [address]67[address] [facility] 2021-07-04 Outpatient [place], [place] [id number] Common 12:10:04 Leon[place] [id number] [facility] 2021-07-04 Outpatient [place], [place] [id number] Common 12:09:30 Leon[place] [id number] [facility] 2021-07-04 Outpatient [place], [place] [id number] Common 12:03:22 Leonidas 8[address] [facility] 2021-07-04 Outpatient [place], [place] [id number] Common 12:00:59 Leon[place] [address] [facility] 2021-07-04 Outpatient [place] [id number] Common 11:57:02 [id number] [facility] 2022-08-05 2022-08-05 Office LELO PALOMARES [id number] [facility] 08:04:11 09:38:42 Visit [employer] [id number] College Y [id number] Medi gabby 600 e 2022-08-05 2022-08-05 Outpatient [facility] [id number] [facility] 08:18:53 08:18:53 Colleg e of Medicin e 2022-08-05 2022-08-05 Outpatient [facility] [id number] [facility] 08:18:52 08:18:52 [facility] Medicin e 2022-07-15 2022-07-15 (TEL) [facility] [id number] [facility] 00:00:00 00:00:00 [facility] 2022-07-08 2022-07-08 (TEL) [facility] [id number] Co mmon 00:00:00 00:00:00 [facility] 2022-07-08 2022-07-08 OFFICE [facility] [id number] Co mmon 00:00:00 00:00:00 VISIT [facility] PT - CHI LEVEL [address] [place] [address] 2022-05-27 2022-05-27 OFFICE [facility] [id number] Co mmon 00:00:00 00:00:00 VISIT [facility] PT - CHI LEVEL [address] [place] [address] 2022-05-17 2022-05-17 (TEL) [facility] [id number] Co mmon 00:00:00 00:00:00 [facility] 2022-05-08 2022-05-08 OFFICE [facility] [id number] Co mmon 00:00:00 00:00:00 VISIT [facility] PT LEVEL 3 [facility] 2022-04-30 2022-04-30 (TEL) [facility] [id number] Co mmon 00:00:00 00:00:00 [facility] 2022-04-08 2022-04-08 OFFICE [facility] [id number] Co mmon 00:00:00 00:00:00 VISIT [facility] PT LEVEL 3 [facility] 2022-03-06 2022-03-06 OFFICE [facility] [id number] Co mmon 00:00:00 00:00:00 VISIT [facility] PT - CHI LEVEL 4 [facility] 2022-03-04 2022-03-04 (TEL) [facility] [id number] Co mmon 00:00:00 00:00:00 [facility] 2022-02-13 2022-02-13 (TEL) [facility] [id number] Co mmon 00:00:00 00:00:00 [facility] 2022-02-04 2022-02-04 NON-BILLAB [facility] [id number] Common 00:00:00 00:00:00 LE VISIT [facility] 2022-01-03 2022-01-03 NON-BILLAB [facility] [id number] Common 00:00:00 00:00:00 LE VISIT [facility] 2021-12-12 2021-12-12 OFFICE [facility] [id number] Co mmon 00:00:00 00:00:00 VISIT [facility] PT [facility] LEVEL 4 [facility] 2021-12-05 2021-12-05 (TEL) [facility] [id number] Co mmon 00:00:00 00:00:00 [facility] 2021-12-04 2021-12-04 (TEL) [facility] [id number] Co mmon 00:00:00 00:00:00 [facility] 2021-11-29 2021-11-29 (TEL) [facility] [id number] Co mmon 00:00:00 00:00:00 [facility] 2021-11-27 2021-11-27 (TEL) [facility] [id number] Co mmon 00:00:00 00:00:00 [facility] 2021-11-27 2021-11-27 OFFICE [facility] [id number] Co mmon 00:00:00 00:00:00 VISIT [facility] PT LEVEL 3 [facility] 2021-11-26 2021-11-26 (TEL) [facility] [id number] Co mmon 00:00:00 00:00:00 [facility] 2021-11-22 2021-11-22 (TEL) [facility] [id number] Co mmon 00:00:00 00:00:00 [facility] - [facility] 2021-11-16 2021-11-16 (TEL) [facility] [id number] Co mmon 00:00:00 00:00:00 [facility] 2021-11-15 2021-11-15 OFFICE STLMLC STLMLC [id number] Co mmon 00:00:00 00:00:00 VISIT [facility] EST[facility] - CHI LEVEL 4 [facility] 2021-08-29 2021-08-29 OFFICE STLMLC STLMLC [id number] Co mmon 00:00:00 00:00:00 VISIT [facility] PT - CHI LEVEL 4 [facility] 2021-08-29 2021-08-29 SUB ANNUAL STLMLC STLMLC [id number] Common 00:00:00 00:00:00 MCR [facility] WELLNESS - CHI VISIT [facility] 2021-08-16 2021-08-16 (TEL) STLMLC STLMLC [id number] Co mmon 00:00:00 00:00:00 [facility] 2021-08-13 2021-08-13 OFFICE STLMLC STLMLC [id number] Co mmon 00:00:00 00:00:00 VISIT [facility] PT - CHI LEVEL 4 [facility] 2021-06-20 2021-06-20 OFFICE STLMLC STLMLC [id number] Co mmon 00:00:00 00:00:00 VISIT [facility] PT - CHI LEVEL 4 [facility] 2021-04-23 2021-04-23 OFFICE STLMLC STLMLC [id number] Co mmon 00:00:00 00:00:00 VISIT [facility] EST[facility] PT - CHI LEVEL 4 [facility] 2021-02-19 2021-02-19 Outpatient STLMLC STLMLC [id number] Common 00:00:00 00:00:00 [facility] 2021-01-12 2021-01-12 Outpatient STLMLC STLMLC [id number] Common 00:00:00 00:00:00 [facility] 2020-12-25 2020-12-25 Outpatient STLMLC STLMLC [id number] Common 00:00:00 00:00:00 [facility] 2020-12-20 2020-12-20 Outpatient STLMLC STLMLC [id number] Common 00:00:00 00:00:00 [facility] 2020-12-08 2020-12-08 Outpatient STLMLC STLMLC [id number] Common 00:00:00 00:00:00 [facility] 2020-11-29 2020-11-29 Outpatient STLMLC STLMLC [id number] Common 00:00:00 00:00:00 [facility] 2020-11-22 2020-11-22 Outpatient STLMLC STLMLC [id number] Common 00:00:00 00:00:00 [facility] 2020-10-23 2020-10-23 Outpatient STLMLC STLMLC [id number] Common 00:00:00 00:00:00 [facility] 2020-10-19 2020-10-19 Outpatient STLMLC STLMLC [id number] Common 00:00:00 00:00:00 [facility] 2020-10-12 2020-10-12 Outpatient STLMLC STLMLC [id number] Common 00:00:00 00:00:00 [facility] 2020-10-12 2020-10-12 Outpatient STLMLC STLMLC [id number] Common 00:00:00 00:00:00 [facility] 2020-10-05 2020-10-05 Outpatient STLMLC STLMLC [id number] Common 00:00:00 00:00:00 [facility] 2020-09-27 2020-09-27 Outpatient STLMLC STLMLC [id number] Common 00:00:00 00:00:00 [facility] 2020-09-25 2020-09-25 Outpatient STLMLC STLMLC [id number] Common 00:00:00 00:00:00 [facility] 2020-09-21 2020-09-21 Outpatient STLMLC STLMLC [id number] Common 00:00:00 00:00:00 [facility] 2020-09-15 2020-09-15 Outpatient STLMLC STLMLC [id number] Common 00:00:00 00:00:00 [facility] 2020-08-22 2020-08-22 Outpatient STLMLC STLMLC [id number] Common 00:00:00 00:00:00 [facility] 2020-08-22 2020-08-22 Outpatient STLMLC STLMLC [id number] Common 00:00:00 00:00:00 [facility] 2020-08-22 2020-08-22 Outpatient STLMLC STLMLC [id number] Common 00:00:00 00:00:00 [facility] 2020-08-15 2020-08-15 Outpatient STLMLC STLMLC [id number] Common 00:00:00 00:00:00 [facility] 2020-07-18 2020-07-18 Outpatient STLMLC STLMLC [id number] Common 00:00:00 00:00:00 [facility] 2020-07-04 2020-07-04 Outpatient STLMLC STLMLC [id number] Common 00:00:00 00:00:00 [facility] 2020-06-22 2020-06-22 Outpatient STLMLC STLMLC [id number] Common 00:00:00 00:00:00 [facility] 2020-06-16 2020-06-16 Outpatient STLMLC STLMLC [id number] Common 00:00:00 00:00:00 [facility] 2020-05-24 2020-05-24 Outpatient STLMLC STLMLC [id number] Common 00:00:00 00:00:00 [facility] 2020-05-16 2020-05-16 Outpatient STLMLC STLMLC [id number] Common 00:00:00 00:00:00 [facility] 2020-05-10 2020-05-10 Outpatient STLMLC STLMLC [id number] Common 00:00:00 00:00:00 [facility] 2020-05-08 2020-05-08 Outpatient STLMLC STLMLC [id number] Common 00:00:00 00:00:00 [facility] 2020-04-21 2020-04-21 Outpatient STLMLC STLMLC [id number] Common 00:00:00 00:00:00 [facility] 2020-04-18 2020-04-18 Outpatient STLMLC STLMLC [id number] Common 00:00:00 00:00:00 [facility] 2020-04-17 2020-04-17 Outpatient STLMLC STLMLC [id number] Common 00:00:00 00:00:00 [facility] 2020-03-28 2020-03-28 Outpatient STLMLC STLMLC [id number] Common 00:00:00 00:00:00 [facility] Results This patient has no known results.
[2022-10-17 21:45] LABS: Absolute Lymphocytes (CBC) 1.4 K/uL (0.7-4.9); Hematocrit 32.9 % (36.0-45.0); MPV 7.5 fL (7.6-11.3); RBC Red Blood Cell Count 3.91 M/uL (3.86-4.86)
--- NOTE | 2022-10-17 22:13 | RAD REPORT ---
EXAM DESCRIPTION: RAD - Chest Single View - 10/17/2022 9:55 pm CLINICAL HISTORY: Chest pain;Cough;Fever COMPARISON: 11/16/2021 FINDINGS: Lines: None. Lungs: Ill-defined opacities present in the medial right lung base. Pleural: No significant pleural effusions or pneumothorax. Cardiac: Cardiomegaly. Mediastinum: Within normal limits. Bones: No acute fractures. Right shoulder arthroplasty . Other: None IMPRESSION: Possible pneumonia in the medial right lung base.
[2022-10-17 22:31] LABS: Albumin 2.6 g/dL (3.4-5.0); Bilirubin Total 0.6 mg/dL (0.2-1.0); Potassium 3.8 mEq/L (3.5-5.1); Protein, Total 6.6 g/dL (6.4-8.2); Troponin High Sensitivity 6.5 pg/mL (<58.9)
--- NOTE | 2022-10-17 23:04 | EDPHYS ---
Physician Documentation [facility] Name: Jacqueline Bellamy Age: 67 yrs Sex: Female : 1955 Arrival Date: 10/17/2022 Time: 20:43 Bed 5 Private MD: ED Physician Tim Rendon HPI: 10/17 20:57 This 67 yrs old Female presents to ER via Unassigned with complaints of Shortness Of rn Breath, Chest Pain. 20:57 The patient has shortness of breath at rest, with light activity. Onset: The rn symptoms/episode began/occurred today. Duration: The symptoms are intermittent. The patient's shortness of breath is aggravated by coughing, light activity, is alleviated by nothing. Associated signs and symptoms: Pertinent positives: chest pain, non-productive cough, fever, Pertinent negatives: hemoptysis, loss of consciousness. Severity of symptoms: At their worst the symptoms were moderate in the emergency department the symptoms are unchanged. The patient has not experienced similar symptoms in the past. The patient has not recently seen a physician. Pt reports has felt tired for 3 days, today began with 102 fever, cough, sob, left sided chest pain that is worse with deep breath. Radiates to left back/shoulder. NO hx of dvt/PE. Somewhat recent diagnosis of CHF and aortic stenosis with Dr. Lim, had stress test per patient and did not need heart cath. States swelling in legs actually have improved since starting lasix. No trauma. Reports chills and threw up once. + mild upper abd pain.. Historical: - Allergies: 21:37 Naproxen; kd3 21:37 iv contrast; kd3 - Immunization history:: Adult Immunizations up to date. - Social history:: Smoking status: Patient denies any tobacco usage or history of. - Family history:: not pertinent. - Hospitalizations: : No recent hospitalization is reported. ROS: 20:57 Constitutional: Negative for fever, chills, and weight loss, Cardiovascular: + chest rn pain, + leg swelling Respiratory: + cough and sob Abdomen/GI: Negative for diarrhea, and constipation Back: Negative for injury and pain, MS/Extremity: Negative for injury and deformity, Skin: Negative for injury, rash, and discoloration, Neuro: Negative for headache, weakness, numbness, tingling, and seizure. Exam: 20:57 Constitutional: This is a well developed, well nourished patient who is awake, alert, rn and in no acute distress. Ambulatory to room from triage. Head/Face: Normocephalic, atraumatic. ENT: no stridor Cardiovascular: RRR, No pulse deficits. Respiratory: Mild tachypnea, no retractions, crackles at bases. Abdomen/GI: soft, + mild left upper quadrant tenderness, no rebound, no masses, neg forte Skin: Warm, dry MS/ Extremity: Pulses equal, no cyanosis. Neuro: Awake and alert, GCS 15, oriented to person, place, time, and situation. Cranial nerves II-XII grossly intact. Motor strength 5/5 in all extremities. Sensory grossly intact. Cerebellar exam normal. Normal gait. 21:22 ECG was reviewed by the Attending Physician. rn Vital Signs: 21:35 Pulse 107; Resp 19; Temp 98.2(O); Pulse Ox 98% on R/A; Weight 52.16 kg; Height 5 ft. 2 kd3 in. ; 21:39 BP 108 / 56; kd3 10/18 00:42 BP 118 / 72; Pulse 89; Resp 18; Temp 98.1; Pulse Ox 97% on R/A; aa9 10/17 21:35 Body Mass Index 21.03 (52.16 kg, 157.48 cm) kd3 MDM: 10/17 20:45 Patient medically screened. rn 23:02 Differential diagnosis: CHF exacerbation, Myocardial Infarction pneumonia, Pneumothorax rn pulmonary edema, Sepsis. Data reviewed: vital signs, nurses notes, lab test result(s), EKG, radiologic studies, plain films, and as a result, I will discharge patient. Consideration of Admission/Observation Escalation of care including admission/observation considered. Pt requests dc home. I considered the following discharge prescriptions or medication management in the emergency department Medications were administered in the Emergency Department. See MAR. Counseling: I had a detailed discussion with the patient and/or guardian regarding: the historical points, exam findings, and any diagnostic results supporting the discharge/admit diagnosis, lab results, radiology results, the need for outpatient follow up, to return to the emergency department if symptoms worsen or persist or if there are any questions or concerns that arise at home. Response to treatment: the patient's symptoms have mildly improved after treatment, and as a result, I will discharge patient. ED course: Pt with early pneumonia, neg lactate, no oxygen requirement, offered admission and patient wants to go home. Will dc home with abx and return precautions. . 10/17 20:54 Order name: Blood Culture Adult (2) rn 10/17 20:54 Order name: CBC with Diff; Complete Time: 22:28 10/17 20:54 Order name: CMP; Complete Time: 23:10/17 20:54 Order name: Lactate w/ 2H reflex if indic.; Complete Time: :10/17 20:54 Order name: Protime (+inr); Complete Time: :10/17 20:54 Order name: Ptt, Activated; Complete Time: :10/17 20:54 Order name: Flu; Complete Time: :10/17 20:54 Order name: SARS-COV-2 RT PCR; Complete Time: :10/17 20:54 Order name: BNP; Complete Time: :10/17 20:54 Order name: Troponin High Sensitivity; Complete Time: :10/17 20:54 Order name: Chest Single View XRAY; Complete Time: :10/17 20:54 Order name: EKG; Complete Time: 20:55 10/17 20:54 Order name: Accucheck; Complete Time: 22:46 10/17 20:54 Order name: Cardiac monitoring; Complete Time: 21:39 10/17 20:54 Order name: EKG - Nurse/Tech; Complete Time: :39 10/17 20:54 Order name: IV Saline Lock - Large Bore; Complete Time: :39 10/17 20:54 Order name: Labs collected and sent; Complete Time: :39 10/17 20:54 Order name: O2 Per Protocol; Complete Time: :39 10/17 20:54 Order name: O2 Sat Monitoring; Complete Time: :10/17 20:54 Order name: Vital Signs; Complete Time: 21:39 rn EC:22 Rate is 95 beats/min. Rhythm is regular. QRS Newcomb is Normal. DC interval is normal. QRS rn interval is normal. QT interval is normal. No Q waves. T waves are Normal. No ST changes noted. Clinical impression: Normal ECG. Interpreted by me. Reviewed by me. Administered Medications: 23:33 Drug: Rocephin IV 1 grams Route: IV; Rate: calculated rate; Site: right antecubital; aa9 10/18 00:13 Follow up: Response: No adverse reaction; IV Status: Completed infusion; IV Intake: [id number] 10/17 23:44 Not Given (Patient Refused): Ibuprofen PO 800 mg PO once 9 23:44 Drug: Zithromax IVPB 500 mg Route: IVPB; Infused Over: 1 hrs; Site: right antecubital; aa9 10/18 00:44 Follow up: Response: No adverse reaction; IV Status: Completed infusion; IV Intake: aa9 250ml Disposition Summary: 10/17/22 23:03 Discharge Ordered Location: Home rn Problem: new rn Symptoms: have improved rn Condition: Stable rn Diagnosis - Pneumonia, unspecified organism rn Followup: rn - With: Private Physician - When: 2 - 3 days - Reason: Recheck today's complaints, Re-evaluation by your physician Discharge Instructions: - Discharge Summary Sheet rn - Community-Acquired Pneumonia, Adult rn Forms: - Medication Reconciliation Form rn - Thank You Letter rn - Antibiotic athletic training internship - Prescription Opioid Use rn Prescriptions: - levofloxacin 750 mg Oral Tablet - take 1 tablet by ORAL route once daily for 7 days; 7 tablet; Refills: 0, rn Product Selection Permitted Signatures: Dispatcher [employer] EDMS Tim Rendon MD MD rn Doucette, Kyli RN RN kd3 Melba Bolaños, RN RN aa9 Corrections: (The following items were deleted from the chart) 10/17 21:22 20:57 Constitutional: This is a well developed, well nourished patient who is awake, rn alert, and in no acute distress. Ambulatory to room from triage. Head/Face: Normocephalic, atraumatic. ENT: no stridor Cardiovascular: No pulse deficits. Respiratory: Mild tachypnea, no retractions, crackles at bases. Abdomen/GI: soft, + mild left upper quadrant tenderness, no rebound, no masses, neg forte Skin: Warm, dry MS/ Extremity: Pulses equal, no cyanosis. Neuro: Awake and alert, GCS 15, oriented to person, place, time, and situation. Cranial nerves II-XII grossly intact. Motor strength 5/5 in all extremities. Sensory grossly intact. Cerebellar exam normal. Normal gait. rn 21:38 21:37 Allergies: No Known Allergies; kd3 kd3 22:34 20:55 Chest Abdomen Pelvis W Con+CT.RAD.BRZ ordered. EDMS EDMS
--- NOTE | 2022-10-17 23:04 | ER ---
Nurse's Notes [facility] Name: Jacqueline Bellamy Age: 67 yrs Sex: Female : 1955 Arrival Date: 10/17/2022 Time: 20:43 Bed 5 Private MD: Diagnosis: Pneumonia, unspecified organism Presentation: 10/17 21:35 Chief complaint: Patient states: I started having chest pain that started an hour ago kd3 with a fever and shortness of breath. It is also hurting my left arm. Coronavirus screen: Vaccine status:. Ebola Screen: No symptoms or risks identified at this time. Initial Sepsis Screen: Does the patient meet any 2 criteria? No. Patient's initial sepsis screen is negative. Does the patient have a suspected source of infection? No. Patient's initial sepsis screen is negative. Risk Assessment: Do you want to hurt yourself or someone else? Patient reports no desire to harm self or others. Onset of symptoms was October 17, 2022. 21:35 Method Of Arrival: Ambulatory kd3 21:35 Acuity: JAMES 3 kd3 Triage Assessment: 21:37 General: Appears in no apparent distress. Behavior is calm, cooperative. Pain: kd3 Complains of pain in chest. Respiratory: Reports shortness of breath Onset: The symptoms/episode began/occurred gradually, the patient has mild shortness of breath. Historical: - Allergies: 21:37 Naproxen; kd3 21:37 iv contrast; kd3 - Immunization history:: Adult Immunizations up to date. - Social history:: Smoking status: Patient denies any tobacco usage or history of. - Family history:: not pertinent. - Hospitalizations: : No recent hospitalization is reported. Screenin/12 00:43 [facility] ED Fall Risk Assessment (Adult) History of falling in the last 3 months, aa9 including since admission No falls in past 3 months (0 pts) Confusion or Disorientation No (0 pts) Intoxicated or Sedated No (0 pts) Impaired Gait No (0 pts) Mobility Assist Device Used No (0 pt) Altered Elimination No (0 pt) Score/Fall Risk Level 0 - 2 = Low Risk Oriented to surroundings, Maintained a safe environment, Educated pt \T\ family on fall prevention, incl call for assistance when getting out of bed. Abuse screen: Denies threats or abuse. Denies injuries from another. Nutritional screening: No deficits noted. Tuberculosis screening: No symptoms or risk factors identified. Assessment: 10/17 23:15 Reassessment: discharge pending IV infusion completion. aa9 23:20 General: Appears in no apparent distress. comfortable, Behavior is calm, cooperative. aa9 23:20 Cardiovascular: Rhythm is regular. Respiratory: Airway is patent Respiratory effort is aa9 even, unlabored. GI: No signs and/or symptoms were reported involving the gastrointestinal system. 10/18 00:42 Reassessment: Patient appears in no apparent distress at this time. Patient and/or aa9 family updated on plan of care and expected duration. Pain level reassessed. Patient is alert, oriented x 3, equal unlabored respirations, skin warm/dry/pink. Patient states feeling better. Vital Signs: 10/17 21:35 Pulse 107; Resp 19; Temp 98.2(O); Pulse Ox 98% on R/A; Weight 52.16 kg; Height 5 ft. 2 kd3 in. ; 21:39 BP 108 / 56; kd3 10/18 00:42 BP 118 / 72; Pulse 89; Resp 18; Temp 98.1; Pulse Ox 97% on R/A; aa9 10/17 21:35 Body Mass Index 21.03 (52.16 kg, 157.48 cm) kd3 ED Course: 10/17 20:43 Patient arrived in ED. ja2 20:45 Tim Rendon MD is Attending Physician. rn 21:35 Joyce Nelson RN is Primary Nurse. kd3 21:37 Triage completed. kd3 21:37 Arm band placed on right wrist. EKG completed in triage. Results shown to MD. kd3 21:38 Troponin High Sensitivity Sent. kd3 21:38 BNP Sent. kd3 21:39 SARS-COV-2 RT PCR Sent. kd3 21:39 Flu Sent. kd3 21:39 Blood Culture Adult (2) Sent. kd3 21:39 CBC with Diff Sent. kd3 21:39 CMP Sent. kd3 21:39 Lactate w/ 2H reflex if indic. Sent. kd3 21:39 Protime (+inr) Sent. kd3 21:39 Ptt, Activated Sent. kd3 21:56 Chest Single View XRAY In Process Unspecified. EDMS 05/12 00:00 Patient has correct armband on for positive identification. Call light in reach. aa9 00: Pulse ox on. NIBP on. aa9 :43 No provider procedures requiring assistance completed. IV discontinued. aa9 Administered Medications: 10/17 23:33 Drug: Rocephin IV 1 grams Route: IV; Rate: calculated rate; Site: right antecubital; aa9 10/18 00:13 Follow up: Response: No adverse reaction; IV Status: Completed infusion; IV Intake: [id number] 10/17 23:44 Not Given (Patient Refused): Ibuprofen PO 800 mg PO once :44 Drug: Zithromax IVPB 500 mg Route: IVPB; Infused Over: 1 hrs; Site: right antecubital; aa9 10/1844 Follow up: Response: No adverse reaction; IV Status: Completed infusion; IV Intake: aa9 250ml Medication: 00:43 VIS not applicable for this client. aa9 Intake: 00:13 IV: 10ml; Total: 10ml. 44 IV: 250ml; Total: 260ml. aa9 Outcome: 10/17 23:03 Discharge ordered by . rn 10/18 00:43 Discharged to home ambulatory. aa9 Condition: stable Discharge instructions given to patient, Instructed on discharge instructions, follow up and referral plans. medication usage, Demonstrated understanding of instructions, follow-up care, medications, Prescriptions given X 1. 00:44 Patient left the ED. aa9 Signatures: Dispatcher [employer] EDMS Tim Rendon MD MD rn Alexander, Jessica ja2 Doucette, Kyli, RN RN kd3 Melba Bolaños RN RN aa9 Corrections: (The following items were deleted from the chart) 10/17 21:38 21:37 Allergies: No Known Allergies; kd3 kd3
[2022-10-17] MEDS ORDERED: CEFTRIAXONE 1000 MG/VIAL ONE (23:38)
[2022-10-17] MEDS ORDERED: NA CHLORIDE 0.9% 250 ML ONE (23:38)
[2022-10-17] MEDS ORDERED: AZITHROMYCIN 500 MG INJ IVPB ONE (23:38)
[2022-10-17] MEDS ORDERED: IBUPROFEN 400 MG TAB ONE (23:38)
[2022-10-18 01:05] VITALS: BP 118/72; TEMP 98.1; O2SAT 97
--- NOTE | 2022-10-18 05:34 | EKG ---
Test Date: 2022-10-17 Test Time: 21:10:50 [place] [employer]: MEASUREMENT RESULTS: Intervals: Rate: 95 ME: 92 QRSD: 80 QT: 376 QTc: 472 Dresser: P: 35 ME: 92 QRS: 75 T: 63 INTERPRETIVE STATEMENTS: Sinus rhythm with short ME Nonspecific T wave abnormality Prolonged QT Abnormal ECG No previous ECG available for comparison Electronically Signed On 10-18-22 05:32:51 CDT by Kofi Lim
== END 2022-10-18 00:44 | disposition home or self-care (01) ==
LOC: ER 20:43
DX: J18.9 Pneumonia, unspecified organism (principal); Z20.822 Contact with and (suspected) exposure to COVID-19; Z88.6 Allergy status to analgesic agent; Z91.041 Radiographic dye allergy status
CPT/HCPCS: 96365; 93005; 87040 ×2; 85025; 36415; 85610; 83605; 85730; 84484; 80053; 83880; 87804 ×2; 71045; 99284; U0003; J7050; J0696

== ENCOUNTER 2022-12-02 19:51 | Emergency (ER) | payer OTHER ==
--- OUTSIDE RECORDS SUMMARY | 2022-12-02 20:01 | XMS REPORT | Continuity of Care Document ---
:1955 Author Organization [facility] t Address [address] [place] [address] Care Team Providers Name Role Phone Leonidas Kilpatrick Attending Clinician Unavailable ABBY PALOMARES Attending Clinician Unavailable Payers Payer Name Policy Type Policy Number Effective Date Expiration Date S nafisa [facility] [id number] [facility] ADVANTAGE [facility] 53 [id number] 2020 [facility] ADVANTAGE 00:00:00 - [facility] MEDICARE MB [id number] [facility] NOVITAS - [facility] Problems Condition Condition Condition Status Onset Resolution Last Treating Co mments Source Name Details Category Date Date Treatment Clinician Date [id number] 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 [id number] Non-season Problem Com mon al [facility] allergic - [id number] Primary Problem Commo n osteoarthr Spirit itis - CHI involving [facility] [id number] Peripheral Problem Com mon polyneurop Spirit athy - [facility] [id number] Current Problem Common moderate Spirit episode of - [facility]I major [facility] prior episode [id number] Iron Problem Common deficiency Spirit anemia, - [facility]I unspecifie [facility] iron [facility] type [id number] Vitamin D Problem Comm on deficiency Spirit disease - [facility] [id number] Panic Problem Common disorder [facility] [episodic - CHI paroxysmal St anxiety] [facility] Chronic Chronic Problem Common obstructiv obstructiv Sp benoit e e - CHI pulmonary pulmonary [facility] (COPD) [facility] [id number] Primary Problem Comm on osteoarthr Spirit itis of - CHI right knee [facility] [id number] Tobacco Problem Commo n use Spirit disorder [facility] [id number] Primary Problem Common insomnia [facility] [id number] Generalize Problem Com mon d anxiety [facility] disorder [facility] [id number] Primary Problem Comm on osteoarthr Spirit itis of - CHI left knee [facility] [id number] Hypocalcem Problem Comm on ia Spirit [facility] [id number] Arthritis Problem Co mmon [id number] of right Spirit knee [facility] [id number] 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 - CHI t of right [facility] [id number] Presence Problem Comm on of Spirit unspecifie - CHI d [facility] hip joint [facility] [id number] PAD Problem Common (periphera Spirit l artery - CHI disease) [facility] [id number] Arthritis Problem Co mmon [id number] of left Spirit knee [facility] [id number] 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 - [facility]I replacemen [facility] Allergies, Adverse Reactions, Alerts Allergy Allergy Status Severity Reaction(s) Onset Inactive Treating Comm ents Source Name Type Date Date Clinician Iodine Propensi Active [facility] ty to 2-[address] adverse 00:00: of reaction 00 Medicin s to e drug Naproxen Propensi Active Rash [facility] to [address]- [address] adverse 00:00: of reaction 00 Medicin s to e drug naproxen naproxen Active Rash Common [facility] Social History Social Habit Start Date Stop Date Quantity Comments Source History of Cigarette Smoker [facility] eloisa tobacco use of Medicine Tobacco use and 2022-08-05 2022-08-05 Smokeless tobacco [facility] College exposure 00:00:00 00:00:00 non-user of Medicine Alcohol intake 2022-08-05 2022-08-05 Lifetime [facility] Col lege 00:00:00 00:00:00 non-drinker of Medicine (finding) Sex Ass[birth year] F [facility] Co llege 00:00:00 00:00:00 of Medicine Smoking Status Start Date Stop Date Source Smokes tobacco daily 2022-08-05 00:00:00 [facility] Medications Ordered Filled Start Stop Current Ordering Indication Dosage Frequency Signature Comments Components Source Medication Medication Date Date Medication? Clinician (SIG) Name Name citalopram Yes citalopram B [facility]yl[facility] (CELEXA) 40 - 40 mg College MG tablet 08:17: tablet of 51 Medicin e mirtazapine Yes mirtazapin Jareth (REMERON) 08-05 e 30 mg College 30 MG 08:17: tablet of tablet 51 Medicin e alprazolam Yes alprazolam [facility] (XANAX) 08-05 0.25 mg College 0.25 MG 08:17: tablet of tablet 51 Medicin e tizanidine Yes tizanidine [facility] (ZANAFLEX) 08-05 2 mg College 2 MG tablet 08:17: tablet of 51 Medicin e meloxicam Yes meloxicam [facility] (MOBIC) 7.5 08-05 7.5 mg Colleg e MG tablet 08:17: tablet of 51 Medicin e Acetaminoph Yes acetaminop [facility] en-Codeine 08-05 hen 300 Colleg e 300-60 MG 08:17: mg-codeine of TABS 51 60 mg Medicin tablet e gabapentin Yes gabapentin [facility] (NEURONTIN) 08-05 600 mg Colleg e 600 MG 08:17: tablet of tablet 51 Medicin e cyanocobala Yes cyanocobal [facility] min 1000 08-05 son (vit Colleg e [...] pirit son) son) 00:00: - CHI 00 [facility] Xanax 0.25 Xanax 0.25 2021-0 No 1{table Xanax 0.25 MG MG 9-28 t} MG 00:00: 00 Vitamin B12 Vitamin B12 2-0 No 1000ug Common (Cyanocobal (Cyanocobal 9-28 S pirit son) son) 00:00: - CHI 00 [facility] Xanax 0.25 Xanax 0.25 2021-0 No 1{table Xanax 0.25 MG MG 9-28 t} MG 00:00: 00 Vitamin B12 Vitamin B12 2-0 No 1000ug Common (Cyanocobal (Cyanocobal 9-28 S pirit son) son) 00:00: - CHI 00 [facility] Xanax 0.25 Xanax 0.25 2021-0 No 1{table Xanax 0.25 MG MG 9-28 t} MG 00:00: 00 Vitamin B12 Vitamin B12 2022-0 No 1000ug Common (Cyanocobal (Cyanocobal 9-28 S pirit son) son) 00:00: - CHI 00 [facility] Xanax 0.25 Xanax 0.25 2022-0 No 1{table Xanax 0.25 MG MG 9-28 t} MG 00:00: 00 Vitamin B12 Vitamin B12 2-0 No 1000ug Common (Cyanocobal (Cyanocobal 9-28 S pirit son) son) 00:00: - CHI 00 [facility] Vitamin B12 Vitamin B12 2022-0 No 1000ug Common (Cyanocobal (Cyanocobal 9-28 S pirit son) son) 00:00: - CHI 00 [facility] Vitamin B12 Vitamin B12 2022-0 No 1000ug Common (Cyanocobal (Cyanocobal 9-28 S pirit son) son) 00:00: - CHI 00 [facility] Vitamin B12 Vitamin B12 2-0 No 1000ug Common (Cyanocobal (Cyanocobal 9-28 S pirit son) son) 00:00: - CHI 00 [facility] Vitamin B12 Vitamin B12 2-0 No 1000ug Common (Cyanocobal (Cyanocobal 9-28 S pirit son) son) 00:00: - CHI 00 [facility] Xanax 0.25 Xanax 0.25 2022-0 No 1{table Xanax 0.25 MG MG 9-28 t} MG 00:00: 00 Vitamin B12 Vitamin B12 2-0 No 1000ug Common (Cyanocobal (Cyanocobal 9-28 S pirit son) son) 00:00: - CHI 00 [facility] Cyanocobala Cyanocobala 2-0 2- No Cyanocobal min [...] mg 5-13 Spirit 00:00: - CHI 00 [facility] Bupivicaine Bupivicaine 1-0 No 2.5mg Common Hermleigh Hermleigh 5-13 Spirit 00:00: - CHI 00 [facility] Kenalog Kenalog 1-0 No 40mg Common (Triamcinol (Triamcinol 5-13 S pirit one) one) 00:00: - CHI 00 [facility] Hyalgan 20 Hyalgan 20 2021-0 No 20mg C ommon mg mg 5-13 Spirit 00:00: - CHI 00 [facility] Bupivicaine Bupivicaine 1-0 No 2.5mg Common Hermleigh Hermleigh 5-13 Spirit 00:00: - CHI 00 [facility] Kenalog Kenalog 1-0 No 40mg Common (Triamcinol (Triamcinol 5-13 S pirit one) one) 00:00: - CHI 00 [facility] Hyalgan 20 Hyalgan 20 2020-0 No 20mg C ommon mg mg 5-13 Spirit 00:00: - CHI 00 [facility] Bupivicaine Bupivicaine 2020-0 No 2.5mg Common Hermleigh Hermleigh 5-13 Spirit 00:00: - CHI 00 [facility] Kenalog Kenalog 2020-0 No 40mg Common (Triamcinol (Triamcinol 5-13 S pirit one) one) 00:00: - CHI 00 [facility] Hyalgan 20 Hyalgan 20 2020-0 No 20mg C ommon mg mg 5-13 Spirit 00:00: - CHI 00 [facility] Bupivicaine Bupivicaine 2020-0 No 2.5mg Common Hermleigh Hermleigh 5-13 Spirit 00:00: - CHI 00 [facility] Kenalog Kenalog 2020-0 No 40mg Common (Triamcinol (Triamcinol 5-13 S pirit one) one) 00:00: - CHI 00 [facility] Hyalgan 20 Hyalgan 20 2020-0 No 20mg C ommon mg mg 5-13 Spirit 00:00: - CHI 00 [facility] Bupivicaine Bupivicaine 2020-0 No 2.5mg Common Hermleigh Hermleigh 5-13 Spirit 00:00: - CHI 00 [facility] Kenalog Kenalog 2020-0 No 40mg Common (Triamcinol (Triamcinol 5-13 S pirit one) one) 00:00: - CHI 00 [facility] Hyalgan 20 Hyalgan 20 2020-0 No 20mg C ommon mg mg 5-13 Spirit 00:00: - CHI 00 [facility] Bupivicaine Bupivicaine 2020-0 No 2.5mg Common Hermleigh Hermleigh 5-13 Spirit 00:00: - CHI 00 [facility] Kenalog Kenalog 2020-0 No 40mg Common (Triamcinol (Triamcinol 5-13 S pirit one) one) 00:00: - CHI 00 [facility] Hyalgan 20 Hyalgan 20 2020-0 No 20mg C ommon mg mg 5-13 Spirit 00:00: - CHI 00 [facility] Bupivicaine Bupivicaine 2020-0 No 2.5mg Common Hermleigh Hermleigh 5-13 Spirit 00:00: - CHI 00 [facility] Kenalog Kenalog 2020-0 No 40mg Common (Triamcinol (Triamcinol 5-13 S pirit one) one) 00:00: - CHI 00 [facility] Hyalgan 20 Hyalgan 20 2020-0 No 20mg C ommon mg mg 5-13 Spirit 00:00: - CHI 00 [facility] Bupivicaine Bupivicaine 2020-0 No 2.5mg Common Hermleigh Hermleigh 5-13 Spirit 00:00: - CHI 00 [facility] Kenalog Kenalog 2020-0 No 40mg Common (Triamcinol (Triamcinol 5-13 S pirit one) one) 00:00: - CHI 00 [facility] Hyalgan 20 Hyalgan 20 2020-0 No 20mg C ommon mg mg 5-13 Spirit 00:00: - CHI 00 [facility] Bupivicaine Bupivicaine 2020-0 No 2.5mg Common Hermleigh Hermleigh 5-13 Spirit 00:00: - CHI 00 [facility] Kenalog Kenalog 2020-0 No 40mg Common (Triamcinol (Triamcinol 5-13 S pirit one) one) 00:00: - CHI 00 [facility] Hyalgan 20 Hyalgan 20 2020-0 No 20mg C ommon mg mg 5-13 Spirit 00:00: - CHI 00 [facility] Bupivicaine Bupivicaine 2020-0 No 2.5mg Common Hermleigh Hermleigh 5-13 Spirit 00:00: - CHI 00 [facility] Kenalog Kenalog 2020-0 No 40mg Common (Triamcinol (Triamcinol 5-13 S pirit one) one) 00:00: - CHI 00 [facility] Hyalgan 20 Hyalgan 20 2020-0 No 20mg C ommon mg mg 5-13 Spirit 00:00: - CHI 00 [facility] Bupivicaine Bupivicaine 2020-0 No 2.5mg Common Hermleigh Hermleigh 5-13 Spirit 00:00: - CHI 00 [facility] Kenalog Kenalog 2020-0 No 40mg Common (Triamcinol (Triamcinol 5-13 S pirit one) one) 00:00: - CHI 00 [facility] Hyalgan 20 Hyalgan 20 2020-0 No 20mg C ommon mg mg 5-13 Spirit 00:00: - CHI 00 [facility] Bupivicaine Bupivicaine 2020-0 No 2.5mg Common Hermleigh Hermleigh 5-13 Spirit 00:00: - CHI 00 [facility] Kenalog Kenalog 2020-0 No 40mg Common (Triamcinol (Triamcinol 5-13 S pirit one) one) 00:00: - CHI 00 [facility] Hyalgan 20 Hyalgan 20 2020-0 No 20mg C ommon mg mg 5-13 Spirit 00:00: - CHI 00 [facility] Bupivicaine Bupivicaine 2020-0 No 2.5mg Common Hermleigh Hermleigh 5-13 Spirit 00:00: - CHI 00 [facility] Kenalog Kenalog 0 No 40mg Common (Triamcinol (Triamcinol 5-13 S pirit one) one) 00:00: - CHI 00 [facility] Hyalgan 20 Hyalgan 20 2020-0 No 20mg C ommon mg mg 5-13 Spirit 00:00: - CHI 00 [facility] Bupivicaine Bupivicaine 2020-0 No 2.5mg Common Hermleigh Hermleigh 5-13 Spirit 00:00: - CHI 00 [facility] Kenalog Kenalog 2020-0 No 40mg Common (Triamcinol (Triamcinol 5-13 S pirit one) one) 00:00: - CHI 00 [facility] Hyalgan 20 Hyalgan 20 2020-0 No 20mg C ommon mg mg 5-13 Spirit 00:00: - CHI 00 [facility] Bupivicaine Bupivicaine 2020-0 No Common Hermleigh Hermleigh 5-13 Spirit 00:00: - CHI 00 [facility] Kenalog Kenalog 2020-0 No 40mg Common (Triamcinol (Triamcinol 5-13 S pirit one) one) 00:00: - CHI 00 [facility] Hyalgan 20 Hyalgan 20 2020-0 No 20mg C ommon mg mg 5-13 Spirit 00:00: - CHI 00 [facility] Bupivicaine Bupivicaine 2020-0 No 2.5mg Common Hermleigh Hermleigh 5-13 Spirit 00:00: - CHI 00 [facility] Kenalog Kenalog 2020-0 No 40mg Common (Triamcinol (Triamcinol 5-13 S pirit one) one) 00:00: - CHI 00 [facility] Hyalgan 20 Hyalgan 20 2020-0 No 20mg C ommon mg mg 5-13 Spirit 00:00: - CHI 00 [facility] Bupivicaine Bupivicaine 2020-0 No 2.5mg Common Hermleigh Hermleigh 5-13 Spirit 00:00: - CHI 00 [facility] Kenalog Kenalog 2020-0 No 40mg Common (Triamcinol (Triamcinol 5-13 S pirit one) one) 00:00: - CHI 00 [facility] Hyalgan 20 Hyalgan 20 2020-0 No 20mg C ommon mg mg 5-13 Spirit 00:00: - CHI 00 [facility] Bupivicaine Bupivicaine 2020-0 No 2.5mg Common Hermleigh Hermleigh 5-13 Spirit 00:00: - CHI 00 [facility] Kenalog Kenalog 2020-0 No 40mg Common (Triamcinol (Triamcinol 5-13 S pirit one) one) 00:00: - CHI 00 [facility] Hyalgan 20 Hyalgan 20 2020-0 No 20mg C ommon mg mg 5-13 Spirit 00:00: - CHI 00 [facility] Bupivicaine Bupivicaine 2020-0 No 2.5mg Common Hermleigh Hermleigh 5-13 Spirit 00:00: - CHI 00 [facility] Kenalog Kenalog 2020-0 No 40mg Common (Triamcinol (Triamcinol 5-13 S pirit one) one) 00:00: - CHI 00 [facility] Hyalgan 20 Hyalgan 20 2020-0 No 20mg C ommon mg mg 5-13 Spirit 00:00: - CHI 00 [facility] Bupivicaine Bupivicaine 2020-0 No 2.5mg Common Hermleigh Hermleigh 5-13 Spirit 00:00: - CHI 00 [facility] Kenalog Kenalog 2020-0 No 40mg Common (Triamcinol (Triamcinol 5-13 S pirit one) one) 00:00: - CHI 00 [facility] Hyalgan 20 Hyalgan 20 2020-0 No 20mg C ommon mg mg 5-13 Spirit 00:00: - CHI 00 [facility] Bupivicaine Bupivicaine 2020-0 No 2.5mg Common Hermleigh Hermleigh 5-13 Spirit 00:00: - CHI 00 [facility] Kenalog Kenalog 2020-0 No 40mg Common (Triamcinol (Triamcinol 5-13 S pirit one) one) 00:00: - CHI 00 [facility] Hyalgan 20 Hyalgan 20 2020-0 No 20mg C ommon mg mg 5-13 Spirit 00:00: - CHI 00 [facility] Bupivicaine Bupivicaine 2020-0 No 2.5mg Common Hermleigh Hermleigh 5-13 Spirit 00:00: - CHI 00 [facility] Kenalog Kenalog 0 No 40mg Common (Triamcinol (Triamcinol 5-13 S pirit one) one) 00:00: - CHI 00 [facility] Hyalgan 20 Hyalgan 20 2020-0 No 20mg C ommon mg mg 5-13 Spirit 00:00: - CHI 00 [facility] Bupivicaine Bupivicaine 2020-0 No 2.5mg Common Hermleigh Hermleigh 5-13 Spirit 00:00: - CHI 00 [facility] Kenalog Kenalog 2020-0 No 40mg Common (Triamcinol (Triamcinol 5-13 S pirit one) one) 00:00: - CHI 00 [facility] Hyalgan 20 Hyalgan 20 2020-0 No 20mg C ommon mg mg 5-13 Spirit 00:00: - CHI 00 [facility] Bupivicaine Bupivicaine 2020-0 No 2.5mg Common Hermleigh Hermleigh 5-13 Spirit 00:00: - CHI 00 [facility] Kenalog Kenalog 2020-0 No 40mg Common (Triamcinol (Triamcinol 5-13 S pirit one) one) 00:00: - CHI 00 [facility] Hyalgan 20 Hyalgan 20 2020-0 No 20mg C ommon mg mg 5-13 Spirit 00:00: - CHI 00 [facility] Bupivicaine Bupivicaine 2020-0 No 2.5mg Common Hermleigh Hermleigh 5-13 Spirit 00:00: - CHI 00 [facility] Kenalog Kenalog 2020-0 No 40mg Common (Triamcinol (Triamcinol 5-13 S pirit one) one) 00:00: - CHI 00 [facility] Hyalgan 20 Hyalgan 20 2020-0 No 20mg C ommon mg mg 5-13 Spirit 00:00: - CHI 00 [facility] Bupivicaine Bupivicaine 2020-0 No 2.5mg Common Hermleigh Hermleigh 5-13 Spirit 00:00: - CHI 00 [facility] Kenalog Kenalog 2020-0 No 40mg Common (Triamcinol (Triamcinol 5-13 S pirit one) one) 00:00: - CHI 00 [facility] Hyalgan 20 Hyalgan 20 2020-0 No 20mg C ommon mg mg 5-13 Spirit 00:00: - CHI 00 [facility] Bupivicaine Bupivicaine 2020-0 No 2.5mg Common Hermleigh Hermleigh 5-13 Spirit 00:00: - CHI 00 [facility] Kenalog Kenalog 2020-0 No 40mg Common (Triamcinol (Triamcinol 5-13 S pirit one) one) 00:00: - CHI 00 [facility] Hyalgan 20 Hyalgan 20 2020-0 No 20mg C ommon mg mg 5-13 Spirit 00:00: - CHI 00 [facility] Bupivicaine Bupivicaine 2020-0 No 2.5mg Common Hermleigh Hermleigh 5-13 Spirit 00:00: - CHI 00 [facility] Kenalog Kenalog 2020-0 No 40mg Common (Triamcinol (Triamcinol 5-13 S pirit one) one) 00:00: - CHI 00 [facility] Hyalgan 20 Hyalgan 20 2020-0 No 20mg C ommon mg mg 5-13 Spirit 00:00: - CHI 00 [facility] Bupivicaine Bupivicaine 2020-0 No 2.5mg Common Hermleigh Hermleigh - Spirit 00:00: - CHI [facility] Kenalog Kenalog 2020-0 No 40mg Common (Triamcinol (Triamcinol 5-13 S pirit one) one) 00:00: - CHI [facility] Hyalgan 20 Hyalgan 20 2020-0 No 20mg C ommon mg mg 10-12 Spirit 00:00: - CHI [facility] Hyalgan 20 Hyalgan 20 2020-0 No 20mg C ommon mg mg 10-12 Spirit 00:00: - CHI [facility] Hyalgan 20 Hyalgan 20 2020-0 No 20mg C ommon mg mg 10-12 Spirit 00:00: - CHI [facility] Hyalgan 20 Hyalgan 20 2020-0 No 20mg C ommon mg mg 10-12 Spirit 00:00: - CHI [facility] Hyalgan 20 Hyalgan 20 2020-0 No 20mg C ommon mg mg 10-12 Spirit 00:00: - CHI [facility] Hyalgan 20 Hyalgan 20 2020-0 No 20mg C ommon mg mg 10-12 Spirit 00:00: - CHI [facility] Hyalgan 20 Hyalgan 20 2020-0 No 20mg C ommon mg mg 10-12 Spirit 00:00: - CHI [facility] Hyalgan 20 Hyalgan 20 2020-0 No 20mg C ommon mg mg 10-12 Spirit 00:00: - CHI [facility] Hyalgan 20 Hyalgan 20 2020-0 No 20mg C ommon mg mg 10-12 Spirit 00:00: - CHI [facility] Hyalgan 20 Hyalgan 20 2020-0 No 20mg C ommon mg mg 10-12 Spirit 00:00: - CHI [facility] Hyalgan 20 Hyalgan 20 2020-0 No 20mg C ommon mg mg 10-12 Spirit 00:00: - CHI [facility] Hyalgan 20 Hyalgan 20 2020-0 No 20mg C ommon mg mg 10-12 Spirit 00:00: - CHI [facility] Hyalgan 20 Hyalgan 20 2020-0 No 20mg C ommon mg mg 10-12 Spirit 00:00: - CHI [facility] Hyalgan 20 Hyalgan 20 2020-0 No 20mg C ommon mg mg 10-12 Spirit 00:00: - CHI [facility] Hyalgan 20 Hyalgan 20 2020-0 No 20mg C ommon mg mg 10-12 Spirit 00:00: - CHI [facility] Hyalgan 20 Hyalgan 20 2020-0 No 20mg C ommon mg mg 10-12 Spirit 00:00: - CHI [facility] Hyalgan 20 Hyalgan 20 2020-0 No 20mg C ommon mg mg 10-12 Spirit 00:00: - CHI [facility] Hyalgan 20 Hyalgan 20 2020-0 No 20mg C ommon mg mg 10-12 Spirit 00:00: - CHI [facility] Hyalgan 20 Hyalgan 20 2020-0 No 20mg C ommon mg mg 10-12 Spirit 00:00: - CHI [facility] Hyalgan 20 Hyalgan 20 2020-0 No 20mg C ommon mg mg 10-12 Spirit 00:00: - CHI [facility] Hyalgan 20 Hyalgan 20 2020-0 No 20mg C ommon mg mg 10-12 Spirit 00:00: - CHI [facility] Hyalgan 20 Hyalgan 20 2020-0 No 20mg C ommon mg mg 10-12 Spirit 00:00: - CHI [facility] Hyalgan 20 Hyalgan 20 2020-0 No 20mg C ommon mg mg 10-12 Spirit 00:00: - CHI [facility] Hyalgan 20 Hyalgan 20 2020-0 No 20mg C ommon mg mg 10-12 Spirit 00:00: - CHI [facility] Hyalgan 20 Hyalgan 20 2020-0 No 20mg C ommon mg mg 10-12 Spirit 00:00: - CHI [facility] Hyalgan 20 Hyalgan 20 2020-0 No 20mg C ommon mg mg 10-12 Spirit 00:00: - CHI [facility] Hyalgan 20 Hyalgan 20 2020-0 No 20mg C ommon mg mg 10-12 Spirit 00:00: - [facility] [facility] Hyalgan 20 Hyalgan 20 1-0 No 20mg C ommon mg mg 10-12 Spirit 00:00: - [facility] Hyalgan 20 Hyalgan 20 2020-0 No 20mg C ommon mg mg 10-12 Spirit 00:00: - [facility] Hyalgan 20 Hyalgan 20 2020-0 No 20mg C ommon mg mg 10-05 Spirit 00:00: - [facility] Hyalgan 20 Hyalgan 20 2020-0 No 20mg C ommon mg mg 10-05 Spirit 00:00: - [facility] Hyalgan 20 Hyalgan 20 2020-0 No 20mg C ommon mg mg 10-05 Spirit 00:00: - [facility] Hyalgan 20 Hyalgan 20 2020-0 No 20mg C ommon mg mg 10-05 Spirit 00:00: - [facility] Hyalgan 20 Hyalgan 20 2020-0 No 20mg C ommon mg mg 10-05 Spirit 00:00: - [facility] Hyalgan 20 Hyalgan 20 2020-0 No 20mg C ommon mg mg 10-05 Spirit 00:00: - [facility] Hyalgan 20 Hyalgan 20 2020-0 No 20mg C ommon mg mg 10-05 Spirit 00:00: - [facility] Hyalgan 20 Hyalgan 20 2020-0 No 20mg C ommon mg mg 10-05 Spirit 00:00: - [facility] Hyalgan 20 Hyalgan 20 2020-0 No 20mg C ommon mg mg 10-05 Spirit 00:00: - [facility] Hyalgan 20 Hyalgan 20 2020-0 No 20mg C ommon mg mg 10-05 Spirit 00:00: - [facility] Hyalgan 20 Hyalgan 20 2020-0 No 20mg C ommon mg mg 10-05 Spirit 00:00: - [facility] Hyalgan 20 Hyalgan 20 2020-0 No 20mg C ommon mg mg 10-05 Spirit 00:00: - [facility] Hyalgan 20 Hyalgan 20 1-0 No 20mg C ommon mg mg 10-05 Spirit 00:00: - [facility] Hyalgan 20 Hyalgan 20 2020-0 No 20mg C ommon mg mg 10-05 Spirit 00:00: - [facility] Hyalgan 20 Hyalgan 20 2020-0 No 20mg C ommon mg mg 10-05 Spirit 00:00: - [facility] Hyalgan 20 Hyalgan 20 2020-0 No 20mg C ommon mg mg 10-05 Spirit 00:00: - [facility] Hyalgan 20 Hyalgan 20 2020-0 No 20mg C ommon mg mg 10-05 Spirit 00:00: - [facility] Hyalgan 20 Hyalgan 20 2020-0 No 20mg C ommon mg mg 10-05 Spirit 00:00: - [facility] Hyalgan 20 Hyalgan 20 2020-0 No 20mg C ommon mg mg 10-05 Spirit 00:00: - [facility] Hyalgan 20 Hyalgan 20 2020-0 No 20mg C ommon mg mg 10-05 Spirit 00:00: - [facility] Hyalgan 20 Hyalgan 20 2020-0 No 20mg C ommon mg mg 10-05 Spirit 00:00: - [facility] Hyalgan 20 Hyalgan 20 2020-0 No 20mg C ommon mg mg 10-05 Spirit 00:00: - [facility] Hyalgan 20 Hyalgan 20 2020-0 No 20mg C ommon mg mg 10-05 Spirit 00:00: - [facility] Hyalgan 20 Hyalgan 20 2020-0 No 20mg C ommon mg mg 10-05 Spirit 00:00: - [facility] Hyalgan 20 Hyalgan 20 2020-0 No 20mg C ommon mg mg 10-05 Spirit 00:00: - [facility] Hyalgan 20 Hyalgan 20 2020-0 No 20mg C ommon mg mg 10-05 Spirit 00:00: - [facility] Hyalgan 20 Hyalgan 20 2020-0 No 20mg C ommon mg mg 10-05 Spirit 00:00: - [facility] Hyalgan 20 Hyalgan 20 2020-0 No 20mg C ommon mg mg 4- Spirit 00:00: - [facility] Hyalgan 20 Hyalgan 20 2020-0 No 20mg C ommon mg mg 4-29 Spirit 00:00: - [facility] traMADol traMADol 2020-0 No 1{table traMADol HCl [...] 00 Bupivicaine Bupivicaine 2020-0 No 2.5mg Common Hermleigh Hermleigh 1-26 Spirit 00:00: - [facility] Kenalog Kenalog 2020-0 No 40mg Common (Triamcinol (Triamcinol 1-26 S pirit one) one) 00:00: - [facility] Bupivicaine Bupivicaine 2020-0 No 2.5mg Common Hermleigh Hermleigh - Spirit 00:00: - [facility] Kenalog Kenalog 2020-0 No 40mg Common (Triamcinol (Triamcinol 1-26 S pirit one) one) 00:00: - [facility] Bupivicaine Bupivicaine 2020-0 No 2.5mg Common Hermleigh Hermleigh 1-26 Spirit 00:00: - [facility] Kenalog Kenalog 2020-0 No 40mg Common (Triamcinol (Triamcinol 1-26 S pirit one) one) 00:00: - [facility] Bupivicaine Bupivicaine 2020-0 No 2.5mg Common Hermleigh Hermleigh 1-26 Spirit 00:00: - [facility] Kenalog Kenalog 2020-0 No 40mg Common (Triamcinol (Triamcinol 1-26 S pirit one) one) 00:00: - [facility] Bupivicaine Bupivicaine 2020-0 No 2.5mg Common Hermleigh Hermleigh 1-26 Spirit 00:00: - [facility] Kenalog Kenalog 2020-0 No 40mg Common (Triamcinol (Triamcinol 1-26 S pirit one) one) 00:00: - [facility] Bupivicaine Bupivicaine 2020-0 No 2.5mg Common Hermleigh Hermleigh 1-26 Spirit 00:00: - [facility] Kenalog Kenalog 2020-0 No 40mg Common (Triamcinol (Triamcinol 1-26 S pirit one) one) 00:00: - [facility] Bupivicaine Bupivicaine 2020-0 No 2.5mg Common Hermleigh Hermleigh 1-26 Spirit 00:00: - [facility] Kenalog Kenalog 2020-0 No 40mg Common (Triamcinol (Triamcinol 1-26 S pirit one) one) 00:00: - [facility] Bupivicaine Bupivicaine 2020-0 No 2.5mg Common Hermleigh Hermleigh - Spirit 00:00: - [facility] Kenalog Kenalog 2020-0 No 40mg Common (Triamcinol (Triamcinol 1-26 S pirit one) one) 00:00: - [facility] Bupivicaine Bupivicaine 2020-0 No 2.5mg Common Hermleigh Hermleigh - Spirit 00:00: - [facility] Kenalog Kenalog 2020-0 No 40mg Common (Triamcinol (Triamcinol 1-26 S pirit one) one) 00:00: - [facility] Bupivicaine Bupivicaine 2020-0 No 2.5mg Common Hermleigh Hermleigh - Spirit 00:00: - [facility] Kenalog Kenalog 2020-0 No 40mg Common (Triamcinol (Triamcinol 1-26 S pirit one) one) 00:00: - [facility] Bupivicaine Bupivicaine 2020-0 No 2.5mg Common Hermleigh Hermleigh -26 Spirit 00:00: - [facility] Kenalog Kenalog 2020-0 No 40mg Common (Triamcinol (Triamcinol 1-26 S pirit one) one) 00:00: - [facility] Bupivicaine Bupivicaine 2020-0 No 2.5mg Common Hermleigh Hermleigh 1-26 Spirit 00:00: - [facility] Kenalog Kenalog 2020-0 No 40mg Common (Triamcinol (Triamcinol 1-26 S pirit one) one) 00:00: - [facility] Bupivicaine Bupivicaine 2020-0 No 2.5mg Common Hermleigh Hermleigh 1-26 Spirit 00:00: - [facility] Kenalog Kenalog 2020-0 No 40mg Common (Triamcinol (Triamcinol 1-26 S pirit one) one) 00:00: - [facility] Bupivicaine Bupivicaine 2020-0 No 2.5mg Common Hermleigh Hermleigh 1-26 Spirit 00:00: - [facility] Kenalog Kenalog 2020-0 No 40mg Common (Triamcinol (Triamcinol 1-26 S pirit one) one) 00:00: - [facility] Bupivicaine Bupivicaine 2020-0 No Common Hermleigh Hermleigh 1-26 Spirit 00:00: - [facility] Kenalog Kenalog 2020-0 No 40mg Common (Triamcinol (Triamcinol 1-26 S pirit one) one) 00:00: - [facility] Bupivicaine Bupivicaine 2020-0 No 2.5mg Common Hermleigh Hermleigh 1-26 Spirit 00:00: - [facility] Kenalog Kenalog 2020-0 No 40mg Common (Triamcinol (Triamcinol 1-26 S pirit one) one) 00:00: - [facility] Bupivicaine Bupivicaine 2020-0 No 2.5mg Common Hermleigh Hermleigh 1-26 Spirit 00:00: - [facility] Kenalog Kenalog 2020-0 No 40mg Common (Triamcinol (Triamcinol 1-26 S pirit one) one) 00:00: - [facility] Bupivicaine Bupivicaine 2020-0 No 2.5mg Common Hermleigh Hermleigh 1-26 Spirit 00:00: - [facility] Kenalog Kenalog 2020-0 No 40mg Common (Triamcinol (Triamcinol 1-26 S pirit one) one) 00:00: - [facility] Bupivicaine Bupivicaine 2020-0 No 2.5mg Common Hermleigh Hermleigh 1-26 Spirit 00:00: - [facility] Kenalog Kenalog 0 No 40mg Common (Triamcinol (Triamcinol 1-26 S pirit one) one) 00:00: - [facility] Bupivicaine Bupivicaine 2020-0 No 2.5mg Common Hermleigh Hermleigh 1-26 Spirit 00:00: - [facility] Kenalog Kenalog 2020-0 No 40mg Common (Triamcinol (Triamcinol 1-26 S pirit one) one) 00:00: - [facility] Bupivicaine Bupivicaine 2020-0 No 2.5mg Common Hermleigh Hermleigh 1-26 Spirit 00:00: - [facility] Yulissa Kenalog 2020-0 No 40mg Common (Triamcinol (Triamcinol 1-26 S pirit one) one) 00:00: - [facility] Bupivicaine Bupivicaine 2020-0 No 2.5mg Common Hermleigh Hermleigh -26 Spirit 00:00: - [facility] Kenalog Kenalog 2020-0 No 40mg Common (Triamcinol (Triamcinol 1-26 S pirit one) one) 00:00: - [facility] Bupivicaine Bupivicaine 2020-0 No 2.5mg Common Hermleigh Hermleigh 1-26 Spirit 00:00: - [facility] Kenalog Kenalog 2020-0 No 40mg Common (Triamcinol (Triamcinol 1-26 S pirit one) one) 00:00: - [facility] Bupivicaine Bupivicaine 2020-0 No 2.5mg Common Hermleigh Hermleigh 1-26 Spirit 00:00: - [facility] Kenalog Kenalog 2020-0 No 40mg Common (Triamcinol (Triamcinol 1-26 S pirit one) one) 00:00: - [facility] Bupivicaine Bupivicaine 2020-0 No 2.5mg Common Hermleigh Hermleigh 1-26 Spirit 00:00: - [facility] Kenalog Kenalog 2020-0 No 40mg Common (Triamcinol (Triamcinol 1-26 S pirit one) one) 00:00: - [facility] Bupivicaine Bupivicaine 2020-0 No 2.5mg Common Hermleigh Hermleigh - Spirit 00:00: - [facility] Kenalog Kenalog 2020-0 No 40mg Common (Triamcinol (Triamcinol 1-26 S pirit one) one) 00:00: - [facility] Bupivicaine Bupivicaine 2020-0 No 2.5mg Common Hermleigh Hermleigh - Spirit 00:00: - [facility] Kenalog Kenalog 2020-0 No 40mg Common (Triamcinol (Triamcinol -26 S pirit one) one) 00:00: - [facility] Bupivicaine Bupivicaine 2020-0 No 2.5mg Common Hermleigh Hermleigh - Spirit 00:00: - [facility] Yulissa Kenalog 2020-0 No 40mg Common (Triamcinol (Triamcinol -26 S pirit one) one) 00:00: - [facility] Bupivicaine Bupivicaine 2020-0 No 2.5mg Common Hermleigh Hermleigh - Spirit 00:00: - [facility] Yulissa Kenalog 2020-0 No 40mg Common (Triamcinol (Triamcinol -26 S pirit one) one) 00:00: - [facility] Tylenol # 3 Tylenol # 3 2020-1 [...] Carafate 1 GM/10ML GM/10ML n_an_em GM/10ML [facility]} Meloxicam Meloxicam No 1{table QD Meloxicam 7.5 [...] Source Body height 2022-08-05 14:14:00 157.5 cm [facility] Body weight 2022-08-05 14:14:00 54.432 kg [facility] BMI 2022-08-05 14:14:00 21.95 kg/m2 [facility] height 2022-07-08 08:30:00 62 [in_i] Common [facility] weight 2022-07-08 08:30:00 120 [lb_av] [facility] temperature 2022-07-08 08:30:00 98.2 [degF] Common S [facility] bmi 2022-07-08 08:30:00 21.95 kg/m2 [facility] S [facility] blood pressure 2022-07-08 08:30:00 130 mm[Hg] Common [facility] - systolic [facility] blood pressure 2022-07-08 08:30:00 72 mm[Hg] Common [facility] - diastolic [facility] height 2022-05-27 11:10:00 62 [in_i] Common S [facility] weight 2022-05-27 11:10:00 123 [lb_av] Common S pirit [facility] temperature 2022-05-27 11:10:00 98 [degF] [facility] bmi 2022-05-27 11:10:00 22.49 kg/m2 Common S pirit [facility] blood pressure 2022-05-27 11:10:00 128 mm[Hg] Common [facility] - systolic [facility] blood pressure 2022-05-27 11:10:00 70 mm[Hg] [facility] - diastolic [facility] height 2022-05-08 09:20:00 62 [in_i] Common [facility] weight 2022-05-08 09:20:00 121.9 [lb_av] Common [facility] - [facility] temperature 2022-05-08 09:20:00 97.3 [degF] Common S pirit [facility] bmi 2022-05-08 09:20:00 22.29 kg/m2 Common S pirit [facility] oximetry 2022-05-08 09:20:00 97 % [facility] rate 2022-05-08 09:20:00 17 /min Comm on [facility] blood pressure 2022-05-08 09:20:00 127 mm[Hg] Common [facility] - systolic [facility] blood pressure 2022-05-08 09:20:00 65 mm[Hg] [facility] - diastolic [facility] height 2022-04-08 08:30:00 62 [in_i] Common [facility] weight 2022-04-08 08:30:00 124 [lb_av] Common [facility] temperature 2022-04-08 08:30:00 97.6 [degF] [facility] bmi 2022-04-08 08:30:00 22.68 kg/m2 Common S pirit [facility] blood pressure 2022-04-08 08:30:00 110 mm[Hg] Common [facility] - systolic [facility] blood pressure 2022-04-08 08:30:00 68 mm[Hg] [facility] - diastolic [facility] height 2022-03-06 14:00:00 62 [in_i] Common [facility] weight 2022-03-06 14:00:00 122.6 [lb_av] Common [facility] temperature 2022-03-06 14:00:00 98.2 [degF] Common S pirit [facility] bmi 2022-03-06 14:00:00 22.42 kg/m2 Common [facility] oximetry 2022-03-06 14:00:00 98 % [facility] 2022-03-06 14:00:00 18 /min Comm on [facility] blood pressure 2022-03-06 14:00:00 117 mm[Hg] Common [facility] - systolic [facility] blood pressure 2022-03-06 14:00:00 72 mm[Hg] Common [facility] - diastolic [facility] height 2022-02-04 08:30:00 62 [in_i] Common S pirit - [facility] weight 2022-02-04 08:30:00 123.0 [lb_av] Common [facility] - [facility] temperature 2022-02-04 08:30:00 97.4 [degF] Common S pirit - [facility] bmi 2022-02-04 08:30:00 22.49 kg/m2 Common S pirit - [facility] blood pressure 2022-02-04 08:30:00 128 mm[Hg] Common [facility] - systolic [facility] blood pressure 2022-02-04 08:30:00 67 mm[Hg] [facility] - diastolic [facility] height 2022-01-03 13:00:00 62 [in_i] Common S pirit [facility] weight 2022-01-03 13:00:00 116 [lb_av] Common S pirit [facility] bmi 2022-01-03 13:00:00 21.21 kg/m2 Common S pirit - [facility] blood pressure 2022-01-03 13:00:00 108 mm[Hg] Common [facility] - systolic [facility] blood pressure 2022-01-03 13:00:00 62 mm[Hg] Common [facility] - diastolic [facility] height 2021-12-12 13:40:00 62 [in_i] Common S pirit - [facility] weight 2021-12-12 13:40:00 116.7 [lb_av] Common [facility] - [facility] temperature 2021-12-12 13:40:00 97.2 [degF] Common S pirit [facility] bmi 2021-12-12 13:40:00 21.34 kg/m2 [facility] oximetry 2021-12-12 13:40:00 94 % Common S pirit [facility] respiratory rate 2021-12-12 13:40:00 16 /min Comm on Spirit - [facility] blood pressure 2021-12-12 13:40:00 115 mm[Hg] Common [facility] - systolic [facility] blood pressure 2021-12-12 13:40:00 57 mm[Hg] Common [facility] - diastolic [facility] height 2021-11-27 10:40:00 62 [in_i] Common S pirit - [facility] weight 2021-11-27 10:40:00 121 [lb_av] Common S pirit - [facility] temperature 2021-11-27 10:40:00 98 [degF] Common S pirit - [facility] bmi 2021-11-27 10:40:00 22.13 kg/m2 Common S pirit - [facility] blood pressure 2021-11-27 10:40:00 115 mm[Hg] Common [facility] - systolic [facility] blood pressure 2021-11-27 10:40:00 74 mm[Hg] [facility] - diastolic [facility] height 2021-11-15 13:15:00 62 [in_i] Common S pirit - [facility] weight 2021-11-15 13:15:00 122 [lb_av] Common S pirit - [facility] temperature 2021-11-15 13:15:00 98.6 [degF] Common S pirit - [facility] bmi 2021-11-15 13:15:00 22.31 kg/m2 Common S pirit - [facility] blood pressure 2021-11-15 13:15:00 100 mm[Hg] Common [facility] - systolic [facility] blood pressure 2021-11-15 13:15:00 68 mm[Hg] [facility] - diastolic [facility] height 2021-08-29 09:20:00 62 [in_i] Common S pirit - [facility] weight 2021-08-29 09:20:00 130.0 [lb_av] Common [facility] - [facility] temperature 2021-08-29 09:20:00 97.0 [degF] Common S pirit - [facility] bmi 2021-08-29 09:20:00 23.77 kg/m2 [facility] S [facility] oximetry 2021-08-29 09:20:00 99 % [facility] respiratory rate 2021-08-29 09:20:00 17 /min Comm on [facility] blood pressure 2021-08-29 09:20:00 114 mm[Hg] [facility] - systolic [facility] blood pressure 2021-08-29 09:20:00 54 mm[Hg] [facility] - diastolic [facility] height 2021-08-29 09:00:00 62 [in_i] Common [facility] weight 2021-08-29 09:00:00 130.0 [lb_av] [facility] temperature 2021-08-29 09:00:00 97.0 [degF] Common [facility] bmi 2021-08-29 09:00:00 23.77 kg/m2 [facility] oximetry 2021-08-29 09:00:00 99 % [facility] blood pressure 2021-08-29 09:00:00 114 mm[Hg] Common [facility] - systolic [facility] blood pressure 2021-08-29 09:00:00 54 mm[Hg] Common [facility] - diastolic [facility] height 2021-08-13 13:30:00 62 [in_i] Common [facility] weight 2021-08-13 13:30:00 124 [lb_av] Common S [facility] temperature 2021-08-13 13:30:00 96.7 [degF] Common S [facility] bmi 2021-08-13 13:30:00 22.68 kg/m2 Common S [facility] blood pressure 2021-08-13 13:30:00 118 mm[Hg] Common [facility] - systolic [facility] blood pressure 2021-08-13 13:30:00 80 mm[Hg] [facility] - diastolic [facility] height 2021-06-20 14:40:00 62 [in_i] Common S pirit - [facility] weight 2021-06-20 14:40:00 133 [lb_av] Common S pirit [facility] temperature 2021-06-20 14:40:00 97.4 [degF] Common S pirit - [facility] bmi 2021-06-20 14:40:00 24.32 kg/m2 Common S pirit - [facility] blood pressure 2021-06-20 14:40:00 125 mm[Hg] Common [facility] - systolic [facility] blood pressure 2021-06-20 14:40:00 71 mm[Hg] [facility] - diastolic [facility] height 2021-04-23 11:20:00 62 [in_i] [facility] weight 2021-04-23 11:20:00 137 [lb_av] Common [facility] temperature 2021-04-23 11:20:00 98 [degF] Common S pirit [facility] bmi 2021-04-23 11:20:00 25.05 kg/m2 Common [facility] blood pressure 2021-04-23 11:20:00 121 mm[Hg] Common [facility] - systolic [facility] blood pressure 2021-04-23 11:20:00 76 mm[Hg] Common [facility] - diastolic [facility] Procedures Procedure Date / Time Performed Performing Clinician Sourc e AMB REF TO PT EXTERNAL 2022-08-05 09:16:12 [facility] Plan of Care Planned Activity Planned Date Details Comments Source Future Scheduled 2022-08-05 Screening for [facility] of Test 08:44:49 malignant neoplasm of Medici ne colon (procedure) [code = 313773425] Future Scheduled 2022-08-05 Screening for [facility] of Test 08:44:49 malignant neoplasm of Medici ne breast (procedure) [code = 680762020] Future Scheduled 2022-08-05 TETANUS SHOT (ADULT) [facility] of Test 08:44:49 [code = TETANUS SHOT Medicin e (ADULT)] Future Scheduled 2022-08-05 Hepatitis C screening [facility] of Test 08:44:49 (procedure) [code = Medicine [id number]] Future Scheduled 2022-08-05 ZOSTER VACCINE (1 of [facility] of Test 08:44:49 2) [code = ZOSTER Medicine VACCINE (1 of 2)] Future Scheduled 2022-08-05 Fall Screen [code = [facility] of Test 08:44:49 Fall Screen] Medicine Future Scheduled 2022-08-05 Screening for [facility] of Test 08:44:49 osteoporosis Medicine (procedure) [code = 045914578] Future Scheduled 2022-08-05 Pneumococcal 65+ (1 - [facility] Test 08:44:49 PCV) [code = Medicine Pneumococcal 65+ (1 - PCV)] Future Scheduled 2022-08-05 COVID-19 Vaccine (3 - [facility] Test 08:44:49 Booster for Pfizer [...] Clinicians Facility Department ID 2022-08-13 Outpatient [place], [facility] Common 09:52:02 [facility] [id number] [facility] 2022-07-08 Outpatient Kil[facility], [facility] Common 16:49:01 [facility] 2022-07-04 Outpatient Kilpatrick, [facility] Common 16:42:01 [facility] 2022-05-23 Outpatient Kilpatrick, [facility] Common 15:15:01 [facility] 2022-05-07 Outpatient Kilpatrick, STLMLC [facility] Common 09:16:01 Leonidas [facility] 2022-05-06 Outpatient Kilpatrick, STLMLC [facility] Common 11:41:02 Leonidas [facility] 2022-04-08 Outpatient Kilpatrick, STLMLC [facility] Common 14:10:01 Leonidas [facility] 2021-12-11 Outpatient Kilpatrick, STLMLC [facility] Common 13:59:01 Leonidas [facility] 2021-11-15 Outpatient Kilpatrick, STLMLC [facility] Common 14:08:01 Leonidas [facility] 2021-08-10 Outpatient Kilpatrick, STLC [facility] Common 11:06:01 Leonidas [facility] 2021-07-04 Outpatient Kilpatrick, STLC [facility] Common 13:19:42 Leonidas [facility] 2021-07-04 Outpatient Kilpatrick, STLC [facility] Common 13:06:29 Leonidas [id number] [facility] 2021-07-04 Outpatient Kilpatrick, STLC [facility] Common 13:03:36 Leonidas [id number] [facility] 2021-07-04 Outpatient Kilpatrick, STLMLC [facility] Common 12:59:10 Leonidas [id number] [facility] 2021-07-04 Outpatient Kilpatrick, STLC [facility] Common 12:53:26 Leonidas [id number] [facility] 2021-07-04 Outpatient Kilpatrick, STLC [facility] Common 12:51:35 Leonidas [id number] [facility] 2021-07-04 Outpatient Kilpatrick, STLC [place] [id number] Common 12:40:49 Leonidas [id number] [facility] 2021-07-04 Outpatient [place]patrick, [place] [id number] Common 12:38:00 Leonidas [id number] [facility] 2021-07-04 Outpatient [place], [place] [id number] Common 12:25:41 Leonidas [id number] [facility] 2021-07-04 Outpatient [place]patrick, [place] [id number] Common 12:24:52 Leonidas [id number] [facility] 2021-07-04 Outpatient [place]patrick, [place] [id number] Common 12:23:41 Leonidas [id number] [facility] 2021-07-04 Outpatient [place]patrick, [place] [id number] Common 12:11:33 Leonidas [id number] [facility] 2021-07-04 Outpatient [place]patrick, [place] [id number] Common 12:10:04 Leonidas [id number] [facility] 2021-07-04 Outpatient [place]patrick, [place] [id number] Common 12:09:30 Leonidas [id number] [facility] 2021-07-04 Outpatient Kilpatrick, [place] [id number] Common 12:03:22 Leonidas [id number] [facility] 2021-07-04 Outpatient [place], [place] [id number] Common 12:00:59 Leonidas [id number] [facility] 2021-07-04 Outpatient [place] [id number] Common 11:57:02 [id number] [facility] 2022-08-05 2022-08-05 Office LELO PALOMARES [id number] [facility] 08:04:11 09:38:42 Visit ABBY AMBULATOR [id number] College Y [id number] of [id number] Medi gabby 600 e 2022-08-05 2022-08-05 Outpatient [facility] [id number] [facility] 08:18:53 08:18:53 [facility] 2022-08-05 2022-08-05 Outpatient [facility] [id number] [facility] 08:18:52 08:18:52 [facility] 2022-07-15 2022-07-15 (TEL) STLMLC ST[facility]C [id number] [facility] 00:00:00 00:00:00 [facility] 2022-07-08 2022-07-08 (TEL) STLMLC STLMLC [id number] [facility] 00:00:00 00:00:00 [facility] 2022-07-08 2022-07-08 OFFICE STLMLC STLMLC [id number] [facility] 00:00:00 00:00:00 VISIT Psychiatric PT - CHI LEVEL [address] [place] [address] 2022-05-27 2022-05-27 OFFICE STLMLC STLMLC [id number] [facility] 00:00:00 00:00:00 VISIT Psychiatric PT - CHI LEVEL [address] [place] [address] 2022-05-17 2022-05-17 (TEL) STLMLC STL[facility]C [id number] [facility] 00:00:00 00:00:00 [facility] 2022-05-08 2022-05-08 OFFICE STLMLC STLMLC [id number] [facility] m[facility] 00:00:00 00:00:00 VISIT EST Spir it PT LEVEL 3 [facility] 2022-04-30 2022-04-30 (TEL) STLMLC STLMLC [id number] Co mmon 00:00:00 00:00:00 [facility] 2022-04-08 2022-04-08 OFFICE STLMLC STLMLC [id number] Co m[facility] 00:00:00 00:00:00 VISIT EST Spir it PT LEVEL 3 [facility] 2022-03-06 2022-03-06 OFFICE STLMLC STLMLC [id number] Co mmon 00:00:00 00:00:00 VISIT Psychiatric PT - CHI LEVEL 4 [facility] 2022-03-04 2022-03-04 (TEL) STLMLC STLMLC [id number] Co mmon 00:00:00 00:00:00 [facility] 2022-02-13 2022-02-13 (TEL) STLMLC STLMLC [id number] [facility] 00:00:00 00:00:00 [facility] 2022-02-04 2022-02-04 NON-BILLAB STLMLC STLMLC [id number] Common 00:00:00 00:00:00 LE VISIT [facility] 2022-01-03 2022-01-03 NON-BILLAB STLMLC STLMLC [id number] Common 00:00:00 00:00:00 LE VISIT [facility] 2021-12-12 2021-12-12 OFFICE STLMLC STLMLC [id number] Co mmon 00:00:00 00:00:00 VISIT Psychiatric PT [facility] LEVEL 4 [facility] 2021-12-05 2021-12-05 (TEL) STLMLC STLMLC [id number] Co mmon 00:00:00 00:00:00 [facility] 2021-12-04 2021-12-04 (TEL) STLMLC STLMLC [id number] Co mmon 00:00:00 00:00:00 [facility] 2021-11-29 2021-11-29 (TEL) STLMLC STLMLC [id number] Co mmon 00:00:00 00:00:00 [facility] 2021-11-27 2021-11-27 (TEL) STLMLC STLMLC [id number] Co mmon 00:00:00 00:00:00 [facility] 2021-11-27 2021-11-27 OFFICE STLMLC STLMLC [id number] Co mmon 00:00:00 00:00:00 VISIT EST Spir it PT LEVEL 3 [facility] 2021-11-26 2021-11-26 (TEL) STLMLC STLMLC [id number] Co mmon 00:00:00 00:00:00 [facility] 2021-11-22 2021-11-22 (TEL) STLMLC STLMLC [id number] Co mmon 00:00:00 00:00:00 Spirit - CHI [facility] 2021-11-16 2021-11-16 (TEL) STLMLC STLMLC [id number] Co mmon 00:00:00 00:00:00 Spirit - CHI [facility] 2021-11-15 2021-11-15 OFFICE STLMLC STLMLC [id number] Co mmon 00:00:00 00:00:00 VISIT Spirit ESTAB PT - CHI LEVEL 4 [facility] 2021-08-29 2021-08-29 OFFICE STLMLC STLMLC [id number] Co mmon 00:00:00 00:00:00 VISIT Spirit ESTAB PT - CHI LEVEL 4 [facility] 2021-08-29 2021-08-29 SUB ANNUAL STLMLC STLMLC [id number] Common 00:00:00 00:00:00 MCR Spirit WELLNESS - CHI VISIT [facility] 2021-08-16 2021-08-16 (TEL) STLMLC STLMLC [id number] Co mmon 00:00:00 00:00:00 [facility] 2021-08-13 2021-08-13 OFFICE STLMLC STLMLC [id number] Co mmon 00:00:00 00:00:00 VISIT Spirit ESTAB PT - CHI LEVEL 4 [facility] 2021-06-20 2021-06-20 OFFICE STLMLC STLMLC [id number] Co mmon 00:00:00 00:00:00 VISIT Spirit ESTAB PT - CHI LEVEL 4 [facility] 2021-04-23 2021-04-23 OFFICE STLMLC STLMLC [id number] Co mmon 00:00:00 00:00:00 VISIT Spirit ESTAB PT - CHI LEVEL 4 [facility] 2021-02-19 2021-02-19 Outpatient STLMLC ST[facility] [id number] Common 00:00:00 00:00:00 [facility] 2021-01-12 2021-01-12 Outpatient STLMLC STLMLC [id number] Common 00:00:00 00:00:00 [facility] 2020-12-25 2020-12-25 Outpatient STLMLC STLMLC [id number] Common 00:00:00 00:00:00 [facility] 2020-12-20 2020-12-20 Outpatient STLMLC STLMLC [id number] Common 00:00:00 00:00:00 [facility] 2020-12-08 2020-12-08 Outpatient STLMLC STLMLC [id number] Common 00:00:00 00:00:00 [facility] 2020-11-29 2020-11-29 Outpatient STLMLC STLMLC [id number] Common 00:00:00 00:00:00 [facility] 2020-11-22 2020-11-22 Outpatient STLMLC STLMLC [id number] Common 00:00:00 00:00:00 [facility] 2020-10-23 2020-10-23 Outpatient STLMLC STLMLC [id number] Common 00:00:00 00:00:00 [facility] 2020-10-19 2020-10-19 Outpatient STLMLC STLMLC [id number] Common 00:00:00 00:00:00 [facility] 2020-10-12 2020-10-12 Outpatient STLMLC STLMLC [id number] Common 00:00:00 00:00:00 [facility] 2020-10-12 2020-10-12 Outpatient STLMLC STLMLC [id number] Common 00:00:00 00:00:00 [facility] 2020-10-05 2020-10-05 Outpatient STLMLC STLMLC [id number] Common 00:00:00 00:00:00 [facility] 2020-09-27 2020-09-27 Outpatient STLMLC STLMLC [id number] Common 00:00:00 00:00:00 [facility] 2020-09-25 2020-09-25 Outpatient STLMLC STLMLC [id number] Common 00:00:00 00:00:00 [facility] 2020-09-21 2020-09-21 Outpatient STLMLC STLMLC [id number] Common 00:00:00 00:00:00 [facility] 2020-09-15 2020-09-15 Outpatient STLMLC STLMLC [id number] Common 00:00:00 00:00:00 [facility] 2020-08-22 2020-08-22 Outpatient STLMLC STLMLC [id number] Common 00:00:00 00:00:00 [facility] 2020-08-22 2020-08-22 Outpatient STLMLC STLMLC [id number] Common 00:00:00 00:00:00 [facility] 2020-08-22 2020-08-22 Outpatient STLMLC STLMLC [id number] Common 00:00:00 00:00:00 [facility] 2020-08-15 2020-08-15 Outpatient STLMLC STLMLC [id number] Common 00:00:00 00:00:00 [facility] 2020-07-18 2020-07-18 Outpatient STLMLC STLMLC [id number] Common 00:00:00 00:00:00 [facility] 2020-07-04 2020-07-04 Outpatient STLMLC STLMLC [id number] Common 00:00:00 00:00:00 [facility] 2020-06-22 2020-06-22 Outpatient STLMLC STLMLC [id number] Common 00:00:00 00:00:00 [facility] 2020-06-16 2020-06-16 Outpatient STLMLC STLMLC [id number] Common 00:00:00 00:00:00 [facility] 2020-05-24 2020-05-24 Outpatient STLMLC STLMLC [id number] Common 00:00:00 00:00:00 [facility] 2020-05-16 2020-05-16 Outpatient STLMLC STLMLC [id number] Common 00:00:00 00:00:00 [facility] 2020-05-10 2020-05-10 Outpatient STLMLC STLMLC [id number] Common 00:00:00 00:00:00 [facility] 2020-05-08 2020-05-08 Outpatient STLMLC STLMLC [id number] Common 00:00:00 00:00:00 [facility] 2020-04-21 2020-04-21 Outpatient STLMLC STLMLC [id number] Common 00:00:00 00:00:00 [facility] 2020-04-18 2020-04-18 Outpatient STLMLC STLMLC [id number] Common 00:00:00 00:00:00 [facility] 2020-04-17 2020-04-17 Outpatient STLMLC STLMLC [id number] Common 00:00:00 00:00:00 [facility] 2020-03-28 2020-03-28 Outpatient STLMLC STLMLC [id number] Common 00:00:00 00:00:00 [facility] Results This patient has no known results.
--- NOTE | 2022-12-02 21:56 | RAD REPORT ---
EXAM DESCRIPTION: CT - Head C Spine Cap Wo Con - 12/02/2022 9:35 pm CLINICAL HISTORY: Dizziness, neck pain, chest and abdominal pain TECHNIQUE: Computed axial tomography of head, neck, chest, abdomen and pelvis obtained. IV and oral contrast not requested. Coronal and sagittal reconstruction performed. All CT scans are performed using dose optimization technique as appropriate and may include automated exposure control or mA/KV adjustment according to patient size. COMPARISON: 2020 FINDINGS: An intracranial bleed is not seen. The ventricles are normal in caliber. An extra-axial fluid collection is not noted. . Fluid within the sinuses/mastoids is not seen. A cervical fracture is not seen. No dislocation is noted. Anterior fusion C4 through C6. No high-grad e central/foraminal stenosis noted The evaluation of mediastinum, lynn, vessels, solid organs and bowel are limited secondary to the lac k of contrast administration. A mediastinal hematoma is not noted. A pleural effusion is not seen. A lung contusion is not present. Mild chronic interstitial opacities within the lungs. Fatty liver. Spleen, pancreas, adrenals and kidneys grossly normal. Postsurgical changes involve the stomach. Cholecystectomy Fullness within the pancreatic head. Remainder of the pancreas is atrophic Moderate amount liquid stool throughout the colon. No evidence of diverticulitis. Bilateral hip arthr oplasties. Artifact from the hardware obscures detail of the pelvis somewhat IMPRESSION: No acute intracranial abnormality is seen. A cervical fracture is not visualized. No high-grade stenosis. If the patient continues have symptom s to suggest intracranial/spinal cord pathology MRI be recommended Fatty liver Fullness within the pancreatic head may represent a combination of vessels, bowel and normal pancreas . A mass can also have this appearance. MRI pancreas recommended for further evaluation. Alternativel y a CT abdomen with IV and oral contrast could be
--- NOTE | 2022-12-02 22:01 | RAD REPORT ---
EXAM DESCRIPTION: Gaurav Single View12/02/2022 9:43 pm CLINICAL HISTORY: Cough COMPARISON: October 2022 FINDINGS: Lungs are mildly to moderately hyperaerated. The lungs appear clear of acute infiltrate. The heart is normal size
[2022-12-02] MEDS ORDERED: ONDANSETRON 4 MG/2 ML VIAL ONE (22:03)
[2022-12-02] MEDS ORDERED: NA CHLORIDE 0.9% 1,000 ML ONE (22:03)
[2022-12-02] MEDS ORDERED: FAMOTIDINE 20 MG/2 ML VIAL IV ONE (22:03)
[2022-12-02 23:58] LABS: Absolute Lymphocytes (CBC) 2.9 K/uL (0.7-4.9); Hematocrit 40.4 % (36.0-45.0); MCV 82.6 fL (80-100); MPV 7.6 fL (7.6-11.3); RBC Red Blood Cell Count 4.89 M/uL (3.86-4.86)
[2022-12-03 00:16] LABS: ALT/SGPT 29 U/L (13-56); Albumin 2.4 g/dL (3.4-5.0); Alkaline Phosphatase 236 U/L (45-117); BUN Blood Urea Nitrogen 45 mg/dL (7-18); Bicarbonate 25 mEq/L (21-32); Bilirubin Direct 0.5 mg/dL (0-0.2); Bilirubin Indirect, Calculated 0.6 mg/dL (0.2-0.8); Bilirubin Total 1.1 mg/dL (0.2-1.0); Glomerular Filtration Rate 57 ml/min (=/>90); Glucose Level 82 mg/dL (74-106); NT PRO-BNP 1019 pg/mL (<125); Protein, Total 5.7 g/dL (6.4-8.2); Sodium Level 131 mEq/L (136-145); Troponin High Sensitivity 6.4 pg/mL (<58.9)
[2022-12-03 00:20] LABS: AST/SGOT 20 U/L (15-37); Lipase < 6 U/L (13-75); Magnesium 2.2 mg/dL (1.6-2.4); Potassium 4.8 mEq/L (3.5-5.1)
[2022-12-03 00:34] LABS: Protime INR 1.03
--- NOTE | 2022-12-03 00:45 | ER ---
Nurse's Notes [facility] Name: Jacqueline Bellamy Age: 67 yrs Sex: Female : 1955 Arrival Date: 12/02/2022 Time: 19:51 Bed 23 Private MD: Diagnosis: Epigastric abdominal tenderness;Abnormal findings on diagnostic imaging of liver and biliary tract-pancreatic mass, head;Elevated white blood cell count;Unspecified kidney failure-insufficency Presentation: 12/02 20:48 Chief complaint: Patient states: I have lost over 18lbs for the last 3 weeks. Diarrhea nj1 and vomiting off/on for the last week. Dizziness/lightheaded for 2 days. Nausea right now. Unable to keep fluids down. Coronavirus screen: Vaccine status: Patient reports receiving the 2nd dose of the covid vaccine. Ebola Screen: Patient denies travel to an Ebola-affected area in the 21 days before illness onset. Initial Sepsis Screen: Does the patient meet any 2 criteria? HR > 90 bpm. No. Patient's initial sepsis screen is negative. Does the patient have a suspected source of infection? No. Patient's initial sepsis screen is negative. Risk Assessment: Do you want to hurt yourself or someone else? Patient reports no desire to harm self or others. Onset of symptoms was December 01, 2022. 20:48 Method Of Arrival: Ambulatory [facility] 20:48 Acuity: JAMES 3 nj1 Triage Assessment: 12/03 02:36 General: Appears in no apparent distress. GI: Reports upper abdominal pain, nausea. kd3 Historical: - Allergies: 12/02 20:53 IV contrast; nj1 20:53 Naproxen; nj1 - PMHx: 20:53 Congestive heart failure; Osteoporosis; Arthritis; Aortic stenosis; nj1 - PSHx: 20:53 Gastric bypass; Hip replacement, inocente; Knee replacement, left; Shoulder replacement, nj1 right; Cholecystectomy; Total abdominal hysterectomy; Breast reduction; - Immunization history:: Client reports receiving the 2nd dose of the Covid vaccine. - Social history:: Smoking status: Patient reports the use of cigarette tobacco products, smokes one pack cigarettes per day. - Family history:: not pertinent. Screenin:54 [facility] ED Fall Risk Assessment (Adult) History of falling in the last 3 months, cm10 including since admission No falls in past 3 months (0 pts) Confusion or Disorientation No (0 pts) Intoxicated or Sedated No (0 pts) Impaired Gait No (0 pts) Mobility Assist Device Used No (0 pt) Altered Elimination No (0 pt) Score/Fall Risk Level 0 - 2 = Low Risk Oriented to surroundings, Maintained a safe environment. Abuse screen: Denies threats or abuse. Denies injuries from another. Nutritional screening: No deficits noted. Tuberculosis screening: No symptoms or risk factors identified. Assessment: 23:53 Reassessment: Patient and/or family updated on plan of care and expected duration. Pain cm10 level reassessed. Patient is alert, oriented x 3, equal unlabored respirations, skin warm/dry/pink. General: Appears in no apparent distress. comfortable, Behavior is calm, cooperative. Pain: Denies pain. Neuro: No deficits noted. Level of Consciousness is awake, alert, Oriented to person, place, time, situation. Respiratory: No deficits noted. Airway is patent Respiratory effort is even, unlabored, Respiratory pattern is regular, symmetrical. GI: Abdomen is flat. 12/03 02:34 General: Appears in no apparent distress. comfortable, Behavior is calm, cooperative. kd3 Pain: Complains of pain in back and left upper quadrant and right upper quadrant. Neuro: Level of Consciousness is awake, alert, obeys commands, Oriented to person, place, time, situation. Respiratory: Airway is patent Respiratory effort is even, unlabored, Respiratory pattern is regular, symmetrical. 03:37 Reassessment: Patient and/or family updated on plan of care and expected duration. Pain kd3 level reassessed. Patient is alert, oriented x 3, equal unlabored respirations, skin warm/dry/pink. Patient states feeling better. Vital Signs: 12/02 20:48 BP 98 / 59; Pulse 100; Resp 18; Temp 98.2(O); Pulse Ox 98% on R/A; Weight 48.53 kg; nj1 Height 5 ft. 2 in. ; 23:51 BP 106 / 54; cm10 12/03 02:34 BP 117 / 79; Pulse 77; Resp 16; Pulse Ox 100% on R/A; kd3 03:36 BP 107 / 59; Pulse 75; Resp 19; Pulse Ox 100% on R/A; kd3 04:35 BP 110 / 68; Pulse 72; Resp 16; Pulse Ox 99% on R/A; kd3 06:06 BP 94 / 61; Pulse 72; Resp 16; Pulse Ox 99% on R/A; kd3 12/02 20:48 Body Mass Index 19.57 (48.53 kg, 157.48 cm) [facility] ED Course: 12/02 19:51 Initial contact for transfer to [facility]. Spoke with Rachel Campo RN. 1 19:58 Patient arrived in ED. ja2 20:53 Triage completed. nj1 20:55 Arm band placed on left wrist. nj1 21:05 Louie Loaiza MD is Attending Physician. esther 21:34 Georgina Gracia, ANNA is Primary Nurse. cm10 21:37 CT Traumagram (Head C Spine CAP wo con) In Process Unspecified. EDMS 21:44 XRAY Chest (1 view) In Process Unspecified. EDMS 23:16 Lipase Sent. kd3 23:16 Lactate w/ 2H reflex if indic. Sent. kd3 23:16 Blood Culture Adult (2) Sent. kd3 23:54 ED physician to see patient. cm10 23:54 Patient has correct armband on for positive identification. Warm blanket given. 10 12/03 00:41 Urinalysis w/ reflexes Sent. oe 02:33 Moved to private room. Warm blanket given. Pillow given. moved to hospital bed. kd3 Assisted to bathroom. 02:35 Blood Culture Adult (2) Sent. kd3 03:37 Assisted to bathroom. kd3 04:36 No provider procedures requiring assistance completed. Patient transferred, IV remains kd3 in place. 04:39 Assisted to bathroom. kd3 Administered Medications: 12/02 23:17 Drug: NS 0.9% IV 1000 ml Route: IV; Rate: 1 bolus; Site: right antecubital; [facility] 12/03 02:35 Follow up: IV Status: Completed infusion; IV Intake: 1000ml 3 12/02 23:17 Drug: Ondansetron IVP 4 mg Route: IVP; Site: right antecubital; [facility] 12/03 02:35 Follow up: Response: No adverse reaction 3 12/02 23:17 Drug: Famotidine IVP 20 mg Route: IVP; Site: right antecubital; [facility] 12/03 02:35 Follow up: Response: No adverse reaction kd3 01:09 Drug: Piperacillin-Tazobactam IVPB 3.375 grams Route: IVPB; Infused Over: 60 mins; kd3 Site: right antecubital; 02:35 Follow up: IV Status: Completed infusion; IV Intake: 100ml kd3 01:10 Drug: NS 0.9% IV 1000 ml Route: IV; Rate: 125 ml/hr; Site: right antecubital; kd3 02:35 Follow up: IV Status: Infusion continued kd3 02:28 Drug: Acetaminophen-Codeine PO (300 mg-30 mg) 1 tablet Route: PO; kd3 03:37 Follow up: Response: No adverse reaction; Pain is decreased kd3 02:28 CANCELLED (Physician Discretion): Remeron PO 30 mg PO once kd3 02:28 Drug: Ondansetron IVP 4 mg Route: IVP; Site: right antecubital; kd3 03:37 Follow up: Response: No adverse reaction; Nausea is decreased kd3 Medication: 02:35 VIS not applicable for this client. kd3 Intake: 02:35 IV: 100ml; Total: 100ml. kd3 02:35 IV: 1000ml; Total: 1100ml. kd3 Outcome: 00:45 ER care complete, transfer ordered by MD. santana 04:36 Transferred by ground EMS to [facility]. kd3 04:36 Condition: stable 04:36 Discharge instructions given to patient, Instructed on the need for transfer. 06:07 Patient left the ED. kd3 Signatures: Dispatcher [employer] EDMS Louie Loaiza MD MD cha Espinosa, Orlando oe Alexander, Jessica ja2 Doucette, Kyli RN RN kd3 Meryl Leonardo RN RN christina1 Sadia Guillermo 1 Geogrina Gracia, RN RN cm10 Corrections: (The following items were deleted from the chart) 06:07 06:05 Initial contact for transfer to [facility]. Spoke with Rachel Campo, ANNA 1 [facility]
--- NOTE | 2022-12-03 00:45 | EDPHYS ---
Physician Documentation [facility] Name: Jacqueline Bellamy Age: 67 yrs Sex: Female : 1955 Arrival Date: 12/02/2022 Time: 19:51 Bed 23 Private MD: CHANCE Physician Louie Loaiza HPI: 12/03 00:02 This 67 yrs old Female presents to ER via Ambulatory with complaints of esther Dizziness, Nausea/Vomiting, Numbness Of Hand, Palpitations. 00:02 The patient presents with dizziness, generalized weakness, lightheadedness. Onset: The esther symptoms/episode began/occurred 3 week(s) ago. Context: occurred at home. Modifying factors: The symptoms are alleviated by nothing, the symptoms are aggravated by not eating. Associated signs and symptoms: Pertinent positives: nausea, near-syncope, vomiting. Severity of symptoms: At their worst the symptoms were mild moderate in the emergency department the symptoms are unchanged. Patient's baseline: Neuro: alert and fully oriented. The patient has experienced similar episodes in the past, a few times. Historical: - Allergies: 12/02 20:53 IV contrast; nj1 20:53 Naproxen; nj1 - PMHx: 20:53 Congestive heart failure; Osteoporosis; Arthritis; Aortic stenosis; nj1 - PSHx: 20:53 Gastric bypass; Hip replacement, inocente; Knee replacement, left; Shoulder replacement, nj1 right; Cholecystectomy; Total abdominal hysterectomy; Breast reduction; - Immunization history:: Client reports receiving the 2nd dose of the Covid vaccine. - Social history:: Smoking status: Patient reports the use of cigarette tobacco products, smokes one pack cigarettes per day. - Family history:: not pertinent. ROS: 12/03 00:02 Constitutional: Negative for fever, chills, and weight loss, Eyes: Negative for injury, esther pain, redness, and discharge, ENT: Negative for injury, pain, and discharge, Neck: Negative for injury, pain, and swelling, Cardiovascular: Negative for chest pain, palpitations, and edema, Respiratory: Negative for shortness of breath, cough, wheezing, and pleuritic chest pain, Back: Negative for injury and pain, : Negative for injury, bleeding, discharge, and swelling, MS/Extremity: Negative for injury and deformity, Skin: Negative for injury, rash, and discoloration, Psych: Negative for depression, anxiety, suicide ideation, homicidal ideation, and hallucinations, Allergy/Immunology: Negative for hives, rash, and allergies, Endocrine: Negative for neck swelling, polydipsia, polyuria, polyphagia, and marked weight changes, Hematologic/Lymphatic: Negative for swollen nodes, abnormal bleeding, and unusual bruising. Abdomen/GI: Positive for nausea and vomiting, anorexia. Neuro: Positive for near syncope, weakness. Exam: 00:02 Constitutional: This is a well developed, well nourished patient who is awake, alert, esther and in no acute distress. Head/Face: Normocephalic, atraumatic. Eyes: Pupils equal round and reactive to light, extra-ocular motions intact. Lids and lashes normal. Conjunctiva and sclera are non-icteric and not injected. Cornea within normal limits. Periorbital areas with no swelling, redness, or edema. ENT: Nares patent. No nasal discharge, no septal abnormalities noted. Tympanic membranes are normal and external auditory canals are clear. Oropharynx with no redness, swelling, or masses, exudates, or evidence of obstruction, uvula midline. Mucous membranes moist. Neck: Trachea midline, no thyromegaly or masses palpated, and no cervical lymphadenopathy. Supple, full range of motion without nuchal rigidity, or vertebral point tenderness. No Meningismus. Chest/axilla: Normal chest wall appearance and motion. Nontender with no deformity. No lesions are appreciated. Cardiovascular: Regular rate and rhythm with a normal S1 and S2. No gallops, murmurs, or rubs. Normal PMI, no JVD. No pulse deficits. Back: No spinal tenderness. No costovertebral tenderness. Full range of motion. Female : Normal external genitalia. Skin: Warm, dry with normal turgor. Normal color with no rashes, no lesions, and no evidence of cellulitis. MS/ Extremity: Pulses equal, no cyanosis. Neurovascular intact. Full, normal range of motion. Neuro: Awake and alert, GCS 15, oriented to person, place, time, and situation. Cranial nerves II-XII grossly intact. Motor strength 5/5 in all extremities. Sensory grossly intact. Cerebellar exam normal. Normal gait. Psych: Awake, alert, with orientation to person, place and time. Behavior, mood, and affect are within normal limits. 00:02 ECG was reviewed by the Attending Physician. 00:02 Abdomen/GI: Inspection: distension, that is mild, Bowel sounds: normal, Palpation: mild abdominal tenderness, moderate abdominal tenderness, in the right upper quadrant and left upper quadrant, Liver: no appreciated palpable abnormalities, Hernia: not appreciated. Vital Signs: 12/02 20:48 BP 98 / 59; Pulse 100; Resp 18; Temp 98.2(O); Pulse Ox 98% on R/A; Weight 48.53 kg; nj1 Height 5 ft. 2 in. ; 23:51 BP 106 / 54; cm10 12/03 02:34 BP 117 / 79; Pulse 77; Resp 16; Pulse Ox 100% on R/A; kd3 03:36 BP 107 / 59; Pulse 75; Resp 19; Pulse Ox 100% on R/A; kd3 04:35 BP 110 / 68; Pulse 72; Resp 16; Pulse Ox 99% on R/A; kd3 06:06 BP 94 / 61; Pulse 72; Resp 16; Pulse Ox 99% on R/A; kd3 12/02 20:48 Body Mass Index 19.57 (48.53 kg, 157.48 cm) nj MDM: 12/02 21:05 Patient medically screened. [facility] 12/03 00:06 Differential diagnosis: cardiac arrhythmia, generalized weakness, hypovolemia, esther idiopathic dizziness, near-syncope, sepsis, syncope, vertigo. Data reviewed: vital signs, nurses notes, EMS record, lab test result(s), EKG, radiologic studies, CT scan, plain films. Consideration of Admission/Observation Escalation of care including admission/observation considered. I considered the following discharge prescriptions or medication management in the emergency department Medications were administered in the Emergency Department. See MAR. Test considered but Not performed: Ultrasound no abd usg. 12/02 21:05 Order name: Basic Metabolic Panel; Complete Time: 00:25 [facility] 12/02 21:05 Order name: CBC with Diff; Complete Time: 01:34 [facility] 12/02 21:05 Order name: LFT's; Complete Time: 00:25 [facility] 12/02 21:05 Order name: Magnesium; Complete Time: 00:25 [facility] 12/02 21:05 Order name: NT PRO-BNP; Complete Time: 00:25 [facility] 12/02 21:05 Order name: PT-INR; Complete Time: 00:40 [facility] 12/02 21:05 Order name: Troponin HS; Complete Time: 00:25 [facility] 12/02 21:05 Order name: Urinalysis w/ reflexes; Complete Time: 01:34 [facility] 12/02 21:05 Order name: Blood Culture Adult (2) [facility] 12/02 21:05 Order name: Lactate w/ 2H reflex if indic.; Complete Time: 23:55 [facility] 12/02 21:05 Order name: Lipase; Complete Time: 00:25 [facility] 12/03 00:03 Order name: CBC Smear Scan; Complete Time: 01:34 [facility] 12/02 21:05 Order name: XRAY Chest (1 view); Complete Time: 22:50 [facility] 12/02 21:05 Order name: CT Traumagram (Head C Spine CAP wo con); Complete Time: 22:50 [facility] 12/02 21:05 Order name: EKG; Complete Time: 21:06 [facility] 12/02 21:05 Order name: Cardiac monitoring; Complete Time: 23:51 [facility] 12/02 21:05 Order name: EKG - Nurse/Tech; Complete Time: 23:46 [facility] 12/02 21:05 Order name: IV Saline Lock; Complete Time: 23:46 [facility] 12/02 21:05 Order name: Labs collected and sent; Complete Time: 23:52 [facility] 12/02 21:05 Order name: O2 Per Protocol; Complete Time: 23:52 [facility] 12/02 21:05 Order name: O2 Sat Monitoring; Complete Time: 23:52 [facility] EC:02 Rate is 95 beats/min. Rhythm is regular. QRS House is Normal. [place] interval is normal. QRS esther interval is normal. QT interval is normal. No Q waves. T waves are Normal. No ST changes noted. Clinical impression: NSR w/ Non-specific ST/T Changes and Abnormal EKG without significant change. Interpreted by me. Reviewed by me. Administered Medications: 12/02 23:17 Drug: NS 0.9% IV 1000 ml Route: IV; Rate: 1 bolus; Site: right antecubital; [place] 12/03 02:35 Follow up: IV Status: Completed infusion; IV Intake: 1000ml kd3 12/02 23:17 Drug: Ondansetron IVP 4 mg Route: IVP; Site: right antecubital; [place] 12/03 02:35 Follow up: Response: No adverse reaction kd3 12/02 23:17 Drug: Famotidine IVP 20 mg Route: IVP; Site: right antecubital; cm10 12/03 02:35 Follow up: Response: No adverse reaction kd3 01:09 Drug: Piperacillin-Tazobactam IVPB 3.375 grams Route: IVPB; Infused Over: 60 mins; kd3 Site: right antecubital; 02:35 Follow up: IV Status: Completed infusion; IV Intake: 100ml kd3 01:10 Drug: NS 0.9% IV 1000 ml Route: IV; Rate: 125 ml/hr; Site: right antecubital; kd3 02:35 Follow up: IV Status: Infusion continued kd3 02:28 Drug: Acetaminophen-Codeine PO (300 mg-30 mg) 1 tablet Route: PO; kd3 03:37 Follow up: Response: No adverse reaction; Pain is decreased kd3 02:28 CANCELLED (Physician Discretion): Remeron PO 30 mg PO once kd3 02:28 Drug: Ondansetron IVP 4 mg Route: IVP; Site: right antecubital; kd3 03:37 Follow up: Response: No adverse reaction; Nausea is decreased kd3 Disposition Summary: 12/03/22 00:45 Transfer Ordered Transfer Location: [facility] esther Reason: Higher level of care esther Condition: Stable esther Problem: new esther Symptoms: have improved esther Accepting Physician: to medicine(12/03/22 06:07) kd3 Diagnosis - Epigastric abdominal tenderness esther - Abnormal findings on diagnostic imaging of liver and biliary tract - pancreatic esther mass, head - Elevated white blood cell count esther - Unspecified kidney failure - insufficency esther Forms: - Medication Reconciliation Form esther - SBAR form esther Signatures: Dispatcher [employer] Louie Wen MD MD cha Doucette, Kyli, RN RN kd3 Erin Jacobo PA-C PA-C sb4 Meryl Leonardo RN RN nj1 Georgina Gracia RN RN cm10 Corrections: (The following items were deleted from the chart) 02: 02:17 Remeron PO 30 mg PO once ordered. kd3 kd3 06:07 00:45 to medicine esther kd3
[2022-12-03] MEDS ORDERED: NA CHLORIDE 0.9% 1,000 ML ONE (01:03)
[2022-12-03] MEDS ORDERED: NA CHLORIDE 0.9% 100 ML ONE (01:04)
[2022-12-03] MEDS ORDERED: PIPERACIL/TAZO 3.375 GM VIAL IV ONE (01:04)
[2022-12-03 01:09] LABS: Renal Epithelial <5 /HPF (None Seen); Urine Bacteria None Seen /HPF (<20); Urine Bilirubin NEGATIVE (Negative); Urine Blood Negative (Negative); Urine Clarity Clear (Clear); Urine Color Yellow (Yellow); Urine Glucose NEGATIVE (Negative); Urine Mucus Slight /HPF (None Seen); Urine Protein TRACE (Negative); Urine RBC None Seen /HPF (None Seen); Urine Urobilinogen Normal (Normal); Urine pH 5.5 (5.0-7.0)
[2022-12-03 01:25] LABS: Anisocytosis 1+; Blood Morphology Comment NOTED (NOT SEEN); Hypochromasia 1+; Platelet Estimate ADEQ; White Blood Cell Scan OK (OK)
[2022-12-03] MEDS ORDERED: CODEINE 30MG/APAP 300MG TAB ONE (02:28)
[2022-12-03] MEDS ORDERED: ONDANSETRON 4 MG/2 ML VIAL ONE (02:32)
[2022-12-03 06:13] VITALS: TEMP 98.2
[2022-12-03 06:18] VITALS: O2SAT 99
[2022-12-03 06:19] VITALS: BP 94/61
--- NOTE | 2022-12-03 20:37 | EKG ---
Test Date: 2022-12-02 Test Time: 20:56:19 [employer] Programmer: SUSANA MEASUREMENT RESULTS: Intervals: Rate: 95 VA: 136 QRSD: 78 QT: 364 QTc: 457 [place]: P: 89 VA: 136 QRS: 82 T: 14 INTERPRETIVE STATEMENTS: Normal sinus rhythm ST & T wave abnormality, consider lateral ischemia Abnormal ECG Compared to ECG 10/17/2022 21:10:50 ST (T wave) deviation now present Possible ischemia now present Short VA interval no longer present T-wave abnormality no longer present Prolonged QT interval no longer present Electronically Signed On 12-03-22 20:33:00 CDT by Kofi Lim
== END 2022-12-03 06:07 | disposition short-term general hospital (02) ==
LOC: ER 19:51
DX: R93.2 Abnormal findings on diagnostic imaging of liver and biliary tract (principal); K86.89 Other specified diseases of pancreas; D72.829 Elevated white blood cell count, unspecified; N19 Unspecified kidney failure; R55 Syncope and collapse; R11.2 Nausea with vomiting, unspecified; F17.210 Nicotine dependence, cigarettes, uncomplicated; Z88.5 Allergy status to narcotic agent; Z91.041 Radiographic dye allergy status
CPT/HCPCS: 87040 ×2; 85025; 80048; 36415; 83735; 85610; 80076; 83605; 84484; 83690; 83880; 70450; 71250; 72125; 71045; J2405; J7030; 81001; 93005; J2543

== ENCOUNTER 2023-01-01 12:58 | Observation (INO) | payer OTHER ==
--- OUTSIDE RECORDS SUMMARY | 2023-01-01 13:34 | XMS REPORT | Continuity of Care Document ---
:1955 Author Organization [facility] t Address [address] [place] [address]. [address] [place] [address] Care Team Providers Name Role Phone GINGER PUENTE Attending Clinician Unavailable HARJIT KILPATRICK Attending Clinician Unavailable Leonidas Kilpatrick Attending Clinician Unavailable OLEGARIO GUEVARA Attending Clinician Unavailable NIKA GARCIA Attending Clinician Unavailable ALEC ANGULO Attending Clinician Unavailable Carlton Alonzo MD Attending Clinician Ginger Puente Attending Clinician RADHA KAPLAN Attending Clinician Unavailable GINGER PUENTE Admitting Clinician Unavailable ELZBIETA HELLER Admitting Clinician Unavailable RADHA KAPLAN Admitting Clinician Unavailable Payers Payer Name Policy Type Policy Number Effective Date Expiration Date S nafisa DAVIS [id number] 2022 MEDICARE 00:00:00 [facility] [id number] 2020 [facility] ADVANTAGE 00:00:00 [facility] MEDICARE MB [id number] [facility] Problems Condition Condition Condition Status Onset Resolution Last Treating Co mments Source Name Details Category Date Date Treatment Clinician Date Pancreatic Pancreatic Disease Active C HI St mass mass 6-27 [facility] 00:00: Medical 00 Center [id number] 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 - [facility] , [facility] [id number] H/O Problem Common bilateral [facility] hip - [facility] replacemen [facility] [id number] Non-season Problem Com mon al Spirit allergic - [facility]I rhinitis, St unspecie [facility] d trigger Medical Center [id number] Primary Problem Commo n osteoarthr Spirit itis - [facility] involving [facility] joints [facility] [id number] Peripheral Problem Com mon polyneurop Spirit athy - [facility]I [facility] [id number] Current Problem Common moderate Spirit episode of - [facility] major [facility] Center prior episode [id number] Iron Problem Common deficiency [facility] anemia, - [facility] unspecifie [facility] iron [facility] deficiency Medica l anemia Center type [id number] Vitamin D Problem Comm on deficiency Spirit disease - [facility] [id number] Panic Problem Common disorder Spirit [episodic - CHI paroxysmal St anxiety] [facility] Chronic Chronic Problem Common obstructiv obstructiv Sp benoit e e - CHI pulmonary pulmonary [facility] (COPD) [facility] [id number] [place] [address] osteoarthr Spirit itis of - CHI right knee [facility] [id number] Tobacco Problem Commo n use Spirit disorder - [facility] [id number] Primary Problem Common insomnia Spirit - [facility] [id number] Generalize Problem Com mon d anxiety Spirit disorder - [facility]I [facility] [id number] Primary Problem Comm on osteoarthr Spirit itis of - CHI left knee [facility] [id number] Hypocalcem Problem Comm on ia Spirit - CHI [facility] [id number] Arthritis Problem Co mmon [id number] of right Spirit knee - CHI [facility] [id number] 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 - [facility]I t of right [facility] [id number] Presence Problem Comm on of Spirit unspecifie - CHI d [facility] hip joint [facility] [id number] PAD Problem Common (periphera Spirit l artery - CHI disease) [facility] [id number] Arthritis Problem Co mmon [id number] of left Spirit knee - CHI [facility] [id number] 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 - [facility] replacemen [facility] Allergies, Adverse Reactions, Alerts Allergy Allergy Status Severity Reaction(s) Onset Inactive Treating Comm ents Source Name Type Date Date Clinician IODINATE Allergy Active Low Rash 2022-[address] [facility] 6[facility] Medical MEDIA 00 Center NAPROXEN Allergy Active Low Rash 2022-[address] [facility] Center Iodinate Propensi Active Rash 2022-[address] [facility] ty to 27 [facility] adverse 00:00: Medical Media reaction 00 Center s Naproxen Propensi Active Rash 2022-[address] [facility] to 6-27 [facility] adverse 00:00: Medical reaction 00 Center s naproxen naproxen Active Rash [facility] Social History Social Habit Start Date Stop Date Quantity Comments Source History of Tobacco Current Smoker Co mmon Spirit - Use [facility] History [facility] 2022-12-03 2022-12-03 [address] [facility] Housing Unable to 00:00:00 00:00:00 [facility] Center Pay History [facility] 2022-12-03 2022-12-03 [address] [facility] Housing Places 00:00:00 00:00:00 Medical nter Lived History [facility] 2022-12-03 2022-12-03 [address] [facility] Housing Homeless 00:00:00 00:00:00 [facility] Last Year Sex Assigned At [birth year] [facility] 00:00:00 00:00:00 [facility] Smoking Status Start Date Stop Date Source Current Smoker 2022-08-28 00:00:00 [facility] Medications Ordered Filled Start Stop Current Ordering Indication Dosage Frequency Signature Comments Components Source Medication Medication Date Date Medication? Clinician (SIG) Name Name methylPREDN methylPREDN No QD methylPRED ISolone 4 ISolone 4 2-21 NISolone 4 MG MG 00:00: MG 00 Xanax 0.25 Xanax 0.25 2021-06 No 1{table Xanax 0.25 MG MG 2-19 t} MG 00:00: 00 Xanax 0.25 Xanax 0.25 2021-06 No 1{table Xanax 0.25 MG MG 2-19 t} MG 00:00: 00 Xanax 0.25 Xanax 0.25 2-1 No 1{table Xanax 0.25 MG MG 2-19 t} MG 00:00: 00 Xanax 0.25 Xanax 0.25 2-1 No 1{table Xanax 0.25 MG MG 2-19 t} MG 00:00: 00 Xanax 0.25 Xanax 0.25 2-0 No 1{table Xanax 0.25 MG MG 9-28 t} MG 00:00: 00 Vitamin B12 Vitamin B12 2-0 No 1000ug Common (Cyanocobal (Cyanocobal 9-28 S pirit son) son) 00:00: - CHI 00 [facility] Xanax 0.25 Xanax 0.25 2-0 No 1{table Xanax 0.25 MG MG 9-28 t} MG 00:00: 00 Vitamin B12 Vitamin B12 2-0 No 1000ug Common (Cyanocobal (Cyanocobal 9-28 S pirit son) son) 00:00: - CHI 00 [facility] Xanax 0.25 Xanax 0.25 2-0 No 1{table Xanax 0.25 MG MG 9-28 t} MG 00:00: 00 Vitamin B12 Vitamin B12 2-0 No 1000ug Common (Cyanocobal (Cyanocobal 9-28 S pirit son) son) 00:00: - CHI 00 [facility] Xanax 0.25 Xanax 0.25 2-0 No 1{table Xanax 0.25 MG MG 9-28 t} MG 00:00: 00 Vitamin B12 Vitamin B12 2022-0 No 1000ug Common (Cyanocobal (Cyanocobal 9-28 S pirit son) son) 00:00: - CHI 00 [facility] Xanax 0.25 Xanax 0.25 2-0 No 1{table Xanax 0.25 MG MG 9-28 t} MG 00:00: 00 Vitamin B12 Vitamin B12 2-0 No 1000ug Common (Cyanocobal (Cyanocobal 9-28 S pirit son) son) 00:00: - CHI 00 [facility] Vitamin B12 Vitamin B12 2022-0 No 1000ug Common (Cyanocobal (Cyanocobal 9-28 S pirit son) son) 00:00: - CHI 00 [facility] Vitamin B12 Vitamin B12 2-0 No 1000ug Common (Cyanocobal (Cyanocobal 9-28 S pirit son) son) 00:00: - CHI 00 [facility] Vitamin B12 Vitamin B12 2-0 No 1000ug Common (Cyanocobal (Cyanocobal 9-28 S pirit son) son) 00:00: - CHI 00 [facility] Vitamin B12 Vitamin B12 2021-0 No 1000ug Common (Cyanocobal (Cyanocobal 9-28 S pirit son) son) 00:00: - CHI 00 [facility] Cyanocobala Cyanocobala 2021-0 No 1000ug Common min min 9 Spirit 00:00: - CHI 00 [facility] Xanax 0.25 Xanax 0.25 2021-0 No 1{table Xanax 0.25 MG MG 03-06 t} MG 00:00: 00 Vitamin B12 Vitamin B12 2021-0 No 1000ug Common (Cyanocobal (Cyanocobal 9-28 S pirit son) son) 00:00: - CHI 00 [facility] Cyanocobala Cyanocobala 2-0 2022- No Cyanocobal min 1000 min 1000 03-06 12- son 1000 MCG/ML MCG/ML 00:00: 00:00 MCG/ML 00 :00 Cyanocobala Cyanocobala 2-0 2022- No Cyanocobal min 1000 min 1000 03-06 12-26 son 1000 MCG/ML MCG/ML 00:00: 00:00 MCG/ML 00 :00 Cyanocobala Cyanocobala 2022-0 2022- No Cyanocobal min 1000 min 1000 - 12-26 son 1000 MCG/ML MCG/ML 00:00: 00:00 MCG/ML 00 :00 Cyanocobala Cyanocobala 2022-0 2022- No Cyanocobal min 1000 min 1000 - 12- son 1000 MCG/ML MCG/ML 00:00: 00:00 MCG/ML 00 :00 Cyanocobala Cyanocobala 2022-0 2022- No Cyanocobal min 1000 min 1000 03-06 12-26 son 1000 MCG/ML MCG/ML 00:00: 00:00 [...] 00:00: MG/0.3ML 00 Lovenox 30 Lovenox 30 2-0 No .3{ml} Lovenox 30 MG/0.3ML MG/0.3ML 6-23 MG/0.3ML 00:00: 00 Lovenox 30 Lovenox 30 2-0 No .3{ml} Lovenox 30 MG/0.3ML MG/0.3ML 6-23 MG/0.3ML 00:00: 00 Lovenox 30 Lovenox 30 2-0 No .3{ml} Lovenox 30 MG/0.3ML MG/0.3ML 6-23 MG/0.3ML 00:00: 00 Lovenox 30 Lovenox 30 2-0 No .3{ml} Lovenox 30 MG/0.3ML MG/0.3ML 6-23 [...] MCG/ACT MCG/ACT 00 MCG/ACT Benzonatate Benzonatate 2021-0 2- No 1{capsu TID Benzonatat 200 MG 200 [...] 00:00: 00:00 00 :00 Azithromyci Azithromyci 2021-0 2022- No QD Azithromyc n 250 MG n 250 MG 11-27 in 250 MG 00:00: 00:00 00 :00 Xanax 0.25 Xanax 0.25 2-0 No 1{table Xanax 0.25 MG MG 6-20 t} MG 00:00: 00 Xanax 0.25 Xanax 0.25 2-0 No 1{table Xanax 0.25 MG MG 6-20 t} MG 00:00: 00 Xanax 0.25 Xanax 0.25 2022-0 No 1{table Xanax 0.25 MG MG 6-20 [...] 2022-0 No 1{table Xanax 0.25 MG MG 3- t} MG 00:00: 00 Xanax 0.25 Xanax 0.25 2022-0 No 1{table Xanax 0.25 MG MG 3- t} MG 00:00: 00 Xanax 0.25 Xanax 0.25 2021-0 No 1{table Xanax 0.25 MG MG 3- t} MG 00:00: 00 Xanax 0.25 Xanax 0.25 2022-0 No 1{table Xanax 0.25 MG MG 3- [...] Xanax 0.25 Xanax 0.25 2-0 No 1{table MG MG 1-12 t} 00:00: [...] MG 00:00: 00 Hyalgan 20 Hyalgan 20 2020-0 No 20mg C ommon mg mg 5-13 Spirit 00:00: - CHI 00 [facility] Bupivicaine Bupivicaine 1-0 No 2.5mg Common [place] R[place] 5-13 Spirit 00:00: - CHI 00 [facility] Kenalog Kenalog 2020-0 No 40mg Common (Triamcinol (Triamcinol 5-13 S pirit one) one) 00:00: - CHI 00 [facility] Hyalgan 20 Hyalgan 20 2020-0 No 20mg C ommon mg mg 5-13 Spirit 00:00: - CHI 00 [facility] Bupivicaine Bupivicaine 1-0 No 2.5mg Common [place] Rosedale 5-13 Spirit 00:00: - CHI 00 [facility] Kenalog Kenalog 1-0 No 40mg Common (Triamcinol (Triamcinol 5-13 S pirit one) one) 00:00: - CHI 00 [facility] Hyalgan 20 Hyalgan 20 1-0 No 20mg C ommon mg mg 5-13 Spirit 00:00: - CHI 00 [facility] Bupivicaine Bupivicaine 2020-0 No 2.5mg Common [place] Rosedale 5-13 Spirit 00:00: - CHI 00 [facility] Kenalog Kenalog 2020-0 No 40mg Common (Triamcinol (Triamcinol 5-13 S pirit one) one) 00:00: - CHI 00 [facility] Hyalgan 20 Hyalgan 20 2020-0 No 20mg C ommon mg mg 5-13 Spirit 00:00: - CHI 00 [facility] Bupivicaine Bupivicaine 2020-0 No 2.5mg Common [place] R[place] 5-13 Spirit 00:00: - CHI 00 [facility] Kenalog Kenalog 2020-0 No 40mg Common (Triamcinol (Triamcinol 5-13 S pirit one) one) 00:00: - CHI 00 [facility] Hyalgan 20 Hyalgan 20 2020-0 No 20mg C ommon mg mg 5-13 Spirit 00:00: - CHI 00 [facility] Bupivicaine Bupivicaine 2020-0 No 2.5mg Common [place] R[place]ale 5-13 Spirit 00:00: - CHI 00 [facility] Kenalog Kenalog 2020-0 No 40mg Common (Triamcinol (Triamcinol 5-13 S pirit one) one) 00:00: - CHI 00 [facility] Hyalgan 20 Hyalgan 20 2020-0 No 20mg C ommon mg mg 5-13 Spirit 00:00: - CHI 00 [facility] Bupivicaine Bupivicaine 2020-0 No 2.5mg Common [place] 5-13 Spirit 00:00: - CHI 00 [facility] Kenalog Kenalog 2020-0 No 40mg Common (Triamcinol (Triamcinol 5-13 S pirit one) one) 00:00: - CHI 00 [facility] Hyalgan 20 Hyalgan 20 2020-0 No 20mg C ommon mg mg 5-13 Spirit 00:00: - CHI 00 [facility] Bupivicaine Bupivicaine 2020-0 No 2.5mg Common [place] 5-13 Spirit 00:00: - CHI 00 [facility] Kenalog Kenalog 2020-0 No 40mg Common (Triamcinol (Triamcinol 5-13 S pirit one) one) 00:00: - CHI 00 [facility] Hyalgan 20 Hyalgan 20 2020-0 No 20mg C ommon mg mg 5-13 Spirit 00:00: - CHI 00 [facility] Bupivicaine Bupivicaine 2020-0 No 2.5mg Common [place] 5-13 Spirit 00:00: - CHI 00 [facility] Kenalog Kenalog 2020-0 No 40mg Common (Triamcinol (Triamcinol 5-13 S pirit one) one) 00:00: - CHI 00 [facility] Hyalgan 20 Hyalgan 20 2020-0 No 20mg C ommon mg mg 5-13 Spirit 00:00: - CHI 00 [facility] Bupivicaine Bupivicaine 2020-0 No 2.5mg Common [place] R[place] 5-13 Spirit 00:00: - CHI 00 [facility] Kenalog Kenalog 0 No 40mg Common (Triamcinol (Triamcinol 5-13 S pirit one) one) 00:00: - CHI 00 [facility] Hyalgan 20 Hyalgan 20 2020-0 No 20mg C ommon mg mg 5-13 Spirit 00:00: - CHI 00 [facility] Bupivicaine Bupivicaine 2020-0 No 2.5mg Common [place] 5-13 Spirit 00:00: - CHI 00 [facility] Kenalog Kenalog 2020-0 No 40mg Common (Triamcinol (Triamcinol 5-13 S pirit one) one) 00:00: - CHI 00 [facility] Hyalgan 20 Hyalgan 20 2020-0 No 20mg C ommon mg mg 5-13 Spirit 00:00: - CHI 00 [facility] Bupivicaine Bupivicaine 2020-0 No 2.5mg Common [place] 5-13 Spirit 00:00: - CHI 00 [facility] Kenalog Kenalog 2020-0 No 40mg Common (Triamcinol (Triamcinol 5-13 S pirit one) one) 00:00: - CHI 00 [facility] Hyalgan 20 Hyalgan 20 2020-0 No 20mg C ommon mg mg 5-13 Spirit 00:00: - CHI 00 [facility] Bupivicaine Bupivicaine 2020-0 No 2.5mg Common [place] 5-13 Spirit 00:00: - CHI 00 [facility] Kenalog Kenalog 2020-0 No 40mg Common (Triamcinol (Triamcinol 5-13 S pirit one) one) 00:00: - CHI 00 [facility] Hyalgan 20 Hyalgan 20 2020-0 No 20mg C ommon mg mg 5-13 Spirit 00:00: - CHI 00 [facility] Bupivicaine Bupivicaine 2020-0 No 2.5mg [facility] [place] 5-13 Spirit 00:00: - CHI 00 [facility] Kenalog Kenalog 2020-0 No 40mg Common (Triamcinol (Triamcinol 5-13 S pirit one) one) 00:00: - CHI 00 [facility] Hyalgan 20 Hyalgan 20 2020-0 No 20mg C ommon mg mg 5-13 Spirit 00:00: - CHI 00 [facility] Bupivicaine Bupivicaine 2020-0 No 2.5mg Common [place] 5-13 Spirit 00:00: - CHI 00 [facility] Kenalog Kenalog 2020-0 No 40mg Common (Triamcinol (Triamcinol 5-13 S pirit one) one) 00:00: - CHI 00 [facility] Hyalgan 20 Hyalgan 20 2020-0 No 20mg C ommon mg mg 5-13 Spirit 00:00: - CHI 00 [facility] Bupivicaine Bupivicaine 2020-0 No 2.5mg [facility] [place] 5-13 Spirit 00:00: - CHI 00 [facility] Kenalog Kenalog 2020-0 No 40mg Common (Triamcinol (Triamcinol 5-13 S pirit one) one) 00:00: - CHI 00 [facility] Hyalgan 20 Hyalgan 20 2020-0 No 20mg C ommon mg mg 5-13 Spirit 00:00: - CHI 00 [facility] Bupivicaine Bupivicaine 2020-0 No Common [place] 5-13 Spirit 00:00: - CHI 00 [facility] Kenalog Kenalog 2020-0 No 40mg Common (Triamcinol (Triamcinol 5-13 S pirit one) one) 00:00: - CHI 00 [facility] Hyalgan 20 Hyalgan 20 2020-0 No 20mg C ommon mg mg 5-13 Spirit 00:00: - CHI 00 [facility] Bupivicaine Bupivicaine 2020-0 No 2.5mg Common [place] 5-13 Spirit 00:00: - CHI 00 [facility] Kenalog Kenalog 2020-0 No 40mg Common (Triamcinol (Triamcinol 5-13 S pirit one) one) 00:00: - CHI 00 [facility] Hyalgan 20 Hyalgan 20 2020-0 No 20mg C ommon mg mg 5-13 Spirit 00:00: - CHI 00 [facility] Bupivicaine Bupivicaine 2020-0 No 2.5mg Common [place] 5-13 Spirit 00:00: - CHI 00 [facility] Kenalog Kenalog 2020-0 No 40mg Common (Triamcinol (Triamcinol 5-13 S pirit one) one) 00:00: - CHI 00 [facility] Hyalgan 20 Hyalgan 20 2020-0 No 20mg C ommon mg mg 5-13 Spirit 00:00: - CHI 00 [facility] Bupivicaine Bupivicaine 2020-0 No 2.5mg [facility] [place] 5-13 [facility] 00:00: - CHI 00 [facility] Kenalog Kenalog 2020-0 No 40mg Common (Triamcinol (Triamcinol 5-13 S pirit one) one) 00:00: - CHI 00 [facility] Hyalgan 20 Hyalgan 20 2020-0 No 20mg C ommon mg mg 5-13 Spirit 00:00: - CHI 00 [facility] Bupivicaine Bupivicaine 2020-0 No 2.5mg Common [place] 5-13 [facility] 00:00: - CHI 00 [facility] Kenalog Kenalog 2020-0 No 40mg Common (Triamcinol (Triamcinol 5-13 S pirit one) one) 00:00: - CHI 00 [facility] Hyalgan 20 Hyalgan 20 2020-0 No 20mg C ommon mg mg 5-13 Spirit 00:00: - CHI 00 [facility] Bupivicaine Bupivicaine 2020-0 No 2.5mg Common [place] 5-13 Spirit 00:00: - CHI 00 [facility] Kenalog Kenalog 2020-0 No 40mg Common (Triamcinol (Triamcinol 5-13 S pirit one) one) 00:00: - CHI 00 [facility] Hyalgan 20 Hyalgan 20 2020-0 No 20mg C ommon mg mg 5-13 Spirit 00:00: - CHI 00 [facility] Bupivicaine Bupivicaine 2020-0 No 2.5mg Common [place] 5-13 Spirit 00:00: - CHI 00 [facility] Kenalog Kenalog 2020-0 No 40mg Common (Triamcinol (Triamcinol 5-13 S pirit one) one) 00:00: - CHI 00 [facility] Hyalgan 20 Hyalgan 20 2020-0 No 20mg C ommon mg mg 5-13 Spirit 00:00: - CHI 00 [facility] Bupivicaine Bupivicaine 2020-0 No 2.5mg Common [place] 5-13 Spirit 00:00: - CHI 00 [facility] Kenalog Kenalog 2020-0 No 40mg Common (Triamcinol (Triamcinol 5-13 S pirit one) one) 00:00: - CHI 00 [facility] Hyalgan 20 Hyalgan 20 2020-0 No 20mg C ommon mg mg 5-13 Spirit 00:00: - CHI 00 [facility] Bupivicaine Bupivicaine 2020-0 No 2.5mg [facility] [place] 5-13 [facility] 00:00: - CHI 00 [facility] Kenalog Kenalog 2020-0 No 40mg Common (Triamcinol (Triamcinol 5-13 S pirit one) one) 00:00: - CHI 00 [facility] Hyalgan 20 Hyalgan 20 2020-0 No 20mg C ommon mg mg 5-13 Spirit 00:00: - CHI 00 [facility] Bupivicaine Bupivicaine 2020-0 No 2.5mg [facility] [place] 5-13 [facility] 00:00: - CHI 00 [facility] Kenalog Kenalog 2020-0 No 40mg Common (Triamcinol (Triamcinol 5-13 S pirit one) one) 00:00: - CHI 00 [facility] Hyalgan 20 Hyalgan 20 2020-0 No 20mg C ommon mg mg 5-13 Spirit 00:00: - CHI 00 [facility] Bupivicaine Bupivicaine 2020-0 No 2.5mg [facility] [place] 5-13 [facility] 00:00: - CHI 00 [facility] Kenalog Kenalog 2020-0 No 40mg Common (Triamcinol (Triamcinol 5-13 S pirit one) one) 00:00: - CHI 00 [facility] Hyalgan 20 Hyalgan 20 2020-0 No 20mg C ommon mg mg 5-13 Spirit 00:00: - CHI 00 [facility] Bupivicaine Bupivicaine 2020-0 No 2.5mg Common [place] 5-13 [facility] 00:00: - CHI 00 [facility] Kenalog Kenalog 2020-0 No 40mg Common (Triamcinol (Triamcinol 5-13 S pirit one) one) 00:00: - CHI 00 [facility] Hyalgan 20 Hyalgan 20 2020-0 No 20mg C ommon mg mg 5-13 Spirit 00:00: - CHI 00 [facility] Bupivicaine Bupivicaine 2020-0 No 2.5mg Common [place] 5-13 [facility] 00:00: - CHI 00 [facility] Kenalog Kenalog 2020-0 No 40mg Common (Triamcinol (Triamcinol 5-13 S pirit one) one) 00:00: - CHI 00 [facility] Hyalgan 20 Hyalgan 20 2020-0 No 20mg C ommon mg mg 5-13 Spirit 00:00: - CHI 00 [facility] Bupivicaine Bupivicaine 2020-0 No 2.5mg Common [place] 5-13 [facility] 00:00: - CHI 00 [facility] Kenalog Kenalog 2020-0 No 40mg Common (Triamcinol (Triamcinol 5-13 S pirit one) one) 00:00: - CHI [facility] Hyalgan 20 Hyalgan 20 2020-0 No 20mg C ommon mg mg 10-19 Spirit 00:00: - CHI [facility] Bupivicaine Bupivicaine 2020-0 No 2.5mg Common [place] 10-19 Spirit 00:00: - CHI [facility] Kenalog Kenalog 2020-0 No 40mg Common (Triamcinol (Triamcinol 5-13 S pirit one) one) 00:00: - CHI [facility] Hyalgan 20 Hyalgan 20 2020-0 No 20mg C ommon mg mg 10-12 Spirit 00:00: - CHI [facility] Hyalgan 20 Hyalgan 20 2020-0 No 20mg C ommon mg mg 10-12 Spirit 00:00: - CHI [facility] Hyalgan 20 Hyalgan 20 2020-0 No 20mg C ommon mg mg 10-12 Spirit 00:00: - CHI [facility] Hyalgan 20 Hyalgan 20 2020-0 No 20mg C ommon mg mg 10-12 Spirit 00:00: - CHI [facility] Hyalgan 20 Hyalgan 20 2020-0 No 20mg C ommon mg mg 10-12 Spirit 00:00: - CHI [facility] Hyalgan 20 Hyalgan 20 2020-0 No 20mg C ommon mg mg 10-12 [facility] 00:00: - CHI [facility] Hyalgan 20 Hyalgan 20 2020-0 No 20mg C ommon mg mg 10-12 Spirit 00:00: - CHI [facility] Hyalgan 20 Hyalgan 20 2020-0 No 20mg C ommon mg mg 10-12 [facility] 00:00: - CHI [facility] Hyalgan 20 Hyalgan 20 2020-0 No 20mg C ommon mg mg 10-12 [facility] 00:00: - CHI [facility] Hyalgan 20 Hyalgan 20 2020-0 No 20mg C ommon mg mg 10-12 [facility] 00:00: - CHI [facility] Hyalgan 20 Hyalgan 20 2020-0 No 20mg C ommon mg mg 10-12 [facility] 00:00: - CHI [facility] Hyalgan 20 Hyalgan 20 2020-0 No 20mg C ommon mg mg 10-12 [facility] 00:00: - CHI [facility] Hyalgan 20 Hyalgan 20 2020-0 No 20mg C ommon mg mg 10-12 [facility] 00:00: - CHI [facility] Hyalgan 20 Hyalgan 20 2020-0 No 20mg C ommon mg mg 10-12 [facility] 00:00: - CHI [facility] Hyalgan 20 Hyalgan 20 2020-0 No 20mg C ommon mg mg 10-12 [facility] 00:00: - CHI [facility] Hyalgan 20 Hyalgan 20 2020-0 No 20mg C ommon mg mg 10-12 [facility] 00:00: - CHI [facility] Hyalgan 20 Hyalgan 20 2020-0 No 20mg C ommon mg mg 10-12 [facility] 00:00: - CHI [facility] Hyalgan 20 Hyalgan 20 2020-0 No 20mg C ommon mg mg 10-12 [facility] 00:00: - CHI [facility] Hyalgan 20 Hyalgan 20 2020-0 No 20mg C ommon mg mg 10-12 [facility] 00:00: - CHI [facility] Hyalgan 20 Hyalgan 20 2020-0 No 20mg C ommon mg mg 10-12 [facility] 00:00: - CHI [facility] Hyalgan 20 Hyalgan 20 2020-0 No 20mg C ommon mg mg 10-12 [facility] 00:00: - CHI [facility] Hyalgan 20 Hyalgan 20 2020-0 No 20mg C ommon mg mg 10-12 [facility] 00:00: - CHI [facility] Hyalgan 20 Hyalgan 20 2020-0 No 20mg C ommon mg mg 10-12 [facility] 00:00: - CHI [facility] Hyalgan 20 Hyalgan 20 2020-0 No 20mg C ommon mg mg 10-12 [facility] 00:00: - CHI [facility] Hyalgan 20 Hyalgan 20 2020-0 No 20mg C ommon mg mg 10-12 [facility] 00:00: - CHI [facility] Hyalgan 20 Hyalgan 20 2020-0 No 20mg C ommon mg mg 10-12 [facility] 00:00: - CHI [facility] Hyalgan 20 Hyalgan 20 2020-0 No 20mg C ommon mg mg 10-12 [facility] 00:00: - CHI [facility] Hyalgan 20 Hyalgan 20 2020-0 No 20mg C ommon mg mg 10-12 [facility] 00:00: - [facility] Hyalgan 20 Hyalgan 20 2020-0 No 20mg C ommon mg mg 10-12 [facility] 00:00: - [facility] Hyalgan 20 Hyalgan 20 2020-0 No 20mg C ommon mg mg 10-12 [facility] 00:00: - [facility] Hyalgan 20 Hyalgan 20 2020-0 No 20mg C ommon mg mg 10-05 Spirit 00:00: - [facility] Hyalgan 20 Hyalgan 20 2020-0 No 20mg C ommon mg mg 10-05 [facility] 00:00: - [facility] Hyalgan 20 Hyalgan 20 2020-0 No 20mg C ommon mg mg 10-05 Spirit 00:00: - [facility] Hyalgan 20 Hyalgan 20 2020-0 No 20mg C ommon mg mg 10-05 [facility] 00:00: - [facility] Hyalgan 20 Hyalgan 20 2020-0 No 20mg C ommon mg mg 10-05 [facility] 00:00: - [facility] Hyalgan 20 Hyalgan 20 2020-0 No 20mg C ommon mg mg 10-05 [facility] 00:00: - [facility] Hyalgan 20 Hyalgan 20 2020-0 No 20mg C ommon mg mg 10-05 [facility] 00:00: - [facility] Hyalgan 20 Hyalgan 20 2020-0 No 20mg C ommon mg mg 10-05 [facility] 00:00: - [facility] Hyalgan 20 Hyalgan 20 2020-0 No 20mg C ommon mg mg 10-05 [facility] 00:00: - [facility] Hyalgan 20 Hyalgan 20 2020-0 No 20mg C ommon mg mg 10-05 [facility] 00:00: - [facility] Hyalgan 20 Hyalgan 20 2020-0 No 20mg C ommon mg mg 10-05 [facility] 00:00: - [facility] Hyalgan 20 Hyalgan 20 2020-0 No 20mg C ommon mg mg 10-05 [facility] 00:00: - [facility] Hyalgan 20 Hyalgan 20 2020-0 No 20mg C [facility]mon mg mg 10-05 [facility] 00:00: - [facility] Hyalgan 20 Hyalgan 20 2020-0 No 20mg C [facility]mon mg mg 10-05 [facility] 00:00: - [facility] Hyalgan 20 Hyalgan 20 2020-0 No 20mg C [facility]mon mg mg 10-05 [facility] 00:00: - [facility] Hyalgan 20 Hyalgan 20 2020-0 No 20mg C [facility]mon mg mg 10-05 [facility] 00:00: - [facility] Hyalgan 20 Hyalgan 20 2020-0 No 20mg C [facility]mon mg mg 10-05 [facility] 00:00: - [facility] Hyalgan 20 Hyalgan 20 2020-0 No 20mg C [facility]mon mg mg 10-05 [facility] 00:00: - [facility] Hyalgan 20 Hyalgan 20 2020-0 No 20mg C [facility]mon mg mg 10-05 [facility] 00:00: - [facility] Hyalgan 20 Hyalgan 20 2020-0 No 20mg C [facility]mon mg mg 10-05 [facility] 00:00: - [facility] Hyalgan 20 Hyalgan 20 2020-0 No 20mg C [facility]mon mg mg 10-05 [facility] 00:00: - [facility] Hyalgan 20 Hyalgan 20 2020-0 No 20mg C [facility] mg mg 10-05 [facility] 00:00: - [facility] Hyalgan 20 Hyalgan 20 2020-0 No 20mg C [facility]mon mg mg 10-05 [facility] 00:00: - [facility] Hyalgan 20 Hyalgan 20 2020-0 No 20mg C [facility] mg mg 10-05 [facility] 00:00: - [facility] Hyalgan 20 Hyalgan 20 2020-0 No 20mg C [facility]mon mg mg 10-05 [facility] 00:00: - [facility] 00 [facility] Hyalgan 20 Hyalgan 20 2020-0 No 20mg C [facility]mon mg mg 10-05 [facility] 00:00: - [facility] 00 [facility] Hyalgan 20 Hyalgan 20 2020-0 No 20mg C [facility]mon mg mg 10-05 [facility] 00:00: - [facility] 00 [facility] Hyalgan 20 Hyalgan 20 2020-0 No 20mg C [facility]mon mg mg 10-05 [facility] 00:00: - [facility] 00 [facility] Hyalgan 20 Hyalgan 20 2020-0 No 20mg C [facility]mon mg mg 10-05 [facility] 00:00: - [facility] 00 [facility] Hyalgan 20 Hyalgan 20 2020-0 No 20mg C [facility] mg mg 10-05 [facility] 00:00: - [facility] 00 [facility] traMADol traMADol 2020-0 No 1{table [...] Sodium MG MG 00:00: 10 MG 00 Kenalog Kenalog 2020-0 No 40mg Common (Triamcinol (Triamcinol 1-26 S pirit one) one) 00:00: - [facility] 00 [facility] Bupivicaine Bupivicaine 2020-0 No 2.5mg Common [place] 1-26 Spirit 00:00: - [facility] 00 [facility] Kenalog Kenalog 2020-0 No 40mg Common (Triamcinol (Triamcinol 1-26 S pirit one) one) 00:00: - [facility]I 00 [facility] Bupivicaine Bupivicaine 2020-0 No 2.5mg Common [place] 1-26 [facility] 00:00: - [facility] 00 [facility] Kenalog Kenalog 2020-0 No 40mg Common (Triamcinol (Triamcinol 1-26 S pirit one) one) 00:00: - [facility]I 00 [facility] Bupivicaine Bupivicaine 2020-0 No 2.5mg Common [place] 1-26 [facility] 00:00: - [facility] 00 [facility] Kenalog Kenalog 2020-0 No 40mg Common (Triamcinol (Triamcinol 1-26 S pirit one) one) 00:00: - [facility]I 00 [facility] Bupivicaine Bupivicaine 2020-0 No 2.5mg Common [place] 1-26 [facility] 00:00: - [facility] 00 [facility] Kenalog Kenalog 2020-0 No 40mg Common (Triamcinol (Triamcinol 1-26 S pirit one) one) 00:00: - [facility] 00 [facility] Bupivicaine Bupivicaine 2020-0 No 2.5mg Common [place] 1-26 [facility] 00:00: - [facility] 00 [facility] Kenalog Kenalog 2020-0 No 40mg Common (Triamcinol (Triamcinol 1-26 S pirit one) one) 00:00: - [facility] 00 [facility] Bupivicaine Bupivicaine 2020-0 No 2.5mg Common [place] - Spirit 00:00: - [facility] 00 [facility] Kenalog Kenalog 2020-0 No 40mg Common (Triamcinol (Triamcinol 1-26 S pirit one) one) 00:00: - [facility] 00 [facility] Bupivicaine Bupivicaine 2020-0 No 2.5mg Common [place] -26 [facility] 00:00: - [facility] 00 [facility] Kenalog Kenalog 2020-0 No 40mg Common (Triamcinol (Triamcinol -26 S pirit one) one) 00:00: - [facility] 00 [facility] Bupivicaine Bupivicaine 2020-0 No 2.5mg Common [place] - Spirit 00:00: - [facility] 00 [facility] Kenalog Kenalog 2020-0 No 40mg Common (Triamcinol (Triamcinol 1-26 S pirit one) one) 00:00: - [facility] 00 [facility] Bupivicaine Bupivicaine 2020-0 No 2.5mg Common [place] - [facility] 00:00: - [facility] 00 [facility] Kenalog Kenalog 2020-0 No 40mg Common (Triamcinol (Triamcinol 1-26 S pirit one) one) 00:00: - [facility] 00 [facility] Bupivicaine Bupivicaine 2020-0 No 2.5mg Common [place] -26 [facility] 00:00: - [facility] 00 [facility] Kenalog Kenalog 2020-0 No 40mg Common (Triamcinol (Triamcinol 1-26 S pirit one) one) 00:00: - [facility] 00 [facility] Bupivicaine Bupivicaine 2020-0 No 2.5mg Common [place] 1-26 [facility] 00:00: - [facility] 00 [facility] Kenalog Kenalog 2020-0 No 40mg Common (Triamcinol (Triamcinol 1-26 S pirit one) one) 00:00: - [facility] 00 [facility] Bupivicaine Bupivicaine 2020-0 No 2.5mg Common [place] -26 [facility] 00:00: - [facility] 00 [facility] Kenalog Kenalog 2020-0 No 40mg Common (Triamcinol (Triamcinol 1-26 S pirit one) one) 00:00: - [facility] 00 [facility] Bupivicaine Bupivicaine 2020-0 No 2.5mg Common [place] - [facility] 00:00: - [facility] 00 [facility] Kenalog Kenalog 2020-0 No 40mg Common (Triamcinol (Triamcinol 1-26 S pirit one) one) 00:00: - [facility] 00 [facility] Bupivicaine Bupivicaine 2020-0 No 2.5mg Common [place] -26 [facility] 00:00: - [facility] 00 [facility] Kenalog Kenalog 2020-0 No 40mg Common (Triamcinol (Triamcinol 1-26 S pirit one) one) 00:00: - [facility] 00 [facility] Bupivicaine Bupivicaine 2020-0 No 2.5mg Common [place] -26 [facility] 00:00: - [facility] 00 [facility] Kenalog Kenalog 2020-0 No 40mg Common (Triamcinol (Triamcinol 1-26 S pirit one) one) 00:00: - [facility] 00 [facility] Bupivicaine Bupivicaine 2020-0 No 2.5mg Common [place] 1-26 [facility] 00:00: - [facility] 00 [facility] Kenalog Kenalog 2020-0 No 40mg Common (Triamcinol (Triamcinol 1-26 S pirit one) one) 00:00: - [facility] 00 [facility] Bupivicaine Bupivicaine 2020-0 No 2.5mg Common [place] 1-26 [facility] 00:00: - [facility] 00 [facility] Kenalog Kenalog 2020-0 No 40mg Common (Triamcinol (Triamcinol 1-26 S pirit one) one) 00:00: - [facility] 00 [facility] Bupivicaine Bupivicaine 2020-0 No 2.5mg Common [place] 1-26 [facility] 00:00: - [facility] 00 [facility] Kenalog Kenalog 2020-0 No 40mg Common (Triamcinol (Triamcinol 1-26 S pirit one) one) 00:00: - [facility] 00 [facility] Bupivicaine Bupivicaine 2020-0 No 2.5mg Common [place] 1-26 [facility] 00:00: - [facility] 00 [facility] Kenalog Kenalog 2020-0 No 40mg Common (Triamcinol (Triamcinol 1-26 S pirit one) one) 00:00: - [facility] 00 [facility] Bupivicaine Bupivicaine 2020-0 No 2.5mg Common [place] 1-26 [facility] 00:00: - [facility] 00 [facility] Kenalog Kenalog 2020-0 No 40mg Common (Triamcinol (Triamcinol 1-26 S pirit one) one) 00:00: - [facility] 00 [facility] Bupivicaine Bupivicaine 2020-0 No 2.5mg Common [place] 1-26 [facility] 00:00: - [facility] 00 [facility] Kenalog Kenalog 2020-0 No 40mg Common (Triamcinol (Triamcinol 1-26 S pirit one) one) 00:00: - [facility] 00 [facility] Bupivicaine Bupivicaine 2020-0 No 2.5mg Common [place] 1-26 [facility] 00:00: - [facility] 00 [facility] Kenalog Kenalog 2020-0 No 40mg Common (Triamcinol (Triamcinol 1-26 S pirit one) one) 00:00: - [facility] 00 [facility] Bupivicaine Bupivicaine 2020-0 No 2.5mg Common [place] 1-26 [facility] 00:00: - [facility] 00 [facility] Kenalog Kenalog 2020-0 No 40mg Common (Triamcinol (Triamcinol 1-26 S pirit one) one) 00:00: - [facility] 00 [facility] Bupivicaine Bupivicaine 2020-0 No 2.5mg Common [place] 1-26 [facility] 00:00: - [facility] 00 [facility] Kenalog Kenalog 2020-0 No 40mg Common (Triamcinol (Triamcinol 1-26 S pirit one) one) 00:00: - [facility] 00 [facility] Bupivicaine Bupivicaine 2020-0 No Common [place] 1-26 [facility] 00:00: - [facility] 00 [facility] Kenalog Kenalog 2020-0 No 40mg Common (Triamcinol (Triamcinol 1-26 S pirit one) one) 00:00: - [facility] 00 [facility] Bupivicaine Bupivicaine 2020-0 No 2.5mg Common [place] 1-26 [facility] 00:00: - [facility] 00 [facility] Kenalog Kenalog 2020-0 No 40mg Common (Triamcinol (Triamcinol 1-26 S pirit one) one) 00:00: - [facility] 00 [facility] Bupivicaine Bupivicaine 2020-0 No 2.5mg Common [place] 1-26 [facility] 00:00: - [facility] 00 [facility] Kenalog Kenalog 2020-0 No 40mg Common (Triamcinol (Triamcinol 1-26 S pirit one) one) 00:00: - [facility] 00 [facility] Bupivicaine Bupivicaine 2020-0 No 2.5mg Common [place] 1-26 [facility] 00:00: - [facility] 00 [facility] Kenalog Kenalog 2020-0 No 40mg Common (Triamcinol (Triamcinol 1-26 S pirit one) one) 00:00: - [facility] 00 [facility] Bupivicaine Bupivicaine 2020-0 No 2.5mg Common [place] 1-26 [facility] 00:00: - [facility] 00 [facility] Kenalog Kenalog 2020-0 No 40mg Common (Triamcinol (Triamcinol 1-26 S pirit one) one) 00:00: - [facility] Bupivicaine Bupivicaine 2020-0 No 2.5mg Common [place] 07-04 Spirit 00:00: - [facility] Tylenol # 3 Tylenol # [...] 00 Tylenol # 3 Tylenol # 3 2019-1 No Tylenol # 300/30mg 300/30mg 2-08 3 300/30mg 00:00: 00 Tylenol # 3 Tylenol # 3 2019-1 No Tylenol # 300/30mg 300/30mg 2-08 3 300/30mg 00:00: 00 Tylenol # 3 Tylenol # 3 2019-1 No Tylenol # 300/30mg 300/30mg 2-08 3 [...] 00 Tylenol # 3 Tylenol # 3 2019-06 No Tylenol # 300/30mg 300/30mg 2-08 3 300/30mg 00:00: 00 Tylenol # 3 Tylenol # 3 2019- No Tylenol # 300/30mg 300/30mg 2- 3 300/30mg 00:00: 00 Remeron 30 Remeron 30 No 1{table QD [...] TID Carafate 1 GM/10ML GM/10ML n_an_em GM/10ML [facility]} tiZANidine tiZANidine No 1{table TID tiZANidine HCl [...] B No Super B Complex Complex Complex Neurontin Neurontin No 1{table TID Neurontin 600 MG 600 MG t} 600 MG Furosemide Furosemide No 1{table Furosemide 20 MG 20 MG t} 20 MG Cyanocobala Cyanocobala No Cyanocobal min 1000 min 1000 son 1000 MCG/ML MCG/ML MCG/ML CeleXA 40 CeleXA 40 No 1{table QD CeleXA 40 MG MG t} MG Xanax 0.25 Xanax 0.25 No 1{table Xanax 0.25 MG MG t} MG Mirtazapine Mirtazapine No Mirtazapin 30 MG 30 MG e 30 MG Meclizine Meclizine No 1{table QD Meclizine HCl 25 MG HCl 25 MG t_as_ne HCl 25 MG eded} Acetaminoph Acetaminoph No 1{table Acetaminop en-Codeine en-Codeine t_as_ne hen-Codein #3 300-30 #3 300-30 eded} e #3 MG MG 300-30 MG Ferrous Ferrous No Ferrous Sulfate Sulfate Sulfate Vitamin B12 Vitamin B12 No 1{table QD Vitamin 500 MCG 500 MCG t} B12 500 MCG Remeron 30 Remeron 30 No 1{table QD Remeron 30 MG MG t_at_be MG dtime} Remeron 30 Remeron 30 No 1{table QD [...] MCG (1000 UT) (1000 UT) (1000 UT) Vital Signs Vital Name Observation Time Observation Value Comments Source WEIGHT 2022-12-13 05:00:00 68.1 kg WEIGHT 2022-12-03 18:00:00 50.1 kg WEIGHT 2022-12-13 05:00:00 68.1 kg WEIGHT 2022-12-03 18:00:00 50.1 kg height 2022-07-08 08:30:00 62 [in_i] [facility] weight 2022-07-08 08:30:00 120 [lb_av] Common S pirit [facility] temperature 2022-07-08 08:30:00 98.2 [degF] Common S pirit [facility] bmi 2022-07-08 08:30:00 21.95 kg/m2 Common S pirit [facility] blood pressure 2022-07-08 08:30:00 130 mm[Hg] [facility] - systolic [facility] blood pressure 2022-07-08 08:30:00 72 mm[Hg] [facility] - diastolic [facility] height 2022-05-27 11:10:00 62 [in_i] [facility] weight 2022-05-27 11:10:00 123 [lb_av] [facility] temperature 2022-05-27 11:10:00 98 [degF] Common S pirit [facility] bmi 2022-05-27 11:10:00 22.49 kg/m2 [facility] blood pressure 2022-05-27 11:10:00 128 mm[Hg] [facility] - systolic [facility] blood pressure 2022-05-27 11:10:00 70 mm[Hg] [facility] - diastolic [facility] height 2022-05-08 09:20:00 62 [in_i] [facility] weight 2022-05-08 09:20:00 121.9 [lb_av] Common [facility] - [facility] temperature 2022-05-08 09:20:00 97.3 [degF] [facility] bmi 2022-05-08 09:20:00 22.29 kg/m2 Common [facility] oximetry 2022-05-08 09:20:00 97 % Common [facility] respiratory rate 2022-05-08 09:20:00 17 /min Comm on [facility] blood pressure 2022-05-08 09:20:00 127 mm[Hg] Common [facility] - systolic [facility] blood pressure 2022-05-08 09:20:00 65 mm[Hg] Common [facility] - diastolic [facility] height 2022-04-08 08:30:00 62 [in_i] Common S [facility] weight 2022-04-08 08:30:00 124 [lb_av] Common [facility] temperature 2022-04-08 08:30:00 97.6 [degF] Common [facility] bmi 2022-04-08 08:30:00 22.68 kg/m2 [facility] blood pressure 2022-04-08 08:30:00 110 mm[Hg] Common [facility] - systolic [facility] blood pressure 2022-04-08 08:30:00 68 mm[Hg] [facility] - diastolic [facility] height 2022-03-06 14:00:00 62 [in_i] Common [facility] weight 2022-03-06 14:00:00 122.6 [lb_av] Common [facility] temperature 2022-03-06 14:00:00 98.2 [degF] Common [facility] bmi 2022-03-06 14:00:00 22.42 kg/m2 [facility] oximetry 2022-03-06 14:00:00 98 % Common [facility] respiratory rate 2022-03-06 14:00:00 18 /min [facility] blood pressure 2022-03-06 14:00:00 117 mm[Hg] Common [facility] - systolic [facility] blood pressure 2022-03-06 14:00:00 72 mm[Hg] [facility] - diastolic [facility] height 2022-02-04 08:30:00 62 [in_i] Common S pirit [facility] weight 2022-02-04 08:30:00 123.0 [lb_av] Common [facility] temperature 2022-02-04 08:30:00 97.4 [degF] Common S pirit [facility] bmi 2022-02-04 08:30:00 22.49 kg/m2 Common S pirit - [facility] blood pressure 2022-02-04 08:30:00 128 mm[Hg] [facility] - systolic [facility] blood pressure 2022-02-04 08:30:00 67 mm[Hg] [facility] - diastolic [facility] height 2022-01-03 13:00:00 62 [in_i] Common [facility] weight 2022-01-03 13:00:00 116 [lb_av] Common [facility] bmi 2022-01-03 13:00:00 21.21 kg/m2 [facility] blood pressure 2022-01-03 13:00:00 108 mm[Hg] [facility] - systolic [facility] blood pressure 2022-01-03 13:00:00 62 mm[Hg] [facility] - diastolic [facility] height 2021-12-12 13:40:00 62 [in_i] [facility] weight 2021-12-12 13:40:00 116.7 [lb_av] Common [facility] temperature 2021-12-12 13:40:00 97.2 [degF] Common [facility] bmi 2021-12-12 13:40:00 21.34 kg/m2 [facility] oximetry 2021-12-12 13:40:00 94 % [facility] respiratory rate 2021-12-12 13:40:00 16 /min [facility] blood pressure 2021-12-12 13:40:00 115 mm[Hg] Common [facility] - systolic [facility] blood pressure 2021-12-12 13:40:00 57 mm[Hg] [facility] - diastolic [facility] height 2021-11-27 10:40:00 62 [in_i] Common S pirit - [facility] weight 2021-11-27 10:40:00 121 [lb_av] Common S pirit - [facility] temperature 2021-11-27 10:40:00 98 [degF] Common S pirit - [facility] bmi 2021-11-27 10:40:00 22.13 kg/m2 Common S pirit - [facility] blood pressure 2021-11-27 10:40:00 115 mm[Hg] [facility] - systolic [facility] blood pressure 2021-11-27 10:40:00 74 mm[Hg] [facility] - diastolic [facility] height 2021-11-15 13:15:00 62 [in_i] Common S pirit - [facility] weight 2021-11-15 13:15:00 122 [lb_av] Common S pirit - [facility] temperature 2021-11-15 13:15:00 98.6 [degF] Common S p[facility] - [facility] bmi 2021-11-15 13:15:00 22.31 kg/m2 Common S p[facility] - [facility] blood pressure 2021-11-15 13:15:00 100 mm[Hg] [facility] - systolic [facility] blood pressure 2021-11-15 13:15:00 68 mm[Hg] [facility] - diastolic [facility] height 2021-08-29 09:20:00 62 [in_i] Common S pirit - [facility] weight 2021-08-29 09:20:00 130.0 [lb_av] [facility] - [facility] temperature 2021-08-29 09:20:00 97.0 [degF] Common S pirit - [facility] bmi 2021-08-29 09:20:00 23.77 kg/m2 Common S p[facility] - [facility] oximetry 2021-08-29 09:20:00 99 % Common S pirit [facility] respiratory rate 2021-08-29 09:20:00 17 /min [facility] - [facility] blood pressure 2021-08-29 09:20:00 114 mm[Hg] [facility] - systolic [facility] blood pressure 2021-08-29 09:20:00 54 mm[Hg] [facility] - diastolic [facility] height 2021-08-29 09:00:00 62 [in_i] Common S pirit - [facility] weight 2021-08-29 09:00:00 130.0 [lb_av] Common [facility] - [facility] temperature 2021-08-29 09:00:00 97.0 [degF] [facility] bmi 2021-08-29 09:00:00 23.77 kg/m2 [facility] oximetry 2021-08-29 09:00:00 99 % Common S [facility] - [facility] blood pressure 2021-08-29 09:00:00 114 mm[Hg] [facility] - systolic [facility] blood pressure 2021-08-29 09:00:00 54 mm[Hg] [facility] - diastolic [facility] height 2021-08-13 13:30:00 62 [in_i] Common S pirit [facility] weight 2021-08-13 13:30:00 124 [lb_av] Common S pirit - [facility] temperature 2021-08-13 13:30:00 96.7 [degF] Common S pirit [facility] bmi 2021-08-13 13:30:00 22.68 kg/m2 Common S pirit [facility] blood pressure 2021-08-13 13:30:00 118 mm[Hg] [facility] - systolic [facility] blood pressure 2021-08-13 13:30:00 80 mm[Hg] [facility] - diastolic [facility] height 2021-06-20 14:40:00 62 [in_i] Common S pirit [facility] weight 2021-06-20 14:40:00 133 [lb_av] Common [facility] temperature 2021-06-20 14:40:00 97.4 [degF] Common [facility] bmi 2021-06-20 14:40:00 24.32 kg/m2 [facility] blood pressure 2021-06-20 14:40:00 125 mm[Hg] [facility] - systolic [facility] blood pressure 2021-06-20 14:40:00 71 mm[Hg] [facility] - diastolic [facility] height 2021-04-23 11:20:00 62 [in_i] [facility] weight 2021-04-23 11:20:00 137 [lb_av] [facility] temperature 2021-04-23 11:20:00 98 [degF] [facility] bmi 2021-04-23 11:20:00 25.05 kg/m2 [facility] blood pressure 2021-04-23 11:20:00 121 mm[Hg] [facility] - systolic [facility] blood pressure 2021-04-23 11:20:00 76 mm[Hg] Common [facility] - diastolic [facility] Systolic blood 2022-12-06 07:34:00 88 mm[Hg] rn notified [facility] Diastolic blood 2022-12-06 07:34:00 50 mm[Hg] rn notified [facility] Heart rate 2022-12-06 07:34:00 67 /min [facility] Body temperature 2022-12-06 07:34:00 36.67 Vilma [facility] Respiratory rate 2022-12-06 07:34:00 18 /min [facility] Oxygen saturation in 2022-12-06 07:34:00 98 /min [facility] Arterial blood by Medical Ce nter Pulse oximetry Body weight 2022-12-03 18:00:00 50.1 kg [facility] Procedures Procedure Date / Time Performed Performing Clinician Sourc e POCT-GLUCOSE METER 2022-12-06 06:18:00 Jude [facility] CBC W/PLT COUNT & AUTO 2022-12-06 04:18:00 Jude [facility] COMPREHENSIVE METABOLIC 2022-12-06 04:18:00 Jude [facility] VITAMIN B12 2022-12-06 04:18:00 [facility] IRON, TIBC, % SAT. 2022-12-06 04:18:00 [facility] (WITHOUT FERRITIN) [facility] FERR[facility]IN 2022-12-06 04:18:00 [facility] CBC W/PLT COUNT & AUTO 2022-12-06 04:18:00 Jude [facility] POCT-GLUCOSE METER 2022-12-06 00:38:00 Jude [facility] REPORT OF PROCEDURE - 2022-12-05 18:20:47 Cindi [facility] ENDOSCOPY [facility] POCT-GLUCOSE METER 2022-12-05 18:01:00 Jude [facility] ESOPHAGOSCOPY, WITH STENT 2022-12-05 12:42:00 Ginger Puente I [facility] INSERTION [facility] ESOPHAGOSCOPY, WITH 2022-12-05 12:42:00 Ginger Puente [facility] ENDOSCOPIC ULTRASOUND Medical Ce nter PROCEDURE W/ C-ARM 2022-12-05 12:42:00 Cindi [facility] CBC W/PLT COUNT & AUTO 2022-12-05 04:19:00 Jude [facility] COMPREHENSIVE METABOLIC 2022-12-05 04:19:00 Jude [facility] PROTHROMBIN TIME/INR 2022-12-05 04:19:00 Jude [facility] CBC W/PLT COUNT & AUTO 2022-12-05 04:19:00 Elzbieta Heller NATALIO S t [facility] MR ABDOMEN WITH & WITHOUT 2022-12-04 08:40:00 Radha Kaplan [facility] IV CONTRAST [facility] CBC W/PLT COUNT & AUTO 2022-12-04 06:56:00 Radha Kaplan HI [facility] CBC W/PLT COUNT & AUTO 2022-12-04 06:56:00 Radha Kaplan HI [facility] BASIC METABOLIC PANEL 2022-12-04 04:35:00 Radha Kaplan [facility] HEPATIC FUNCTION PANEL 2022-12-04 04:35:00 Radha Kaplan [facility] Plan of Care Planned Activity Planned Date Details Comments Source Future Scheduled 2023-02-[address] [facility] Test 00:00:00 (Season Ended) [code = Medic al Center Influenza Vaccine (Season Ended)] Future Scheduled 2022-09-07 Medicare IPPE (WELCOME [facility] TO MEDICARE) [code = Medical Center Medicare IPPE (WELCOME TO MEDICARE)] Future Scheduled 2022-06-[address] [facility] Test 00:00:00 (12+) [code = Medical Center DEPRESSION SCREENING (12+)] Future Scheduled 2022-06-09 FALLS RISK SCREENING [facility] Test 00:00:00 [code = FALLS RISK Medical C enter SCREENING] Future Scheduled 2018 PNEUMOCOCCAL 65+ YRS ([address] [facility] Test 00:00:00 - PCV) [code = Medical Cente r PNEUMOCOCCAL 65+ YRS (1 - PCV)] Future Scheduled 2003 SHINGLES VACCINES ([address] [facility] Test 00:00:00 2) [code = SHINGLES [facility] Center VACCINES (1 of 2)] Future Scheduled 1972 DTAP/TDAP/TD VACCINES [facility] 00:[facility]:00 (1 - Tdap) [code = Medical C enter DTAP/TDAP/TD VACCINES (1 - Tdap)] Future Scheduled 1971 HEPATITIS C SCRE[facility]ING [facility] 00:00:00 [code = HEPATITIS C Medical Center SCREENING] Future Scheduled [address] [facility] Test 00:00:00 Counseling and Medical Cente r Screening (12+) [code = Tobacco Cessation Counseling and Screening (12+)] Future Scheduled 1954-01-22 COVID-19 VACCINE (#1) [facility] 00:00:00 [code = COVID-[address] VACCINE (#1)] Future Scheduled 1953 Screening for malignant [facility] Test 00:00:00 neoplasm of breast Medical C enter (procedure) [code = 563473746] Future Scheduled 1953 CT Colonography (combo) [facility] Test 00:00:00 [code = CT Colonography [facility] (combo)] Future Scheduled 1953 Screening for malignant [facility] Test 00:00:00 neoplasm of colon Medical Ce nter (procedure) [code = 605947857] Future Scheduled 1953 Screening for malignant [facility] Test 00:00:00 neoplasm of colon Medical Ce nter (procedure) [code = 379747600] Future Scheduled 1953 DXA SCAN [code = DXA [facility] Test 00:00:00 SCAN] [facility] Center Future Scheduled 1953 Screening for malignant [facility] Test 00:00:00 neoplasm of colon Medical Ce nter (procedure) [code = 103840700] Future Scheduled 1953 Screening for malignant [facility] Test 00:00:00 neoplasm of colon Medical Ce nter (procedure) [code = 132286841] Future Scheduled 1953 Sigmoidoscopy [code = [facility] 00:[facility] S[facility]oscopy] Medical Cente r Encounters Start End Encounter Admission Attending Care Care Encounter Source Date/Time Date/Time Type Type Clinicians Facility Department ID 2022-12-25 Outpatient CINDI [facility] Surgery [id number] SLE 17:17:01 GINGER 2022-12-09 Inpatient ER CARLYN [facility] [id number] SLE 15:39:11 HARJIT 2022-12-05 Inpatient ER CINDI [facility] [id number] SLEH 14:31:55 GINGER 2022-08-13 Out[place], [facility] [place] [id number] Common 09:52:02 Leonidas 04976 [facility] 2022-07-08 Outpatient Kilpatrick, STLC [facility] Common 16:49:01 Leonidas 51099 [facility] 2022-07-04 Outpatient Kilpatrick, STLC STLC [id number] Common 16:42:01 Leonidas 12517 [facility] 2022-05-23 Outpatient Kilpatrick, [facility] [place] [id number] Common 15:15:01 Leonidas 71922 [facility] 2022-05-07 Outpatient Kilpatrick, [place] [id number] Common 09:16:01 Leonidas [facility] 2022-05-06 Outpatient Kilpatrick, [place] [id number] Common 11:41:02 Leonidas [facility] 2022-04-08 Outpatient Kilpatrick, [place] [id number] Common 14:10:01 Leonidas [facility] 2021-12-11 Outpatient Kilpatrick, [facility] [place] [id number] Common 13:59:01 Leonidas [facility] 2021-11-15 Outpatient Kilpatrick, [facility] [place] [id number] Common 14:08:01 Leonidas [facility] 2021-08-10 Outpatient Kilpatrick, [facility] [place] [id number] Common 11:06:01 Leonidas [facility] 2021-07-04 Outpatient Kilpatrick, [facility] [place] [id number] Common 13:19:42 Leonidas [facility] 2021-07-04 Outpatient Kilpatrick, [facility] [place] [id number] Common 13:06:29 Leonidas 83289 [facility] 2021-07-04 Outpatient Kilpatrick, [place] [id number] Common 13:03:36 Leonidas 04648 [facility] 2021-07-04 Outpatient Kilpatrick, [facility] [place] [id number] Common 12:59:10 Leonidas 68695 [facility] 2021-07-04 Outpatient Kilpatrick, [facility] [place] [id number] Common 12:53:26 Leonidas 75096 [facility] 2021-07-04 Outpatient Kilpatrick, [facility] [place] [id number] Common 12:51:35 Leonidas 50339 [facility] 2021-07-04 Outpatient Kilpatrick, [place] [id number] Common 12:40:49 Leonidas 20358 [facility] 2021-07-04 Outpatient Kilpatrick, [place] [id number] Common 12:38:00 Leonidas 43932 [facility] 2021-07-04 Outpatient Kilpatrick, [place] [id number] Common 12:25:41 Leonidas 28006 [facility] 2021-07-04 Outpatient Kilpatrick, [place] [id number] Common 12:24:52 Leonidas 80310 [facility] 2021-07-04 Outpatient Kilpatrick, [place] [id number] Common 12:23:41 Leonidas 25955 [facility] 2021-07-04 Outpatient Kilpatrick, [facility] [place] [id number] Common 12:11:33 Leonidas 02156 [facility] 2021-07-04 Outpatient Kilpatrick, [facility] [place] [id number] Common 12:10:04 Leonidas 82970 [facility] 2021-07-04 Outpatient Kilpatrick, [facility] [place] [id number] Common 12:09:30 Leonidas 81982 [facility] 2021-07-04 Outpatient Kilpatrick, [place] [id number] Common 12:03:22 Leonidas 07072 [facility] 2021-07-04 Outpatient Kilpatrick, [place] [id number] Common 12:00:59 Leonidas 94959 [facility] 2021-07-04 Outpatient STLMLC STL[facility] [id number] Common 11:57:02 33982 [facility] 2022-12-03 2022-12-14 Inpatient ER RADHA [facility] Internal [id number] SLEH 07:06:00 16:30:00 [place] [facility] 2022-12-12 2022-12-12 Inpatient ER KEV, [facility] [id number] SLEH 12:09:55 00:00:00 ALEC 2022-12-05 2022-12-05 Anesthesia AniCarlton [facility] [id number] 12:55:00 14:10:00 Event [facility] 2022-12-05 2022-12-05 Surgery Cindi, [facility] [id number] 12:00:00 13:30:00 [facility] 2022-12-04 2022-12-04 Outpatient ER CHANGEOK, [facility] [id number] SLE 07:19:06 07:19:06 RADHA 2022-07-15 2022-07-15 (TEL) STLMLC STLMLC [id number] Co mmon 00:00:00 00:00:00 [facility] 2022-07-08 2022-07-08 (TEL) STLMLC STLMLC [id number] Co mmon 00:00:00 00:00:00 [facility] 2022-07-08 2022-07-08 OFFICE STLMLC STLMLC [id number] Co mmon 00:00:00 00:00:00 [facility]IT [facility] - CHI LEVEL 4 [facility] 2022-05-27 2022-05-27 OFFICE STLMLC STLMLC [id number] Co mmon 00:00:00 00:00:00 VISIT [facility] PT - CHI LEVEL 4 [facility] 2022-05-17 2022-05-17 (TEL) STLMLC STLMLC [id number] Co mmon 00:00:00 00:00:00 [facility] 2022-05-08 2022-05-08 OFFICE STLMLC STLMLC [id number] Co mmon 00:00:00 00:00:00 VISIT EST Spir it PT LEVEL 3 [facility] 2022-04-30 2022-04-30 (TEL) STLMLC STLMLC [id number] Co mmon 00:00:00 00:00:00 [facility] 2022-04-08 2022-04-08 OFFICE STLMLC STLMLC [id number] Co mmon 00:00:00 00:00:00 VISIT EST Spir it PT LEVEL 3 [facility] 2022-03-06 2022-03-06 OFFICE STLMLC STLMLC [id number] Co mmon 00:00:00 00:00:00 VISIT [facility] PT - CHI LEVEL 4 [facility] 2022-03-04 2022-03-04 (TEL) STLMLC STLMLC [id number] Co mmon 00:00:00 00:00:00 [facility] 2022-02-13 2022-02-13 (TEL) STLMLC STLMLC [id number] Co mmon 00:00:00 00:00:00 [facility] 2022-02-04 2022-02-04 NON-BILLAB STLMLC STLMLC [id number] Common 00:00:00 00:00:00 LE VISIT [facility] 2022-01-03 2022-01-03 NON-BILLAB STLMLC STLMLC [id number] Common 00:00:00 00:00:00 LE VISIT [facility] 2021-12-12 2021-12-12 OFFICE STLMLC STLMLC [id number] Co mmon 00:00:00 00:00:00 VISIT [facility] PT - CHI LEVEL 4 [facility] 2021-12-05 2021-12-05 (TEL) STLMLC STLMLC [id number] Co mmon 00:00:00 00:00:00 [facility] 2021-12-04 2021-12-04 (TEL) STLMLC STLMLC [id number] Co mmon 00:00:00 00:00:00 [facility] 2021-11-29 2021-11-29 (TEL) STLMLC STLMLC [id number] Co mmon 00:00:00 00:00:00 [facility] 2021-11-27 2021-11-27 (TEL) STLMLC STLMLC [id number] Co mmon 00:00:00 00:00:00 [facility] 2021-11-27 2021-11-27 OFFICE STLMLC STLMLC [id number] Co mmon 00:00:00 00:00:00 VISIT EST Spir it PT LEVEL 3 [facility] 2021-11-26 2021-11-26 (TEL) STLMLC STLMLC [id number] Co mmon 00:00:00 00:00:00 [facility] 2021-11-22 2021-11-22 (TEL) STLMLC STLMLC [id number] Co mmon 00:00:00 00:00:00 [facility] 2021-11-16 2021-11-16 (TEL) STLMLC STLMLC [id number] Co mmon 00:00:00 00:00:00 [facility] 2021-11-15 2021-11-15 OFFICE STLMLC STLMLC [id number] Co mmon 00:00:00 00:00:00 VISIT [facility] ESTAB PT - CHI LEVEL 4 [facility] 2021-08-29 2021-08-29 OFFICE STLMLC STLMLC [id number] Co mmon 00:00:00 00:00:00 VISIT [facility] - CHI LEVEL 4 [facility] 2021-08-29 2021-08-29 SUB ANNUAL STLMLC STLMLC [id number] Common 00:00:00 00:00:00 MCR [facility] WELLNESS - CHI VISIT [facility] 2021-08-16 2021-08-16 (TEL) STLMLC STLMLC [id number] Co mmon 00:00:00 00:00:00 [facility] 2021-08-16 2021-08-16 (TEL) STLMLC STLMLC [id number] Co mmon 00:00:00 00:00:00 [facility] 2021-08-13 2021-08-13 OFFICE STLMLC STLMLC [id number] Co mmon 00:00:00 00:00:00 VISIT [facility] ESTAB PT - CHI LEVEL 4 [facility] 2021-06-20 2021-06-20 OFFICE STLMLC STLMLC [id number] Co mmon 00:00:00 00:00:00 VISIT [facility] ESTAB PT - CHI LEVEL 4 [facility] 2021-04-23 2021-04-23 OFFICE STLMLC STLMLC [id number] Co mmon 00:00:00 00:00:00 VISIT [facility] PT - CHI LEVEL 4 [facility] 2021-02-19 2021-02-19 Outpatient STLMLC STLMLC [id number] Common 00:00:00 00:00:00 [facility] 2021-01-12 2021-01-12 Outpatient STLMLC STLMLC [id number] Common 00:00:00 00:00:00 [facility] 2020-12-25 2020-12-25 Outpatient STLMLC STLMLC [id number] Common 00:00:00 00:00:00 [facility] 2020-12-20 2020-12-20 Outpatient STLMLC STLMLC [id number] Common 00:00:00 00:00:00 [facility] 2020-12-08 2020-12-08 Outpatient STLMLC STLMLC [id number] Common 00:00:00 00:00:00 [facility] 2020-11-29 2020-11-29 Outpatient STLMLC STLMLC [id number] Common 00:00:00 00:00:00 [facility] 2020-11-22 2020-11-22 Outpatient STLMLC STLMLC [id number] Common 00:00:00 00:00:00 [facility] 2020-10-23 2020-10-23 Outpatient STLMLC STLMLC [id number] Common 00:00:00 00:00:00 [facility] 2020-10-19 2020-10-19 Outpatient STLMLC STLMLC [id number] Common 00:00:00 00:00:00 [facility] 2020-10-12 2020-10-12 Outpatient STLMLC STLMLC [id number] Common 00:00:00 00:00:00 [facility] 2020-10-12 2020-10-12 Outpatient STLMLC STLMLC [id number] Common 00:00:00 00:00:00 [facility] 2020-10-05 2020-10-05 Outpatient STLMLC STLMLC [id number] Common 00:00:00 00:00:00 [facility] 2020-09-27 2020-09-27 Outpatient STLMLC STLMLC [id number] Common 00:00:00 00:00:00 [facility] 2020-09-25 2020-09-25 Outpatient STLMLC STLMLC [id number] Common 00:00:00 00:00:00 [facility] 2020-09-21 2020-09-21 Outpatient STLMLC STLMLC [id number] Common 00:00:00 00:00:00 [facility] 2020-09-15 2020-09-15 Outpatient STLMLC STLMLC [id number] Common 00:00:00 00:00:00 [facility] 2020-08-22 2020-08-22 Outpatient STLMLC STLMLC [id number] Common 00:00:00 00:00:00 [facility] 2020-08-22 2020-08-22 Outpatient STLMLC STLMLC [id number] Common 00:00:00 00:00:00 [facility] 2020-08-22 2020-08-22 Outpatient STLMLC STLMLC [id number] Common 00:00:00 00:00:00 [facility] 2020-08-15 2020-08-15 Outpatient STLMLC STLMLC [id number] Common 00:00:00 00:00:00 [facility] 2020-07-18 2020-07-18 Outpatient STLMLC STLMLC [id number] Common 00:00:00 00:00:00 [facility] 2020-07-04 2020-07-04 Outpatient STLMLC STLMLC [id number] Common 00:00:00 00:00:00 [facility] 2020-06-22 2020-06-22 Outpatient STLMLC STLMLC [id number] Common 00:00:00 00:00:00 [facility] 2020-06-16 2020-06-16 Outpatient STLMLC STLMLC [id number] Common 00:00:00 00:00:00 [facility] 2020-05-24 2020-05-24 Outpatient STLMLC STLMLC [id number] Common 00:00:00 00:00:00 [facility] 2020-05-16 2020-05-16 Outpatient STLMLC STLMLC [id number] Common 00:00:00 00:00:00 [facility] 2020-05-10 2020-05-10 Outpatient STLMLC STLMLC [id number] Common 00:00:00 00:00:00 [facility] 2020-05-08 2020-05-08 Outpatient STLMLC STLMLC [id number] Common 00:00:00 00:00:00 [facility] 2020-04-21 2020-04-21 Outpatient STLMLC STLMLC [id number] Common 00:00:00 00:00:00 [facility] 2020-04-18 2020-04-18 Outpatient STLMLC STLMLC [id number] Common 00:00:00 00:00:00 [facility] 2020-04-17 2020-04-17 Outpatient STLMLC STLMLC [id number] Common 00:00:00 00:00:00 [facility] 2020-03-28 2020-03-28 Outpatient STLMLC STLMLC [id number] Common 00:00:00 00:00:00 [facility] Results Test Description Test Time Test Comments Results Result Comments Source MISCELLANEOUS LAB ORDER 2022-12-19 11:09:53 Test Item Value Reference Range Interpretation Comme nts SCAN RESULT (test code = 4983297) See scanned report. MISCELLANEOUS LAB [id number] 11:08:07 Test Item Value Reference Range Interpretation Comments SCAN RESULT (test code = See scanned report. [id number]) POCT-GLUCOSE [id number] 11:59:08 Test Item Value Reference Range Interpretation Comments POC-GLUCOSE METER 95 mg/dL 70-110 : TESTED A T [facility] 6720 (BEAKER) (test code = [facility] Johanne [facility], 1538) 29385: Herpetology Teacher/Techni sanna ID = [id number] for Zaire Garduno POCT-GLUCOSE [id number] 07:53:29 Test Item Value Reference Range Interpretation Comments POC-GLUCOSE METER 103 mg/dL 70-110 : TESTED A T [facility] 6720 (BEAKER) (test code = [facility] U[facility], 1538) 52389: Herpetology Teacher/Techni sanna ID = [id number] for Sathish Caputo BASIC METABOLIC [id number] 06:36:22 Test Item Value Reference Range Interpretation Comments SODIUM (BEAKER) 141 meq/L 136-145 (test code = 381) POTASSIUM 3.5 meq/L 3.5-5.1 (BEAKER) (test code = 379) CHLORIDE (BEAKER) 103 meq/L 98-107 (test code = 382) CO2 (BEAKER) 33 meq/L 22-29 H (test code = 355) BLOOD UREA 8 mg/dL 7-21 NITROGEN (BEAKER) (test code = 354) CREATININE 0.50 mg/dL 0.57-1.25 L (BEAKER) (test code = 358) GLUCOSE RANDOM 61 mg/dL 70-105 L (BEAKER) (test code = 652) CALCIUM (BEAKER) 7.4 mg/dL 8.4-10.2 L (test code = 697) EGFR (BEAKER) 101 Interpretatio n of eGFR (test code = mL/min/1.73 values Stage De scription 1092) sq m Result G1 Meryl l or high >=90 G2 Mildly decreased 60-89 G3a Mildl y to moderately 45-5 9 G3b Moderately to s everely 30-44 G4 Severl y decreased 15-29 G5 Kidney failure <15Reported eGF R is based on the CKD-EPI 2020 equation that d oes not use a race coefficientEsti mated GFR is not as accur ate as Creatinine Marisol tellez in predicting glom erular filtration rate . Estimated GFR is not appl icable for dialysis patien ts Herpetology Teacher ID - [id number] 06:32:57 Test Item Value Reference Range Interpretation Comments MAGNESIUM (BEAKER) (test code = 1.4 mg/dL 1.6-2.6 L 627) Herpetology Teacher ID - ADMINPOCT-GLUCOSE [id number] 21:49:26 Test Item Value Reference Range Interpretation Comments POC-GLUCOSE METER 102 mg/dL 70-110 : TESTED A T [facility] 6720 (BEAKER) (test code = [facility], 1538) 58898: Herpetology Teacher/Techni sanna ID = [id number] for LEXIS RENGERBER POCT-GLUCOSE [id number] 16:38:20 Test Item Value Reference Range Interpretation Comments POC-GLUCOSE METER 84 mg/dL 70-110 : TESTED A T [facility] 6720 (BEAKER) (test code = [facility], 1538) 61534: Herpetology Teacher/Techni sanna ID = [id number] for SOLANGE LINKSaraJEANNE IBARRA CALCIUM, [id number] 13:26:58 Test Item Value Reference Range Interpretation Comments CALCIUM IONIZED (BEAKER) (test 1.07 mmol/L 1.12-1.27 L code = 698) PH, BLOOD (BEAKER) (test code = 7.38 1810) POCT-GLUCOSE [id number] 13:10:34 Test Item Value Reference Range Interpretation Comments POC-GLUCOSE METER 138 mg/dL 70-110 H : TESTED A T [facility] 6720 (BEAKER) (test code = [facility], 1538) 31692: Herpetology Teacher/Techni sanna ID = [id number] for Josse hong Mini BASIC METABOLIC [id number] 10:55:13 Test Item Value Reference Range Interpretation Comments SODIUM (BEAKER) 141 meq/L 136-145 (test code = 381) POTASSIUM 4.0 meq/L 3.5-5.1 (BEAKER) (test code = 379) CHLORIDE (BEAKER) 107 meq/L 98-107 (test code = 382) CO2 (BEAKER) 24 meq/L 22-29 (test code = 355) BLOOD UREA 8 mg/dL 7-21 NITROGEN (BEAKER) (test code = 354) CREATININE 0.53 mg/dL 0.57-1.25 L (BEAKER) (test code = 358) GLUCOSE RANDOM 81 mg/dL 70-105 (BEAKER) (test code = 652) CALCIUM (BEAKER) 7.9 mg/dL 8.4-10.2 L (test code = 697) EGFR (BEAKER) 100 Interpretatio n of eGFR (test code = mL/min/1.73 values Stage De scription 1092) sq m Result G1 Meryl l or high >=90 G2 Mildly decreased 60-89 G3a Mildl y to moderately 45-5 9 G3b Moderately to s everely 30-44 G4 Severl y decreased 15-29 G5 Kidney failure <15Reported eGF R is based on the CKD-EPI 2020 equation that d oes not use a race coefficientEsti mated GFR is not as accur ate as Creatinine Marisol rosalinda in predicting glom erular filtration rate . Estimated GFR is not appl icable for dialysis patien ts Herpetology Teacher ID - [id number] 10:31:07 Test Item Value Reference Range Interpretation Comments PHOSPHORUS (BEAKER) (test code = 2.5 mg/dL 2.3-4.7 604) Herpetology Teacher ID - MARCOHEPATIC FUNCTION [id number] 10:31:07 Test Item Value Reference Range Interpretation Comments TOTAL PROTEIN (BEAKER) (test code = 4.4 gm/dL 6.0-8.3 L 770) ALBUMIN (BEAKER) (test code = 1145) 2.1 g/dL 3.5-5.0 L BILIRUBIN TOTAL (BEAKER) (test code 0.4 mg/dL 0.2-1.2 = 377) BILIRUBIN DIRECT (BEAKER) (test 0.2 mg/dL 0.1-0.5 code = 706) ALKALINE PHOSPHATASE (BEAKER) (test 161 U/L 40-150 H code = 346) AST (SGOT) (BEAKER) (test code = 19 U/L 5-34 353) ALT (SGPT) (BEAKER) (test code = 17 U/L 6-55 347) Herpetology Teacher ID - [id number] 10:31:06 Test Item Value Reference Range Interpretation Comments MAGNESIUM (BELIZ) (test code = 1.6 mg/dL 1.6-2.6 627) Herpetology Teacher ID - MARCOPOCT-GLUCOSE [id number] 07:31:40 Test Item Value Reference Range Interpretation Comments POC-GLUCOSE METER 61 mg/dL 70-110 L : Notified RN/MD: TESTED ([facility]) (test code = AT [facility] 67[address] [facility] 1538) [facility], 770 30: Herpetology Teacher/Techni sanna ID = [id number] for ADENIKE NA, RYANAKEMI POCT-GLUCOSE [id number] 23:08:17 Test Item Value Reference Range Interpretation Comments POC-GLUCOSE METER 94 mg/dL 70-110 : TESTED A T [facility] 6720 ([facility]) (test code = [facility], 1538) 81148: Herpetology Teacher/Techni sanna ID = [id number] for Julio César Vadim orozcon POCT-GLUCOSE [id number] 17:45:13 Test Item Value Reference Range Interpretation Comments POC-GLUCOSE METER 92 mg/dL 70-110 : TESTED A T [facility] 6720 ([facility]) (test code = [facility], 1538) 16157: Herpetology Teacher/Techni sanna ID = [id number] for Vagl ienty, Lorraine POCT-GLUCOSE [id number] 13:57:15 Test Item Value Reference Range Interpretation Comments POC-GLUCOSE METER 78 mg/dL 70-110 : TESTED A T [facility] 6720 ([facility]) (test code = [facility], 1538) 78366: Herpetology Teacher/Techni sanna ID = [id number] for Vagl ienty, Lorraine POCT-GLUCOSE [id number] 11:42:52 Test Item Value Reference Range Interpretation Comments POC-GLUCOSE METER 68 mg/dL 70-110 L : [facility] 6720 [facility] (test code = [facility], 1538) 20350: Herpetology Teacher/Techni sanna ID = [id number] for Vagl ienty, Lorraine POCT-GLUCOSE [id number] 11:11:45 Test Item Value Reference Range Interpretation Comments POC-GLUCOSE METER 56 mg/dL 70-110 L : TESTED A T [facility] 6720 (BEAKER) (test code = [facility], [facility]) 08448: Herpetology Teacher/Techni sanna ID = [id number] for Vagl ienty, Lorraine POCT-GLUCOSE [id number] 07:42:46 Test Item Value Reference Range Interpretation Comments POC-GLUCOSE METER 78 mg/dL 70-110 : TESTED A T [facility] 6720 (BEAKER) (test code = [facility], [facility]8) 49752: Herpetology Teacher/Techni sanna ID = [id number] for Vagl ienty, Lorraine POCT-GLUCOSE [id number] 06:15:53 Test Item Value Reference Range Interpretation Comments POC-GLUCOSE METER 83 mg/dL 70-110 : TESTED A T [facility] 6720 (BEAKER) (test code = [facility], [facility]) 83232: Herpetology Teacher/Techni sanna ID = [id number] for [place] , MELLY POCT-GLUCOSE [id number] 05:34:19 Test Item Value Reference Range Interpretation Comments POC-GLUCOSE METER 85 mg/dL 70-110 : TESTED A T [facility] 6720 (BEAKER) (test code = [facility], [facility]) 49730: Herpetology Teacher/Techni sanna ID = [id number] for [place] , MELLY POCT-GLUCOSE [id number] 05:05:09 Test Item Value Reference Range Interpretation Comments POC-GLUCOSE METER 65 mg/dL 70-110 L : TESTED A T [facility] 6720 (BEAKER) (test code = [facility], [facility]) 74663: Herpetology Teacher/Techni sanna ID = [id number] for ANNIE POOLE PARISA POCT-GLUCOSE [id number] 04:15:43 Test Item Value Reference Range Interpretation Comments POC-GLUCOSE METER 68 mg/dL 70-110 L : TESTED A T [facility] 6720 (BEAKER) (test code = [facility], [facility]) 45598: Herpetology Teacher/Techni sanna ID = [id number] for [place] , MELLY POCT-GLUCOSE [id number] 00:18:14 Test Item Value Reference Range Interpretation Comments POC-GLUCOSE METER 94 mg/dL 70-110 : TESTED A T [facility] 6720 (BEAKER) (test code = [facility], 1538) 28725: Herpetology Teacher/Techni sanna ID = [id number] for PARISA ONTIVEROS POCT-GLUCOSE [id number] 20:52:05 Test Item Value Reference Range Interpretation Comments POC-GLUCOSE METER 138 mg/dL 70-110 H : TESTED A T [facility] 6720 (BEAKER) (test code = [facility], 1538) 16319: Herpetology Teacher/Techni sanna ID = [id number] for PARISA VIVAR [id number] 19:44:23 Test Item Value Reference Range Interpretation Comments GLUCOSE RANDOM (BEAKER) (test code = 51 mg/dL 70-105 L 652) Herpetology Teacher ID - [id number] 19:28:40 Test Item Value Reference Range Interpretation Comments GLUCOSE RANDOM (BEAKER) (test code = 61 mg/dL 70-105 L 652) Herpetology Teacher ID - [id number] 19:13:19 Test Item Value Reference Range Interpretation Comments GLUCOSE RANDOM (BEAKER) (test code = 54 mg/dL 70-105 L 652) Herpetology Teacher ID - [id number] 18:41:17 Test Item Value Reference Range Interpretation Comments CORTISOL, TOTAL (BEAKER) (test 11.0 ug/dL 3.7-19.4 code = 2755) Herpetology Teacher ID - DBKETONE, [id number] 18:03:17 Test Item Value Reference Range Interpretation Comments KETONES, BLOOD (BEAKER) (test code 0.1 mmol/L <0.4 = 1103) POCT-GLUCOSE [id number] 17:40:55 Test Item Value Reference Range Interpretation Comments POC-GLUCOSE METER 46 mg/dL 70-110 L : TESTED A T [facility] 6720 (BEAKER) (test code = [facility], 1538) 26384: Herpetology Teacher/Techni sanna ID = [id number] for Kevin seth (contract), Adr sudheer [id number] 15:57:30 Test Item Value Reference Range Interpretation Comments GLUCOSE RANDOM (BEAKER) (test code = 53 mg/dL 70-105 L 652) Herpetology Teacher ID - [id number] 14:13:48 Test Item Value Reference Range Interpretation Comments GLUCOSE RANDOM (BEAKER) (test code = 64 mg/dL 70-105 L 652) Herpetology Teacher ID - mmPOCT-GLUCOSE [id number] 13:11:03 Test Item Value Reference Range Interpretation Comments POC-GLUCOSE METER 51 mg/dL 70-110 L : TESTED A T [facility] 6720 (BEAKER) (test code = [facility] [place], 1538) 865[address]: Herpetology Teacher/Techni sanna ID = [id number] for Kirsty Sevilla POCT-GLUCOSE [id number] 11:11:35 Test Item Value Reference Range Interpretation Comments POC-GLUCOSE METER 62 mg/dL 70-110 L : TESTED A T [facility] 6720 (BEAKER) ([facility], 1538) 65396: Herpetology Teacher/Techni sanna ID = [id number] for Kirsty Sevilla COMPREHENSIVE METABOLIC [id number] 10:49:37 Test Item Value Reference Range Interpretation Comments TOTAL PROTEIN 4.0 gm/dL 6.0-8.3 L (BEAKER) (test code = 770) ALBUMIN (BEAKER) 2.1 g/dL 3.5-5.0 L (test code = 1145) ALKALINE 144 U/L 40-150 PHOSPHATASE (BEAKER) (test code = 346) BILIRUBIN TOTAL 0.4 mg/dL 0.2-1.2 (BEAKER) (test code = 377) SODIUM (BEAKER) 139 meq/L 136-145 (test code = 381) POTASSIUM (BEAKER) 4.1 meq/L 3.5-5.1 (test code = 379) CHLORIDE (BEAKER) 112 meq/L 98-107 H (test code = 382) CO2 (BEAKER) (test 23 meq/L 22-29 code = 355) BLOOD UREA 8 mg/dL 7-21 NITROGEN (BEAKER) (test code = 354) CREATININE 0.63 mg/dL 0.57-1.25 (BEAKER) (test code = 358) GLUCOSE RANDOM 64 mg/dL 70-105 L (BEAKER) (test code = 652) CALCIUM (BEAKER) 8.0 mg/dL 8.4-10.2 L (test code = 697) AST (SGOT) 21 U/L 5-34 (BEAKER) (test code = 353) ALT (SGPT) 19 U/L 6-55 (AKER) (test code = 347) EGFR ([facility]) 96 Interpretatio n of eGFR (test code = 1092) mL/min/1.[address] age Description sq m Result G1 Meryl l or high >=90 G2 Mildly decreased 60-89 G3a Mildl y to moderately 45-5 9 G3b Moderately to s everely 30-44 G4 Severl y decreased 15-29 G5 Kidney failure <15Reported eGF R is based on the CKD-EPI 2020 equation that d oes not use a race coefficientEsti mated GFR is not as accur ate as Creatinine Marisol rosalinda in predicting glom erular filtration rate . Estimated GFR is not appl icable for dialysis patien ts Herpetology Teacher ID - ADMINCALCIUM, [id number] 09:40:39 Test Item Value Reference Range Interpretation Comments CALCIUM IONIZED ([facility]) (test 1.17 mmol/L 1.12-1.27 code = 698) PH, BLOOD ([facility]) (test code = 7.31 1810) POCT-GLUCOSE [id number] 09:20:39 Test Item Value Reference Range Interpretation Comments POC-GLUCOSE METER 64 mg/dL 70-110 L : TESTED A T [facility] 6720 ([employer]) (test code = [facility], 1538) 46342: Herpetology Teacher/Techni sanna ID = [id number] for Kirsty Sevilla POCT-GLUCOSE [id number] 06:36:02 Test Item Value Reference Range Interpretation Comments POC-GLUCOSE METER 75 mg/dL 70-110 : TESTED A T [facility] 6720 ([employer]) (test code = [facility], 1538) 88830: Herpetology Teacher/Techni sanna ID = [id number] for ANNIE ZULEMA PARISA POCT-GLUCOSE [id number] 05:55:02 Test Item Value Reference Range Interpretation Comments POC-GLUCOSE METER 70 mg/dL 70-110 : TESTED A T [facility] 6720 ([employer]) (test code = [facility], 1538) 26147: Herpetology Teacher/Techni sanna ID = [id number] for Judith Dow POCT-GLUCOSE [id number] 02:49:44 Test Item Value Reference Range Interpretation Comments POC-GLUCOSE METER 107 mg/dL 70-110 : TESTED A T [facility] 6720 (BEAKER) (test code = [facility], 1538) 67075: Herpetology Teacher/Techni sanna ID = [id number] for Judith Dow POCT-GLUCOSE [id number] 23:57:40 Test Item Value Reference Range Interpretation Comments POC-GLUCOSE METER 124 mg/dL 70-110 H : TESTED A T [facility] 6720 (BEAKER) (test code = [facility], 1538) 96017: Herpetology Teacher/Techni sanna ID = [id number] for Judith Dow POCT-GLUCOSE [id number] 21:11:55 Test Item Value Reference Range Interpretation Comments POC-GLUCOSE METER 133 mg/dL 70-110 H : TESTED A T [facility] 6720 (BEAKER) (test code = [facility], [facility]8) 28663: Herpetology Teacher/Techni sanna ID = [id number] for Judith oDw POCT-GLUCOSE [id number] 17:20:32 Test Item Value Reference Range Interpretation Comments POC-GLUCOSE METER 145 mg/dL 70-110 H : TESTED A T [facility] 6720 (BEAKER) (test code = [facility], [facility]8) 09784: Herpetology Teacher/Techni sanna ID = [id number] for FA MENDY, FOLAKEMI POCT-GLUCOSE [id number] 15:04:37 Test Item Value Reference Range Interpretation Comments POC-GLUCOSE METER 134 mg/dL 70-110 H : TESTED A T [facility] 6720 (BEAKER) (test code = [facility], [facility]) 18810: Herpetology Teacher/Techni sanna ID = [id number] for FA MENDY, FOLAKEMI TSH/FREE T4 IF [id number] 12:31:03 Test Item Value Reference Range Interpretation Comments THYROID STIMULATING HORMONE 1.226 uIU/mL 0.350-4.940 (BEAKER) (test code = 772) Herpetology Teacher ID - EOOB-TYPE NATRIURETIC FACTOR (BNP)2022-12-10 12:18:12 Test Item Value Reference Range Interpretation Comments B-TYPE NATRIURETIC PEPTIDE (BEAKER) 379 pg/mL 0-100 H (test code = 700) Herpetology Teacher ID - EOOCOMPREHENSIVE METABOLIC [id number] 12:17:03 Test Item Value Reference Range Interpretation Comments TOTAL PROTEIN 4.1 gm/dL 6.0-8.3 L (BEAKER) (test code = 770) ALBUMIN (BEAKER) 2.3 g/dL 3.5-5.0 L (test code = 1145) ALKALINE 155 U/L 40-150 H PHOSPHATASE (BEAKER) (test code = 346) BILIRUBIN TOTAL 0.6 mg/dL 0.2-1.2 (BEAKER) (test code = 377) SODIUM (BEAKER) 138 meq/L 136-145 (test code = 381) POTASSIUM (BEAKER) 4.2 meq/L 3.5-5.1 (test code = 379) CHLORIDE (BEAKER) 110 meq/L 98-107 H (test code = 382) CO2 (BEAKER) (test 23 meq/L 22-29 code = 355) BLOOD UREA 6 mg/dL 7-21 L NITROGEN (BEAKER) (test code = 354) CREATININE 0.59 mg/dL 0.57-1.25 (BEAKER) (test code = 358) GLUCOSE RANDOM 98 mg/dL 70-105 (BEAKER) (test code = 652) CALCIUM (BEAKER) 7.8 mg/dL 8.4-10.2 L (test code = 697) AST (SGOT) 19 U/L 5-34 (BEAKER) (test code = 353) ALT (SGPT) 19 U/L 6-55 (BEAKER) (test code = 347) EGFR (BEAKER) 97 Interpretatio n of eGFR (test code = 1092) mL/min/1.[address] age Description sq m Result G1 Meryl l or high >=90 G2 Mildly decreased 60-89 G3a Mildl y to moderately 45-5 9 G3b Moderately to s everely 30-44 G4 Severl y decreased 15-29 G5 Kidney failure <15Reported eGF R is based on the CKD-EPI 2021 equation that d oes not use a race coefficientEsti mated GFR is not as accur ate as Creatinine Marisol rosalinda in predicting glom erular filtration rate . Estimated GFR is not appl icable for dialysis patien ts Herpetology Teacher ID - EOOPOCT-GLUCOSE [id number] 12:05:23 Test Item Value Reference Range Interpretation Comments POC-GLUCOSE METER 101 mg/dL 70-110 : TESTED A T [facility] 6720 (BEAKER) (test code = [facility], 1538) 92213: Herpetology Teacher/Techni sanna ID = [id number] for Cate Arroyo CALCIUM, [id number] 11:55:13 Test Item Value Reference Range Interpretation Comments CALCIUM IONIZED (BEAKER) (test 1.13 mmol/L 1.12-1.27 code = 698) PH, BLOOD (BEAKER) (test code = 7.37 1810) CBC W/PLT COUNT & AUTO [id number] 11:54:35 Test Item Value Reference Range Interpretation Comments WHITE BLOOD CELL COUNT (BEAKER) 5.6 K/ L 3.5-10.5 (test code = 775) RED BLOOD CELL COUNT (BEAKER) 3.61 M/ L 3.93-5.22 L (test code = 761) HEMOGLOBIN (BEAKER) (test code = 9.8 GM/DL 11.2-15.7 L 410) HEMATOCRIT (BEAKER) (test code = 29.6 % 34.1-44.9 L 411) MEAN CORPUSCULAR VOLUME (BEAKER) 82 fL 79-95 (test code = 753) MEAN CORPUSCULAR HEMOGLOBIN 27.1 pg 25.6-32.2 (BEAKER) (test code = 751) MEAN CORPUSCULAR HEMOGLOBIN CONC 33.1 GM/DL 32.2-35.5 (BEAKER) (test code = 752) RED CELL DISTRIBUTION WIDTH 21.5 % 11.7-14.4 H (BEAKER) (test code = 412) PLATELET COUNT (BEAKER) (test 289 K/CU MM 150-450 code = 756) MEAN PLATELET VOLUME (BEAKER) 10.0 fL 9.4-12.3 (test code = 754) NUCLEATED RED BLOOD CELLS 0 /100 WBC 0-0 (BEAKER) (test code = 413) NEUTROPHILS RELATIVE PERCENT 75 % (BEAKER) (test code = 429) LYMPHOCYTES RELATIVE PERCENT 23 % (BEAKER) (test code = 430) MONOCYTES RELATIVE PERCENT 2 % (BEAKER) (test code = 431) EOSINOPHILS RELATIVE PERCENT 0 % (BEAKER) (test code = 432) BASOPHILS RELATIVE PERCENT 0 % (BEAKER) (test code = 437) NEUTROPHILS ABSOLUTE COUNT 4.20 K/ L 1.56-6.13 (BEAKER) (test code = 670) LYMPHOCYTES ABSOLUTE COUNT 1.27 K/ L 1.18-3.74 (BEAKER) (test code = 414) MONOCYTES ABSOLUTE COUNT (BEAKER) 0.11 K/ L 0.24-0.36 L (test code = 415) EOSINOPHILS ABSOLUTE COUNT 0.00 K/ L 0.04-0.36 L (BEAKER) (test code = 416) BASOPHILS ABSOLUTE COUNT (BEAKER) 0.00 K/ L 0.01-0.08 L (test code = 417) IMMATURE GRANULOCYTES-RELATIVE 0.40 % 0.00-1.00 PERCENT (BEAKER) (test code = 2801) CORTISOL,60 [id number] 10:55:40 Test Item Value Reference Range Interpretation Comments CORTISOL BASELINE NETWORKED 2.6 mcg/dL (BEAKER) (test code = 2307) CORTISOL 30 MINUTE NETWORKED 5.7 mcg/dL (BEAKER) (test code = 2308) CORTISOL, 60 MINUTE (BEAKER) (test 79.8 ug/dL code = 1805) ACTH STIMULATION TEST INTERPRETATION GUIDELINES(Synonyms: Cortrosyn Test, Cosyntropin or Corticotropin Stimulation Test)Adenocorticotropic hormone (ACTH)is a tropic hormone, made in the pituitary gland, which travels trhough the bloodstream and stimulates the cortex of the adrenal glands to release co rtisol. Cortisol is a primary hormone, which aids the body's metabolism of fats, carbohydrates, and protein as well as sodium and potassium regulation.ACTH Stimulation Test: Exogenous administration ofbiologically active ACTH stimulates the secretion of cortisol from the adrenal gland. This test is used to evaluate adrenal function by measuring cortisol levels at baseline and at 30 and 60 minutes after the administration of 250 micrograms of cosyntropin (Cortrosyn). Patients who have received exogenous corticosteroids immediately prior to performing the ACTH Stimulation Test will often have elevated baseline cortisol levels, which may lead to erroneous interpretation of test results. The notable exception is with dexamethasone.Normal Response: An increase in cortisol after stimulation by ACTH isnormal. Post-stimulation cortisol concentration should be greater than 20 mcg/dL or the rate of risefrom baseline cortisol should be greater than or equal to 9 mcg/dL.Patients with sepsis or septic shock: According to a study by Annabelle et al (TOMEKA 2000,283(8):0789-45), the ACTH Stimulation Test provides important prognostic information. This study defined 3 groups of patients with sepsis or septic shock: 1. Good Survival: Low basal cortisol (<or=34 mcg/dL) and high ACTH response (>9mcg/dL) 2.Intermediate Survival: Low basal cortisol (<34 mcg/dL) and low response to ACTH (<or=9 mcg/dL)OR High basal cortisol (>34 mcg/dL) or high ACTH response (>9 mcg/dL) 3. Poor Survival: High basal cortisol (>34 mcg/dL) and low ACTH response (<or=9 mcg/dL).Treatment of patients with relative adrenal dysfunction may be indicated based on test results and the clinical condition of the patient. Additional information, including treatment recommendations, is available in critically ill patients, approved by the Pharmacy, Nutrition, and Therapeutics Committee on 05/18/2004 and available through the Pharmacy Policy and Procedure Section on The Source.Herpetology Teacher ID - ADMINOperator ID - EOOOperator ID - EOOOperator ID - EOOOperator ID - EOOPOCT-GLUCOSE [id number] 10:53:16 Test Item Value Reference Range Interpretation Comments POC-GLUCOSE METER 89 mg/dL 70-110 : TESTED A T [facility] 6720 ([employer]) (test code = [facility], 1538) 27490: Herpetology Teacher/Techni sanna ID = [id number] for Nuno polo Cate POCT-GLUCOSE [id number] 08:33:41 Test Item Value Reference Range Interpretation Comments POC-GLUCOSE METER 86 mg/dL 70-110 : TESTED A T [facility] 6720 ([employer]) (test code = [facility], 1538) 14151: Herpetology Teacher/Techni sanna ID = [id number] for ADENIKE RODRIGUEZ PARTH POCT-GLUCOSE [id number] 06:01:17 Test Item Value Reference Range Interpretation Comments POC-GLUCOSE METER 89 mg/dL 70-110 : TESTED A T [facility] 6720 (BEAKER) (test code = [facility], 1538) 35831: Herpetology Teacher/Techni sanna ID = [id number] for Judith Dow CORTISOL,30 [id number] 03:16:38 Test Item Value Reference Range Interpretation Comments CORTISOL BASELINE NETWORKED 2.6 mcg/dL (BEAKER) (test code = 2307) CORTISOL, 30 MINUTE (BEAKER) (test 5.7 ug/dL code = 1804) ACTH STIMULATION TEST INTERPRETATION GUIDELINES(Synonyms: Cortrosyn Test, Cosyntropin or Corticotropin Stimulation Test)Adenocorticotropic hormone (ACTH)is a tropic hormone, made in the pituitary gland, which travels trhough the bloodstream and stimulates the cortex of the adrenal glands to release co rtisol. Cortisol is a primary hormone, which aids the body's metabolism of fats, carbohydrates, and protein as well as sodium and potassium regulation.ACTH Stimulation Test: Exogenous administration ofbiologically active ACTH stimulates the secretion of cortisol from the adrenal gland. This test is used to evaluate adrenal function by measuring cortisol levels at baseline and at 30 and 60 minutes after the administration of 250 micrograms of cosyntropin (Cortrosyn). Patients who have received exogenous corticosteroids immediately prior to performing the ACTH Stimulation Test will often have elevated baseline cortisol levels, which may lead to erroneous interpretation of test results. The notable exception is with dexamethasone.Normal Response: An increase in cortisol after stimulation by ACTH isnormal. Post-stimulation cortisol concentration should be greater than 20 mcg/dL or the rate of risefrom baseline cortisol should be greater than or equal to 9 mcg/dL.Patients with sepsis or septic shock: According to a study by Annabelle et al (TOMEKA 2000,283(8):1038-45), the ACTH Stimulation Test provides important prognostic information. This study defined 3 groups of patients with sepsis or septic shock: 1. Good Survival: Low basal cortisol (<or=34 mcg/dL) and high ACTH response (>9mcg/dL) 2.Intermediate Survival: Low basal cortisol (<34 mcg/dL) and low response to ACTH (<or=9 mcg/dL)OR High basal cortisol (>34 mcg/dL) or high ACTH response (>9 mcg/dL) 3. Poor Survival: High basal cortisol (>34 mcg/dL) and low ACTH response (<or=9 mcg/dL).Treatment of patients with relative adrenal dysfunction may be indicated based on test results and the clinical condition of the patient. Additional information, including treatment recommendations, is available in critically ill patients, approved by the Pharmacy, Nutrition, and Therapeutics Committee on 05/18/2004 and available through the Pharmacy Policy and Procedure Section on [employer] Source.Herpetology Teacher ID - ADMINCORTISOL,BASELINE 2022-12-10 01:31:54 Test Item Value Reference Range Interpretation Comments CORTISOL, BASELINE (SARKISAKER) (test 2.6 ug/dL code = 1803) ACTH STIMULATION TEST INTERPRETATION GUIDELINES(Synonyms: Cortrosyn Test, Cosyntropin or Corticotropin Stimulation Test)Adenocorticotropic hormone (ACTH)is a tropic hormone, made in the pituitary gland, which travels trhough the bloodstream and stimulates the cortex of the adrenal glands to release co rtisol. Cortisol is a primary hormone, which aids the body's metabolism of fats, carbohydrates, and protein as well as sodium and potassium regulation.ACTH Stimulation Test: Exogenous administration ofbiologically active ACTH stimulates the secretion of cortisol from the adrenal gland. This test is used to evaluate adrenal function by measuring cortisol levels at baseline and at 30 and 60 minutes after the administration of 250 micrograms of cosyntropin (Cortrosyn). Patients who have received exogenous corticosteroids immediately prior to performing the ACTH Stimulation Test will often have elevated baseline cortisol levels, which may lead to erroneous interpretation of test results. The notable exception is with dexamethasone.Normal Response: An increase in cortisol after stimulation by ACTH isnormal. Post-stimulation cortisol concentration should be greater than 20 mcg/dL or the rate of risefrom baseline cortisol should be greater than or equal to 9 mcg/dL.Patients with sepsis or septic shock: According to a study by Annabelle et al (TOMEKA 2000,283(8):5823-45), the ACTH Stimulation Test provides important prognostic information. This study defined 3 groups of patients with sepsis or septic shock: 1. Good Survival: Low basal cortisol (<or=34 mcg/dL) and high ACTH response (>9mcg/dL) 2.Intermediate Survival: Low basal cortisol (<34 mcg/dL) and low response to ACTH (<or=9 mcg/dL)OR High basal cortisol (>34 mcg/dL) or high ACTH response (>9 mcg/dL) 3. Poor Survival: High basal cortisol (>34 mcg/dL) and low ACTH response (<or=9 mcg/dL).Treatment of patients with relative adrenal dysfunction may be indicated based on test results and the clinical condition of the patient. Additional information, including treatment recommendations, is available in critically ill patients, approved by the Pharmacy, Nutrition, and Therapeutics Committee on 05/18/2004 and available through the Pharmacy Policy and Procedure Section on The Source.Herpetology Teacher ID - ADMINCALCIUM, IONIZED 2022-12-10 00:47:12 Test Item Value Reference Range Interpretation Comments CALCIUM IONIZED (BEAKER) (test 1.02 mmol/L 1.12-1.27 L code = 698) PH, BLOOD (BEAKER) (test code = 7.48 1810) HIGH SENSITIVITY TROPONIN [id number] 00:18:48 Test Item Value Reference Range Interpretation Comments HIGH SENSITIVITY TROPONIN I (test 6 pg/ml <=17 code = 5375690) Herpetology Teacher ID - ADMINThe BEATER ENGINEER STAT High Sensitivity Troponin-I results should be used in conjunction with other diagnostic information such as ECG, clinical observations and information, and patientsymptoms to aid in the diagnosis of NM. BASIC METABOLIC [id number] 00:16:34 Test Item Value Reference Range Interpretation Comments SODIUM (BEAKER) 138 meq/L 136-145 (test code = 381) POTASSIUM 4.0 meq/L 3.5-5.1 (BEAKER) (test code = 379) CHLORIDE (BEAKER) 112 meq/L 98-107 H (test code = 382) CO2 (BEAKER) 20 meq/L 22-29 L (test code = 355) BLOOD UREA 7 mg/dL 7-21 NITROGEN (BEAKER) (test code = 354) CREATININE 0.54 mg/dL 0.57-1.25 L (BEAKER) (test code = 358) GLUCOSE RANDOM 114 mg/dL 70-105 H (BEAKER) (test code = 652) CALCIUM (BEAKER) 6.8 mg/dL 8.4-10.2 L (test code = 697) EGFR (BEAKER) 100 Interpretatio n of eGFR (test code = mL/min/1.73 values Stage D escription 1092) sq m Result G1 Meryl l or high >=90 G2 Mildly decreased 60-89 G3a Mildl y to moderately 45-5 9 G3b Moderately to s everely 30-44 G4 Severl y decreased 15-29 G5 Kidney failure <15Reported eGF R is based on the CKD-EPI 2020 equation that d oes not use a race coefficientEsti mated GFR is not as accur ate as Creatinine Marisol rosalinda in predicting glom erular filtration rate . Estimated GFR is not appl icable for dialysis patien ts Herpetology Teacher ID - ADMINLACTIC ACID, [id number] 00:08:09 Test Item Value Reference Range Interpretation Comments LACTATE BLOOD VENOUS (2) (BEAKER) 1.10 mmol/L 0.50-2.00 (test code = 2872) Herpetology Teacher ID - ADMINCBC W/PLT COUNT & AUTO [id number] 23:59:48 Test Item Value Reference Range Interpretation Comments WHITE BLOOD CELL COUNT (BEAKER) 7.9 K/ L 3.5-10.5 (test code = 775) RED BLOOD CELL COUNT (BEAKER) 3.25 M/ L 3.93-5.22 L (test code = 761) HEMOGLOBIN (BEAKER) (test code = 8.6 GM/DL 11.2-15.7 L 410) HEMATOCRIT (BEAKER) (test code = 26.5 % 34.1-44.9 L 411) MEAN CORPUSCULAR VOLUME (BEAKER) 82 fL 79-95 (test code = 753) MEAN CORPUSCULAR HEMOGLOBIN 26.5 pg 25.6-32.2 (BEAKER) (test code = 751) MEAN CORPUSCULAR HEMOGLOBIN CONC 32.5 GM/DL 32.2-35.5 (BEAKER) (test code = 752) RED CELL DISTRIBUTION WIDTH 21.3 % 11.7-14.4 H (BEAKER) (test code = 412) PLATELET COUNT (BEAKER) (test 226 K/CU MM 150-450 code = 756) MEAN PLATELET VOLUME (BEAKER) 9.6 fL 9.4-12.3 (test code = 754) NUCLEATED RED BLOOD CELLS 0 /100 WBC 0-0 (BEAKER) (test code = 413) NEUTROPHILS RELATIVE PERCENT 77 % (BEAKER) (test code = 429) LYMPHOCYTES RELATIVE PERCENT 20 % (BEAKER) (test code = 430) MONOCYTES RELATIVE PERCENT 2 % (BEAKER) (test code = 431) EOSINOPHILS RELATIVE PERCENT 0 % (BEAKER) (test code = 432) BASOPHILS RELATIVE PERCENT 0 % (BEAKER) (test code = 437) NEUTROPHILS ABSOLUTE COUNT 6.04 K/ L 1.56-6.13 (BEAKER) (test code = 670) LYMPHOCYTES ABSOLUTE COUNT 1.57 K/ L 1.18-3.74 (BEAKER) (test code = 414) MONOCYTES ABSOLUTE COUNT (BEAKER) 0.19 K/ L 0.24-0.36 L (test code = 415) EOSINOPHILS ABSOLUTE COUNT 0.00 K/ L 0.04-0.36 L (BEAKER) (test code = 416) BASOPHILS ABSOLUTE COUNT (BEAKER) 0.01 K/ L 0.01-0.08 (test code = 417) IMMATURE GRANULOCYTES-RELATIVE 0.50 % 0.00-1.00 PERCENT (BEAKER) (test code = 2801) POCT-GLUCOSE [id number] 23:50:15 Test Item Value Reference Range Interpretation Comments POC-GLUCOSE METER 119 mg/dL 70-110 H : TESTED A T [facility] 6720 (BEAKER) (test code = [facility], 153) 60503: Herpetology Teacher/Techni sanna ID = [id number] for Vi rgile (contract), Amairani line POCT-GLUCOSE [id number] 16:19:12 Test Item Value Reference Range Interpretation Comments POC-GLUCOSE METER 125 mg/dL 70-110 H : TESTED A T [facility] 6720 (BEAKER) (test code [facility], = 1538) 79023: Herpetology Teacher/Techni sanna ID = [id number] for Isma on, Kristi POCT-GLUCOSE [id number] 12:24:09 Test Item Value Reference Range Interpretation Comments POC-GLUCOSE METER 69 mg/dL 70-110 L : TESTED A T [facility] 6720 (BEAKER) (test code = [facility], 153) 16152: Herpetology Teacher/Techni sanna ID = [id number] for MARBIN LGO, AGLAE COMPREHENSIVE METABOLIC [id number] 06:03:48 Test Item Value Reference Range Interpretation Comments TOTAL PROTEIN 3.2 gm/dL 6.0-8.3 L (BEAKER) (test code = 770) ALBUMIN (BEAKER) 1.5 g/dL 3.5-5.0 L (test code = 1145) ALKALINE 162 U/L 40-150 H PHOSPHATASE (BEAKER) (test code = 346) BILIRUBIN TOTAL 0.3 mg/dL 0.2-1.2 (BEAKER) (test code = 377) SODIUM (BEAKER) 139 meq/L 136-145 (test code = 381) POTASSIUM (BEAKER) 4.0 meq/L 3.5-5.1 (test code = 379) CHLORIDE (BEAKER) 113 meq/L 98-107 H (test code = 382) CO2 (BEAKER) (test 22 meq/L 22-29 code = 355) BLOOD UREA 7 mg/dL 7-21 NITROGEN (BEAKER) (test code = 354) CREATININE 0.57 mg/dL 0.57-1.25 (BEAKER) (test code = 358) GLUCOSE RANDOM 94 mg/dL 70-105 (BEAKER) (test code = 652) CALCIUM (BEAKER) 7.0 mg/dL 8.4-10.2 L (test code = 697) AST (SGOT) 15 U/L 5-34 (BEAKER) (test code = 353) ALT (SGPT) 19 U/L 6-55 (BEAKER) (test code = 347) EGFR (BEAKER) 98 Interpretatio n of eGFR (test code = 1092) mL/min/1.[address] age Description sq m Result G1 Meryl l or high >=90 G2 Mildly decreased 60-89 G3a Mildl y to moderately 45-5 9 G3b Moderately to s everely 30-44 G4 Severl y decreased 15-29 G5 Kidney failure <15Reported eGF R is based on the CKD-EPI 2021 equation that d oes not use a race coefficientEsti mated GFR is not as accur ate as Creatinine Marisol tellez in predicting glom erular filtration rate . Estimated GFR is not appl icable for dialysis patien ts Herpetology Teacher ID - MARCOCBC W/PLT COUNT & AUTO [id number] 05:22:46 Test Item Value Reference Range Interpretation Comments WHITE BLOOD CELL COUNT (BEAKER) 6.3 K/ L 3.5-10.5 (test code = 775) RED BLOOD CELL COUNT (BEAKER) 3.36 M/ L 3.93-5.22 L (test code = 761) HEMOGLOBIN (BEAKER) (test code = 9.0 GM/DL 11.2-15.7 L 410) HEMATOCRIT (BEAKER) (test code = 27.6 % 34.1-44.9 L 411) MEAN CORPUSCULAR VOLUME (BEAKER) 82 fL 79-95 (test code = 753) MEAN CORPUSCULAR HEMOGLOBIN 26.8 pg 25.6-32.2 (BEAKER) (test code = 751) MEAN CORPUSCULAR HEMOGLOBIN CONC 32.6 GM/DL 32.2-35.5 (BEAKER) (test code = 752) RED CELL DISTRIBUTION WIDTH 21.9 % 11.7-14.4 H (BEAKER) (test code = 412) PLATELET COUNT (BEAKER) (test 253 K/CU MM 150-450 code = 756) MEAN PLATELET VOLUME (BEAKER) 10.2 fL 9.4-12.3 (test code = 754) NUCLEATED RED BLOOD CELLS 0 /100 WBC 0-0 (BEAKER) (test code = 413) NEUTROPHILS RELATIVE PERCENT 45 % (BEAKER) (test code = 429) LYMPHOCYTES RELATIVE PERCENT 45 % (BEAKER) (test code = 430) MONOCYTES RELATIVE PERCENT 8 % (BEAKER) (test code = 431) EOSINOPHILS RELATIVE PERCENT 2 % (BEAKER) (test code = 432) BASOPHILS RELATIVE PERCENT 1 % (BEAKER) (test code = 437) NEUTROPHILS ABSOLUTE COUNT 2.82 K/ L 1.56-6.13 (BEAKER) (test code = 670) LYMPHOCYTES ABSOLUTE COUNT 2.82 K/ L 1.18-3.74 (BEAKER) (test code = 414) MONOCYTES ABSOLUTE COUNT (BEAKER) 0.50 K/ L 0.24-0.36 H (test code = 415) EOSINOPHILS ABSOLUTE COUNT 0.12 K/ L 0.04-0.36 (BEAKER) (test code = 416) BASOPHILS ABSOLUTE COUNT (BEAKER) 0.05 K/ L 0.01-0.08 (test code = 417) IMMATURE GRANULOCYTES-RELATIVE 0.20 % 0.00-1.00 PERCENT (BEAKER) (test code = 2801) POCT-GLUCOSE [id number] 21:14:23 Test Item Value Reference Range Interpretation Comments POC-GLUCOSE METER 87 mg/dL 70-110 : TESTED A T [facility] 6720 (BEAKER) (test code = [facility], 1538) [address]: Herpetology Teacher/Techni sanna ID = [id number] for TALON MOODY POCT-GLUCOSE [id number] 18:44:18 Test Item Value Reference Range Interpretation Comments POC-GLUCOSE METER 111 mg/dL 70-110 H : TESTED A T [facility] 6720 (BEAKER) (test code = [facility], 1538) 80[address]: Herpetology Teacher/Techni sanna ID = [id number] for Denice Duarte [id number] 16:41:53 Test Item Value Reference Range Interpretation Comments CORTISOL, TOTAL (BEAKER) (test code 6.9 ug/dL 3.7-19.4 = 2755) Herpetology Teacher ID - MARCOPOCT-GLUCOSE [id number] 11:33:12 Test Item Value Reference Range Interpretation Comments POC-GLUCOSE METER 101 mg/dL 70-110 : TESTED A T [facility] 6720 (BEAKER) (test code = [facility], 1538) [address]: Herpetology Teacher/Techni sanna ID = [id number] for Ga rySkipia COMPREHENSIVE METABOLIC [id number] 05:42:54 Test Item Value Reference Range Interpretation Comments TOTAL PROTEIN 3.4 gm/dL 6.0-8.3 L (BEAKER) (test code = 770) ALBUMIN (BEAKER) 1.5 g/dL 3.5-5.0 L (test code = 1145) ALKALINE 182 U/L 40-150 H PHOSPHATASE (BEAKER) (test code = 346) BILIRUBIN TOTAL 0.4 mg/dL 0.2-1.2 (BEAKER) (test code = 377) SODIUM (BEAKER) 135 meq/L 136-145 L (test code = 381) POTASSIUM (BEAKER) 4.2 meq/L 3.5-5.1 (test code = 379) CHLORIDE (BEAKER) 111 meq/L 98-107 H (test code = 382) CO2 (BEAKER) (test 20 meq/L 22-29 L code = 355) BLOOD UREA 9 mg/dL 7-21 NITROGEN (BEAKER) (test code = 354) CREATININE 0.60 mg/dL 0.57-1.25 (BEAKER) (test code = 358) GLUCOSE RANDOM 64 mg/dL 70-105 L (BEAKER) (test code = 652) CALCIUM (BEAKER) 6.9 mg/dL 8.4-10.2 L (test code = 697) AST (SGOT) 16 U/L 5-34 (BEAKER) (test code = 353) ALT (SGPT) 18 U/L 6-55 (BEAKER) (test code = 347) EGFR (BEAKER) 97 Interpretatio n of eGFR (test code = 1092) mL/min/1.[address] age Description sq m Result G1 Meryl l or high >=90 G2 Mildly decreased 60-89 G3a Mildl y to moderately 45-5 9 G3b Moderately to s everely 30-44 G4 Severl y decreased 15-29 G5 Kidney failure <15Reported eGF R is based on the CKD-EPI 2020 equation that d oes not use a race coefficientEsti mated GFR is not as accur ate as Creatinine Marisol rosalinda in predicting glom erular filtration rate . Estimated GFR is not appl icable for dialysis patien ts Herpetology Teacher ID - ADMINCBC W/PLT COUNT & AUTO [id number] 04:57:42 Test Item Value Reference Range Interpretation Comments WHITE BLOOD CELL COUNT (BEAKER) 7.9 K/ L 3.5-10.5 (test code = 775) RED BLOOD CELL COUNT (BEAKER) 3.41 M/ L 3.93-5.22 L (test code = 761) HEMOGLOBIN (BEAKER) (test code = 9.3 GM/DL 11.2-15.7 L 410) HEMATOCRIT (BEAKER) (test code = 27.9 % 34.1-44.9 L 411) MEAN CORPUSCULAR VOLUME (BEAKER) 82 fL 79-95 (test code = 753) MEAN CORPUSCULAR HEMOGLOBIN 27.3 pg 25.6-32.2 (BEAKER) (test code = 751) MEAN CORPUSCULAR HEMOGLOBIN CONC 33.3 GM/DL 32.2-35.5 (BEAKER) (test code = 752) RED CELL DISTRIBUTION WIDTH 21.7 % 11.7-14.4 H (BEAKER) (test code = 412) PLATELET COUNT (BEAKER) (test 237 K/CU MM 150-450 code = 756) MEAN PLATELET VOLUME (BEAKER) 9.4 fL 9.4-12.3 (test code = 754) NUCLEATED RED BLOOD CELLS 0 /100 WBC 0-0 (BEAKER) (test code = 413) NEUTROPHILS RELATIVE PERCENT 46 % (BEAKER) (test code = 429) LYMPHOCYTES RELATIVE PERCENT 44 % (BEAKER) (test code = 430) MONOCYTES RELATIVE PERCENT 8 % (BEAKER) (test code = 431) EOSINOPHILS RELATIVE PERCENT 1 % (BEAKER) (test code = 432) BASOPHILS RELATIVE PERCENT 1 % (BEAKER) (test code = 437) NEUTROPHILS ABSOLUTE COUNT 3.64 K/ L 1.56-6.13 (BEAKER) (test code = 670) LYMPHOCYTES ABSOLUTE COUNT 3.51 K/ L 1.18-3.74 (BEAKER) (test code = 414) MONOCYTES ABSOLUTE COUNT (BEAKER) 0.60 K/ L 0.24-0.36 H (test code = 415) EOSINOPHILS ABSOLUTE COUNT 0.08 K/ L 0.04-0.36 (BEAKER) (test code = 416) BASOPHILS ABSOLUTE COUNT (BEAKER) 0.05 K/ L 0.01-0.08 (test code = 417) IMMATURE GRANULOCYTES-RELATIVE 0.30 % 0.00-1.00 PERCENT (BEAKER) (test code = 2801) POCT-GLUCOSE [id number] 21:04:44 Test Item Value Reference Range Interpretation Comments POC-GLUCOSE METER 93 mg/dL 70-110 : Notified RN/MD: TESTED ([facility]) (test code = AT [facility] 67[address] [facility] 1538) [facility], 770 30: Herpetology Teacher/Techni sanna ID = [id number] for AL GA TALON POCT-GLUCOSE [id number] 11:47:33 Test Item Value Reference Range Interpretation Comments POC-GLUCOSE METER 93 mg/dL 70-110 : TESTED A T [facility] 6720 ([facility]) (test code = SAMRA Whiting [facility], 1538) [address]: Herpetology Teacher/Techni sanna ID = [id number] for Matthew Denice COMPREHENSIVE METABOLIC [id number] 08:53:35 Test Item Value Reference Range Interpretation Comments TOTAL PROTEIN 3.5 gm/dL 6.0-8.3 L (BEAKER) (test code = 770) ALBUMIN (BEAKER) 1.6 g/dL 3.5-5.0 L (test code = 1145) ALKALINE 207 U/L 40-150 H PHOSPHATASE (BEAKER) (test code = 346) BILIRUBIN TOTAL 0.5 mg/dL 0.2-1.2 (BEAKER) (test code = 377) SODIUM (BEAKER) 135 meq/L 136-145 L (test code = 381) POTASSIUM (BEAKER) 4.3 meq/L 3.5-5.1 (test code = 379) CHLORIDE (BEAKER) 110 meq/L 98-107 H (test code = 382) CO2 (BEAKER) (test 19 meq/L 22-29 L code = 355) BLOOD UREA 11 mg/dL 7-21 NITROGEN (BEAKER) (test code = 354) CREATININE 0.61 mg/dL 0.57-1.25 (BEAKER) (test code = 358) GLUCOSE RANDOM 58 mg/dL 70-105 L (BEAKER) (test code = 652) CALCIUM (BEAKER) 7.1 mg/dL 8.4-10.2 L (test code = 697) AST (SGOT) 19 U/L 5-34 (BEAKER) (test code = 353) ALT (SGPT) 22 U/L 6-55 (BEAKER) (test code = 347) EGFR (BEAKER) 97 Interpretatio n of eGFR (test code = 1092) mL/min/1.[address] age Description sq m Result G1 Meryl l or high >=90 G2 Mildly decreased 60-89 G3a Mildl y to moderately 45-5 9 G3b Moderately to s everely 30-44 G4 Severl y decreased 15-29 G5 Kidney failure <15Reported eGF R is based on the CKD-EPI 2021 equation that d oes not use a race coefficientEsti mated GFR is not as accur ate as Creatinine Marisol tellez in predicting glom erular filtration rate . Estimated GFR is not appl icable for dialysis patien ts Herpetology Teacher ID - ADMINPOCT-GLUCOSE [id number] 06:26:28 Test Item Value Reference Range Interpretation Comments POC-GLUCOSE METER 51 mg/dL 70-110 L : Notified RN/MD: TESTED (BEAKER) (test code = AT [facility] [address] 2994) [facility], 770 30: Herpetology Teacher/Techni sanna ID = [id number] for Jerson [place] CBC W/PLT COUNT & AUTO [id number] 05:14:50 Test Item Value Reference Range Interpretation Comments WHITE BLOOD CELL COUNT (BEAKER) 8.3 K/ L 3.5-10.5 (test code = 775) RED BLOOD CELL COUNT (BEAKER) 3.74 M/ L 3.93-5.22 L (test code = 761) HEMOGLOBIN (BEAKER) (test code = 9.8 GM/DL 11.2-15.7 L 410) HEMATOCRIT (BEAKER) (test code = 30.4 % 34.1-44.9 L 411) MEAN CORPUSCULAR VOLUME (BEAKER) 81 fL 79-95 (test code = 753) MEAN CORPUSCULAR HEMOGLOBIN 26.2 pg 25.6-32.2 (BEAKER) (test code = 751) MEAN CORPUSCULAR HEMOGLOBIN CONC 32.2 GM/DL 32.2-35.5 (BEAKER) (test code = 752) RED CELL DISTRIBUTION WIDTH 21.8 % 11.7-14.4 H (BEAKER) (test code = 412) PLATELET COUNT (BEAKER) (test 225 K/CU MM 150-450 code = 756) MEAN PLATELET VOLUME (BEAKER) 9.5 fL 9.4-12.3 (test code = 754) NUCLEATED RED BLOOD CELLS 0 /100 WBC 0-0 (BEAKER) (test code = 413) NEUTROPHILS RELATIVE PERCENT 58 % (BEAKER) (test code = 429) LYMPHOCYTES RELATIVE PERCENT 32 % (BEAKER) (test code = 430) MONOCYTES RELATIVE PERCENT 8 % (BEAKER) (test code = 431) EOSINOPHILS RELATIVE PERCENT 1 % (BEAKER) (test code = 432) BASOPHILS RELATIVE PERCENT 0 % (BEAKER) (test code = 437) NEUTROPHILS ABSOLUTE COUNT 4.85 K/ L 1.56-6.13 (BEAKER) (test code = 670) LYMPHOCYTES ABSOLUTE COUNT 2.63 K/ L 1.18-3.74 (BEAKER) (test code = 414) MONOCYTES ABSOLUTE COUNT (BEAKER) 0.67 K/ L 0.24-0.36 H (test code = 415) EOSINOPHILS ABSOLUTE COUNT 0.08 K/ L 0.04-0.36 (BEAKER) (test code = 416) BASOPHILS ABSOLUTE COUNT ([facility]) 0.03 K/ L 0.01-0.08 (test code = 417) IMMATURE GRANULOCYTES-RELATIVE 0.50 % 0.00-1.00 PERCENT ([facility]) (test code = 2801) POCT-GLUCOSE [id number] 23:13:58 Test Item Value Reference Range Interpretation Comments POC-GLUCOSE METER 87 mg/dL 70-110 : Notified RN/MD: TESTED ([facility]) (test code = AT [address] 1538) [facility], [facility] 30: Herpetology Teacher/Techni sanna ID = [id number] for Jorden Jerson min POCT-GLUCOSE [id number] 18:36:07 Test Item Value Reference Range Interpretation Comments POC-GLUCOSE METER 103 mg/dL 70-110 : TESTED A T [facility] 6720 ([facility]) (test code = SAMRA Whiting [facility], 153) [address]: Herpetology Teacher/Techni sanna ID = [id number] for Brett fernandes Denice POCT-GLUCOSE [id number] 11:43:35 Test Item Value Reference Range Interpretation Comments POC-GLUCOSE METER 75 mg/dL 70-110 : TESTED A T [place] [id number] ([facility]) ([facility], 153) [address]: Herpetology Teacher/Techni sanna ID = [id number] for Matthew Denice POC-Glucose [id number] 06:29:20 Test Item Value Reference Range Interpretation Comments POC-Glucose Meter (test 82 mg/dL 70-110 : No tified RN/MD: code = 1538) TESTED AT [address], [facility] 30: Herpetology Teacher/Techni sanna ID = [id number] for Hermelinda Wolf e Lab Interpretation (test Normal code = 29124-6) [facility] [id number] 06:29:20 Test Item Value Reference Range Interpretation Comments POC-GLUCOSE METER 82 mg/dL 70-110 : Notified RN/MD: TESTED ([facility]) (test code = AT [place] [id number] [facility] 1538) [facility], [facility] 30: Herpetology Teacher/Techni sanna ID = [id number] for Jorden Jerson min COMPREHENSIVE METABOLIC [id number] 05:53:21 Test Item Value Reference Range Interpretation Comments TOTAL PROTEIN 3.0 gm/dL 6.0-8.3 L (BEAKER) (test code = 770) ALBUMIN (BEAKER) 1.5 g/dL 3.5-5.0 L (test code = 1145) ALKALINE 171 U/L 40-150 H PHOSPHATASE (BEAKER) (test code = 346) BILIRUBIN TOTAL 0.6 mg/dL 0.2-1.2 (BEAKER) (test code = 377) SODIUM (BEAKER) 135 meq/L 136-145 L (test code = 381) POTASSIUM (BEAKER) 3.9 meq/L 3.5-5.1 (test code = 379) CHLORIDE (BEAKER) 110 meq/L 98-107 H (test code = 382) CO2 (BEAKER) (test 21 meq/L 22-29 L code = 355) BLOOD UREA 13 mg/dL 7-21 NITROGEN (BEAKER) (test code = 354) CREATININE 0.56 mg/dL 0.57-1.25 L (BEAKER) (test code = 358) GLUCOSE RANDOM 88 mg/dL 70-105 (BEAKER) (test code = 652) CALCIUM (BEAKER) 6.7 mg/dL 8.4-10.2 L (test code = 697) AST (SGOT) 15 U/L 5-34 (BEAKER) (test code = 353) ALT (SGPT) 19 U/L 6-55 (BEAKER) (test code = 347) EGFR (BEAKER) 99 Interpretatio n of eGFR (test code = 1092) mL/min/1.73 values S tage Description sq m Result G1 Meryl l or high >=90 G2 Mildly decreased 60-89 G3a Mildl y to moderately 45-5 9 G3b Moderately to s everely 30-44 G4 Severl y decreased 15-29 G5 Kidney failure <15Reported eGF R is based on the CKD-EPI 1 equation that d oes not use a race coefficientEsti mated GFR is not as accur ate as Creatinine Marisol rosalinda in predicting glom erular filtration rate . Estimated GFR is not appl icable for dialysis patien ts Herpetology Teacher ID - [id number] 05:34:10 Test Item Value Reference Range Interpretation Comments FERRITIN (BEAKER) (test code = 69.94 ng/mL 5.00-275.00 361) Herpetology Teacher ID - MMVITAMIN [id number] 05:34:09 Test Item Value Reference Range Interpretation Comments VITAMIN B12 (BEAKER) (test code = 1062 pg/mL 213-816 H 774) Herpetology Teacher ID - MMIRON, TIBC, % SAT. (WITHOUT FERRITIN)2022-12-06 05:07:14 Test Item Value Reference Range Interpretation Comments IRON (BEAKER) (test code = 547) 62.0 ug/dL 40.0-160.0 TOTAL IRON BINDING CAPACITY 53 ug/dL 250-450 L (BEAKER) (test code = 769) IRON % SATURATION (2) (BEAKER) 117 % 20-55 H (test code = 2590) Herpetology Teacher ID - MMCBC W/PLT COUNT & AUTO [id number] 04:51:18 Test Item Value Reference Range Interpretation Comments WHITE BLOOD CELL COUNT (BEAKER) 7.8 K/ L 3.5-10.5 (test code = 775) RED BLOOD CELL COUNT (BEAKER) 3.22 M/ L 3.93-5.22 L (test code = 761) HEMOGLOBIN (BEAKER) (test code = 8.6 GM/DL 11.2-15.7 L 410) HEMATOCRIT (BEAKER) (test code = 25.6 % 34.1-44.9 L 411) MEAN CORPUSCULAR VOLUME (BEAKER) 80 fL 79-95 (test code = 753) MEAN CORPUSCULAR HEMOGLOBIN 26.7 pg 25.6-32.2 (BEAKER) (test code = 751) MEAN CORPUSCULAR HEMOGLOBIN CONC 33.6 GM/DL 32.2-35.5 (BEAKER) (test code = 752) RED CELL DISTRIBUTION WIDTH 21.3 % 11.7-14.4 H (BEAKER) (test code = 412) PLATELET COUNT (BEAKER) (test 250 K/CU MM 150-450 code = 756) MEAN PLATELET VOLUME (BEAKER) 9.3 fL 9.4-12.3 L (test code = 754) NUCLEATED RED BLOOD CELLS 0 /100 WBC 0-0 (BEAKER) (test code = 413) NEUTROPHILS RELATIVE PERCENT 59 % (BEAKER) (test code = 429) LYMPHOCYTES RELATIVE PERCENT 31 % (BEAKER) (test code = 430) MONOCYTES RELATIVE PERCENT 8 % (BEAKER) (test code = 431) EOSINOPHILS RELATIVE PERCENT 1 % (BEAKER) (test code = 432) BASOPHILS RELATIVE PERCENT 0 % (BEAKER) (test code = 437) NEUTROPHILS ABSOLUTE COUNT 4.60 K/ L 1.56-6.13 (BEAKER) (test code = 670) LYMPHOCYTES ABSOLUTE COUNT 2.42 K/ L 1.18-3.74 (BEAKER) (test code = 414) MONOCYTES ABSOLUTE COUNT (BEAKER) 0.63 K/ L 0.24-0.36 H (test code = 415) EOSINOPHILS ABSOLUTE COUNT 0.04 K/ L 0.04-0.36 (BEAKER) (test code = 416) BASOPHILS ABSOLUTE COUNT (BEAKER) 0.02 K/ L 0.01-0.08 (test code = 417) IMMATURE GRANULOCYTES-RELATIVE 0.50 % 0.00-1.00 PERCENT (BEAKER) (test code = 2801) POCT-GLUCOSE [id number] 00:49:24 Test Item Value Reference Range Interpretation Comments POC-GLUCOSE METER 93 mg/dL 70-110 : Notified RN/MD: TESTED (BEAKER) (test code = AT [facility] [address] [facility] 1538) [facility], 770 30: Herpetology Teacher/Techni sanna ID = [id number] for Jorden pako Jerson POCT-GLUCOSE [id number] 18:12:50 Test Item Value Reference Range Interpretation Comments POC-GLUCOSE METER 171 mg/dL 70-110 H : TESTED A T [facility] 6720 (BEAKER) (test code = SAMRA Wh[place] [facility], 1538) [address]: Herpetology Teacher/Techni sanna ID = [id number] for Norris Pereira COMPREHENSIVE METABOLIC [id number] 08:36:27 Test Item Value Reference Range Interpretation Comments TOTAL PROTEIN 3.4 gm/dL 6.0-8.3 L (BEAKER) (test code = 770) ALBUMIN (BEAKER) 1.8 g/dL 3.5-5.0 L (test code = 1145) ALKALINE 196 U/L 40-150 H PHOSPHATASE (BEAKER) (test code = 346) BILIRUBIN TOTAL 0.7 mg/dL 0.2-1.2 (BEAKER) (test code = 377) SODIUM (BEAKER) 141 meq/L 136-145 (test code = 381) POTASSIUM (BEAKER) 5.1 meq/L 3.5-5.1 (test code = 379) CHLORIDE (BEAKER) 113 meq/L 98-107 H (test code = 382) CO2 (BEAKER) (test 25 meq/L 22-29 code = 355) BLOOD UREA 15 mg/dL 7-21 NITROGEN (BEAKER) (test code = 354) CREATININE 0.58 mg/dL 0.57-1.25 (BEAKER) (test code = 358) GLUCOSE RANDOM 60 mg/dL 70-105 L (BEAKER) (test code = 652) CALCIUM (BEAKER) 7.1 mg/dL 8.4-10.2 L (test code = 697) AST (SGOT) 21 U/L 5-34 (BEAKER) (test code = 353) ALT (SGPT) 21 U/L 6-55 (BEAKER) (test code = 347) EGFR (BEAKER) 98 Interpretatio n of eGFR (test code = 1092) mL/min/1.[address] age Description sq m Result G1 Meryl l or high >=90 G2 Mildly decreased 60-89 G3a Mildl y to moderately 45-5 9 G3b Moderately to s everely 30-44 G4 Severl y decreased 15-29 G5 Kidney failure <15Reported eGF R is based on the CKD-EPI 2020 equation that d oes not use a race coefficientEsti mated GFR is not as accur ate as Creatinine Marisol rosalinda in predicting glom erular filtration rate . Estimated GFR is not appl icable for dialysis patien ts PROTHROMBIN [id number] 05:13:42 Test Item Value Reference Range Interpretation Comments PROTIME (BEAKER) (test code = 16.2 seconds 11.9-14.2 H 759) INR (BEAKER) (test code = 370) 1.33 <=5.90 RECOMMENDED COUMADIN/WARFARIN INR THERAPY RANGESSTANDARD DOSE: 2.0 - 3.0 Includes: PROPHYLAXIS for venous thrombosis, systemic embolization; TREATMENT for venous thrombosis and/or pulmonary embolus.HIGH RISK: Target INR is 2.5-3.5 for patients with mechanical heart valves.CBC W/PLT COUNT & AUTO [id number] 05:12:20 Test Item Value Reference Range Interpretation Comments WHITE BLOOD CELL COUNT (BEAKER) 12.7 K/ L 3.5-10.5 H (test code = 775) RED BLOOD CELL COUNT (BEAKER) 3.78 M/ L 3.93-5.22 L (test code = 761) HEMOGLOBIN (BEAKER) (test code = 10.0 GM/DL 11.2-15.7 L 410) HEMATOCRIT (BEAKER) (test code = 30.2 % 34.1-44.9 L 411) MEAN CORPUSCULAR VOLUME (BEAKER) 80 fL 79-95 (test code = 753) MEAN CORPUSCULAR HEMOGLOBIN 26.5 pg 25.6-32.2 (BEAKER) (test code = 751) MEAN CORPUSCULAR HEMOGLOBIN CONC 33.1 GM/DL 32.2-35.5 (BEAKER) (test code = 752) RED CELL DISTRIBUTION WIDTH 22.0 % 11.7-14.4 H (BEAKER) (test code = 412) PLATELET COUNT (BEAKER) (test 295 K/CU MM 150-450 code = 756) MEAN PLATELET VOLUME (BEAKER) 9.3 fL 9.4-12.3 L (test code = 754) NUCLEATED RED BLOOD CELLS 0 /100 WBC 0-0 (BEAKER) (test code = 413) NEUTROPHILS RELATIVE PERCENT 62 % (BEAKER) (test code = 429) LYMPHOCYTES RELATIVE PERCENT 29 % (BEAKER) (test code = 430) MONOCYTES RELATIVE PERCENT 7 % (BEAKER) (test code = 431) EOSINOPHILS RELATIVE PERCENT 1 % (BEAKER) (test code = 432) BASOPHILS RELATIVE PERCENT 0 % (BEAKER) (test code = 437) NEUTROPHILS ABSOLUTE COUNT 7.92 K/ L 1.56-6.13 H (BEAKER) (test code = 670) LYMPHOCYTES ABSOLUTE COUNT 3.67 K/ L 1.18-3.74 (BEAKER) (test code = 414) MONOCYTES ABSOLUTE COUNT (BEAKER) 0.90 K/ L 0.24-0.36 H (test code = 415) EOSINOPHILS ABSOLUTE COUNT 0.10 K/ L 0.04-0.36 (BEAKER) (test code = 416) BASOPHILS ABSOLUTE COUNT (BEAKER) 0.05 K/ L 0.01-0.08 (test code = 417) IMMATURE GRANULOCYTES-RELATIVE 0.40 % 0.00-1.00 PERCENT (BEAKER) (test code = 2801) MR ABDOMEN WITH & WITHOUT IV [id number] 11:46:01 [facility] : 1955 Sex: FTECHNIQUE: MRI of the abdomen and MRCP WITHOUT and WITH intravenouscontrast. 3-D volume reconstructionswere obtained to evaluate thebiliary ductal system.INDICATION: Unlisted Reason for Exampancreatic head fullness- evaluate further for mass.COMPARISON: None.FINDINGS:ABSENCE OF INTRAVENOUS CONTRAST DECREASES SENSITIVITY FOR DETECTION OFFOCAL LESIONS AND VASCULAR PATHOLOGY.LOWER THORAX: Unremarkable.LIVER: The liver is decreased in signal on out of phase imaging. Nofocal hepatic lesions. BILIARY: Priorcourses cystectomy. There is mild intrahepatic biliarydilation. There is mild, more focal dilation in segment V as seen onaxial portal venous phase image 56.SPLEEN: No splenomegaly. The spleen measures9.3 cm in length.PANCREAS: No focal masses or ductal dilatation. The pancreas isatrophic.ADRENALS: No adrenal nodules.KIDNEYS/URETERS: No hydronephrosis or solid mass lesions. A few simpleleft renal cysts measure up to 0.7 cm. No follow-up imaging isrecommended.PERITONEUM/RETROPERITONEUM: Small-volumeascites. Edema in themesentery.LYMPH NODES: No lymphadenopathy.VESSELS: Conventional hepatic arterial anatomy. The main portal vein ispatent and measures 1.5 cm in diameter.GI TRACT: Prior Manan-en-Y gastric bypass. Distended stomach is thickenedwith edematous wall. There is a focal area of decreased T2 weightedsignal which measures 1 cm in the excluded gastric antrum on series 301image [id number].The left colonic wall is mildly thickened and ahaustral.BONES AND SOFT TISSUES: Unremarkable.IMPRESSION:1. No definite pancreatic mass is visualized.2. The left colonic wall thickening and lack of haustra is nonspecificbut can be seen with chronic colitis such as ulcerative colitis.3. Diffuse fatty infiltration of the liver. There is a small volume ofabdominal ascites with edema in the mesentery. In addition, the mainportal vein is dilated, concerning for portal hypertension.4. There is mild intrahepatic biliary dilation. This could be due toreservoir effect from the prior cholecystectomy but is indeterminate.Ifthe patient has an obstructive pattern of liver function tests, furtherevaluation is recommended. In addition, there is a focal, more dilatedintrahepatic bile ducts within segment V. A follow-up MR of the abdomenwith and without intravenous contrast with MRCP is recommended in threemonths to document stability.5. The thickening of the excluded gastric wall is concerning forgastritis. An area of decreased T2 weighted signal in the gastric antrumis nonspecific. The differential is broad and includes a biopsy clip, anulcer, and a site of scar.Electronically Signed By: Matthew Mcclure12/04/2022 11:48 CDTWorkstation Name: [id number] W/PLT COUNT & AUTO [id number] 07:21:42 Test Item Value Reference Range Interpretation Comments WHITE BLOOD CELL COUNT (BEAKER) 10.8 K/ L 3.5-10.5 H (test code = 775) RED BLOOD CELL COUNT (BEAKER) 3.77 M/ L 3.93-5.22 L (test code = 761) HEMOGLOBIN (BEAKER) (test code = 10.1 GM/DL 11.2-15.7 L 410) HEMATOCRIT (BEAKER) (test code = 30.1 % 34.1-44.9 L 411) MEAN CORPUSCULAR VOLUME (BEAKER) 80 fL 79-95 (test code = 753) MEAN CORPUSCULAR HEMOGLOBIN 26.8 pg 25.6-32.2 (BEAKER) (test code = 751) MEAN CORPUSCULAR HEMOGLOBIN CONC 33.6 GM/DL 32.2-35.5 (BEAKER) (test code = 752) RED CELL DISTRIBUTION WIDTH 21.5 % 11.7-14.4 H (BEAKER) (test code = 412) PLATELET COUNT (BEAKER) (test 293 K/CU MM 150-450 code = 756) MEAN PLATELET VOLUME (BEAKER) 9.3 fL 9.4-12.3 L (test code = 754) NUCLEATED RED BLOOD CELLS 0 /100 WBC 0-0 (BEAKER) (test code = 413) NEUTROPHILS RELATIVE PERCENT 72 % (BEAKER) (test code = 429) LYMPHOCYTES RELATIVE PERCENT 20 % (BEAKER) (test code = 430) MONOCYTES RELATIVE PERCENT 6 % (BEAKER) (test code = 431) EOSINOPHILS RELATIVE PERCENT 1 % (BEAKER) (test code = 432) BASOPHILS RELATIVE PERCENT 1 % (BEAKER) (test code = 437) NEUTROPHILS ABSOLUTE COUNT 7.83 K/ L 1.56-6.13 H (BEAKER) (test code = 670) LYMPHOCYTES ABSOLUTE COUNT 2.19 K/ L 1.18-3.74 (BEAKER) (test code = 414) MONOCYTES ABSOLUTE COUNT (BEAKER) 0.64 K/ L 0.24-0.36 H (test code = 415) EOSINOPHILS ABSOLUTE COUNT 0.06 K/ L 0.04-0.36 (BEAKER) (test code = 416) BASOPHILS ABSOLUTE COUNT (BEAKER) 0.05 K/ L 0.01-0.08 (test code = 417) IMMATURE GRANULOCYTES-RELATIVE 0.40 % 0.00-1.00 PERCENT (BEAKER) (test code = 2801) BASIC METABOLIC [id number] 05:33:40 Test Item Value Reference Range Interpretation Comments SODIUM (BEAKER) 134 meq/L 136-145 L (test code = 381) POTASSIUM 4.5 meq/L 3.5-5.1 Specimen slight ly (BEAKER) (test hemolyzed code = 379) CHLORIDE (BEAKER) 110 meq/L 98-107 H (test code = 382) CO2 (BEAKER) 19 meq/L 22-29 L (test code = 355) BLOOD UREA 25 mg/dL 7-21 H NITROGEN (BEAKER) (test code = 354) CREATININE 0.65 mg/dL 0.57-1.25 Specimen slight ly (BEAKER) (test hemolyzed code = 358) GLUCOSE RANDOM 45 mg/dL 70-105 L (BEAKER) (test code = 652) CALCIUM (BEAKER) 6.9 mg/dL 8.4-10.2 L (test code = 697) EGFR (BEAKER) 95 Interpretatio n of eGFR (test code = mL/min/1.73 values Stage De scription 1092) sq m Result G1 Meryl l or high >=90 G2 Mildly decreased 60-89 G3a Mildl y to moderately 45-5 9 G3b Moderately to s everely 30-44 G4 Severl y decreased 15-29 G5 Kidney failure <15Reported eGF R is based on the CKD-EPI 2020 equation that d oes not use a race coefficientEsti mated GFR is not as accur ate as Creatinine Marisol rosalinda in predicting glom erular filtration rate . Estimated GFR is not appl icable for dialysis patien ts Herpetology Teacher ID - ADMINHEPATIC FUNCTION [id number] 05:33:33 Test Item Value Reference Range Interpretation Comments TOTAL PROTEIN (BEAKER) 3.6 gm/dL 6.0-8.3 L Speci men slightly (test code = 770) hemolyzed ALBUMIN (BEAKER) (test 1.8 g/dL 3.5-5.0 L Speci men slightly code = 1145) hemolyzed BILIRUBIN TOTAL 0.6 mg/dL 0.2-1.2 Specimen sli ghtly (BEAKER) (test code = hemoly zed 377) BILIRUBIN DIRECT 0.3 mg/dL 0.1-0.5 Specimen sl ightly (BEAKER) (test code = hemoly zed 706) ALKALINE PHOSPHATASE 168 U/L 40-150 H (BEAKER) (test code = 346) AST (SGOT) (BEAKER) 18 U/L 5-34 Specimen slightly (test code = 353) hemolyzed ALT (SGPT) (BEAKER) 19 U/L 6-55 Specimen slightly (test code = 347) hemolyzed Herpetology Teacher ID - ADMIN
[2023-01-01 14:16] VITALS: BMI 22.6
[2023-01-01] MEDS ORDERED: ACETAMINOPHEN 325 MG TABLET PO PRN (14:49)
[2023-01-01] MEDS ORDERED: DIPHENHYDRAMINE 25 MG TAB/CAP PO PRN (14:50)
[2023-01-01] MEDS ORDERED: LOPERAMIDE HCL 2 MG CAPSULE PO PRN (14:51)
[2023-01-01] MEDS ORDERED: ONDANSETRON 4 MG/2 ML VIAL IV PRN (14:52)
[2023-01-01] MEDS ORDERED: POLYETHYL GLY 3350 17 GM/DOSE PO PRN (14:53)
[2023-01-01] MEDS ORDERED: NACHLORIDE 0.45% 1,000 ML IV SCH (15:00)
--- NOTE | 2023-01-01 15:52 | RAD REPORT ---
EXAM DESCRIPTION: US - Extrem Venous W Compress Jorge - 01/01/2023 3:42 pm CLINICAL HISTORY: Venous doppler both legs stat, severe edema Bilateral leg edema and swelling. COMPARISON: Extremity Nonvascular Complete dated 08/13/2022 TECHNIQUE: Real-time sonographic interrogation of the left and right lower extremity deep venous sys tems was performed. FINDINGS: Normal compressibility, flow augmentation, phasic flow and spontaneous flow is identified in both the left and right lower extremity deep venous systems. IMPRESSION: No sonographic evidence of left or right lower extremity deep venous thrombosis.
[2023-01-01 16:46] LABS: Specific Gravity 1.014 (1.005-1.030); Urine Bilirubin NEGATIVE (Negative); Urine Blood Negative (Negative); Urine Clarity Clear (Clear); Urine Color Light-Yellow (Yellow); Urine Glucose NEGATIVE (Negative); Urine Protein NEGATIVE (Negative); Urine Urobilinogen Normal (Normal); Urine pH 6.5 (5.0-7.0)
[2023-01-01 17:06] LABS: UR MICROALBUMIN < 0.5 mg/dL (< 1.9)
[2023-01-01 17:26] LABS: Hematocrit 27.7 % (36.0-45.0); MCV 86.7 fL (80-100)
[2023-01-01 17:27] LABS: Absolute Lymphocytes (CBC) 2.3 K/uL (0.7-4.9); Lymphocytes % 29.9 % (15.3-44.8)
[2023-01-01 17:31] LABS: Protime INR 1.12
--- NOTE | 2023-01-01 19:18 | RAD REPORT ---
EXAM DESCRIPTION: MRI - Abdomen WWo Cont - 01/01/2023 7:08 pm CLINICAL HISTORY: possible mass on pancreas Abdominal pain COMPARISON: Chest Single View dated 12/02/2022; Head C Spine Cap Wo Con dated 12/02/2022 FINDINGS: No liver masses seen. Blooming artifact is present in the hepatic hilum. No significant bi liary dilatation. No pancreatic mass is suspected. Pancreatic atrophy is present. The spleen, adrenal glands and kidney s are within normal limits. No bulky lymphadenopathy in the abdomen. No free fluid collections. Mild free fluid seen around the l iver edge. IMPRESSION: No pancreatic mass is suspected.
[2023-01-01] MEDS ORDERED: ENOXAPARIN 60 MG/0.6 ML SQ SCH (21:00)
[2023-01-01] MEDS ORDERED: MIRTAZAPINE 15 MG TAB PO SCH (21:00)
[2023-01-01 21:09] LABS: Albumin 1.4 g/dL (3.4-5.0); Bilirubin Direct 0.2 mg/dL (0-0.2); Bilirubin Indirect, Calculated 0.1 mg/dL (0.2-0.8); Bilirubin Total 0.3 mg/dL (0.2-1.0); Magnesium 2.2 mg/dL (1.6-2.4); Phosphorus 2.8 mg/dL (2.5-4.9); Potassium 4.2 mEq/L (3.5-5.1); Protein, Total 3.9 g/dL (6.4-8.2); Thyroid Stimulating Hormone 3.04 uIU/mL (0.358-3.740)
[2023-01-01] MEDS ORDERED: CODEINE 30MG/APAP 300MG TAB PO PRN (21:12)
[2023-01-01] MEDS ORDERED: COSYNTROPIN 0.25 MG VIAL IV ONE (21:18)
[2023-01-02] MEDS ORDERED: PANTOPRAZOLE 40MG TABLET PO SCH (07:30)
[2023-01-02 07:38] VITALS: BP 103/51; TEMP 98.9
[2023-01-02] MEDS ORDERED: COSYNTROPIN 0.25 MG VIAL IV ONE (09:00)
[2023-01-02] MEDS ORDERED: HYDROXYZINE HCL 10 MG/5 ML SYRUP UD PO SCH (09:00)
[2023-01-02] MEDS ORDERED: JUVEN PACKET PO SCH (09:00)
[2023-01-02] MEDS ORDERED: ENOXAPARIN 40 MG/0.4 ML SQ SCH (09:00)
[2023-01-02 09:37] VITALS: O2SAT 98
[2023-01-02] MEDS ORDERED: MIRTAZAPINE 30 MG PO SCH (21:00)
--- NOTE | 2023-01-02 21:32 | P.DS ---
Admission Date: 01/01/23 Discharge Date: 01/02/23 Disposition: ROUTINE DISCHARGE Discharge Condition: FAIR Hospital Course: GISEL HAS SEVERE EDEMA OF LEGS BECAUSE OF HYPOALBUMINENMIA. IT IS NOT CLEAR ABOUT ETIOLOGY OF THIS. SHE DOES NOT HAVE NEPHROTIC SYNDROME OR CIRRHOSIS OF LIVER. SHE MAY HAVE GI LOSSES BUT NOT CLEAR WHY OR CONFIRMED. SHE IS DRINKING ENOUGH PROTEIN. SHE HAS HAD GASTRIC BYPASS AND THAT MAY GIVE RISE TO MALNOURISHED STATUS. HE RMRI SHOWS NO PANCREATIC TUMORS. SHE HAD ERCP IN [address] AND STENT. SHE WILL BRING ME HER GI DOCTOR'S NAME. SHE IS STABLE FOR DISCHARGE AND WILL AVOID DIURETICS BP STAYS LOW. [facility] Vital Signs/Physical Exam: Temp Pulse Resp BP Pulse Ox 98.9 F 68 17 103/51 L 97 01/02/23 07:35 01/02/23 07:35 01/02/23 11:40 01/02/23 07:35 01/02/23 11:40 Laboratory Data at Discharge: WBC 7.70 thou/uL (4.3-10.9) 01/01/23 15:04 Hgb 8.9 g/dL (12.0-15.0) L 01/01/23 15:04 Hct 27.7 % (36.0-45.0) L 01/01/23 15:04 Plt Count 359 thou/uL (152-406) 01/01/23 15:04 PT 12.3 SECONDS (9.5-12.5) 01/01/23 15:04 INR 1.12 01/01/23 15:04 APTT 35.6 SECONDS (24.3-36.9) 01/01/23 15:04 Sodium 144 mEq/L (136-145) 01/02/23 03:51 Potassium 4.0 mEq/L (3.5-5.1) 01/02/23 03:51 BUN 15 mg/dL (7-18) 01/02/23 03:51 Creatinine 0.45 mg/dL (0.55-1.02) L 01/02/23 03:51 Glucose 66 mg/dL (74-106) L 01/02/23 03:51 Phosphorus 2.8 mg/dL (2.5-4.9) 01/01/23 19:57 Magnesium 2.0 mg/dL (1.6-2.4) 01/02/23 03:51 Total Bilirubin 0.3 mg/dL (0.2-1.0) 01/01/23 19:57 AST 14 U/L (15-37) L 01/01/23 19:57 ALT 17 U/L (13-56) 01/01/23 19:57 Alkaline Phosphatase 175 U/L (45-117) H 01/01/23 19:57 Home Medications: Mirtazapine [Remeron] 30 mg PO BEDTIME 11/16/21 Codeine/APAP [Tylenol W/Codeine #3 tab] 1 tab PO Q6HP PRN 09/11/22 Furosemide [Lasix] 40 mg PO DAILY 01/01/23 Hydroxyzine HCl [Atarax] 10 mg PO DAILY 01/01/23 Pantoprazole [Protonix Tab] 40 mg PO DAILY 01/01/23 Spironolactone [Aldactone] 25 mg PO DAILY 01/01/23
[2023-01-09 19:32] LABS: Immunoglobulin A 172 mg/dL (70-320); Tissue Transglutaminase IgA Ab <1.0 U/mL (<15.0)
== END 2023-01-02 15:09 | disposition home or self-care (01) ==
LOC: 4TH 13:23 → UNDOADMOB 13:23 → 4TH 13:49
PROVIDERS: ADMIT Internal Medicine; ATTEND Internal Medicine
DX: R60.0 Localized edema (principal); E88.09 Other disorders of plasma-protein metabolism, not elsewhere classified; R63.4 Abnormal weight loss; K86.89 Other specified diseases of pancreas; Z98.84 Bariatric surgery status; Z95.5 Presence of coronary angioplasty implant and graft; Z96.89 Presence of other specified functional implants; Z79.01 Long term (current) use of anticoagulants
CPT/HCPCS: 36415; 74183; 80048; 80076; 81003; 82024; 82043; 82306; 82533; 82570; 82607; 82784; 83036; 83525; 83735; 84100; 84443; 85025; 85610; 85730; 86364; 93970; A9577; J0834; J1650

== ENCOUNTER 2023-05-28 18:11 | Observation (INO) | payer OTHER ==
--- NOTE | 2023-05-28 18:49 | P.HP ---
Certification for Inpatient Patient admitted to: Observation With expected LOS: <2 Midnights Practitioner: I am a practitioner with admitting privileges, knowledge of patient current condition, hospital course, and medical plan of care. Services: Services provided to patient in accordance with Admission requirements found in Title 42 Section 412.3 of the Code of Federal Regulations Patient History Date of Service: 05/28/23 Reason for admission: Chest Pain History of Present Illness: 67 yo female with a past medical history of hyperglycemia, anxiety, CHF, aortic stenosis who was started having chest pain for the last 2 to 3 months and has been progressively worsening and was brought to ER. Patient stated that of reason she has chest pain retrosternal with radiation to the left and also to the right jaw. Patient has been seen by rn anesthetist and was advised to come over to the ER for possible angiogram in the morning. Denies any shortness of breath. No diaphoresis. No nausea vomiting or diarrhea. At the time of interview pain is controlled well. Patient was seen in the ER and was admitted for further management of possible unstable angina Allergies Iodine and Iodide Containing Produc Allergy (Verified 05/28/23 09:00) Hives/Rash naproxen Allergy (Verified 05/28/23 09:00) Hives/Rash Home medications list reviewed: Yes Home Medications: Mirtazapine [Remeron] 30 mg PO BEDTIME 11/16/21 Codeine/APAP [Tylenol W/Codeine #3 tab] 1 tab PO Q6HP PRN 09/11/22 Furosemide [Lasix] 40 mg PO DAILY 01/01/23 Magnesium Oxide [Mag-Oxide Magnesium] 200 mg PO DAILY 05/28/23 Tizanidine [Zanaflex] 4 mg PO DAILY 05/28/23 - Past Medical/Surgical History Past Medical History: Reviewed- Non-Contributory -: Anxiety disorder -: osteoarthritis 2009 -: recent chf -: aortic stenosis -: stomach ulcer -: hypoglycemic Past Surgical History: Reviewed- Non-Contributory -: Gastric bypass surgery -: Cholecystectomy -: Hysterectomy -: Back surgery -: Hip surgery -: appendectomy -: births x2 -: left lung nodule removed in 1996 - Family History Family History: Reviewed- Non-Contributory - Family History Sister -: Hypertension, Diabetes, Cancer Father -: Hypertension, Diabetes, Cancer Mother -: Hypertension, Diabetes, Cancer Brother -: Hypertension, Diabetes - Social History Smoking Status: Current every day smoker Alcohol use: No CD- Drugs: No Caffeine use: Yes Review of Systems 10-point ROS is otherwise unremarkable General: Unremarkable Eyes: Unremarkable ENT: Unremarkable Respiratory: Unremarkable Cardiovascular: Chest Pain Gastrointestinal: Unremarkable Genitourinary: Unremarkable Physical Examination - Vital Signs Temperature: 98.6 F Blood Pressure: 118/72 Pulse: 78 Respirations: 18 Pulse Ox (%): 96 - Physical Exam General: Alert, In no apparent distress, Oriented x3 HEENT: Atraumatic, Normocephalic Neck: Supple, No Thyromegaly, No LAD Respiratory: Clear to auscultation bilaterally, Normal air movement Cardiovascular: Normal pulses, Regular rate/rhythm, Normal S1 S2 Capillary refill: <2 Seconds Gastrointestinal: Normal bowel sounds, Soft and benign, W/out hepatosplenomegaly Musculoskeletal: No clubbing, No swelling Integumentary: No rashes, No breakdown Neurological: Normal speech, Normal strength at 5/5 x4 extr, Normal tone, Sensation intact, Cranial nerves 3-12 intact, Normal reflexes 2+ Lymphatics: No axilla or inguinal lymphadenopathy Assessment and Plan - Problems (Diagnosis) (1) Unstable angina Current Visit: Yes Status: Acute Plan: Monitor closely on telemetry Trend cardiac enzymes Initial troponin is negative Cardiology consult Will keep n.p.o. postmidnight Started on aspirin and statin Patient supposed to go to left heart cath in the morning we will get a lipid panel and A1c in a.m. (2) Anxiety disorder Current Visit: No Status: Chronic Plan: Continue home medications and titrate as needed History of CHF with no exacerbation Aortic sclerosis/mild aortic stenosis Continue home medications and supportive management Discharge Plan: Home Plan to discharge in: 24 Hours - Advance Directives Does patient have a Living Will: No Does patient have a Durable POA for Healthcare: No - Code Status/Comfort Care Code Status: Full Code Time Spent Managing Pts Care (In Minutes): 48
[2023-05-28 19:00] LABS: Protime INR 0.94
[2023-05-28 19:02] LABS: Absolute Lymphocytes (CBC) 3.2 K/uL (0.7-4.9); Hematocrit 34.9 % (36.0-45.0); Lymphocytes % 41.6 % (15.3-44.8); MCV 80.2 fL (80-100); MPV 7.2 fL (7.6-11.3); Platelets 336 thou/uL (152-406); RBC Red Blood Cell Count 4.36 M/uL (3.86-4.86)
[2023-05-28 19:17] LABS: Magnesium 2.1 mg/dL (1.6-2.4); Potassium 4.1 mEq/L (3.5-5.1); Troponin High Sensitivity 7.6 pg/mL (<58.9)
--- NOTE | 2023-05-28 19:51 | EDPHYS ---
Physician Documentation [facility] Name: Jacqueline Bellamy Age: 67 yrs Sex: Female : 1955 Arrival Date: 05/28/2023 Time: 18:11 Bed 15 Private MD: ED Physician Senthil Sebastian HPI: 05/28 18:34 This 67 yrs old Female presents to ER via Ambulatory with complaints of Chest Pain. ms3 18:34 67-year-old female with past medical history of aortic stenosis, arthritis, congestive ms3 heart failure, osteoporosis presents to the emergency department for chest pain that is been ongoing intermittently for 1 month. Patient states she called her senior benefits specialist, Dr. Santana, and he referred patient to the emergency department. Patient states her episode of chest pain began this afternoon. Patient denies nausea, vomiting, sweating. Patient states the pain is a 6/10 described as pressure. Patient denies any alleviating or inciting factors. Historical: - Allergies: 18:15 IV contrast; bp 18:15 Naproxen; bp - PMHx: 18:15 Aortic Stenosis; Arthritis; Congestive heart failure; Osteoporosis; bp - PSHx: 18:15 breast reduction; Cholecystectomy; Gastric Bypass; Hip replacement; knee replacement; bp Total abdominal hysterectomy; Shoulder replacement; - Immunization history:: Adult Immunizations up to date. - Social history:: Smoking status: unknown. ROS: 18:34 Constitutional: Negative for fever, and chills. Neck: Negative for injury, pain, and ms3 swelling, 18:34 Respiratory: Negative for shortness of breath, cough, wheezing, and pleuritic chest pain, Abdomen/GI: Negative for abdominal pain, nausea, vomiting, diarrhea, and constipation, MS/Extremity: Negative for injury and deformity, Skin: Negative for injury, rash, and discoloration, 18:34 Cardiovascular: Positive for chest pain, 18:34 All other systems are negative, Exam: 18:34 Constitutional: This is a well developed, well nourished patient who is awake, alert, ms3 and in no acute distress. Head/Face: Normocephalic, atraumatic. Neck: Trachea midline, no cervical lymphadenopathy. Supple, full range of motion without nuchal rigidity, or vertebral point tenderness. No Meningismus. Chest/axilla: Normal chest wall appearance and motion. Nontender with no deformity. Respiratory: Lungs have equal breath sounds bilaterally, clear to auscultation and percussion. No rales, rhonchi or wheezes noted. No increased work of breathing, no retractions or nasal flaring. Abdomen/GI: Soft, non-tender, with normal bowel sounds. No distension or tympany. No guarding or rebound. No evidence of tenderness throughout. Skin: Warm, dry with normal turgor. Normal color with no rashes, no lesions, and no evidence of cellulitis. 18:34 Cardiovascular: Rate: normal, Rhythm: regular, Pulses: no pulse deficits are appreciated, 18:34 ECG was reviewed by the Attending Physician. ms3 Vital Signs: 18:13 BP 139 / 63; Pulse 91; Resp 16; Temp 98; Pulse Ox 98% ; Weight 53.07 kg; Height 5 ft. 2 bp in. ; 21:00 BP 130 / 63; Pulse 71; Resp 15 S; Pulse Ox 97% on R/A; ha1 18:13 Body Mass Index 21.40 (53.07 kg, 157.48 cm) bp MDM: 18:33 Patient medically screened. ms3 18:34 Differential diagnosis: abnormal EKG, acute myocardial infarction, coronary artery ms3 disease. 19:45 HEART Score: History: Moderately Suspicious (1), ECG: Normal (0), Age: > or = 65 years ms3 (2), Risk Factors: 1 or 2 risk factors (1), Troponin: < or = 1 x Normal Limit (0), Total Score = 4. The patient was given aspirin in the Emergency Department. Data reviewed: vital signs, nurses notes, lab test result(s), EKG, radiologic studies, and as a result, I will admit patient. Consideration of Admission/Observation Patient was admitted/placed on observation. Management of patient was discussed with the following: Hospitalist: Discussed case with Dr Cruz. All questions answered. I considered the following discharge prescriptions or medication management in the emergency department Medications were administered in the Emergency Department. See MAR. Independent interpretation of the following test(s) in the Emergency Department EKG: See my EKG interpretation above. Care significantly affected by the following chronic conditions: Congestive Heart Failure. Counseling: I had a detailed discussion with the patient and/or guardian regarding the historical points, exam findings, and any diagnostic results supporting the discharge/admit diagnosis, lab results, radiology results, the need for further work-up and treatment in the hospital. ED course: Discussed necessity of admission with patient. She understands/ agrees with plan. All questions answered.. 05/28 18:17 Order name: Basic Metabolic Panel; Complete Time: 19:42 ms3 05/28 18:17 Order name: CBC with Diff; Complete Time: 19:42 ms3 05/28 18:17 Order name: Magnesium; Complete Time: 19:42 ms3 05/28 18:17 Order name: NT PRO-BNP; Complete Time: 19:42 ms3 05/28 18:17 Order name: PT-INR; Complete Time: 19:16 ms3 05/28 18:17 Order name: Troponin HS; Complete Time: 19:42 ms3 05/28 20:03 Order name: Urinalysis w/ reflexes EDMS 05/28 20:03 Order name: CBC with Automated Diff EDMS 05/28 20:03 Order name: CBC with Automated Diff EDMS 05/28 20:03 Order name: Comprehensive Metabolic Panel EDMS 05/28 20:03 Order name: Comprehensive Metabolic Panel EDMS 05/28 20:03 Order name: Lipid Profile EDMS 05/28 20:03 Order name: Lipid Profile EDMS 05/28 20:03 Order name: Troponin High Sensitivity EDMS 05/28 20:03 Order name: Troponin High Sensitivity EDMS 05/28 20:03 Order name: Troponin High Sensitivity EDMS 05/28 20:03 Order name: Troponin High Sensitivity EDMS 05/29 08:06 Order name: Glucose, Ancillary Testing EDMS 05/28 18:17 Order name: XRAY Chest (1 view); Complete Time: 20:19 ms3 05/28 18:17 Order name: EKG; Complete Time: 18:17 ms3 05/28 18:17 Order name: Cardiac monitoring; Complete Time: 20:33 ms3 05/28 18:17 Order name: EKG - Nurse/Tech; Complete Time: 18:29 ms3 05/28 18:17 Order name: IV Saline Lock; Complete Time: 18:52 ms3 05/28 18:17 Order name: Labs collected and sent; Complete Time: 18:52 ms3 05/28 18:17 Order name: O2 Per Protocol; Complete Time: 18:52 ms3 05/28 18:17 Order name: O2 Sat Monitoring; Complete Time: 20:33 ms3 EC:34 Rate is 79 beats/min. Rhythm is regular. QRS Clifford is Normal. OH interval is normal. QRS ms3 interval is normal. Clinical impression: Normal ECG. Interpreted by me. Reviewed by me. Administered Medications: 19:56 Drug: Aspirin PO 325 mg PO once Route: PO; jw7 Disposition Summary: 05/28/23 19:50 Hospitalization Ordered Notes: Hospitalization Status: Observation ms3 Provider: Dave Cruz ms3 Condition: Stable ms3 Problem: new ms3 Symptoms: are unchanged ms3 Bed/Room Type: Standard ms3 Location: Telemetry/MedSurg (observation)(05/29/23 13:15) [facility] Room Assignment: [facility](05/29/23 13:15) [facility] Diagnosis - Chest pain, unspecified ms3 - Essential (primary) hypertension ms3 Forms: - Medication Reconciliation Form ms3 - SBAR form ms3 - Leadership Thank You Letter ms3 Signatures: Dispatcher [employer] Sha Smith em1 Aki Perry, RN RN jb4 Fran Larios RN RN ja1 Virgilio Talavera, RN RN Senthil Alarcon DO DO ms3 Acacia Small, RN RN jw7 Corrections: (The following items were deleted from the chart) 18:16 18:15 PSHx: Hip replacement; bp bp 18:16 18:15 PSHx: Hip replacement; bp bp 18:16 18:15 PSHx: Hip replacement; bp bp 18:16 18:15 PSHx: Shoulder replacement; bp bp 23:32 19:50 Telemetry/MedSurg (observation) ms3 jb4 23:32 19:50 ms3 jb4 05/29 11:44 12 23:32 [facility] ER HOLD jb4 em1 05/29 11:44 12 23:32 ERHOLD- jb4 em1 05/29 12:19 11:44 Telemetry/MedSurg (observation) em1 ja1 12:19 11:44 413 em1 ja1 13:15 12:19 [facility] ER HOLD ja1 ja1 13:15 12:19 ERHOLD- ja1 ja1
--- NOTE | 2023-05-28 19:51 | ER ---
Nurse's Notes [facility] Name: Jacqueline Bellamy Age: 67 yrs Sex: Female : 1955 Arrival Date: 05/28/2023 Time: 18:11 Bed 15 Private MD: Diagnosis: Chest pain, unspecified;Essential (primary) hypertension Presentation: 05/28 18:13 Chief complaint: Patient states: INTERMITTENT SUBSTERNAL CHEST PAIN FOR "MONTHS", SEEN bp BY CARDIOLOGY LAST WEEK. Coronavirus screen: At this time, the client does not indicate any symptoms associated with coronavirus-19. Ebola Screen: No symptoms or risks identified at this time. 18:13 Method Of Arrival: Ambulatory bp 18:13 Initial Sepsis Screen: Does the patient meet any 2 criteria? No. Patient's initial bp sepsis screen is negative. Does the patient have a suspected source of infection? No. Patient's initial sepsis screen is negative. Risk Assessment: Do you want to hurt yourself or someone else? Patient reports no desire to harm self or others. Onset of symptoms is unknown. 18:13 Acuity: JAMES 3 bp Triage Assessment: 18:13 General: Appears in no apparent distress. Behavior is cooperative, appropriate for age, bp anxious. Pain: Complains of pain in chest. Cardiovascular: Reports chest pain. Historical: - Allergies: 18:15 IV contrast; bp 18:15 Naproxen; bp - PMHx: 18:15 Aortic Stenosis; Arthritis; Congestive heart failure; Osteoporosis; bp - PSHx: 18:15 breast reduction; Cholecystectomy; Gastric Bypass; Hip replacement; knee replacement; bp Total abdominal hysterectomy; Shoulder replacement; - Immunization history:: Adult Immunizations up to date. - Social history:: Smoking status: unknown. Screenin/21 00:00 [facility] ED Fall Risk Assessment (Adult) History of falling in the last 3 months, ha1 including since admission No falls in past 3 months (0 pts) Confusion or Disorientation No (0 pts) Intoxicated or Sedated No (0 pts) Impaired Gait No (0 pts) Mobility Assist Device Used No (0 pt) Altered Elimination No (0 pt) Score/Fall Risk Level 0 - 2 = Low Risk Oriented to surroundings, Maintained a safe environment, Educated pt \\T\\ family on fall prevention, incl call for assistance when getting out of bed, Hourly rounding (assess needs \\T\\ fall precautionary measures) done. Abuse screen: Denies threats or abuse. Denies injuries from another. Nutritional screening: No deficits noted. Tuberculosis screening: No symptoms or risk factors identified. Assessment: 12 18:52 Reassessment: No changes from previously documented assessment. Patient and/or family ll1 updated on plan of care and expected duration. Pain level reassessed. 21:05 General: Appears comfortable, Behavior is calm, cooperative. Pain: Complains of pain in ha1 chest Pain does not radiate. Pain currently is 5 out of 10 on a pain scale. Quality of pain is described as pressure, Pain began gradually. Neuro: Level of Consciousness is awake, alert, obeys commands, Oriented to person, place, time, situation. Cardiovascular: Capillary refill < 3 seconds Patient's skin is warm and dry. Cardiovascular: Reports chest pain, Heart tones S1 S2 present Rhythm is sinus rhythm. Respiratory: Airway is patent Respiratory effort is even, unlabored, Respiratory pattern is regular, symmetrical. Vital Signs: 18:13 BP 139 / 63; Pulse 91; Resp 16; Temp 98; Pulse Ox 98% ; Weight 53.07 kg; Height 5 ft. 2 bp in. ; 21:00 BP 130 / 63; Pulse 71; Resp 15 S; Pulse Ox 97% on R/A; ha1 18:13 Body Mass Index 21.40 (53.07 kg, 157.48 cm) bp ED Course: 18:13 Patient arrived in ED. rg4 18:13 Arm band placed on. bp 18:16 Triage completed. bp 18:16 Senthil Sebastian DO is Attending Physician. ms3 18:52 EKG done, by ED staff, reviewed by Senthil Sebastian DO. Inserted saline lock: 20 gauge in em1 right forearm, using aseptic technique. Blood collected. 18:52 Basic Metabolic Panel Sent. em1 18:52 CBC with Diff Sent. em1 18:52 Magnesium Sent. em1 18:52 NT PRO-BNP Sent. em1 18:52 PT-INR Sent. em1 18:52 Troponin HS Sent. em1 19:00 Patient has correct armband on for positive identification. Placed in gown. Bed in low ha1 position. Call light in reach. Side rails up X 1. 19:35 XRAY Chest (1 view) In Process Unspecified. EDMS 19:50 Dave Cruz MD is Hospitalizing Provider. ms3 19:56 Acacia Small, RN is Primary Nurse. jw7 21:00 Client placed on continuous cardiac and pulse oximetry monitoring. NIBP monitoring ha1 applied. 21:00 Provided Education on: need for ADMIT . Report received from ANNA TANNER. ha1 05/29 00:00 No provider procedures requiring assistance completed. ha1 00:00 Patient admitted, IV remains in place. ha1 13:23 Patient maintains SpO2 saturation greater than 95% on room air. cm10 Administered Medications: 05/28 19:56 Drug: Aspirin PO 325 mg PO once Route: PO; jw7 Medication: 05/29 02:40 VIS not applicable for this client. ha1 Outcome: 05/28 19:50 Decision to Hospitalize by Provider. ms3 05/29 00:00 Admitted to ER Hold. [facility] ha1 Condition: stable Discharge instructions given to patient, Instructed on the need for admit, Demonstrated understanding of instructions, 13:28 Patient left the ED. cm10 Signatures: Dispatcher [employer] EDMS Sha Gracia Mercy Campbell rg4 Virgilio Talavera RN RN bp Jay Irvin RN RN 1 Senthil Sebastian DO DO ms3 Acacia Small RN RN jwGabbie Herr RN RN 1 Georgina Gracia RN RN cm10 Corrections: (The following items were deleted from the chart) 05/28 18:16 18:13 53.07 kg; Height 5 ft. 2 in.; BMI: 21.4; bp bp 18:16 18:15 PSHx: Hip replacement; bp bp 18:16 18:15 PSHx: Hip replacement; bp bp 18:16 18:15 PSHx: Hip replacement; bp bp 18:16 18:15 PSHx: Shoulder replacement; bp bp
[2023-05-28] MEDS ORDERED: ASPIRIN 325 MG TAB ONE (19:52)
--- NOTE | 2023-05-28 19:57 | RAD REPORT ---
EXAM DESCRIPTION: Gaurav Single View05/28/2023 7:33 pm CLINICAL HISTORY: Chest pain COMPARISON: November 2022 FINDINGS: The lungs appear clear of acute infiltrate. The heart is normal size IMPRESSION: No acute abnormalities displayed
[2023-05-28] MEDS ORDERED: ONDANSETRON 4 MG/2 ML VIAL IV PRN (19:58)
[2023-05-28] MEDS ORDERED: ACETAMINOPHEN 500 MG TAB PO PRN (19:58)
[2023-05-28 20:45] VITALS: BMI 21.4
[2023-05-28] MEDS ORDERED: ATORVASTATIN 40 MG TAB ONE (21:11)
[2023-05-28] MEDS ORDERED: CODEINE 30MG/APAP 300MG TAB ONE (21:12)
[2023-05-28] MEDS: CODEINE 30MG/APAP 300MG TAB PO PRN (21:40)
[2023-05-28] MEDS: ATORVASTATIN 40 MG TAB PO SCH (21:40)
[2023-05-28] MEDS: MIRTAZAPINE 15 MG TAB PO SCH (22:50)
[2023-05-29 04:28] LABS: Absolute Lymphocytes (CBC) 3.3 K/uL (0.7-4.9); Hematocrit 30.4 % (36.0-45.0); Lymphocytes % 45.3 % (15.3-44.8); MPV 7.1 fL (7.6-11.3); Platelets 297 thou/uL (152-406); RBC Red Blood Cell Count 3.81 M/uL (3.86-4.86)
[2023-05-29 04:57] LABS: Albumin 2.3 g/dL (3.4-5.0); Bilirubin Total 0.2 mg/dL (0.2-1.0); Potassium 3.8 mEq/L (3.5-5.1); Protein, Total 5.8 g/dL (6.4-8.2)
[2023-05-29] MEDS ORDERED: PNEUMOCOCCAL VACCINE 0.5 ML IMVAC ONE (08:00)
[2023-05-29] MEDS ORDERED: INFLUENZA VACCINE (for 6+ mo) 0.5 ML DOSE IMVAC ONE (08:00)
[2023-05-29] MEDS: ENOXAPARIN 40 MG/0.4 ML SQ SCH (09:00)
[2023-05-29] MEDS ORDERED: FUROSEMIDE 40 MG TABLET ONE (09:05)
[2023-05-29] MEDS ORDERED: ENOXAPARIN 40 MG/0.4 ML SQ ONE (09:05)
[2023-05-29] MEDS ORDERED: ASPIRIN EC 81 MG TAB PO ONE (09:05)
[2023-05-29] MEDS ORDERED: MAGNESIUM OXIDE 400 MG TAB ONE (09:06)
[2023-05-29] MEDS: FUROSEMIDE 40 MG TABLET PO SCH (10:06)
[2023-05-29] MEDS: ASPIRIN EC 81 MG TAB PO SCH (10:06)
[2023-05-29] MEDS: MAGNESIUM OXIDE 400 MG TAB PO SCH (10:06)
[2023-05-29] MEDS: TIZANIDINE 4 MG TABLET PO SCH (10:06)
[2023-05-29] MEDS ORDERED: CODEINE 30MG/APAP 300MG TAB ONE (11:21)
[2023-05-29] MEDS: CODEINE 30MG/APAP 300MG TAB PO PRN ×2 (11:24→21:14)
--- NOTE | 2023-05-29 12:10 | P.PN ---
Subjective Date of Service: 05/29/23 Chief Complaint: Chest Pain Pt is resting comfortably in bed. She denies any current chest pain. Cardiology is planning to do cardiac cath. Pt is NPO. No other issues overnight. Review of Systems 10-point ROS is otherwise unremarkable General: Unremarkable Eyes: Unremarkable ENT: Unremarkable Respiratory: Unremarkable Cardiovascular: Chest Pain Gastrointestinal: Unremarkable Genitourinary: Unremarkable Musculoskeletal: Unremarkable Integumentary: Unremarkable Neurological: Unremarkable Lymphatics: Unremarkable Physical Examination - Vital Signs Temperature: 97.6 F Blood Pressure: 127/62 Pulse: 67 Respirations: 16 Pulse Ox (%): 97 - Physical Exam General: Alert, In no apparent distress, Oriented x3 HEENT: Atraumatic, Normocephalic, PERRLA Neck: Supple, 2+ carotid pulse no bruit Respiratory: Clear to auscultation bilaterally, Normal air movement Cardiovascular: No edema, Normal pulses, Regular rate/rhythm, Normal S1 S2 Capillary refill: <2 Seconds Gastrointestinal: Normal bowel sounds, Soft and benign, Non-distended Musculoskeletal: No clubbing, No swelling Integumentary: No rashes, No breakdown Neurological: Normal gait, Normal speech, Normal strength at 5/5 x4 extr Lymphatics: No axilla or inguinal lymphadenopathy - Studies Laboratory Data (last 24 hrs) 05/28/23 05/28/23 05/28/23 18:47 18:47 18:47 WBC 7.70 Hgb 10.9 L Hct 34.9 L Plt Count 336 PT 10.4 INR 0.94 Sodium 143 Potassium 4.1 BUN 12 Creatinine 0.82 Glucose 80 Magnesium 2.1 Assessment And Plan - Plan Unstable Angina: Will trend troponin ( 7.6 -> 7.7 -> 6.4). Continue aspirin and statin. Will follow up lipid panel. Consulted cardiology. Will do cardiac cath. Hx of CHF: not in exacerbation. BNP is 1052. Will follow up Echo. Continue low salt diet, strict I/O and daily weight. Anxiety disorder: Continue prn ativan Hx of Aortic sclerosis/mild aortic stenosis: noted Anemia: Hgb is is 9.8. Monitor H/H. DVT ppx: SCD Discharge Plan: Home Plan to discharge in: 24 Hours - Code Status/Comfort Care Code Status Assessed: Yes
[2023-05-29] MEDS ORDERED: HEPA 1000U/500MLS 2,000 UNIT/1,000 ML BAG IV ONE (16:14)
[2023-05-29] MEDS ORDERED: LIDOCAINE 1% 20 ML MDV ONE (16:14)
[2023-05-29] MEDS ORDERED: NA CHLORIDE 0.9% 500 ML ONE (16:36)
[2023-05-29] MEDS ORDERED: HEPARIN 10,000 UNIT/10 ML VIAL IV ONE (16:54)
[2023-05-29] MEDS ORDERED: TICAGRELOR 90 MG TABLET PO ONE (16:54)
[2023-05-29] MEDS ORDERED: MIDAZOLAM HCL 2 MG/2 ML INJ ONE (16:54)
[2023-05-29] MEDS ORDERED: FENTANYL CITR 100 MCG/2 ML ONE (16:54)
[2023-05-29] MEDS ORDERED: CLOPIDOGREL 75 MG TABLET ONE (16:55)
[2023-05-29] MEDS ORDERED: METHYLPREDNISOLONE 125 MG INJ ONE (16:56)
[2023-05-29] MEDS ORDERED: DIPHENHYDRAMINE 50 MG/ML VIAL ONE (16:56)
[2023-05-29] MEDS ORDERED: NITROGLYCERIN/D5W 25 MG/250 ML BTL IV SCH (18:00)
[2023-05-29] MEDS: MIRTAZAPINE 15 MG TAB PO SCH (21:14)
[2023-05-29] MEDS: ATORVASTATIN 40 MG TAB PO SCH (21:14)
[2023-05-30 06:37] LABS: Absolute Lymphocytes (CBC) 1.6 K/uL (0.7-4.9); Hematocrit 34.7 % (36.0-45.0); Lymphocytes % 22.8 % (15.3-44.8); MCV 79.5 fL (80-100); Platelets 333 thou/uL (152-406); RBC Red Blood Cell Count 4.36 M/uL (3.86-4.86)
[2023-05-30 06:53] LABS: Potassium 3.9 mEq/L (3.5-5.1)
[2023-05-30] MEDS: CODEINE 30MG/APAP 300MG TAB PO PRN (08:00)
[2023-05-30] MEDS: MAGNESIUM OXIDE 400 MG TAB PO SCH (08:01)
[2023-05-30] MEDS: FUROSEMIDE 40 MG TABLET PO SCH (08:02)
[2023-05-30] MEDS: ASPIRIN EC 81 MG TAB PO SCH (08:03)
[2023-05-30] MEDS: ENOXAPARIN 40 MG/0.4 ML SQ SCH (08:03)
--- NOTE | 2023-05-30 08:48 | P.CNS ---
Date of Consult: 05/28/23 Reason for Consult: Chest pain Requesting Physician: Felix Kenney Primary Care Provider: Dr. Kenney Chief Complaint: Chest Pain History of Present Illness: Ms. Bellamy is a 67 yo patient with a history of dislipidemia, aortic stenosis, and congestive heart failure who presented to PCP, Dr. Kenney, with chest pain. He sent her to the ED for admission for cardiac cath. Allergies Iodine and Iodide Containing Produc Allergy (Verified 05/28/23 09:00) Hives/Rash naproxen Allergy (Verified 05/28/23 09:00) Hives/Rash Home medications list reviewed: Yes Home Medications: Mirtazapine [Remeron] 30 mg PO BEDTIME 11/16/21 Codeine/APAP [Tylenol W/Codeine #3 tab] 1 tab PO Q6HP PRN 09/11/22 Furosemide [Lasix] 40 mg PO DAILY 01/01/23 Magnesium Oxide [Mag-Oxide Magnesium] 200 mg PO DAILY 05/28/23 Tizanidine [Zanaflex] 4 mg PO DAILY 05/28/23 - Past Medical/Surgical History -: Anxiety disorder -: osteoarthritis 2009 -: recent chf -: aortic stenosis -: stomach ulcer -: hypoglycemic -: Gastric bypass surgery -: Cholecystectomy -: Hysterectomy -: Back surgery -: Hip surgery -: appendectomy -: births x2 -: left lung nodule removed in 1996 - Family History Sister Medical History: Hypertension, Diabetes, Cancer Father Medical History: Hypertension, Diabetes, Cancer Mother Medical History: Hypertension, Diabetes, Cancer Brother Medical History: Hypertension, Diabetes - Social History Smoking Status: Unknown if ever smoked Alcohol use: No CD- Drugs: No Caffeine use: Yes Place of Residence: Home Review of Systems 10-point ROS is otherwise unremarkable Cardiovascular: As per HPI Physical Examination Temp Pulse Resp BP Pulse Ox 97.0 F 66 18 124/55 L 95 05/30/23 04:00 05/30/23 08:02 05/30/23 08:00 05/30/23 08:02 05/30/23 08:00 General: Alert, In no apparent distress, Oriented x3 HEENT: Atraumatic, Normocephalic, PERRLA Neck: Supple, 2+ carotid pulse no bruit Respiratory: Clear to auscultation bilaterally Cardiovascular: No edema, Normal pulses, Regular rate/rhythm, Systolic murmur Capillary refill: <2 Seconds Gastrointestinal: Normal bowel sounds, Soft and benign, Other (mild right lower quad tenderness) Musculoskeletal: No clubbing, No swelling Integumentary: No rashes Neurological: Normal speech, Normal tone Lymphatics: No axilla or inguinal lymphadenopathy External genitalia: Deferred Rectal: Deferred - Problems (1) Hyperlipemia Current Visit: Yes Status: Acute Plan: Continue atorvastatin 40mg po q hs (2) Unstable angina Current Visit: Yes Status: Acute Plan: Cardiac cath negative for thrombus. Medical management. (3) Congestive heart failure Current Visit: Yes Status: Acute Plan: Continue lasix 40mg po daily, outpatient follow up
[2023-05-30 10:24] VITALS: O2SAT 96
[2023-05-30] MEDS: TIZANIDINE 4 MG TABLET PO SCH (10:37)
--- NOTE | 2023-05-30 12:29 | P.DS ---
Admission Date: 05/28/23 Discharge Date: 05/30/23 Primary Care Provider: Dr. Kenney Disposition: ROUTINE DISCHARGE Discharge Condition: GOOD Reason for Admission: Chest Pain Brief History of Present Illness: 67 yo female with a past medical history of hyperglycemia, anxiety, CHF, aortic stenosis who was started having chest pain for the last 2 to 3 months and has been progressively worsening and was brought to ER. Patient stated that of reason she has chest pain retrosternal with radiation to the left and also to the right jaw. Patient has been seen by early childhood teacher and was advised to come over to the ER for possible angiogram in the morning. Denies any shortness of breath. No diaphoresis. No nausea vomiting or diarrhea. At the time of interview pain is controlled well. Patient was seen in the ER and was admitted for further management of possible unstable angina Hospital Course: Pt is 67 yo female with a past medical history of hyperglycemia, anxiety, CHF, and aortic stenosis who presented with chest pain that started 2 to 3 months and progressively worsened. The chest pain was retrosternal with radiation to the left and also to the right jaw. Patient was seen by her early childhood teacher and was advised to come over to the ER for possible cardiac cath. troponin was negative x3. Cardiology did cardiac which did not show any coronary artery disease. cardiology prescribed atorvastatin and aspirin. Pt was in NAD prior to discharge. Vital Signs/Physical Exam: Temp Pulse Resp BP Pulse Ox 97.8 F 66 18 124/55 L 96 05/30/23 08:00 05/30/23 08:02 05/30/23 08:00 05/30/23 08:02 05/30/23 08:00 Laboratory Data at Discharge: WBC 7.00 thou/uL (4.3-10.9) 05/30/23 06:25 Hgb 11.0 g/dL (12.0-15.0) L D 05/30/23 06:25 Hct 34.7 % (36.0-45.0) L 05/30/23 06:25 Plt Count 333 thou/uL (152-406) 05/30/23 06:25 PT 10.4 SECONDS (9.5-12.5) 05/28/23 18:47 INR 0.94 05/28/23 18:47 Sodium 140 mEq/L (136-145) 05/30/23 06:25 Potassium 3.9 mEq/L (3.5-5.1) 05/30/23 06:25 BUN 14 mg/dL (7-18) 05/30/23 06:25 Creatinine 0.38 mg/dL (0.55-1.02) L 05/30/23 06:25 Glucose 125 mg/dL (74-106) H 05/30/23 06:25 Magnesium 2.1 mg/dL (1.6-2.4) 05/28/23 18:47 Total Bilirubin 0.2 mg/dL (0.2-1.0) 05/29/23 04:01 AST 22 U/L (15-37) 05/29/23 04:01 ALT 22 U/L (13-56) 05/29/23 04:01 Alkaline Phosphatase 142 U/L (45-117) H 05/29/23 04:01 Triglycerides 97 mg/dL (<150) 05/29/23 04:01 Cholesterol 112 mg/dL (<200) 05/29/23 04:01 HDL Cholesterol 45 mg/dL (40-60) 05/29/23 04:01 Cholesterol/HDL Ratio 2.49 05/29/23 04:01 Home Medications: Mirtazapine [Remeron] 30 mg PO BEDTIME 11/16/21 Codeine/APAP [Tylenol #3*] 1 tab PO Q6HP PRN 09/11/22 Furosemide [Lasix] 40 mg PO DAILY 01/01/23 Magnesium Oxide [Mag-Oxide Magnesium] 200 mg PO DAILY 05/28/23 Tizanidine [Zanaflex*] 4 mg PO DAILY 05/28/23 Aspirin [Aspirin EC] 81 mg PO DAILY 90 Days #90 tab 05/30/23 Atorvastatin Calcium [Lipitor] 40 mg PO BEDTIME 90 Days #90 tab 05/30/23 New Medications: Aspirin [Aspirin EC] 81 mg PO DAILY 90 Days #90 tab Atorvastatin Calcium [Lipitor] 40 mg PO BEDTIME 90 Days #90 tab Physician Discharge Instructions: Continue ad erika activity. Take atorvastatin and aspirin. Follow up with PCP within 1 week. Diet: AHA Activity: Ad erika Followup: Ke Chiang MD [Primary Care Provider] - Ata Santana MD [ACTIVE - CAN ADMIT] -
[2023-05-30 12:59] VITALS: BP 114/54; TEMP 97.5
--- NOTE | 2023-05-30 15:12 | EKG ---
Test Date: 2023-05-28 Test Time: 18:31:42 [place]illing Supervisor: ARIN MEASUREMENT RESULTS: Intervals: Rate: 79 [place]: 140 QRSD: 78 QT: 394 QTc: 451 [place]: P: 76 [place]: 140 QRS: 52 T: 61 INTERPRETIVE STATEMENTS: Normal sinus rhythm Low voltage QRS Borderline ECG Compared to ECG 05/28/2023 10:07:55 Atrial premature complex(es) no longer present ST (T wave) deviation no longer present Electronically Signed On 05-30-23 15:09:06 [employer] by Ata Santana
== END 2023-05-30 13:34 | disposition home or self-care (01) ==
LOC: ER 18:11 → ERHOLD 20:12 → 4TH 05-29 12:05
PROVIDERS: ADMIT Family Medicine; ATTEND Hospitalist
DX: I20.0 Unstable angina (principal); R73.9 Hyperglycemia, unspecified; F41.9 Anxiety disorder, unspecified; I50.9 Heart failure, unspecified; I35.0 Nonrheumatic aortic (valve) stenosis; F17.210 Nicotine dependence, cigarettes, uncomplicated; D64.9 Anemia, unspecified; E78.5 Hyperlipidemia, unspecified; Z91.09 Other allergy status, other than to drugs and biological substances; Z88.8 Allergy status to other drugs, medicaments and biological substances
CPT/HCPCS: 93005; 85025 ×3; 80048 ×2; 36415 ×2; 83735; 85610; 80061; 82947; 84484 ×4; 80053; 83880; 71045; 93458; 76937; 99285; C1893; Q9966; C1760; J2001; J1200; J1650 ×2; J2250; J3010; J2930; J7040; 99152; 99153; G0378